=== PATIENT | male | born 1950 | race Caucasian/White ===

== ENCOUNTER 2019-03-17 16:31 | Inpatient (IN) ==
[2019-03-17 17:14] LABS: Basophils # (auto) 0.08 K/uL (0-0.2); Basophils % (auto) 0.8 %; Eosinophils # (auto) 0.04 K/uL (0-0.5); Eosinophils % (auto) 0.4 %; Hematocrit (blood only) 41.6 % (42-52); Hemoglobin 15.7 g/dL (14.0-18.0); Immature Granulocytes # (auto) 0.07 K/uL (0.00-0.02); Immature Granulocytes % (auto) 0.7 %; Lymphocytes # (auto) 2.18 K/uL (1.2-3.4); Lymphocytes % (auto) 23.1 %; Mean Corpuscular Hemoglobin 36.2 pg (25-34); Mean Corpuscular Hgb Conc 37.7 g/dL (32-36); Mean Corpuscular Volume 95.9 fL (80-100); Mean Platelet Volume 11.1 fL (7.4-10.4); Monocytes # (auto) 0.43 K/uL (0.11-0.59); Monocytes % (auto) 4.6 %; Neutrophils # (auto) 6.64 K/uL (1.4-6.5); Neutrophils % (auto) 70.4 %; Nucleated RBC # (auto) 0.04 K/uL (0-0); Nucleated RBC % (auto) 0.4 %; Platelet Count 300 K/uL (130-400); RDW Coefficient of Variation 12.2 % (11.5-14.5); RDW Standard Deviation 42.7 fL (36.4-46.3); Red Blood Count 4.34 M/uL (4.7-6.1); White Blood Count 9.44 K/uL (4.8-10.8)
[2019-03-17 17:50] LABS: Albumin Globulin Ratio 0.9 (0.9-2); BUN Creatinine Ratio 14.4 (10-20); Bilirubin,Total 0.9 mg/dl (0.2-1); Calcium 9.8 mg/dl (8.5-10.1); Est GFR (Non-African American) 49.2; Globulin 4.4 gm/dl (2.5-4.0); Total Protein 8.4 gm/dl (6.4-8.2)
[2019-03-17 18:06] LABS: Potassium 4.7 mmol/L (3.5-5.1)
[2019-03-17] MEDS ORDERED: SODIUM CHLORIDE 0.9% 1000ML 1,000 ML IV ONE (18:14)
[2019-03-17] MEDS ORDERED: NovoLIN-R INSULIN PER UNIT CHARGE IV STA (18:14)
[2019-03-17] MEDS ORDERED: METFORMIN HCL 500 MG TAB PO STA (18:14)
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
[2019-03-17 18:19] LABS: Beta-Hydroxybutyrate 8.61 mg/dl (0.2-2.81)
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
[2019-03-17] MEDS ORDERED: THIAMINE HCL 200 MG in SODIUM CHLORIDE 0.9% 50 ML IV STA (20:21)
[2019-03-17] MEDS ORDERED: FAMOTIDINE 20MG/5ML IV PUSH IV ONE (20:42)
[2019-03-17] MEDS ORDERED: FAMOTIDINE 20MG/5ML IV PUSH IV STA (20:42)
[2019-03-17] MEDS ORDERED: ACETAMINOPHEN 325 MG TAB PO PRN (21:45)
[2019-03-17] MEDS ORDERED: ALUMINUM/MAGNESIUM SUSP 30 ML UDC PO PRN (21:45)
[2019-03-17] MEDS ORDERED: GLUCOSE 40% GEL 15 GM TUBE PO PRN (21:45)
[2019-03-17] MEDS ORDERED: POLYETHYLENE (MIRALAX) 17 GM PACK PO PRN (21:45)
[2019-03-17] MEDS ORDERED: CARBOHYDRATES FOR HYPOGLYCEMIA PO PRN (21:45)
[2019-03-17] MEDS ORDERED: INSULIN GLARGINE SOLOSTAR 100 UNITS/ML 3 ML PEN SC STA (21:45)
[2019-03-17] MEDS ORDERED: MAGNESIUM HYDROXIDE SUSP 30 ML UDC PO PRN (21:45)
[2019-03-17] MEDS ORDERED: GLUCOSE 10 TABS/TUBE PO PRN (21:45)
[2019-03-17] MEDS ORDERED: ONDANSETRON INJ 2 MG/ML 2 ML VIAL IV PRN (21:45)
[2019-03-17] MEDS ORDERED: SODIUM CHLORIDE 0.9% 500 ML IV SCH (21:45)
[2019-03-17] MEDS ORDERED: GLUCAGON FOR INJ 1 MG VIAL SQ PRN (21:45)
[2019-03-17] MEDS ORDERED: DEXTROSE 50% 50 ML SYRINGE IV PRN (21:45)
[2019-03-17] MEDS ORDERED: PHARMACY GLYCEMIC MGMT CONSULT PRN (22:09)
[2019-03-17] MEDS ORDERED: INSULIN PROTOCOL GOAL RANGE STA (22:10)
[2019-03-17] MEDS ORDERED: MODERATE STRESS LEVEL STA (22:11)
[2019-03-17 22:26] LABS: Appearance Urine Clear (Clear); Bacteria Urine Automated Negative (Negative); Bilirubin Urine Negative (Negative); Blood Urine Negative (Negative); Cast Urine Automated 0 /lpf (0-5); Color Urine Yellow; Epithelial Cell Urine Auto 0-5 /lpf (0-5); Glucose Urine UA 3+ (Negative); Ketones Urine 1+ (Negative); Leukocyte Esterase Urine Negative (Negative); Nitrite Urine Negative (Negative); Protein Urine 1+ (Negative); RBC Urine Automated 0-4 /hpf (0-4); Specific Gravity Urine 1.039 (1.000-1.030); Urobilinogen Urine Negative (Negative); pH Urine 5.5 (4.5-7.5)
[2019-03-17] MEDS ORDERED: INSULIN HUMAN REGULAR IV BOLUS 3 UNITS in SYRINGE 0 ML IV ONE (22:40)
[2019-03-17] MEDS ORDERED: INSULIN REGULAR 250 UNITS in SODIUM CHLORIDE 0.9% 247.5 ML IV SCH (22:45)
[2019-03-17 22:51] LABS: Amphetamines+Metham, Urine Neg (Neg); Barbiturates, Urine Neg (Neg); Benzodiazepine, Urine Neg (Neg); Cocaine, Urine Neg (Neg); MDMA (Ecstacy), Urine Neg (Neg); Methadone, Urine Neg (Neg); Opiate, Urine Neg (Neg); Phencyclidine, Urine Neg (Neg)
[2019-03-17] MEDS: POTASSIUM CHLORIDE 30 MEQ in SODIUM CHLORIDE 0.9% 1000ML 1,000 ML IV SCH (23:17)
[2019-03-17] MEDS: INSULIN ASPART 100 UNITS/ML 3 ML PEN SC SCH (23:50)
[2019-03-17] MEDS: SIMVASTATIN 20 MG TAB PO SCH (23:54)
--- NOTE | 2019-03-18 00:12 | Billing Data ---
Date of Service March 17, 2019 Coding Level of Care Code 45859 Initial Inpt Care Lvl 3
[2019-03-18 06:26] LABS: Estimated Average Glucose 286 mg/dl; Hemoglobin A1C 11.6 % (4.5-5.6)
[2019-03-18] MEDS: POTASSIUM CHLORIDE 30 MEQ in SODIUM CHLORIDE 0.9% 1000ML 1,000 ML IV SCH ×2 (07:12→15:36)
[2019-03-18] MEDS: TOPIRAMATE 50 MG TAB PO SCH (08:25)
[2019-03-18] MEDS: INSULIN ASPART 100 UNITS/ML 3 ML PEN SC SCH ×6 (08:25→23:31)
[2019-03-18] MEDS: ASPIRIN 81 MG ECTAB PO SCH (08:25)
[2019-03-18] MEDS: lisinopriL 5 MG TAB PO SCH (08:26)
[2019-03-18] MEDS ORDERED: INSULIN GLARGINE SOLOSTAR 100 UNITS/ML 3 ML PEN SC ONE (09:00)
[2019-03-18 11:42] LABS: Basophils # (auto) 0.05 K/uL (0-0.2); Basophils % (auto) 0.5 %; Eosinophils # (auto) 0.11 K/uL (0-0.5); Hematocrit (blood only) 37.4 % (42-52); Hemoglobin 13.7 g/dL (14.0-18.0); Immature Granulocytes # (auto) 0.06 K/uL (0.00-0.02); Immature Granulocytes % (auto) 0.6 %; Lymphocytes # (auto) 3.02 K/uL (1.2-3.4); Lymphocytes % (auto) 28.1 %; Mean Corpuscular Hemoglobin 35.6 pg (25-34); Mean Corpuscular Hgb Conc 36.6 g/dL (32-36); Mean Corpuscular Volume 97.1 fL (80-100); Mean Platelet Volume 10.6 fL (7.4-10.4); Monocytes # (auto) 0.74 K/uL (0.11-0.59); Monocytes % (auto) 6.9 %; Neutrophils # (auto) 6.75 K/uL (1.4-6.5); Neutrophils % (auto) 62.9 %; Nucleated RBC # (auto) 0.03 K/uL (0-0); Nucleated RBC % (auto) 0.3 %; Platelet Count 271 K/uL (130-400); RDW Coefficient of Variation 12.7 % (11.5-14.5); RDW Standard Deviation 44.6 fL (36.4-46.3); Red Blood Count 3.85 M/uL (4.7-6.1); White Blood Count 10.73 K/uL (4.8-10.8)
--- NOTE | 2019-03-18 11:44 | XRay Report ---
XR chest 1V portable HISTORY: 68 years-old Male fever, confusion, r/o PNA acute fever with confusion COMPARISON: None available TECHNIQUE: Portable AP view of the chest FINDINGS: Cardiac silhouette is upper limits of normal in size. There is no pneumothorax, pleural effusion or f ocal airspace consolidation typical for pneumonia. Degenerative changes of the shoulders and spine. IMPRESSION: No acute process. ACT 112: Negative or not required by law. The above report was generated using voice recognition software. It may contain grammatical, syntax o r spelling errors. Electronically signed by: Imtiaz Voss M.D. 03/18/2019 11:43 AM
[2019-03-18 12:01] LABS: BUN Creatinine Ratio 17.6 (10-20); Calcium 8.7 mg/dl (8.5-10.1); Est GFR (African American) 71.1; Est GFR (Non-African American) 61.3; Potassium 4.1 mmol/L (3.5-5.1)
[2019-03-18 12:11] LABS: Folate (Folic Acid) > 24.00 ng/ml (>5.38); Vitamin B12 1537 pg/ml (211-911)
[2019-03-18 12:11] LABS: Thyroid Stimulating Hormone 1.84 uIu/ml (0.300-4.500)
--- NOTE | 2019-03-18 14:00 | Pharmacy Report ---
Glycemic Control Consultation - Date of Service March 18, 2019 - Scope Scope: Glycemic Pharmacist consulted by Dr Landaverde on 03/18/2019 for glycemic control and to write orders per formerly [facility] inpatient glycemic control protocol - Objective Weight: 110.1 kg Accuchecks BSG (last 24hrs): 03/17/19 03/17/19 03/17/19 17:00 19:28 21:48 Glucose 595 H* POC Glucose 373 H* 403 H* 03/17/19 03/17/19 03/18/19 21:49 23:18 00:20 Glucose POC Glucose 379 H* 393 H* 325 H* 03/18/19 03/18/19 03/18/19 01:20 02:27 03:21 Glucose POC Glucose 282 H 243 H 217 H 03/18/19 03/18/19 03/18/19 04:27 05:21 06:22 Glucose POC Glucose 165 H 172 H 138 H 03/18/19 03/18/19 03/18/19 07:32 08:46 08:47 Glucose POC Glucose 143 H 394 H* 295 H 03/18/19 03/18/19 03/18/19 08:48 09:39 10:45 Glucose POC Glucose 271 H 244 H 179 H 03/18/19 03/18/19 03/18/19 11:08 11:27 11:50 Glucose 202 H POC Glucose 189 H 214 H 03/18/19 03/18/19 12:38 13:45 Glucose POC Glucose 236 H 283 H Laboratory Data (last 24hrs): 03/17/19 03/18/19 17:00 11:08 Potassium 4.7 4.1 Carbon Dioxide 22 24 Anion Gap 13.0 H 6.0 Creatinine 1.44 H 1.20 Est Cr Clr Drug Dosing 60.0 71.0 Beta-Hydroxybutyric Acd 8.61 H HbA1c: Hemoglobin A1c 11.6 % (4.5-5.6) H 03/17/19 17:00 - Recent Pertinent Medications Outpatient Anti-diabetic Regimen: * metformin 1 gm PO BID (non-compliant x several months) The patient is currently receiving: * Basal insulin: Lantus 20 units SQ x 1 * Correctional Insulin: Novolog Correction per scale ACHS Goal Range: Low -- mg/dL - High -- mg/dL Correction Factor: -- mg/dL/unit * Prandial insulin: Per carb ratio of 1 unit per 7 grams CHO consumed * Insulin infusion Risk Factors for Insulin Resistance: * Diet: T2DM - Assessment & Plan Assessment & Plan: ASSESSMENT: * Mr Mccoy is a 68 y/o M with T2DM who presents with confusion. The patient admits to not taking his medications for some months. HbA1C is elevated. Patient initially started on insulin infusion. He received 10 units of Lantus last night. * Will aim for weight-based stress of 2 Lantus for now with weight-based stress of 2 Novolog. Gave 20 units this morning then plan for 20 units SQ BID starting at dinner. * Overnight checks. PLAN FOR INPATIENT GLYCEMIC CONTROL: * Holding outpatient oral diabetes medications * Basal insulin * Lantus 20 units SQ BID * Bolus insulin * NovoLog per scale ACHS or Q6hrs while NPO * Goal Range: Low 110 mg/dL - High 140 mg/dL * Correction Factor: 20 mg/dL/unit * Nutritional / Prandial insulin per carb ratio of 1 unit per 7 grams CHO consumed * Please note that the plan above was derived based on current level of insulin resistance and hospital stress. These recommendations are appropriate for inpatient admission only. Plan of care upon discharge will need to be reassessed to avoid potential outpatient hypo/hyperglycemia. Thank you.
[2019-03-18] MEDS ORDERED: INSULIN GLARGINE SOLOSTAR 100 UNITS/ML 3 ML PEN SC SCH (17:00)
[2019-03-18] MEDS ORDERED: DC IV INSULIN INFUSION 1 EA DEVI ONE (17:00)
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
[2019-03-18] MEDS: SIMVASTATIN 20 MG TAB PO SCH (21:06)
[2019-03-19] MEDS: INSULIN ASPART 100 UNITS/ML 3 ML PEN SC SCH ×4 (03:46→20:40)
[2019-03-19 06:29] LABS: BUN Creatinine Ratio 19.9 (10-20); Calcium 8.5 mg/dl (8.5-10.1); Creatinine Clr Calc Pharmacy 73.5 ml/min; Est GFR (African American) 74.1; Est GFR (Non-African American) 63.9; Potassium 4.2 mmol/L (3.5-5.1)
[2019-03-19] MEDS ORDERED: INSULIN GLARGINE SOLOSTAR 100 UNITS/ML 3 ML PEN SC ONE (08:30)
[2019-03-19] MEDS: lisinopriL 5 MG TAB PO SCH (08:44)
[2019-03-19] MEDS: ASPIRIN 81 MG ECTAB PO SCH (08:44)
[2019-03-19] MEDS: TOPIRAMATE 50 MG TAB PO SCH (08:44)
[2019-03-19] MEDS: ENOXAPARIN INJ 40 MG/0.4 ML SYR SQ SCH (10:24)
[2019-03-19] MEDS: INSULIN HUMAN REGULAR PER UNIT 10 UNITS in SYRINGE 9.9 ML IV ONE ×2 (12:52→14:33)
[2019-03-19] MEDS ORDERED: INSULIN ASPART 100 UNITS/ML 3 ML PEN SC SCH ×2 (15:00→17:00)
--- NOTE | 2019-03-19 15:50 | Pharmacy Report ---
Pharmacy Glycemic Short Note 2 - Date of Service March 19, 2019 - Glycemic Short BSG Results (Last 24 hours): 03/18/19 03/18/19 03/18/19 15:36 16:42 17:52 Glucose POC Glucose 284 H 282 H 284 H 03/18/19 03/18/19 03/18/19 19:52 19:53 23:27 Glucose POC Glucose 312 H* 312 H* 271 H 03/19/19 03/19/19 03/19/19 03:44 05:19 08:03 Glucose 219 H POC Glucose 214 H 298 H 03/19/19 03/19/19 11:48 13:59 Glucose POC Glucose 361 H* 325 H* OUTPATIENT ANTIDIABETIC REGIMEN: * metformin 1 gm PO BID (non-compliant x several months) ASSESSMENT: * Mr. Mccoy received 79 units of SQ insulin yesterday plus overlap with IV insulin infusion for the majority of the day * 40 units of basal * 39 units of bolus * BSGs have ranged from 214 - 361 mg/dL since infusion was stopped despite aggressive SQ insulin doses * Fasting BSG = 298 mg/dL. Increase Lantus dose to weight/stress 3. * Post prandial BSGs remain severely elevated despite tightening Novolog parameters to stress/weight 3 this morning. I had ordered an IV regular insulin bolus to be given with lunch, however patient refused IV access. Discussed plan with Hospitalist per patient is insisting on being discharged. * Will utilize q2h Novolog short term in an attempt to achieve BSG < 200 mg/dL. PLAN FOR INPATIENT GLYCEMIC CONTROL: * Resume metformin 1000 mg PO BID * Basal insulin * Lantus 10-28 units SQ BID: * 10 units for BSG < 140 * 20 units for BSG 140-180 * 28 units for BSG > 180 * Bolus insulin- NovoLog * Goal Range: Low 120 mg/dL - High 150 mg/dL * Administer q2h x 3 (1300,1500,1700) * Correction Factor: 24 mg/dL/unit * Nutritional / Prandial insulin per carb ratio of 1 unit per 4 grams CHO consumed * Resume Novolog ACHS @ 2100 * Correction Factor: 15 mg/dL/unit * Nutritional / Prandial insulin per carb ratio of 1 unit per 4 grams CHO consumed * Please note that the plan above was derived based on current level of insulin resistance and hospital stress. These recommendations are appropriate for inpatient admission only. Plan of care upon discharge will need to be reassessed to avoid potential outpatient hypo/hyperglycemia. PLAN FOR DISCHARGE: * A1c = 11.6% * Patient is agreeable to metformin + basal + bolus insulin on discharge * It is difficult to determine outpatient needs at this time per patient has received 84 units of insulin so far today and last BSG was > 250. If patient insists on being discharged on 03/19, I recommend the following: * Continue metformin 1000 mg PO BID * Lantus 60 units SQ daily * Novolog 12 units TID with meals (plus scale for correction if pt agreeable) Thank you.
[2019-03-19] MEDS ORDERED: METFORMIN HCL 500 MG TAB PO SCH (17:00)
--- NOTE | 2019-03-19 17:53 | Electrocardiogram Report ---
Test Reason : Blood Pressure : / mmHG Vent. Rate : 077 BPM Atrial Rate : 077 BPM P-R Int : 310 ms QRS Dur : 088 ms QT Int : 382 ms P-R-T Axes : 052 -47 032 degrees QTc Int : 432 ms Sinus rhythm with 1st degree A-V block Left anterior fascicular block Poor R wave progression, consider anterior FL vs. lead placement vs. LVH Abnormal ECG When compared with ECG of 17-MAR-2019 16:39, (unconfirmed) No significant change was found Confirmed by Deonte Parra ([id number]) on 03/19/2019 5:53:22 PM Referred By: REFERRED SELF Confirmed By:Casey Parra
--- NOTE | 2019-03-19 17:58 | Electrocardiogram Report ---
Test Reason : Blood Pressure : / mmHG Vent. Rate : 089 BPM Atrial Rate : 089 BPM P-R Int : 296 ms QRS Dur : 088 ms QT Int : 364 ms P-R-T Axes : 000 -51 050 degrees QTc Int : 442 ms Sinus rhythm with Mobitz I (Wenckebach) block Left anterior fascicular block Abnormal ECG No previous ECGs available Reconfirmed by Deonte Parra ([id number]) on 03/21/2019 12:53:08 PM Referred By: REFERRED SELF Confirmed By:Casey Parra
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
[2019-03-19] MEDS: SIMVASTATIN 20 MG TAB PO SCH (20:38)
[2019-03-19] MEDS ORDERED: INSULIN GLARGINE SOLOSTAR 100 UNITS/ML 3 ML PEN SC SCH (21:00)
[2019-03-20 08:19] LABS: BUN Creatinine Ratio 18.7 (10-20); Calcium 8.3 mg/dl (8.5-10.1); Creatinine Clr Calc Pharmacy 72.2 ml/min; Est GFR (African American) 71.1; Est GFR (Non-African American) 61.3; Magnesium 2.2 mg/dl (1.8-2.4); Potassium 4.1 mmol/L (3.5-5.1)
[2019-03-20] MEDS: lisinopriL 5 MG TAB PO SCH (08:19)
[2019-03-20] MEDS: TOPIRAMATE 50 MG TAB PO SCH (08:19)
[2019-03-20] MEDS: ASPIRIN 81 MG ECTAB PO SCH (08:19)
[2019-03-20] MEDS: ENOXAPARIN INJ 40 MG/0.4 ML SYR SQ SCH (08:19)
[2019-03-20] MEDS: INSULIN ASPART 100 UNITS/ML 3 ML PEN SC SCH ×3 (08:20→17:36)
[2019-03-20] MEDS ORDERED: INSULIN GLARGINE SOLOSTAR 100 UNITS/ML 3 ML PEN SC ONE ×2 (09:00→21:00)
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
--- NOTE | 2019-03-20 16:07 | XCELERA ---
[id number] \\[id number]
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
[2019-03-21] MEDS ORDERED: INSULIN ASPART 100 UNITS/ML 3 ML PEN SC ONE (02:00)
== END 2019-03-20 18:36 | disposition home or self-care (01) | DRG 637 ==
LOC: ED 16:31 → SUATTDRO 20:15 → 2W 20:15 → 3N 03-18 23:00 → 2W 03-19 18:54

== ENCOUNTER 2020-12-03 19:15 | Inpatient (IN) ==
[2020-12-03] MEDS ORDERED: STAT IV Infusion **Titration per Protocol STA ×2 (19:23→22:38)
[2020-12-03] MEDS ORDERED: DKA GOAL RANGE 150-250 mg/dl ONE (19:23)
[2020-12-03] MEDS ORDERED: SODIUM CHLORIDE 0.9% 1000ML 1,000 ML IV SCH (19:30)
[2020-12-03] MEDS ORDERED: INSULIN REGULAR 250 UNITS in SODIUM CHLORIDE 0.9% 247.5 ML IV SCH (19:30)
--- NOTE | 2020-12-03 19:36 | Emergency Department Note ---
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 Repeat BMP demonstrates a sodium 132. Carbon dioxide is 19 with an anion gap of 12. Creatinine is improved at 1.8. Blood sugar is 455. I did discuss the case with the hospitalist and manager of case management for further care and evaluation. I was able to speak to his daughter Ngozi Mccoy over the phone. She stated that the patient has been noncompliant with his medications for months. She was trying to take care of him but she he kicked her out of the house November 19. She has been trying to reach him over the telephone for the past several days and has been unable to reach him. He is noncompliant with his medications becau se he is stubborn. He is also depressed and refuses to take his depression medication. At the request of his daughter I did speak to Benita, his ykokln-wz-kla who is a PA at [employer], and she stated that he has a history of intermittently being noncompliant with medications. She states that he has exp ressed that he does not care if he lives or dies and therefore does not take care of himself but he has never professed any active suicidal ideation. She does not feel that he needs a 302 at this point based on the information that we have here and that likely his predicament is from his medication noncompliance rather than any sort of suicide attempt. She does state that he has had no advance directives and so he is a full code. The family has no opposition to placing him on a ventilator should he require it. Once he is more coherent he will benefit from psychiatric consultation as well as discussion with physicians and social work regarding advanced directives. Impression & Plan DKA (diabetic ketoacidosis), Acute alteration in mental status, ROYAL (acute kidney injury), Noncompliance with medications Discharge Plan Visit Data Chief Complaint: Altered Mental Status Stated Complaint: AMS ED Provider: Jeb Atkinson Discharge Problem: DKA (diabetic ketoacidosis), Acute alteration in mental status, ROYAL (acute kidney injury), Noncompliance with medications Patient Disposition: Being Evaluated by Hospitalist Forms Stand Alone Forms: [facility] [employer] Prescriptions Prescriptions: No Action dextroamphetamine-amphetamine [Adderall] 30 mg tablet 30 mg PO BID RF: 0 atorvastatin 20 mg tablet 20 mg PO DAILY RF: 0 (DME) lancets [Accu-Chek Fastclix Lancet Drum] Misc See Rx Instructions .ROUTE .MEDSUPPLY RF: 0 Novolin N NPH U-100 Insulin 100 unit/mL suspension 18 unit subcut BID RF: 0 Novolin R Regular U-100 Insuln 100 unit/mL solution 14 unit subcut TID RF: 0 (DME) insulin syringe-needle U-100 [BD Insulin Syringe Ultra-Fine] 0.5 mL 31 gauge x 5/16" syringe See Rx Instructions .ROUTE .MEDSUPPLY Qty: 10 RF: 0 tadalafil [Cialis] 10 mg tablet 10 mg PO DAILY PRN (Reason: Sexual Activity) RF: 0 (DME) Accu-Chek Guide test strips Strip See Rx Instructions .ROUTE .MEDSUPPLY RF: 0 (DME) FreeStyle Marta 2 Sensor Kit See Rx Instructions .ROUTE .MEDSUPPLY Qty: 1 RF: 12 aspirin 81 mg Tablet,Delayed Release (Dr/Ec) 81 mg PO DAILY RF: 0 lisinopril 5 mg tablet 5 mg PO DAILY Qty: 30 RF: 0 metformin 500 mg tablet extended release 24 hr 1,000 mg PO BID Qty: 120 RF: 0 topiramate 50 mg tablet 50 mg PO DAILY Qty: 30 RF: 0 Referrals Referrals: Lillie Ramsay DO [Primary Care Provider] - Discharge Problem: DKA (diabetic ketoacidosis) Qualifiers: Diabetes mellitus type: other specified (including GINGER) Diabetes mellitus complication detail: without coma Qualified Code(s): E13.10 - Other specified diabetes mellitus with ketoacidosis without coma
[2020-12-03] MEDS ORDERED: NovoLIN-R INSULIN PER UNIT CHARGE IV STA (19:37)
[2020-12-03 19:39] LABS: Basophils # (auto) 0.03 K/uL (0-0.2); Basophils % (auto) 0.2 %; Eosinophils # (auto) 0.01 K/uL (0-0.5); Eosinophils % (auto) 0.1 %; Hematocrit (blood only) 39.4 % (42-52); Hemoglobin 14.2 g/dL (14.0-18.0); Immature Granulocytes % (auto) 0.7 %; Lymphocytes # (auto) 1.52 K/uL (1.2-3.4); Mean Corpuscular Hemoglobin 35.4 pg (25-34); Mean Corpuscular Volume 98.3 fL (80-100); Mean Platelet Volume 11.2 fL (7.4-10.4); Monocytes # (auto) 0.65 K/uL (0.11-0.59); Monocytes % (auto) 4.3 %; Neutrophils # (auto) 12.84 K/uL (1.4-6.5); Neutrophils % (auto) 84.7 %; Nucleated RBC # (auto) 0.02 K/uL (0-0); Nucleated RBC % (auto) 0.1 %; Platelet Count 305 K/uL (130-400); RDW Coefficient of Variation 12.3 % (11.5-14.5); Red Blood Count 4.01 M/uL (4.7-6.1); White Blood Count 15.15 K/uL (4.8-10.8)
--- NOTE | 2020-12-03 20:16 | CT Scan Report ---
CT OF THE HEAD WITHOUT CONTRAST CLINICAL HISTORY: Altered mental status. Evaluate for bleed. COMPARISON STUDY: Head CT March 17, 2019. TECHNIQUE: Helical axial images of the head were obtained without IV contrast. Automated exposure con trol was utilized for the study. A dose lowering technique was utilized adhering to the principles o f ALARA. FINDINGS: This exam is compromised by motion artifact. No acute intracranial hemorrhage, midline shif t or mass effect is present. The ventricular system is stable. The basal cisterns are patent. No extr a-axial collections are present. There are no findings to suggest acute dural sinus thrombosis or acu te territorial infarct. No significant calvarial abnormalities are present. Visualized portions of th e sinuses and mastoid air cells are clear. IMPRESSION: Exam compromised by motion artifact. No acute intracranial findings. No significant machuca e since prior exam. ACT 112: Negative or not required by law. Electronically signed by: Lico Morales M.D. 12/03/2020 8:15 PM
--- NOTE | 2020-12-03 20:20 | CT Scan Report ---
CT OF THE CERVICAL SPINE WITHOUT CONTRAST CLINICAL HISTORY: Possible fall. Altered mental status. Evaluate for fracture. COMPARISON STUDY: No previous studies for comparison. TECHNIQUE: Helical axial images of the cervical spine were obtained without IV contrast. Sagittal a nd coronal reconstructions were viewed. Automated exposure control was utilized for the study. A do se lowering technique was utilized adhering to the principles of ALARA. FINDINGS: This exam is mildly compromised by motion artifact. Alignment of the cervical spine is louis omic. Vertebral body heights are maintained. No acute cervical spine fracture or subluxation is prese nt. There is no prevertebral edema. Facet joints are intact. There is severe multilevel facet arthro sis. Note is made of moderate disc space narrowing with osteophyte ptosis at C5-C6. IMPRESSION: No acute cervical spine fracture or subluxation. Exam mildly compromised by motion artifa ct. ACT 112: Negative or not required by law. Electronically signed by: Lico Morales M.D. 12/03/2020 8:19 PM
[2020-12-03 20:25] LABS: Alanine Aminotransferase 31 U/L (12-78); Albumin Level 3.4 gm/dl (3.4-5.0); Aspartate Aminotransferase 21 U/L (15-37); BUN Creatinine Ratio 16.1 (10-20); Bilirubin,Total 0.8 mg/dl (0.2-1); Blood Urea Nitrogen 32 mg/dl (7-18); Calcium 9.5 mg/dl (8.5-10.1); Carbon Dioxide 20 mmol/L (21-32); Chloride 93 mmol/L (98-107); Creatine Kinase 91 U/L (39-308); Est GFR (African American) 38.7 ml/min; Est GFR (Non-African American) 33.4 ml/min; Glucose 793 mg/dl (70-99); Magnesium 1.9 mg/dl (1.8-2.4); Phosphorus 3.7 mg/dl (2.5-4.9); Potassium 4.6 mmol/L (3.5-5.1); Sodium 126 mmol/L (136-145); Total Protein 7.3 gm/dl (6.4-8.2); Troponin I < 0.015 ng/ml (0-0.045)
[2020-12-03 20:26] LABS: Alkaline Phosphatase 83 U/L (45-117); Globulin 3.9 gm/dl (2.5-4.0)
[2020-12-03 20:27] LABS: Albumin Globulin Ratio 0.9 (0.9-2)
[2020-12-03 20:44] LABS: HCO3 ABG 21 mmol/L (19-24); Oxygen Saturation ABG 97.5 % (90-95); PCO2 ABG 35 mmHg (35-46); PO2 ABG 98 mmHg (80-95)
[2020-12-03] MEDS ORDERED: GLUCAGON FOR INJ 1 MG VIAL IM PRN (20:45)
[2020-12-03] MEDS ORDERED: DEXTROSE 50% 50 ML SYRINGE IV PRN (20:45)
[2020-12-03] MEDS ORDERED: GLUCOSE 40% GEL 15 GM TUBE PO PRN (20:45)
[2020-12-03] MEDS ORDERED: CARBOHYDRATES FOR HYPOGLYCEMIA PO PRN (20:45)
[2020-12-03] MEDS ORDERED: GLUCOSE 10 TABS/TUBE PO PRN (20:45)
--- NOTE | 2020-12-03 20:49 | XRay Report ---
XR elbow LT min 3V routine CLINICAL HISTORY: Left elbow pain following injury. Evaluate for fracture. COMPARISON: None FINDINGS: Alignment of the left elbow is anatomic. Note is made of soft tissue swelling overlying th e olecranon. No acute fracture is present. There is no evidence for joint effusion. IMPRESSION: 1. No acute fracture or evidence for a joint effusion of the left elbow. 2. Soft tissue swelling overlying the olecranon. ACT 112: Negative or not required by law. Electronically signed by: Lico Morales M.D. 12/03/2020 8:47 PM
[2020-12-03 20:51] LABS: Beta-Hydroxybutyrate 7.66 mg/dl (0.2-2.81)
[2020-12-03 21:02] LABS: Allen Test Pos (Pos)
[2020-12-03 21:06] LABS: Acetaminophen < 2 ug/ml (10-30); Salicylate < 1.7 mg/dl (2.8-20)
[2020-12-03] MEDS ORDERED: DROPERIDOL 5 MG/2 ML VIAL IV STA (21:20)
[2020-12-03 22:03] LABS: Appearance Urine Clear (Clear); Bacteria Urine Automated Negative (Negative); Bilirubin Urine Negative (Negative); Blood Urine 3+ (Negative); Color Urine Orange; Glucose Urine UA 3+ (Negative); Ketones Urine Trace (Negative); Leukocyte Esterase Urine Negative (Negative); Nitrite Urine Negative (Negative); Protein Urine 2+ (Negative); RBC Urine Automated >30 /hpf (0-4); Specific Gravity Urine 1.037 (1.000-1.030); Urobilinogen Urine Negative (Negative)
[2020-12-03 22:08] LABS: BUN Creatinine Ratio 16.9 (10-20); Blood Urea Nitrogen 31 mg/dl (7-18); Calcium 9.5 mg/dl (8.5-10.1); Carbon Dioxide 19 mmol/L (21-32); Chloride 100 mmol/L (98-107); Est GFR (African American) 42.6 ml/min; Est GFR (Non-African American) 36.8 ml/min; Glucose 485 mg/dl (70-99); Potassium 4.3 mmol/L (3.5-5.1); Sodium 132 mmol/L (136-145)
[2020-12-03] MEDS ORDERED: LORazepam 2 MG/4 ML VIAL ONE ×2 (22:09→23:40)
[2020-12-03] MEDS ORDERED: HALOPERIDOL LACTATE 5 MG/ML 1 ML VIAL IM STA (22:14)
[2020-12-03 22:43] LABS: Amphetamines+Metham, Urine Neg (Neg); Barbiturates, Urine Neg (Neg); Benzodiazepine, Urine Neg (Neg); Cocaine, Urine Neg (Neg); MDMA (Ecstacy), Urine Neg (Neg); Methadone, Urine Neg (Neg); Opiate, Urine Neg (Neg); Phencyclidine, Urine Neg (Neg)
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
--- NOTE | 2020-12-03 23:22 | Critical Care Progress Note ---
Date of Service December 03, 2020 Assessment & Plan (1) Metabolic encephalopathy: (2) DKA (diabetic ketoacidosis): (3) ROYAL (acute kidney injury): (4) Noncompliance with medications: (5) Hyperlipidemia: (6) Obesity: (7) Depression: (8) ADHD: (9) Leukocytosis: Plan: Reason Critically Ill: Metabolic encephalopathy, with hyperglycemia and elevated lactate Neuro Metabolic Encephaloathy, Acute Delirium, ADHD, Depression - DDX: Metabolic vs. less likely infectious vs. toxic/drug induced- CT scan of the head did not reveal any acute pathology including noting negative for venous sinus thrombosis; correct metabolic parameters- glucose, intravascular volume - No focal deficits noted, no seizures noted, no meningismus signs - On Adderall at home tox screen negative for amphetamine - toxicology screen negative- send TSH, - ETOH negative - Thiamine 500 mg IV now continue if improvement- however no nystagmus - Precedex infusion with ETCO2 monitoring- avoid further benzodiazepines as able - If no improvement advanced imaging/investigation- will hold morning dose of Heparin if LP is needed- He will need further sedation to perform - not immunocompromised other than DM - Once cleared patient may benefit from psych evaluation- consider initiation of Zyprexa if not clearing. CAM ICU: [+]- Delirium precautions Cardiac -HLD, HTN HX syncope with 2nd degree AV block- - HX of such with DKA in - resolved with no intervention - HFpEF Grade I diastolic dysfunction with EF 65-70% 03/10 - ECG today NSR - Continue SHANNAN - Continue Statin Respiratory - Hypoxia without respiratory failure - sonorous respirations but maintaining ventilation and oxygenation - ETCO2 monitoring and continuous pulse ox - O2 support needed for Spo2 >92 GI - No acute process NPO until mental status improves RENAL/LYTES/Acid base -CKD, KAMILLE 2, hypovolemia, hypophosphatemia, pseudohyponatremia with elevated glucose - ROYAL type II- likely pre-renal - Protein 2+, blood 3+ likely secondary to Trinidad placement- follow - Continue volume replacement until euvolemia - UA negative for bacteria -PH 7.40, CO2 35 Pa02 98 on ABG - Electrolyte protocol - No acute process as above - Trinidad to gravity- remove when able - likely will need 24-48 hours ENDO - Obesity, DKA, Lactic acidosis, DMII- HGBA1c 7/21 7% - Hyperglycemia with low level DKA- HCO3 19 and Gap 13 - Insulin drip ICU protocol as already correcting - hold metformin - Continue with insulin drip and volume repletion--> D5LR - TSH, B12, Folate in morning - Hold Topamax HEME - NO acute issues - normocytic- not anemic ID - Leukocytosis, unclear source at this time - WBC at 15 with elevated NLR- blood cultures done prior to iniatiaton of abx - CXR- poor overall quality of film- repeat in ICU - ABX- Empiric Rocephin/Vancomycin for Nuero/pulm coverage - Lactate- 4.7 - CRP- -0.97 - ESR 26 -PCT- 0.12 LINES/IV ACCESS - PIV x2- continue use of this lines Trinidad to gravity- continue use of this line Continue use of these lines DVT PROPHYLAXIS - - Heparin 5000 units subq q12 DISPO: ICU I have personally spent 60 minutes of critical care time in the direct management of this patient. This is a life/limb threatening event. This includes time spent evaluating patient, direct bedside care, chart review, placing orders, interpretation of diagnostic studies, discussion with consultants, patient, and family members, as well as other required patient management activities. This time is exclusive of all separately billable procedures, and teaching time and separate from and in addition to any other critical care service time. Thank you for allowing us to participate in the care of this patient. Please refer to my attending physician's documentation for any further recommendations. Supervising Physician Co-Signing Physician Notes Seen and examined. Discussed with CC MADISON. See my PN from 12/04 for additional details. Subjective 70 YOM brought into EMD today via EMS after he was found reportedly trying to enter another person's home. He was altered with agitation and combativeness in the EMD. He was noted to by hyperglycemic into the 700s with a GAP of 13, HCO3 19, and an elevated Lactate of 4.4 with an elevated WBC count. He was started on insulin drip for mild DKA, infectious workup was started by the Hospitalist team, and was given Haldol for his agitation and combativeness, which he responded to at this time. He was also given a dose of Droperidol 1.25mg IV for delirium management in EMD. He had a CXR performed, CT scan of the neck and head performed for concern of a fall secondary to abrasion on his elbow. Patient admitted to ICU for metabolic encephalopathy in the setting of elevated glucose, DKA with lactic acidosis, and elevated inflammatory markers. Tox screen is pending. See EMD note regarding social status with depression and agitation. Code status discussed with admitting hospitalist service and sister. Review of Systems Review of Systems: unable to obtain from patient secondary to encephalopathy Physical Exam Physical Exam: PHYSICAL EXAM: General- dirty with scratches to lower back and elbow Neuro: AAO x 0 speech present in groans, GCS- 10 strength intact bilaterally 5/5, no focal deficits or ataxia, localizes to pain, does not follow commands, wandering eye movements Chest: equal rise and fall of the chest, no accessory muscle use, Clear to auscultation, on room air, sonorous respirations Cardiac: Regular rate and rhythm- sinus tachycardia, telemetry reviewed, skin warm dry, cap refill <3 seconds, peripheral pulses +2 no JVD, no murmur, no edema GI: NABS x 4 quadrants, soft, nontender to palpation, no rebound, guarding or tenderness :Trinidad to gravity, Extremities: Normal inspection, no peripheral edema or erythema, calfs nontender to palpation Psych: Normal mood and affect Skin: no rash or erythema Results & Data Results & Data ([facility]) Vital Signs (Past 12 Hours) Vital Signs Temp Pulse Pulse Resp BP BP Pulse Ox 12/03/20 22:45 87 24 137/71 96 12/03/20 21:24 94 H 26 H 166/74 H 93 12/03/20 19:20 37.0 C 62 24 136/85 96 Laboratory Results Abnormal lab results 12/03/20 12/03/20 12/03/20 Range/Units 19:25 19:25 19:25 WBC 15.15 H (4.8-10.8) K/uL RBC 4.01 L (4.7-6.1) M/uL Hct 39.4 L (42-52) % MCH 35.4 H (25-34) pg MPV 11.2 H (7.4-10.4) fL Neut # (Auto) 12.84 H (1.4-6.5) K/uL Cass # (Auto) 0.65 H (0.11-0.59) K/uL Immature Gran # (Auto) 0.10 H (0.00-0.02) K/uL Absolute Nucleated RBC 0.02 H (0-0) K/uL ABG pO2 (80-95) mmHg ABG O2 Saturation (90-95) % Sodium 126 L (136-145) mmol/L Chloride 93 L (98-107) mmol/L Carbon Dioxide 20 L (21-32) mmol/L Anion Gap 13.0 H (3-11) BUN 32 H (7-18) mg/dl Creatinine 1.96 H (0.6-1.4) mg/dl Glucose 793 H* (70-99) mg/dl POC Glucose (70-99) mg/dl Lactate (0.4-2.0) mmol/L Beta-Hydroxybutyric Acd 7.66 H (0.2-2.81) mg/dl Ur Specific [place] (1.000-1.030) Urine Protein (Negative) Urine Glucose (UA) (Negative) Urine Ketones (Negative) Urine Blood (Negative) Urine RBC (Auto) (0-4) /hpf U Epithel Cells (Auto) (0-5) /lpf Salicylates < 1.7 L (2.8-20) mg/dl Acetaminophen < 2 L (10-30) ug/ml 12/03/20 12/03/20 12/03/20 Range/Units 20:19 20:19 20:32 WBC (4.8-10.8) K/uL RBC (4.7-6.1) M/uL Hct (42-52) % MCH (25-34) pg MPV (7.4-10.4) fL Neut # (Auto) (1.4-6.5) K/uL Cass # (Auto) (0.11-0.59) K/uL Immature Gran # (Auto) (0.00-0.02) K/uL Absolute Nucleated RBC (0-0) K/uL ABG pO2 98 H (80-95) mmHg ABG O2 Saturation 97.5 H (90-95) % Sodium (136-145) mmol/L Chloride (98-107) mmol/L Carbon Dioxide (21-32) mmol/L Anion Gap (3-11) BUN (7-18) mg/dl Creatinine (0.6-1.4) mg/dl Glucose (70-99) mg/dl POC Glucose > 600 H* (70-99) mg/dl Lactate 4.4 H* (0.4-2.0) mmol/L Beta-Hydroxybutyric Acd (0.2-2.81) mg/dl Ur Specific [place] (1.000-1.030) Urine Protein (Negative) Urine Glucose (UA) (Negative) Urine Ketones (Negative) Urine Blood (Negative) Urine RBC (Auto) (0-4) /hpf U Epithel Cells (Auto) (0-5) /lpf Salicylates (2.8-20) mg/dl Acetaminophen (10-30) ug/ml 12/03/20 12/03/20 12/03/20 Range/Units 20:35 21:34 21:40 WBC (4.8-10.8) K/uL RBC (4.7-6.1) M/uL Hct (42-52) % MCH (25-34) pg MPV (7.4-10.4) fL Neut # (Auto) (1.4-6.5) K/uL Cass # (Auto) (0.11-0.59) K/uL Immature Gran # (Auto) (0.00-0.02) K/uL Absolute Nucleated RBC (0-0) K/uL ABG pO2 (80-95) mmHg ABG O2 Saturation (90-95) % Sodium 132 L (136-145) mmol/L Chloride (98-107) mmol/L Carbon Dioxide 19 L (21-32) mmol/L Anion Gap 12.0 H (3-11) BUN 31 H (7-18) mg/dl Creatinine 1.81 H (0.6-1.4) mg/dl Glucose 485 H* (70-99) mg/dl POC Glucose 570 H* (70-99) mg/dl Lactate (0.4-2.0) mmol/L Beta-Hydroxybutyric Acd 3.20 H (0.2-2.81) mg/dl Ur Specific [place] 1.037 H (1.000-1.030) Urine Protein 2+ H (Negative) Urine Glucose (UA) 3+ H (Negative) Urine Ketones Trace H (Negative) Urine Blood 3+ H (Negative) Urine RBC (Auto) >30 H (0-4) /hpf U Epithel Cells (Auto) 10-20 H (0-5) /lpf Salicylates (2.8-20) mg/dl Acetaminophen (10-30) ug/ml 12/03/20 12/03/20 12/03/20 Range/Units 21:47 21:48 22:50 WBC (4.8-10.8) K/uL RBC (4.7-6.1) M/uL Hct (42-52) % MCH (25-34) pg MPV (7.4-10.4) fL Neut # (Auto) (1.4-6.5) K/uL Cass # (Auto) (0.11-0.59) K/uL Immature Gran # (Auto) (0.00-0.02) K/uL Absolute Nucleated RBC (0-0) K/uL ABG pO2 (80-95) mmHg ABG O2 Saturation (90-95) % Sodium (136-145) mmol/L Chloride (98-107) mmol/L Carbon Dioxide (21-32) mmol/L Anion Gap (3-11) BUN (7-18) mg/dl Creatinine (0.6-1.4) mg/dl Glucose (70-99) mg/dl POC Glucose > 600 H* 455 H* 385 H* (70-99) mg/dl Lactate (0.4-2.0) mmol/L Beta-Hydroxybutyric Acd (0.2-2.81) mg/dl Ur Specific [place] (1.000-1.030) Urine Protein (Negative) Urine Glucose (UA) (Negative) Urine Ketones (Negative) Urine Blood (Negative) Urine RBC (Auto) (0-4) /hpf U Epithel Cells (Auto) (0-5) /lpf Salicylates (2.8-20) mg/dl Acetaminophen (10-30) ug/ml Diagnostic Findings Cervical Spine CT 12/03/20 19:23 CT OF THE CERVICAL SPINE WITHOUT CONTRAST CLINICAL HISTORY: Possible fall. Altered mental status. Evaluate for fracture. COMPARISON STUDY: No previous studies for comparison. TECHNIQUE: Helical axial images of the cervical spine were obtained without IV contrast. Sagittal and coronal reconstructions were viewed. Automated exposure control was utilized for the study. A dose lowering technique was utilized adhering to the principles of ALARA. FINDINGS: This exam is mildly compromised by motion artifact. Alignment of the cervical spine is anatomic. Vertebral body heights are maintained. No acute cervical spine fracture or subluxation is present. There is no prevertebral edema. Facet joints are intact. There is severe multilevel facet arthrosis. Note is made of moderate disc space narrowing with osteophyte ptosis at C5-C6. IMPRESSION: No acute cervical spine fracture or subluxation. Exam mildly compromised by motion artifact. ACT 112: Negative or not required by law. Electronically signed by: Lico Morales M.D. 12/03/2020 8:[address] 12/03/20 19:23 CT OF THE HEAD WITHOUT CONTRAST CLINICAL HISTORY: Altered mental status. Evaluate for bleed. COMPARISON STUDY: Head CT March 17, 2019. TECHNIQUE: Helical axial images of the head were obtained without IV contrast. Automated exposure control was utilized for the study. A dose lowering technique was utilized adhering to the principles of ALARA. FINDINGS: This exam is compromised by motion artifact. No acute intracranial hemorrhage, midline shift or mass effect is present. The ventricular system is stable. The basal cisterns are patent. No extra-axial collections are present. There are no findings to suggest acute dural sinus thrombosis or acute territorial infarct. No significant calvarial abnormalities are present. Visualized portions of the sinuses and mastoid air cells are clear. IMPRESSION: Exam compromised by motion artifact. No acute intracranial findings. No significant change since prior exam. ACT 112: Negative or not required by law. Electronically signed by: Lico Morales M.D. 12/03/2020 8:15 PM Elbow X-Ray 12/03/20 20:22 XR elbow LT min 3V routine CLINICAL HISTORY: Left elbow pain following injury. Evaluate for fracture. COMPARISON: None FINDINGS: Alignment of the left elbow is anatomic. Note is made of soft tissue swelling overlying the olecranon. No acute fracture is present. There is no evidence for joint effusion. IMPRESSION: 1. No acute fracture or evidence for a joint effusion of the left elbow. 2. Soft tissue swelling overlying the olecranon. ACT 112: Negative or not required by law. Electronically signed by: Lico Morales M.D. 12/03/2020 8:47 PM CXR performed- poor quality study, will repeat on admission to ICU Medications Administered Insulin Human Regular 250 (units/ Sodium Chloride) 250 mls @ 10 mls/hr IV .Q24H YAMILETH; Protocol Stop: 01/02/21 19:29 Last Titration: 12/03/20 22:51 Dose: 12 units/hr, 12 mls/hr Documented by: [id number] Cosigned by: [id number] Titration: 12/03/20 21:50 Dose: 10 units/hr, 10 mls/hr Documented by: [id number] Cosigned by: [id number] Admin: 12/03/20 20:45 Dose: 10 units/hr, 10 mls/hr Documented by: [id number] Cosigned by: [id number] Discontinued Medications Droperidol (Droperidol 5 Mg/2 Ml Vial) 1.25 mg IV ONE STA Stop: 12/03/20 21:21 Last Admin: 12/03/20 21:27 Dose: 1.25 mg Documented by: [id number] Haloperidol Lactate (Haloperidol Lactate 5 Mg/Ml 1 Ml Vial) 5 mg IM NOW STA Stop: 12/03/20 22:15 Last Admin: 12/03/20 22:30 Dose: 5 mg Documented by: [id number] Sodium Chloride (Nss 1000ml) 1,000 mls @ 999 mls/hr IV .Q1H1M YAMILETH Stop: 12/03/20 20:30 Last Infusion: 12/03/20 20:49 Dose: 0 mls/hr Documented by: [id number] Admin: 12/03/20 19:47 Dose: 999 mls/hr Documented by: [id number] Insulin Human Regular (Novolin-R Insulin Per Unit Charge) 10 units IV NOW STA Stop: 12/03/20 19:38 Last Admin: 12/03/20 19:44 Dose: 10 units Documented by: [id number] Cosigned by: [id number] Lorazepam (Lorazepam 2 Mg/4 Ml Vial) Confirm Administered Dose 2 mg .ROUTE .STK-MED ONE Stop: 12/03/20 22:10 Last Increment: 12/03/20 22:14 Dose: 1 mg Documented by: [id number] Miscellaneous (Dka Goal Range 150-250 Mg/Dl) 1 ea N/A ONE ONE Stop: 12/03/20 19:24 Last Admin: 12/03/20 21:32 Dose: Not Given Documented by: [id number] Miscellaneous (Stat Iv Infusion Titration Per Protocol) 1 ea N/A NOW STA Stop: 12/03/20 19:24 Last Admin: 12/03/20 21:32 Dose: Not Given Documented by: [id number] Home Medications aspirin 81 mg tablet,delayed release 81 mg PO DAILY 03/17/19 [History Confirmed 12/03/20] lisinopril 5 mg tablet 5 mg PO DAILY #30 tab 03/19/19 [Rx Confirmed 12/03/20] metformin 500 mg tablet,extended release 24 hr 1,000 mg PO BID #120 tab 03/19/19 [Rx Confirmed 12/03/20] topiramate 50 mg tablet 50 mg PO DAILY #30 tab 03/19/19 [Rx Confirmed 12/03/20] atorvastatin 20 mg tablet 20 mg PO DAILY 05/11/20 [History Confirmed 12/03/20] insulin NPH isoph U-100 human 100 unit/mL subcutaneous suspension (Novolin N NPH U-100 Insulin isophane) 18 unit SUBCUT BID ml 05/11/20 [History Confirmed 12/03/20] insulin regular human 100 unit/mL injection solution (Novolin R Regular U-100 Insulin) 14 unit SUBCUT TID ml 05/11/20 [History Confirmed 12/03/20] insulin syringe-needle U-100 0.5 mL 31 gauge x 5/16" (BD Insulin Syringe Ultra- Fine) #10 ea 05/11/20 [History Confirmed 09/09/20] lancets (Accu-Chek Fastclix Lancet Drum) ea 05/11/20 [History Confirmed 09/09/20] tadalafil 10 mg tablet (Cialis) 10 mg PO DAILY PRN 05/11/20 [History Confirmed 12/03/20] dextroamphetamine-amphetamine 30 mg tablet (Adderall) 30 mg PO BID 05/25/20 [History Confirmed 12/03/20] FreeStyle Marta 2 Sensor (flash glucose sensor) #1 ea NS 07/30/20 [Rx Confirmed 09/09/20] blood sugar diagnostic (Accu-Chek Guide test strips) ea 09/09/20 [History Confirmed 09/09/20] Active Medications Dextrose (Dextrose 50% 50 Ml Syringe) 25 - 50 ml IV UD PRN; Protocol PRN Reason: Hypoglycemia Protocol Stop: 01/02/21 20:44 Glucagon (Glucagon For Inj 1 Mg Vial) 1 mg IM UD PRN; Protocol PRN Reason: Hypoglycemia Protocol Stop: 01/02/21 20:44 Glucose (Glucose 40% Gel 15 Gm Tube) 15 - 30 gm PO UD PRN; Protocol PRN Reason: Hypoglycemia Protocol Stop: 01/02/21 20:44 Glucose (Glucose 10 Tabs/Tube) 4 - 8 tabs PO UD PRN; Protocol PRN Reason: Hypoglycemia Protocol Stop: 01/02/21 20:44 Insulin Human Regular 250 (units/ Sodium Chloride) 250 mls @ 10 mls/hr IV .Q24H YAMILETH; Protocol Stop: 01/02/21 19:29 Last Titration: 12/03/20 22:51 Dose: 12 units/hr, 12 mls/hr Documented by: Miscellaneous (Carbohydrates For Hypoglycemia ) 15 - 30 gm PO UD PRN PRN Reason: Hypoglycemia Treatment Stop: 01/02/21 20:44 ECG Additional Comments: Sinus rhythm with 2nd degree A-V block (Mobitz I) Left anterior fascicular block Abnormal ECG When compared with ECG of 19-MAR-2019 09:06, Sinus rhythm is now with 2nd degree A-V block (Mobitz I) Coding Level of Care Code Critical Care 1st 30-74 mins Diagnoses Metabolic encephalopathy G93.41 DKA (diabetic ketoacidosis) E13.10 Diabetes mellitus complication detail: without coma Diabetes mellitus type: other specified (including GINGER) ROYAL (acute kidney injury) N17.9 Noncompliance with medications Z91.14 Hyperlipidemia E78.5 Obesity E66.9 Depression F32.9 ADHD F90.9 Leukocytosis D72.829 (1) DKA (diabetic ketoacidosis) Diabetes mellitus complication detail: without coma Diabetes mellitus type: other specified (including GINGER) Qualified Code(s): E13.10 - Other specified diabetes mellitus with ketoacidosis without coma
[2020-12-03] MEDS ORDERED: POLYETHYLENE (MIRALAX) 17 GM PACK PO PRN (23:27)
[2020-12-03] MEDS ORDERED: ACETAMINOPHEN 325 MG TAB PO PRN (23:27)
[2020-12-03] MEDS ORDERED: PHARMACY GLYCEMIC MGMT CONSULT PRN (23:27)
[2020-12-04] MEDS ORDERED: POTASSIUM CHLORIDE 20 MEQ in LACTATED RINGER'S 1,000 ML IV SCH
[2020-12-04 00:05] LABS: Blood Urea Nitrogen 29 mg/dl (7-18); Carbon Dioxide 21 mmol/L (21-32); Chloride 104 mmol/L (98-107); Est GFR (Non-African American) 39.7 ml/min; Potassium 4.1 mmol/L (3.5-5.1); Sodium 134 mmol/L (136-145)
[2020-12-04 00:06] LABS: BUN Creatinine Ratio 17.1 (10-20); Calcium 9.9 mg/dl (8.5-10.1); Glucose 299 mg/dl (70-99)
[2020-12-04] MEDS ORDERED: STAT IV Infusion **Titration per Protocol STA ×2 (00:15→09:20)
[2020-12-04] MEDS ORDERED: THIAMINE HCL 500 MG in 0.9 % SODIUM CHLORIDE 100 ML IV SCH (00:30)
[2020-12-04 00:33] LABS: C Reactive Protein 0.97 mg/dl (0-0.29); Phosphorus 1.9 mg/dl (2.5-4.9)
[2020-12-04] MEDS: DEXMEDETOMIDINE HCL 200 MCG in SODIUM CHLORIDE 0.9% 48 ML IV SCH ×3 (00:34→04:44)
[2020-12-04] MEDS ORDERED: VANCOMYCIN CONSULT ACTIVE PRN (00:43)
[2020-12-04] MEDS: D5W AND LACTATED RINGERS 1,000 ML IV SCH ×3 (00:55→16:56)
[2020-12-04] MEDS ORDERED: cefTRIAXone SODIUM 2,000 MG in DEXTROSE 5% 50 ML IV SCH (01:00)
[2020-12-04] MEDS ORDERED: HALOPERIDOL LACTATE 5 MG/ML 1 ML VIAL IV PRN (01:09)
[2020-12-04] MEDS ORDERED: HALOPERIDOL LACTATE 5 MG/ML 1 ML VIAL ONE (01:17)
[2020-12-04] MEDS ORDERED: VANCOMYCIN HCL 2,500 MG in SODIUM CHLORIDE 0.9% 500 ML IV SCH (02:00)
[2020-12-04 04:31] LABS: BUN Creatinine Ratio 19.1 (10-20); Calcium 9.1 mg/dl (8.5-10.1); Creatinine Clr Calc Pharmacy 66.2 ml/min; Est GFR (African American) 59.7 ml/min; Est GFR (Non-African American) 51.5 ml/min; Magnesium 1.9 mg/dl (1.8-2.4); Phosphorus 2.5 mg/dl (2.5-4.9); Potassium 4.4 mmol/L (3.5-5.1); Thyroid Stimulating Hormone 1.1 uIu/ml (0.300-4.500)
[2020-12-04] MEDS ORDERED: LORazepam 2 MG/4 ML VIAL ONE (05:11)
[2020-12-04] MEDS ORDERED: LORazepam 2 MG/4 ML VIAL IV STA ×2 (05:15)
[2020-12-04] MEDS ORDERED: NovoLIN-R INSULIN PER UNIT CHARGE SC STA (05:19)
[2020-12-04] MEDS ORDERED: SODIUM PHOSPHATE 3 MMOL/1 ML INFUSION IV STA (05:43)
[2020-12-04] MEDS: ICU ELECTROLYTE REPLACEMENT PROTOCOL SCH ×2 (05:48→17:24)
[2020-12-04] MEDS ORDERED: SODIUM PHOSPHATE 15 MMOL in SODIUM CHLORIDE 0.9% 250 ML IV ONE (06:00)
[2020-12-04] MEDS: MAGNESIUM SULFATE / D5W 1 GM/100 ML BAG IV SCH ×2 (06:03→07:32)
[2020-12-04] MEDS: INSULIN REGULAR 250 UNITS in SODIUM CHLORIDE 0.9% 247.5 ML IV SCH (06:49)
[2020-12-04] MEDS ORDERED: DEXMEDETOMIDINE HCL 400 MCG in 0.9 % SODIUM CHLORIDE 96 ML IV SCH (07:15)
--- NOTE | 2020-12-04 07:33 | Hospitalist Progress Note ---
Date of Service December 04, 2020 Assessment & Plan (1) Metabolic encephalopathy: Plan: Dyllan is a 70-year-old male with a past medical history of ADHD, diabetes, hyperlipidemia, hypertension, who was reportedly nonverbal trying to get into another home which his [id number] reported was similar to how he had prior with elevated blood sugar. Was brought in by medics and reportedly combative in route and required Ativan IV. No additional history at time of arrival was available/obtainable. He had rapidly declining clinical status requiring intubation and remains critically ill in the ICU. Altered mental status Urine toxicology screen negative Alcohol negative Glycemic to over 700 on admission, history of DKA,? Metabolic encephalopathy glucose improving with improving status Precedex infusion was initially used while in the ICU, discontinued. Currently on propofol Neurology consulted. No meaningful history able to be elicited from patient CTH: IMPRESSION: Exam compromised by motion artifact. No acute intracranial findings. No significant change since prior exam. CSF fluid with increased protein consistent with hyperglycemia, increased protein.? Viral encephalitis/Lyme. Serology pending (2) DKA (diabetic ketoacidosis): Plan: Diabetic ketoacidosis Hyperglycemic to over 700 on admission, elevated anion gap Insulin GTT, patient managed in ICU Gap closed, bicarb 23, glucose 190 on recheck (3) Leukocytosis: Plan: Leukocytosisuptrending to 18 Blood cultures pending CXR R: Left base airspace opacity, diffuse thickening. ?PNA On empiric Rocephin/Vanco Lactate 4.7, down trended to 2.3 Unclear source CSF analysis pending. Elevated protein? Viral/Lyme Ongoing management in ICU (4) Wenckebach: Plan: Secondary AV block Precedex discontinued TTE: Grade 1 diastolic dysfunction EF 65-70% on last echo Normal sinus rhythm eval SHANNAN/statin continued Cardiology consulted. No indication for temporary pacing wire. Continue telemetry, if pauses or progresses to complete heart block reconsider (5) ROYAL (acute kidney injury): Plan: ROYAL Creatinine acutely elevated to 1.7 Down trended to 1.37 DKA/volume depletion UA negative Electrolytes per ICU (6) Noncompliance with medications: (7) Hyperlipidemia: Plan: Statin as noted (8) Obesity: Plan: Management (9) Depression: Plan: Sedated, follow clinically at this time (10) ADHD: Plan: U tox negative Altered, no treatment indicated at this time Admission and Anticipated Discharge Date Admission Date: December 03, 2020 Subjective Subjective not available, intubated and sedated Review of Systems Review of Systems: Unobtainable due to endotracheal tube Physical Exam Physical Exam: General: Sedated, intubated, appears ill HEENT: Atraumatic, normocephalic. Pulm: Symmetrical chest rise. Intubated. Cardiac: RRR, -mrg. Radial pulses intact and symmetrical. Abdominal: Nontender, nondistended, soft. BS present. Results & Data Results & Data ([facility]) Vital Signs (Past 12 Hours) Vital Signs Temp Pulse Pulse Resp BP BP Pulse Ox 12/04/20 06:00 37.6 C H 65 32 H 91 12/04/20 05:30 68 30 H 165/116 H 91 12/04/20 05:00 99 H 26 H 167/67 H 84 L 12/04/20 04:30 66 28 H 153/79 H 93 12/04/20 04:00 94 H 38 H 170/79 H 12/04/20 03:45 71 33 H 90 12/04/20 03:30 83 31 H 173/84 H 96 12/04/20 03:15 94 H 35 H 96 12/04/20 03:00 101 H 37 H 95 12/04/20 02:45 75 31 H 94 12/04/20 02:30 90 30 H 97 12/04/20 02:15 37.8 C H 95 H 30 H 149/93 H 95 12/04/20 02:00 93 H 37 H 165/94 H 92 12/04/20 01:45 87 29 H 95 12/04/20 01:30 86 34 H 187/96 H 90 12/04/20 01:15 100 H 26 H 97 12/04/20 01:06 36.9 C 85 22 172/98 H 94 12/04/20 01:00 108 H 36 H 184/90 H 92 12/04/20 00:30 95 H 27 H 172/98 H 96 12/04/20 00:00 36.9 C 96 H 29 H 95 12/03/20 22:45 87 24 137/71 96 12/03/20 21:24 94 H 26 H 166/74 H 93 PG Care Time/CCT Total # of Minutes Spent Total Time Spent with Patient: Total time spent is greater than 50% in coordination of care (as documented) at patient's floor/unit and/or counseling patient: Coding Level of Care Code 43895 Subseq Hosp Care Lvl 1 Diagnoses Metabolic encephalopathy G93.41 DKA (diabetic ketoacidosis) E13.10 Diabetes mellitus complication detail: without coma Diabetes mellitus type: other specified (including GINGER) ROYAL (acute kidney injury) N17.9 Noncompliance with medications Z91.14 Hyperlipidemia E78.5 Obesity E66.9 Depression F32.9 ADHD F90.9 Leukocytosis D72.829 Weallbach I44.1 (1) DKA (diabetic ketoacidosis) Diabetes mellitus complication detail: without coma Diabetes mellitus type: other specified (including GINGER) Qualified Code(s): E13.10 - Other specified diabetes mellitus with ketoacidosis without coma
[2020-12-04] MEDS: TOPIRAMATE 50 MG TAB PO SCH (07:55)
[2020-12-04] MEDS: ATORVASTATIN 20 MG TAB PO SCH (07:55)
[2020-12-04] MEDS: ASPIRIN 81 MG ECTAB PO SCH (07:55)
[2020-12-04] MEDS ORDERED: RAPID SEQUENCE INDUCTION BAG ONE (08:17)
[2020-12-04] MEDS ORDERED: ETOMIDATE 2 MG/ML 20 ML VIAL IV ONE (08:18)
[2020-12-04] MEDS ORDERED: PROPOFOL IV EMULSION 10 MG/ML 100 ML VIAL IV ONE (08:18)
[2020-12-04] MEDS ORDERED: NOREPINEPHRINE/D5W 8 MG/508 ML IV ONE (08:50)
--- NOTE | 2020-12-04 08:58 | XRay Report ---
XR chest 1V portable CLINICAL HISTORY: rule out infectious process COMPARISON STUDY: Chest radiograph December 03, 2020 FINDINGS: Lung volumes are diminished. There is no pneumothorax or pleural effusion. There is apparen t hazy left basilar opacity. Cardiomegaly is noted. There is no evidence for pulmonary edema. IMPRESSION: 1. Low lung volumes with apparent left basilar opacity. This may be artifactual however pneumonia can not be excluded. 2. Cardiomegaly without evidence for pulmonary edema. ACT 112: Negative or not required by law. Electronically signed by: Lico Morales M.D. 12/04/2020 8:57 AM
[2020-12-04] MEDS ORDERED: lisinopril 5 MG TAB PO SCH (09:00)
[2020-12-04] MEDS ORDERED: VANCOMYCIN HCL 1 MG in SODIUM CHLORIDE 0.9% 250 ML IV SCH (09:00)
--- NOTE | 2020-12-04 09:16 | Procedure Note ---
Procedure Note Date of Service December 04, 2020 Note INTUBATION PROCEDURE NOTE: Provider: Billy Solano MD Patient was evaluated and required intubation for agitated delirium. Sedative agent used: 40 mg etomidate, 20 cc propofol Paralysis agent used: None Emergent consent was implied given patients rapidly declining clinical status and need for airway protection. The patient was prepared in the appropriate fashion. Sedation was achieved utilizing propofol and etomidate. The patient was easily ventilated using [id number] to achieve adequate oxygenation. Video laryngoscopy was performed using a glide scope. The cords were easily visualized. There were thick mucoid secretions above the glottis. A 8.0 endotracheal tube was placed under video laryngoscopy guidance to 27 cm at the lip. The stylette was removed and balloon was inflated with 10mL of air. Appropriate Colorimetric change was appreciated. Bilateral breath sounds were heard without air sounds in the abdomen. Post Intubation Chest X-ray confirms placement with the tube approximately 1 to 2 cm above the milana Patient tolerated the procedure well and there were no immediate complications. Coding CPT Codes Resuscitation - Resuscitation: 88554 Endotracheal Intubation, emergency ([id number]) [facility] [place] Procedure Codes (Charges) Resuscitation Resuscitation: 33984 Endotracheal Intubation, emergency
--- NOTE | 2020-12-04 09:18 | Procedure Note ---
Procedure Note Date of Service December 04, 2020 Note CENTRAL LINE PROCEDURE NOTE: Procedure: Central Line Placement Provider: Billy Solano MD Indication: Central Drug Administration, Poor Venous Access, Multiple Lab Draws Necessary, etc. Anesthesia: 5 mL lidocaine 1% Site: Left subclavian Procedure was emergent. Patient is delirious and unable to provide verbal or written consent. No family immediately available A time-out was completed verifying correct patient, procedure, site, positioning, and implants(s) or special equipment if applicable. Patients left clavicular area was cleansed and draped in the typical sterile fashion using Chloraprep. Landmarks were easily identified. The superficial tissue was anesthetized using 5 mL of 1% lidocaine without epinephrine. After adequate anesthetization was achieved, the left subclavian vein was cannulated using an introducer needle on a syringe. Good venous blood return was maintained prior to removal of syringe from introducer needle. Using Seldinger Technique, a guide wire was advanced through the introducer needle without resistance. The introducer needle was removed. A small incision was made in penetrating fashion at the guide wire insertion site utilizing an 11 blade scalpel. The dilator was advanced to the vessel without resistance. The dilator was exchanged for the triple lumen catheter which was advanced into the vessel without resistance. The guide wire was removed intact from the catheter without issue. Claves were placed on each catheter tip with confirmation of good blood flow from each lumen. Each port was easily flushed with sterile saline. The catheter was placed at the hub cm and sutured in place. BioPatch was applied to the catheter and a sterile Tegaderm dressing was applied over the catheter with careful attention to sterility. Patient tolerated procedure well. No immediate comp lications were met. Post procedure x-ray was completed, placement was appropriate and no pneumothorax was noted. Coding CPT Codes Tubes, Drains, and Vasc Access - Tubes, Drains, and Vasc Access: [id number] Place catheter in vein superior or inferior vena cava ([id number]) [facility] [place]Charges) Tubes, Drains, and Vasc Access Procedure 1: Tubes, Drains, and Vasc Access: [id number] Place catheter in vein superior or inferior vena cava
--- NOTE | 2020-12-04 09:19 | XRay Report ---
XR chest 1V portable HISTORY: Altered mental status. COMPARISON: Chest 06/29/2020. FINDINGS: There are low lung volumes. No pneumothorax. The heart is mildly enlarged. There is diffuse interstitial/vascular thickening most pronounced on the right. This likely represents developing asy mmetric pulmonary edema. Otherwise, no focal lung consolidation identified. Trace left pleural effusi on. IMPRESSION: Cardiomegaly with developing interstitial edema. ACT 112: Negative or not required by law. Electronically signed by: Michael Coughlin M.D. 12/04/2020 9:18 AM
[2020-12-04] MEDS ORDERED: MIDAZOLAM HCL 1 MG/ML 2ML VIAL IV PRN (09:20)
[2020-12-04] MEDS ORDERED: fentaNYL citrate 100 MCG/2 ML VIAL IV PRN (09:20)
--- NOTE | 2020-12-04 09:20 | Procedure Note ---
Procedure Note Date of Service December 04, 2020 Note ARTERIAL LINE PROCEDURE NOTE: Procedure: Arterial Line Placement Provider: Billy Solano MD Indication: Monitoring of blood pressure with frequent blood gas analysis Anesthesia: None Procedure was emergent. Patient unable to provide consent. No family immediately available A time-out was completed verifying correct patient, procedure, site, positioning, and implant(s) or special equipment if applicable. Allens test was performed to ensure adequate perfusion. Patients right wrist was prepped and draped in the usual sterile fashion. A 20g Arrow arterial line was introduced into the right radial artery. Catheter was threaded, and the needle was removed with appropriate blood return. Good waveform was observed. The patient tolerated the procedure well. Blood Loss: Minimal Complications: None Coding CPT Codes Tubes, Drains, and Vasc Access - Tubes, Drains, and Vasc Access: [id number] Insertion Catheter, Artery ([id number]) [facility] [place] Procedure Codes (Charges) Tubes, Drains, and Vasc Access Procedure 1: Tubes, Drains, and Vasc Access: [id number] Insertion Catheter, Artery
[2020-12-04] MEDS ORDERED: NOREPINEPHRINE/D5W 8 MG/508 ML BAG IV SCH (09:30)
--- NOTE | 2020-12-04 09:30 | XRay Report ---
XR chest 1V portable HISTORY: line placement COMPARISON: Chest 12/04/2020 FINDINGS: No pneumothorax. There are low lung volumes. Endotracheal tube terminates approximately 1.9 cm and the milana. Left subclavian central venous catheter terminates at the distal SVC. Nasogastric tube terminates in the stomach. There are low lung volumes. The heart remains mildly enlarged. Left basilar density remains unchanged. There is diffuse interstitial thickening suggestive of developing congestive change. IMPRESSION: 1. Satisfactory support line placement. 2. No change in the left base airspace opacity and diffuse interstitial thickening. ACT 112: Negative or not required by law. Electronically signed by: Michael Coughlin M.D. 12/04/2020 9:28 AM
--- NOTE | 2020-12-04 09:35 | Critical Care Progress Note ---
Date of Service December 04, 2020 Assessment & Plan (1) Metabolic encephalopathy: (2) DKA (diabetic ketoacidosis): (3) Delirium: (4) ROYAL (acute kidney injury): (5) Obesity: Plan: Impression: 70-year-old male with a history of obesity diabetes and hypertension brought to the emergency room by police after being found confused. He received Haldol in the emergency room as well as droperidol. He was empirically treated with antibiotics. He is admitted to the ICU. 24-hour events: Patient mated to the ICU. This morning the patient is extremely delirious and agitated. We are unable to draw labs or perform any diagnostic assessment with him. He was therefore intubated. A central line and arterial line were placed to assist with monitoring. Mild degree of DKA does not appear to account for his severe agitated delirium. Recommendations: Neuro: Acute agitated delirium. Differential would include metabolic versus infectious etiologies. Initial CT scan of the head was unrevealing. Alcohol intoxication obtained in the emergency room were negative. TSH was normal. His anion gap is 9. There does not appear to be any seizure activity. No obvious abnormality on his initial imaging studies. We will continue sedation with propofol fentanyl and Versed. Continue high-dose thiamine and folate. Neurology consult to determine if LP is required. He was taking Adderall in the past for an unclear indication. It is possible he could have overdosed or had an adverse reaction to medication. Other illicit substances not identified on tox screen would also be in the differential. Cardiac -appears to have type I second-degree AV block with intermittent bradycardia. We will discontinue Precedex. Cardiology consultation. Echo in February showed concentric LVH with preserved systolic function. Hold SHANNAN inhibitor in light of relative hypotension. Currently on Levophed, possibly related to sedation. We will see how he responds to additional fluid boluses. Initial lactate was elevated at 4.7. Follow-up is pending. Respiratory - intubated for mental status changes. Follow ABG. Suspect possible underlying TANIKA, may need outpatient sleep study. GI - Place OGT. RENAL/LYTES/Acid base -presenting serum creatinine was 1.7 now down to 1.37 which appears to be close to his baseline. His bicarb is normal. Electrolytes are okay. Urinalysis was likely a contaminated specimen given the 10-20 epithelial cells per low power field. Nevertheless significant hematuria was identified with greater than 30 red cells per high-power field. Protein glucose and ketones were also detected. - No acute process as above ENDO -DKA, mild. Gap is closed. Sugars are adequately controlled. Beta hydroxybutyrate was minimally elevated. It seems unlikely that this mild degree of DKA would account for the patient's profound agitated delirium. Continue insulin infusion currently. Her gap is closed and I suspect we can transition fairly rapidly to a subcu regimen. Will discuss with pharmacy HEME - NO acute issues ID - Leukocytosis, unclear source at this time. Procalcitonin is negative. Cultures negative to date. Check tracheal aspirate. We will hold antibiotics for now as I am not exactly sure what we are treating. LINES/IV ACCESS - Central line 12/04 Arterial line 12/04 Endotracheal tube 12/04 Trinidad catheter OGT DVT PROPHYLAXIS - - Heparin 5000 units subq q12 DISPO: ICU Patient is critically ill at this point time with significant possibility of clinical deterioration and . No family immediately available. A total of 90 minutes was spent in evaluation management stabilization of this patient exclusive of procedures. Admission and Anticipated Discharge Date Admission Date: December 03, 2020 Subjective Patient unable to provide any meaningful history. He has agitated delirium. Review of Systems Review of Systems: Unobtainable due to cognitive status Physical Exam Physical Exam: Physical exam limited due to patient's agitated and delirious state Constitutional: + altered mental status and + combative Neck: normal visual inspection Does not appear to have nuchal rigidity although exam limited due to patient's combative nature Respiratory: normal respiratory effort, lungs clear to auscultation Cardiovascular: RRR, no murmur, no edema Chest (Breasts): normal inspection/palpation of breasts Gastrointestinal (Abdomen): normal bowel sounds, soft, nontender, no hepatosplenomegaly Musculoskeletal: no cyanosis or clubbing, extremities motor strength 5/5 Skin: Trauma: + evidence of skin trauma Neurologic: moves all extremities and + confused Results & Data Results & Data ([facility]) Vital Signs (Past 12 Hours) Vital Signs Temp Pulse Pulse Resp BP BP Pulse Ox 12/04/20 08:45 52 L 27 H 98 12/04/20 06:00 37.6 C H 65 32 H 91 12/04/20 05:30 68 30 H 165/116 H 91 12/04/20 05:00 99 H 26 H 167/67 H 84 L 12/04/20 04:30 66 28 H 153/79 H 93 12/04/20 04:00 94 H 38 H 170/79 H 12/04/20 03:45 71 33 H 90 12/04/20 03:30 83 31 H 173/84 H 96 12/04/20 03:15 94 H 35 H 96 12/04/20 03:00 101 H 37 H 95 12/04/20 02:45 75 31 H 94 12/04/20 02:30 90 30 H 97 12/04/20 02:15 37.8 C H 95 H 30 H 149/93 H 95 12/04/20 02:00 93 H 37 H 165/94 H 92 12/04/20 01:45 87 29 H 95 12/04/20 01:30 86 34 H 187/96 H 90 12/04/20 01:15 100 H 26 H 97 12/04/20 01:06 36.9 C 85 22 172/98 H 94 12/04/20 01:00 108 H 36 H 184/90 H 92 12/04/20 00:30 95 H 27 H 172/98 H 96 12/04/20 00:00 36.9 C 96 H 29 H 95 12/03/20 22:45 87 24 137/71 96 12/03/20 21:24 94 H 26 H 166/74 H 93 Critical Care Results & Data Vital Signs (Past 12 Hours) Vital Signs Temp Pulse Pulse Resp BP BP Pulse Ox 12/04/20 08:45 52 L 27 H 98 12/04/20 06:00 37.6 C H 65 32 H 91 12/04/20 05:30 68 30 H 165/116 H 91 12/04/20 05:00 99 H 26 H 167/67 H 84 L 12/04/20 04:30 66 28 H 153/79 H 93 12/04/20 04:00 94 H 38 H 170/79 H 12/04/20 03:45 71 33 H 90 12/04/20 03:30 83 31 H 173/84 H 96 12/04/20 03:15 94 H 35 H 96 12/04/20 03:00 101 H 37 H 95 12/04/20 02:45 75 31 H 94 12/04/20 02:30 90 30 H 97 12/04/20 02:15 37.8 C H 95 H 30 H 149/93 H 95 12/04/20 02:00 93 H 37 H 165/94 H 92 12/04/20 01:45 87 29 H 95 12/04/20 01:30 86 34 H 187/96 H 90 12/04/20 01:15 100 H 26 H 97 12/04/20 01:06 36.9 C 85 22 172/98 H 94 12/04/20 01:00 108 H 36 H 184/90 H 92 12/04/20 00:30 95 H 27 H 172/98 H 96 12/04/20 00:00 36.9 C 96 H 29 H 95 12/03/20 22:45 87 24 137/71 96 Lab & Micro Results (Past 24 Hours) RBC 4.01 M/uL (4.7-6.1) L 12/03/20 WBC 15.15 K/uL (4.8-10.8) H 12/03/20 Hgb 14.2 g/dL (14.0-18.0) 12/03/20 Hct 39.4 % (42-52) L 12/03/20 MCV 98.3 fL (80-100) 12/03/20 MCH 35.4 pg (25-34) H 12/03/20 MCHC 36.0 g/dL (32-36) 12/03/20 RDW Standard Deviation 44.0 fL (36.4-46.3) 12/03/20 RDW Coefficient of Variation 12.3 % (11.5-14.5) 12/03/20 Plt Count 305 K/uL (130-400) 12/03/20 MPV 11.2 fL (7.4-10.4) H 12/03/20 Nucleated Red Blood Cells % (auto) 0.1 % 12/03/20 Nucleated RBC Absolute Count (auto) 0.02 K/uL (0-0) H 12/03/20 Neutrophils (%) (Auto) 84.7 % 12/03/20 Lymphocytes (%) (Auto) 10.0 % 12/03/20 Monocytes # (Auto) 0.65 K/uL (0.11-0.59) H 12/03/20 Eosinophils # (Auto) 0.01 K/uL (0-0.5) 12/03/20 Immature Granulocyte % (Auto) 0.7 % 12/03/20 Neutrophils # (Auto) 12.84 K/uL (1.4-6.5) H 12/03/20 Lymphocytes # (Auto) 1.52 K/uL (1.2-3.4) 12/03/20 Monocytes # (Auto) 0.65 K/uL (0.11-0.59) H 12/03/20 Eosinophils # (Auto) 0.01 K/uL (0-0.5) 12/03/20 Basophils # (Auto) 0.03 K/uL (0-0.2) 12/03/20 Immature Granulocyte # (Auto) 0.10 K/uL (0.00-0.02) H 12/03/20 Na 137 mmol/L (136-145) 12/04/20 K 4.4 mmol/L (3.5-5.1) 12/04/20 Cl 108 mmol/L (98-107) H 12/04/20 CO2 23 mmol/L (21-32) 12/04/20 Anion Gap 6.0 (3-11) 12/04/20 BUN 26 mg/dl (7-18) H 12/04/20 Creatinine 1.37 mg/dl (0.6-1.4) 12/04/20 Estimated GFR ( Amer) 59.7 ml/min 12/04/20 Estimated GFR (Non-Af Amer) 51.5 ml/min 12/04/20 BUN/Creatinine Ratio 19.1 (10-20) 12/04/20 Glu 190 mg/dl (70-99) H 12/04/20 Ca 9.1 mg/dl (8.5-10.1) 12/04/20 Phosphorus Level 2.5 mg/dl (2.5-4.9) 12/04/20 Total Bilirubin 0.8 mg/dl (0.2-1) 12/03/20 AST 21 U/L (15-37) 12/03/20 ALT 31 U/L (12-78) 12/03/20 Alkaline Phosphatase 83 U/L (45-117) 12/03/20 TP 7.3 gm/dl (6.4-8.2) 12/03/20 Albumin 3.4 gm/dl (3.4-5.0) 12/03/20 Globulin 3.9 gm/dl (2.5-4.0) 12/03/20 Albumin/Globulin Ratio 0.9 (0.9-2) 12/03/20 Mg 1.9 mg/dl (1.8-2.4) 12/04/20 03:27 12/04/20 Calcium Level 9.1 mg/dl (8.5-10.1) 12/04/20 03:27 12/04/20 Venous Blood pH 7.44 (7.36-7.41) H 12/03/20 23:59 12/03/20 Blood Gas Barometric Pressure 728.4 mm/Hg 12/03/20 20:19 12/03/20 Arterial Blood pH 7.40 (7.35-7.45) 12/03/20 20:19 12/03/20 Arterial Blood Partial Pressure CO2 35 mmHg (35-46) 12/03/20 20:19 12/03/20 Arterial Blood Partial Pressure O2 98 mmHg (80-95) H 12/03/20 20:19 12/03/20 Arterial Blood HCO3 21 mmol/L (19-24) 12/03/20 20:19 12/03/20 Arterial Blood Base Excess -3.0 mEq/L (-9-1.8) 12/03/20 20:19 12/03/20 Arterial Blood Oxygen Saturation 97.5 % (90-95) H 12/03/20 20:19 12/03/20 Blood Gas Oxygen Given 2% 12/03/20 20:19 12/03/20 Jose Alfredo Test Pos (Pos) 12/03/20 20:19 12/03/20 Blood Gas Barometric Pressure 728.4 mm/Hg 12/03/20 20:19 12/03/20 Diagnostic Findings (Past 24 Hours) Cervical Spine CT 12/03/20 19:23 CT OF THE CERVICAL SPINE WITHOUT CONTRAST CLINICAL HISTORY: Possible fall. Altered mental status. Evaluate for fracture. COMPARISON STUDY: No previous studies for comparison. TECHNIQUE: Helical axial images of the cervical spine were obtained without IV contrast. Sagittal and coronal reconstructions were viewed. Automated exposure control was utilized for the study. A dose lowering technique was utilized adhering to the principles of ALARA. FINDINGS: This exam is mildly compromised by motion artifact. Alignment of the cervical spine is anatomic. Vertebral body heights are maintained. No acute cervical spine fracture or subluxation is present. There is no prevertebral edema. Facet joints are intact. There is severe multilevel facet arthrosis. Note is made of moderate disc space narrowing with osteophyte ptosis at C5-C6. IMPRESSION: No acute cervical spine fracture or subluxation. Exam mildly compromised by motion artifact. ACT 112: Negative or not required by law. Electronically signed by: Lico Morales M.D. 12/03/2020 8:[address] 12/03/20 19:23 CT OF THE HEAD WITHOUT CONTRAST CLINICAL HISTORY: Altered mental status. Evaluate for bleed. COMPARISON STUDY: Head CT March 17, 2019. TECHNIQUE: Helical axial images of the head were obtained without IV contrast. Automated exposure control was utilized for the study. A dose lowering technique was utilized adhering to the principles of ALARA. FINDINGS: This exam is compromised by motion artifact. No acute intracranial hemorrhage, midline shift or mass effect is present. The ventricular system is stable. The basal cisterns are patent. No extra-axial collections are present. There are no findings to suggest acute dural sinus thrombosis or acute territorial infarct. No significant calvarial abnormalities are present. Visualized portions of the sinuses and mastoid air cells are clear. IMPRESSION: Exam compromised by motion artifact. No acute intracranial findings. No significant change since prior exam. ACT 112: Negative or not required by law. Electronically signed by: Lico Morales M.D. 12/03/2020 8:15 PM Elbow X-Ray 12/03/20 20:22 XR elbow LT min 3V routine CLINICAL HISTORY: Left elbow pain following injury. Evaluate for fracture. COMPARISON: None FINDINGS: Alignment of the left elbow is anatomic. Note is made of soft tissue swelling overlying the olecranon. No acute fracture is present. There is no evidence for joint effusion. IMPRESSION: 1. No acute fracture or evidence for a joint effusion of the left elbow. 2. Soft tissue swelling overlying the olecranon. ACT 112: Negative or not required by law. Electronically signed by: Lico Morales M.D. 12/03/2020 8:47 PM Chest X-Ray 12/03/20 20:40 XR chest 1V portable HISTORY: Altered mental status. COMPARISON: Chest 06/29/2020. FINDINGS: There are low lung volumes. No pneumothorax. The heart is mildly enlarged. There is diffuse interstitial/vascular thickening most pronounced on the right. This likely represents developing asymmetric pulmonary edema. Otherwise, no focal lung consolidation identified. Trace left pleural effusion. IMPRESSION: Cardiomegaly with developing interstitial edema. ACT 112: Negative or not required by law. Electronically signed by: Michael Coughlin M.D. 12/04/2020 9:18 AM Chest X-Ray 12/04/20 00:05 XR chest 1V portable CLINICAL HISTORY: rule out infectious process COMPARISON STUDY: Chest radiograph December 03, 2020 FINDINGS: Lung volumes are diminished. There is no pneumothorax or pleural effusion. There is apparent hazy left basilar opacity. Cardiomegaly is noted. There is no evidence for pulmonary edema. IMPRESSION: 1. Low lung volumes with apparent left basilar opacity. This may be artifactual however pneumonia cannot be excluded. 2. Cardiomegaly without evidence for pulmonary edema. ACT 112: Negative or not required by law. Electronically signed by: Lico Morales M.D. 12/04/2020 8:57 AM I & O Totals 24 Hours 12/03/20 12/04/20 12/05/20 06:59 06:59 06:59 Intake Total 1866.755 / 1866.755 121.958 / 121.958 Output Total 875 / 875 Balance 991.755 / 991.755 121.958 / 121.958 Cumulative 12/03/20 19:12 thru 12/04/20 07:54 Intake Total 1988.713 Output Total 875 Balance 1113.713 RT Ventilator Mngmt (Last Documented) Ventilator Ordered Settings Ventilator Support Mode Assist Control 12/04/20 08:45 Respiratory Rate 27 12/04/20 08:45 Ventilator Tidal Volume 450 12/04/20 08:45 Setting Minute Ventilation 10.8 12/04/20 08:45 Positive End Expiratory 8 12/04/20 08:45 Pressure Fraction of Inspired Oxygen 50 12/04/20 08:45 Ventilator - PT Measurements Respiratory Rate 27 Exhaled Tidal Volume 456 Minute Ventilation 10.8 Peak Inspiratory Airway 20 Pressure Plateau Pressure 15 Respiratory Cycle Inspiratory: 1:2.8 Expiratory Ratio Inspiratory Phase Time 0.75 End-Tidal CO2 42 Static Lung Compliance 65.14 Dynamic Lung Compliance 38.00 Normal Static Lung Compliance 48.00 Coding Level of Care Code Critical Care 1st 30-74 mins Diagnoses Metabolic encephalopathy G93.41 DKA (diabetic ketoacidosis) E13.10 Diabetes mellitus complication detail: without coma Diabetes mellitus type: other specified (including GINGER) Delirium R41.0 ROYAL (acute kidney injury) N17.9 Obesity E66.9 Time Spent (min) 90 Comment 90 minutes critical care time. Please code [id number] and [id number] (1) DKA (diabetic ketoacidosis) Diabetes mellitus complication detail: without coma Diabetes mellitus type: other specified (including GINGER) Qualified Code(s): E13.10 - Other specified diabetes mellitus with ketoacidosis without coma
[2020-12-04 10:13] LABS: Basophils # (auto) 0.02 K/uL (0-0.2); Basophils % (auto) 0.1 %; Hematocrit (blood only) 32.9 % (42-52); Hemoglobin 11.8 g/dL (14.0-18.0); Immature Granulocytes # (auto) 0.11 K/uL (0.00-0.02); Immature Granulocytes % (auto) 0.6 %; Lymphocytes # (auto) 1.57 K/uL (1.2-3.4); Lymphocytes % (auto) 8.4 %; Mean Corpuscular Hgb Conc 35.9 g/dL (32-36); Mean Corpuscular Volume 97.6 fL (80-100); Mean Platelet Volume 10.7 fL (7.4-10.4); Monocytes # (auto) 1.37 K/uL (0.11-0.59); Monocytes % (auto) 7.3 %; Neutrophils # (auto) 15.62 K/uL (1.4-6.5); Neutrophils % (auto) 83.6 %; Platelet Count 291 K/uL (130-400); RDW Coefficient of Variation 12.7 % (11.5-14.5); RDW Standard Deviation 44.6 fL (36.4-46.3); Red Blood Count 3.37 M/uL (4.7-6.1); White Blood Count 18.69 K/uL (4.8-10.8)
[2020-12-04 10:16] LABS: iSTAT Arterial Blood Gas HCO3 24 meg/L (19-24); iSTAT Arterial Blood Gas pCO2 44 mmHg (35-46); iSTAT Arterial Blood Gas pH 7.35 (7.35-7.45); iSTAT Arterial Blood Gas pO2 88 mmHg (80-95); iSTAT Carbon Dioxide 25 mmol/L (24-31); iSTAT FiO2 50 %; iSTAT Site Art Line
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
--- NOTE | 2020-12-04 10:54 | Cardiology Consultation ---
Date of Consultation December 04, 2020 History of Present Illness Reason for Consultation: Bradycardia, wenkebach physiology, and a first-degree AV block Attending Physician: Willis Brown MD History of Present Illness 70-year-old male with a history of obesity diabetes and hypertension brought to the emergency room by police after being found confused. He received Haldol in the emergency room as well as droperidol. He was empirically treated with antibiotics. He is admitted to the ICU. Patient adnitted to the ICU. This morning the patient is extremely delirious and agitated. We are unable to draw labs or perform any diagnostic assessment with him. He was therefore intubated. History is obtained from the chart the nursing staff and the critical care attending. Review of systems is unobtainable as the patient is intubated. His previous consultation by Dr. Parra in February 2019 suggested Wenckebach physiology at the time with a first-degree AV block. It was felt that the AV block was above the AV node as opposed to infra hisian (below the AV node) Allergies Allergy/AdvReac Type Severity Reaction Status Date / Time erythromycin base Allergy Intermediate Hives Verified 12/03/20 20:34 Penicillins Allergy Intermediate Hives Verified 12/03/20 20:34 Home Medications Medication Instructions Recorded Confirmed Type aspirin 81 mg tablet,delayed 81 mg PO DAILY 03/17/19 12/03/20 History release lisinopril 5 mg tablet 5 mg PO DAILY #30 tab 03/19/19 12/03/20 Rx metformin 500 mg tablet,extended 1,000 mg PO BID #120 tab 03/19/19 12/03/20 Rx release 24 hr topiramate 50 mg tablet 50 mg PO DAILY #30 tab 03/19/19 12/03/20 Rx atorvastatin 20 mg tablet 20 mg PO DAILY 05/11/20 12/03/20 History insulin NPH isoph U-100 human 100 18 unit SUBCUT BID ml 05/11/20 12/03/20 History unit/mL subcutaneous suspension (Novolin N NPH U-100 Insulin isophane) insulin regular human 100 unit/mL 14 unit SUBCUT TID ml 05/11/20 12/03/20 History injection solution (Novolin R Regular U-100 Insulin) insulin syringe-needle U-100 0.5 #10 ea 05/11/20 09/09/20 History mL 31 gauge x 5/16" (BD Insulin Syringe Ultra-Fine) lancets (Accu-Chek Fastclix Lancet ea 05/11/20 09/09/20 History Drum) tadalafil 10 mg tablet (Cialis) 10 mg PO DAILY PRN 05/11/20 12/03/20 History dextroamphetamine-amphetamine 30 30 mg PO BID 05/25/20 12/03/20 History mg tablet (Adderall) FreeStyle Marta 2 Sensor (flash #1 ea NS 07/30/20 09/09/20 Rx glucose sensor) blood sugar diagnostic (Accu-Chek ea 09/09/20 09/09/20 History Guide test strips) Patient History Medical History Abnormal ECG ADHD Depression Depression Diabetes First degree AV block Hyperlipidemia Hypertension Left anterior fascicular block Obesity Prediabetes T2DM (type 2 diabetes mellitus) Uncontrolled type 2 diabetes mellitus [facility] History History of colonoscopy History of rectal surgery x3 for an abscess in anal sphincter History of root canal procedure multiple History of tonsillectomy History of wisdom tooth extraction Hx of eye surgery Hx of vasectomy Family History Father Family history of diabetes mellitus Diabetes Hypertension Heart disease Brother Prostate cancer Other No family history of adverse response to anesthesia Social History Smoking Status: Unknown if ever smoked Second Hand Exposure: No; Hx Alcohol Use: No Hx Substance Use: No Preferred Language: Ukrainian Communication Ability: Effective Account Analyst Required: No Beliefs That Will Affect Care: None marital status: Current Living Situation: Family Current Living Situation Comment: pt lives with daughter per history and physical by MD Feels Safe at Home: Yes Safety Concerns: Feels Safe At This Time Assistive Devices: None Results & Data ([facility]) Vital Signs (Past 12 Hours) Vital Signs Temp Pulse Pulse Resp BP BP Pulse Ox 12/04/20 08:45 52 L 27 H 98 12/04/20 06:00 37.6 C H 65 32 H 91 12/04/20 05:30 68 30 H 165/116 H 91 12/04/20 05:00 99 H 26 H 167/67 H 84 L 12/04/20 04:30 66 28 H 153/79 H 93 12/04/20 04:00 94 H 38 H 170/79 H 12/04/20 03:45 71 33 H 90 12/04/20 03:30 83 31 H 173/84 H 96 12/04/20 03:15 94 H 35 H 96 12/04/20 03:00 101 H 37 H 95 12/04/20 02:45 75 31 H 94 12/04/20 02:30 90 30 H 97 12/04/20 02:15 37.8 C H 95 H 30 H 149/93 H 95 12/04/20 02:00 93 H 37 H 165/94 H 92 12/04/20 01:45 87 29 H 95 12/04/20 01:30 86 34 H 187/96 H 90 12/04/20 01:15 100 H 26 H 97 12/04/20 01:06 36.9 C 85 22 172/98 H 94 12/04/20 01:00 108 H 36 H 184/90 H 92 12/04/20 00:30 95 H 27 H 172/98 H 96 12/04/20 00:00 36.9 C 96 H 29 H 95 The patient is intubated and sedated. Lungs coarse breath sounds bilaterally Heart: Irregular rhythm secondary to Wenke Bach physiology no appreciable murmurs Abdomen: Soft nontender nondistended Extremities: No clubbing cyanosis or edema Echocardiogram February 2019 normal biventricular size and function and no significant valvular heart disease His labs were reviewed along with his EKGs from February 2019 through to this admission as well as his telemetry monitoring. Impressions: 1. Sinus bradycardia with a baseline first-degree AV block and Wenke Bach physiology with occasional 2-1 AV block which appears to be above the AV node 2. Normal echocardiogram February 2019 with normal LV function 3. Delirium and encephalopathy of unclear etiology At this point there is nothing to suggest infranodal AV block. He is on norepinephrine which should increase his heart rate. I think this is all metabolic at this point and hopefully will improve as his metabolic status improves. If he were to have long pauses or have type II second-degree AV block or complete heart block then we would need to consider a temporary pacemaker. As was noted in Dr. Parra's previous consultation at this point I do not think there is an indication for temporary wire and there is nothing to suggest that this is high degree AV block. In addition if he has ongoing bradycardia his nor epi could be switched to epinephrine and the other consideration would be to use theophylline to try to increase his heart rate. He is on no AV clint blockers either now or as an outpatient. He did receive some fentanyl but he was having winky block physiolo gy even before the fentanyl.
--- NOTE | 2020-12-04 11:33 | Pharmacy Report ---
Pharmacy Glycemic Short Note 2 - Date of Service December 04, 2020 - Glycemic Short BSG Results (Last 24 hours): 12/03/20 12/03/20 12/03/20 19:25 20:32 20:35 Glucose 793 H* POC Glucose > 600 H* 570 H* 12/03/20 12/03/20 12/03/20 21:34 21:47 21:48 Glucose 485 H* POC Glucose > 600 H* 455 H* 12/03/20 12/03/20 12/04/20 22:50 23:32 00:07 Glucose 299 H POC Glucose 385 H* 249 H 12/04/20 12/04/20 12/04/20 01:32 02:25 03:26 Glucose POC Glucose 253 H 229 H 180 H 12/04/20 12/04/20 12/04/20 03:27 04:32 05:15 Glucose 190 H POC Glucose 148 H 214 H 12/04/20 12/04/20 12/04/20 06:36 07:47 10:00 Glucose POC Glucose 300 H 349 H* 360 H* OUTPATIENT ANTIDIABETIC REGIMEN: * NPH 18 units BID * Regular insulin 14 units TIDM ASSESSMENT: * Mr Mccoy is a 70 y/o M with a PMH of T2DM who presents with hyperglycemia. * Patient initially started on insulin infusion for metabolic abnormalities. * Subsequently this morning was intubated. Insulin infusion was off from 0830 to 1000. * Continue insulin infusion as patient is NPO and intubated. PLAN FOR INPATIENT GLYCEMIC CONTROL: * Insulin infusion per protocol goal range 150-250 mg/dL PLAN FOR DISCHARGE: * TBD
[2020-12-04] MEDS: INSULIN ASPART 100 UNITS/ML 3 ML PEN SC SCH ×4 (11:35→19:38)
[2020-12-04 11:36] LABS: Folate (Folic Acid) 19.7 ng/ml (>5.38)
--- NOTE | 2020-12-04 12:48 | Procedure Note ---
Procedure Note Date of Service December 04, 2020 Note Procedure: Lumbar puncture Proceduralist: Dr. Solano, followed up by anesthesia, Indication: Delirium Anesthesia: Patient was maintained on propofol and fentanyl infusions. 5 cc 1% lidocaine locally. Estimated blood loss minimal Consent: Patient is intubated sedated and unable to provide consent. No family immediately available. The patient was intubated sedated in the ICU. He was placed in the left side down lateral decubitus position. Identified landmarks which were somewhat difficult to identify given the patient's body habitus. I attempted initial lumbar puncture at several levels and was unable to obtain spinal fluid. Anesthesia was contacted. Dr. Bradshaw graciously presented to the bedside to assist. She was able to access using a 21-gauge spinal needle. Initial fluid was bloody however it did clear fairly rapidly. Opening pressure was about 16. Fluid was sent for glucose, total protein, cell count differential, PCR analysis, Lyme studies, and Gram stain and culture. Once adequate fluid was obtained, the needle was withdrawn. A Band-Aid was applied. The patient was placed back in the supine position having tolerated the procedure well. Coding CPT Codes Lumbar Puncture - Lumbar Puncture, Diagnostic: 94067 Lumbar Puncture, Diagnostic ([id number]) [facility] [place] [facility] [place] Procedure Codes (Charges) Lumbar Puncture Lumbar Puncture, Diagnostic: 75393 Lumbar Puncture, Diagnostic
[2020-12-04 13:24] LABS: Total Protein CSF 100.8 mg/dl (15-45)
--- NOTE | 2020-12-04 13:32 | Procedure Note ---
Procedure Note Date of Service December 04, 2020 Note Addendum detailing my portion of the spinal tap previously documented by Dr. Solano for patient Dyllan Mccoy. Call received from ICU at 11:02 requesting assistance with accessing neuraxial space for spinal tap. Patient's chart reviewed and verbally verified with Dr. Coe that patient does not require MRI results before performing the spinal tap. Arrived at patient's bedside at 12:15. Pt intubated and sedated and turned to left lateral by ICU team. Head and legs flexed. Proceduralist washed hands, and donned hat, mask, face shield, procedure gown and sterile gloves prior to proceeding. L2/L3 interspace prepped with 3 betadine swabs and draped. Neuraxial space identified on the 3rd attempt with 21 g spinal needle from kit. CSF free flowing but blood tinged. The remainder of the procedure was completed by Dr. Solano and the ICU team. Thank you for the opportunity to assist in the care of Mr. Mccoy. Carmela Bradshaw MD, PhD Anesthesiologist Coding
[2020-12-04 13:39] LABS: Appearance CSF Clear; CSF Count Tube # 3; CSF Xanthrochromic Xanthochromic; Color CSF Colorless; Red Blood Cell CSF (A) 22 /uL (0-); Red Blood Cell CSF (B) 20 /uL (0-); White Blood Cell CSF (A) 8 /uL (0-5); White Blood Cell CSF (B) 8 /uL (0-5)
--- NOTE | 2020-12-04 13:47 | Electrocardiogram Report ---
Test Reason : Blood Pressure : / mmHG Vent. Rate : 068 BPM Atrial Rate : 096 BPM P-R Int : 000 ms QRS Dur : 090 ms QT Int : 392 ms P-R-T Axes : 000 -53 046 degrees QTc Int : 416 ms Sinus rhythm first degree AVB and with 2nd degree A-V block (Mobitz I) Left anterior fascicular block Abnormal ECG When compared with ECG of 19-MAR-2019 09:06, Sinus rhythm is now with 2nd degree A-V block (Mobitz I) Confirmed by Ryan Jackson ([id number]) on 12/04/2020 1:47:33 PM Referred By: REFERRED SELF Confirmed By:Ryan Jackson
[2020-12-04 14:40] LABS: Cryptococcus neoformans/ga PCR Not Detected (NotDetected); Cytomegalovirus PCR Not Detected (NotDetected); Enterovirus PCR Not Detected (NotDetected); Escherichia coli K1 PCR Not Detected (NotDetected); Haemophilius influenzae PCR Not Detected (NotDetected); Herpes Simplex Virus 1 PCR Not Detected (NotDetected); Herpes Simplex Virus 2 PCR Not Detected (NotDetected); Human Herpes Virus 6 PCR Not Detected (NotDetected); Human Parechovirus PCR Not Detected (NotDetected); Listeria monocytogenes PCR Not Detected (NotDetected); Neisseria meningitidis PCR Not Detected (NotDetected); Streptococcus agalactiae PCR Not Detected (NotDetected); Streptococcus pneumoniae PCR Not Detected (NotDetected); Varicella Zoster Virus PCR Not Detected (NotDetected)
[2020-12-04] MEDS ORDERED: fentaNYL citrate 100 MCG/2 ML VIAL IV ONE (14:57)
[2020-12-04] MEDS ORDERED: MIDAZOLAM HCL 5 MG/ML VIAL IV ONE (14:57)
[2020-12-04] MEDS: propofoL 1,000 MG/100 ML VIAL IV SCH ×2 (15:51→19:38)
--- NOTE | 2020-12-04 19:37 | Billing Data ---
Date of Service December 04, 2020 Coding Level of Care Code Critical Care 1st - mins
--- NOTE | 2020-12-04 22:00 | XRay Report ---
ORBIT RADIOGRAPHS 3 VIEWS HISTORY: pre-MRI screening. COMPARISON: None. FINDINGS: There are no radiopaque foreign bodies identified within the orbits. IMPRESSION: No radiopaque foreign bodies identified within the orbits. ACT 112: Negative or not required by law. Electronically signed by: Michael Coughlin M.D. 12/04/2020 9:59 PM
--- NOTE | 2020-12-04 22:01 | XRay Report ---
KUB HISTORY: screening for MRi COMPARISON: None. FINDINGS: The bowel gas pattern is unremarkable. There are no dilated loops of small bowel to suggest an obstruction. No renal calculi. No ureteral calculi. No pneumoperitoneum or pneumatosis. No metal lic foreign bodies. A nasogastric tube terminates in the stomach. IMPRESSION: No metallic foreign bodies identified. ACT 112: Negative or not required by law. Electronically signed by: Michael Coughlin M.D. 12/04/2020 10:00 PM
[2020-12-04] MEDS ORDERED: GADOBUTROL 65ML VIAL IV ONE (23:19)
[2020-12-05] MEDS: propofoL 1,000 MG/100 ML VIAL IV SCH ×9 (00:47→22:46)
[2020-12-05] MEDS: D5W AND LACTATED RINGERS 1,000 ML IV SCH ×2 (03:08→14:29)
[2020-12-05] MEDS: PROPOFOL BOLUS FROM BAG IV PRN ×3 (03:53→22:00)
[2020-12-05 05:11] LABS: BUN Creatinine Ratio 20.8 (10-20); Calcium 8.2 mg/dl (8.5-10.1); Creatinine Clr Calc Pharmacy 60.2 ml/min; Est GFR (African American) 51.4 ml/min; Est GFR (Non-African American) 44.4 ml/min; Magnesium 2.6 mg/dl (1.8-2.4); Phosphorus 2.6 mg/dl (2.5-4.9)
[2020-12-05 05:54] LABS: Basophils # (auto) 0.04 K/uL (0-0.2); Basophils % (auto) 0.3 %; Eosinophils # (auto) 0.12 K/uL (0-0.5); Eosinophils % (auto) 0.8 %; Hematocrit (blood only) 33.8 % (42-52); Hemoglobin 11.9 g/dL (14.0-18.0); Immature Granulocytes # (auto) 0.07 K/uL (0.00-0.02); Immature Granulocytes % (auto) 0.5 %; Lymphocytes # (auto) 2.12 K/uL (1.2-3.4); Lymphocytes % (auto) 14.5 %; Mean Corpuscular Hemoglobin 35.1 pg (25-34); Mean Corpuscular Hgb Conc 35.2 g/dL (32-36); Mean Corpuscular Volume 99.7 fL (80-100); Monocytes # (auto) 1.05 K/uL (0.11-0.59); Monocytes % (auto) 7.2 %; Neutrophils % (auto) 76.7 %; Nucleated RBC # (auto) 0.02 K/uL (0-0); Nucleated RBC % (auto) 0.1 %; Platelet Count 244 K/uL (130-400); RDW Coefficient of Variation 12.9 % (11.5-14.5); RDW Standard Deviation 47.1 fL (36.4-46.3); Red Blood Count 3.39 M/uL (4.7-6.1)
[2020-12-05 06:53] LABS: Potassium 3.3 mmol/L (3.5-5.1)
--- NOTE | 2020-12-05 07:47 | XRay Report ---
XR chest 1V portable CLINICAL HISTORY: Respiratory failure. COMPARISON STUDY: Chest radiograph December 04, 2020. FINDINGS: Tip of endotracheal tube 3.4 cm above the milana. Tip of nasogastric tube is not well visua lized but at least within the body of the stomach. Left subclavian central line is in place. There is no thorax. Dense left basilar consolidation persists. There is left lower lobe volume loss. There is also right basilar opacity. IMPRESSION: 1. Satisfactory positioning of lines and tubes. 2. Bibasilar opacities, greater on the left. Pneumonia is favored although atelectasis could appear s imilar. ACT 112: Negative or not required by law. Electronically signed by: Lico Morales M.D. 12/05/2020 7:45 AM
[2020-12-05] MEDS: ICU ELECTROLYTE REPLACEMENT PROTOCOL SCH ×2 (07:52→21:10)
[2020-12-05] MEDS: POTASSIUM CHLORIDE 20 MEQ/15 ML UDC NG SCH ×2 (09:09→14:28)
--- NOTE | 2020-12-05 09:09 | Magnetic Resonance Report ---
Brain MRI WITH AND WITHOUT CONTRAST HISTORY: encephalopathy, r/o infection TECHNIQUE: Multiplanar multisequence MRI of the brain was performed both before and after the intrave nous administration of contrast. COMPARISON STUDY: Head CT 12/03/2020. FINDINGS: There is 1 cm focus of restricted diffusion seen within the right cerebellar hemisphere con sistent with an acute infarct. The ventricles and sulci demonstrate mild age-related involutional jcarlos nges. There are few scattered punctate foci of T2 hyperintensity seen within the periventricular and subcortical white matter suggestive of mild microvascular ischemic change. There is no mass, hematoma , or midline shift. Mild edema at the right cerebellar infarct. The major vascular flow-voids at the skull base are well-maintained. Partially visualized endotracheal tube and orogastric tube noted. The re is partial opacification of the ethmoid air cells. The mastoid air cells are clear. There are 2 pu nctate foci of enhancement within the right posterior parietal lobe best seen on axial image 18. Ther e is mild pachymeningeal enhancement most pronounced on the right. IMPRESSION: 1. 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 2. There are 2 punctate foci of enhancement within the right posterior parietal lobe. These are nonsp ecific but could represent subacute infarcts. 3. Mild pachymeningeal enhancement most pronounced on the right. There is also nonspecific but could be chronic. Follow-up brain MRI and one to 2 months is recommended for further evaluation of the enha ncing areas. ACT 112: Negative or not required by law. Electronically signed by: Michael Coughlin M.D. 12/05/2020 9:08 AM
[2020-12-05] MEDS: TOPIRAMATE 50 MG TAB PO SCH (09:10)
[2020-12-05] MEDS: ATORVASTATIN 20 MG TAB PO SCH (09:10)
[2020-12-05] MEDS: THIAMINE HCL 200 MG in SODIUM CHLORIDE 0.9% 50 ML IV SCH (09:12)
[2020-12-05] MEDS: FOLIC ACID 1 MG in SYRINGE 9.8 ML IV SCH (09:12)
[2020-12-05] MEDS: HEPARIN SOD 5,000 UNIT/0.5 ML VIAL SQ SCH ×2 (09:13→21:49)
[2020-12-05] MEDS: INSULIN ASPART 100 UNITS/ML 3 ML PEN SC SCH ×4 (09:15→21:49)
[2020-12-05] MEDS: ASPIRIN 81 MG CHEW PO SCH (09:16)
--- NOTE | 2020-12-05 09:42 | Electrocardiogram Report ---
Test Reason : Blood Pressure : / mmHG Vent. Rate : 045 BPM Atrial Rate : 061 BPM P-R Int : 000 ms QRS Dur : 084 ms QT Int : 450 ms P-R-T Axes : 030 -48 -16 degrees QTc Int : 389 ms Sinus bradycardia with First degree AVB and Second degree Mobitz type 1 Left anterior fascicular block Nonspecific T wave abnormality Abnormal ECG When compared with ECG of 03-DEC-2020 20:14, T wave inversion now evident in Inferior leads Confirmed by Ryan Jackson ([id number]) on 12/05/2020 9:41:59 AM Referred By: REFERRED SELF Confirmed By:Ryan Jackson
--- NOTE | 2020-12-05 10:33 | Neurology Progress Note ---
Date of Service December 05, 2020 Assessment & Plan (1) Acute CVA (cerebrovascular accident): (2) Meningoencephalitis: (3) Acute alteration in mental status: (4) Delirium: (5) Uncontrolled type 2 diabetes mellitus: (6) First degree AV block: Plan: Given the acute nature of his altered mental status and is markedly elevated glucose, I suspect his initial confusion was related to hyperglycemia/Diabetic ketoacidosis ( he has had episodes like this in the past). However, the patient's agitated delirium persisted despite marked improvement in serum glucose. Certainly, cerebral glucose level lags behind serum correction, but if it was purely hyperglycemia /diabetic ketoacidosis, I would have expected a significant improvement in his mental status by now (again, much like previous admissions). MRI of the brain showed small scattered strokes in different vascular distributions, suggesting emboli ( or multiple small strokes from global hypoxia/ ischemia) LP had mildly elevated white cells of 8 with a protein of 100. Therefore, this patient has had small strokes and probable viral meningeal process. There were no changes on MRI to suggest significant encephalitis. The patient has elevated white count and lactate. blood cultures are negative to date. Recommendations: 1. consider lowering propofol in seeing how he is doing clinically with mental status /agitation and physical exam 2. I will follow and make additional recommendations pending his clinical course Overall, I spent a total of 35 minutes with this case including review of records, Review of MRI films, evaluation the patient at bedside, and discussion of the case with RN at bedside. Admission and Anticipated Discharge Date Admission Date: December 03, 2020 Subjective patient is still intubated hand on propofol, heavily sedated. MRI of the brain had showed a small right cerebellar hemispheric acute stroke with some possible tiny right posterior parietal strokes as well. There was mild pachymeningeal enhancement on the right as well LP revealed 8 white cells, protein of 100 and glucose of 192. gram stain was negative and cultures are negative to date. Blood cultures have been negative. Results & Data ([facility]) Vital Signs (Past 12 Hours) Vital Signs Temp Pulse Resp BP Pulse Ox 12/05/20 07:40 56 L 23 92 12/05/20 06:30 65 22 92 12/05/20 06:00 50 L 22 90 12/05/20 05:30 50 L 22 125/66 91 12/05/20 05:00 48 L 22 118/61 91 12/05/20 04:53 53 L 22 90 12/05/20 04:00 37.1 C 58 L 22 125/62 91 12/05/20 03:45 50 L 22 125/62 93 12/05/20 03:30 54 L 22 93 12/05/20 03:15 53 L 22 93 12/05/20 03:00 48 L 19 93 12/05/20 02:45 49 L 19 129/61 94 12/05/20 02:30 50 L 19 94 12/05/20 02:15 52 L 19 95 12/05/20 02:11 55 L 22 95 12/05/20 02:00 49 L 22 95 12/05/20 01:45 51 L 22 114/67 93 12/05/20 01:30 55 L 22 93 12/05/20 01:15 54 L 22 93 12/05/20 01:00 59 L 22 115/65 94 12/05/20 00:45 37.1 C 59 L 22 115/65 93 12/05/20 00:30 61 22 92 12/05/20 00:15 59 L 22 122/55 L 92 12/05/20 00:00 59 L 22 92 12/04/20 23:45 59 L 22 118/55 L 96 12/04/20 23:38 59 L 5 L Exam (Neuro) Physical Exam: Blood pressure is 125/66. Pulse in the 50s and regular. Respiratory rate is 23 and temperature is 37.1. O2 saturation is 92 percent. PG Care Time/CCT Total # of Minutes Spent Total Time Spent with Patient: Total time spent is greater than 50% in coordination of care (as documented) at patient's floor/unit and/or counseling patient: Coding Level of Care Code 18943 Subseq Hosp Care Lvl 3 Diagnoses Acute alteration in mental status R41.82 Delirium R41.0 Uncontrolled type 2 diabetes mellitus E11.65 First degree AV block I44.0 Acute CVA (cerebrovascular accident) I63.9 Meningoencephalitis G04.90 Time Spent (min) 35
--- NOTE | 2020-12-05 11:21 | Critical Care Progress Note ---
Date of Service December 05, 2020 Assessment & Plan (1) Metabolic encephalopathy: (2) DKA (diabetic ketoacidosis): (3) Delirium: (4) RYOAL (acute kidney injury): (5) Obesity: Plan: Impression: 70-year-old male with a history of obesity diabetes and hypertension brought to the emergency room by police after being found confused. He received Haldol in the emergency room as well as droperidol. He was empirically treated with antibiotics. He is admitted to the ICU. He was intubated 12/04/2020 due to agitated delirium and lumbar puncture performed at that time 24-hour events: Patient intubated and lines placed. He underwent lumbar puncture with the assistance of anesthesia. He has been hemodynamically stable overnight. Minimal vent settings today. No fevers Recommendations: Neuro: Acute agitated delirium. Differential would include metabolic versus infectious etiologies. Initial CT scan of the head was unrevealing. Lumbar puncture with results noted above. Bio fire was negative. Appreciate neurology assistance. Possible delirium associated with an ingestion. The patient apparently does have a history of THC use in the past. Cannot rule out viral meningeal process, however his bio fire was negative. No indication for acyclovir currently. Unclear etiology of the elevated protein. MRI of the brain with several small strokes which would not likely account for his acute process. Would favor acute metabolic encephalopathy with associated delirium. We will attempt to lower sedation today and see how we do. May need as needed antipsychotics. Awaiting Lyme studies. Cardiac -off pressors. Appreciate cardiology consultation regarding the patient's AV block. This appears to be an underlying first-degree block with underlying Wenkebach. Continue to follow for now. If the patient were to progress to high degree AV block, may require pacing. Respiratory - intubated for mental status changes. Follow ABG. Suspect possible underlying TANIKA, may need outpatient sleep study. If the patient remains relatively well controlled as we wean his sedation, he can likely be extubated. He was intubated for acute mental status changes so does not need SBT and should do fine from a pulmonary standpoint. GI -hold tube feeds in anticipation of possible liberation from mechanical ventilation in the next 24 hours RENAL/LYTES/Acid base -serum creatinine 1.5 currently. Replacing electrolytes. Continue to follow for now. Urine output adequate. - No acute process as above ENDO -DKA, mild. Gap is closed. Sugars are adequately controlled. Beta hydroxybutyrate was minimally elevated on presentation. It seems unlikely that this mild degree of DKA would account for the patient's profound agitated delirium. Continue insulin infusion currently. Anion gap is closed and I suspect we can transition fairly rapidly to a subcu regimen. Transition per pharmacy. HEME -mild anemia. No indication for transfusion currently or evidence of ongoing active blood loss. Continue to follow at this point time. ID - Leukocytosis, unclear source at this time, however does appear to be decreasing. Procalcitonin is negative. Cultures negative to date. Check tracheal aspirate. We will hold antibiotics for now as I do not see a definitive source for infection. LINES/IV ACCESS - Central line 12/04 Arterial line 12/04 Endotracheal tube 12/04 Trinidad catheter OGT DVT PROPHYLAXIS - - Heparin 5000 units subq q12 DISPO: ICU Patient is critically ill at this point time with significant possibility of clinical deterioration and . No family immediately available. A total of 50 minutes was spent in evaluation management stabilization of this patient exclusive of procedures. Admission and Anticipated Discharge Date Admission Date: December 03, 2020 Subjective intubated and sedated. Review of Systems Review of Systems: All systems reviewed & are unremarkable except as noted in HPI & below Physical Exam Physical Exam: intubated and sedated Constitutional: + mechanically ventilated Neck: normal visual inspection Respiratory: normal respiratory effort, lungs clear to auscultation Cardiovascular: RRR, no murmur, no edema Chest (Breasts): normal inspection/palpation of breasts Gastrointestinal (Abdomen): normal bowel sounds, soft, nontender, no hepatosplenomegaly Skin: Trauma: + evidence of skin trauma Neurologic: moves all extremities Results & Data Results & Data ([facility]) Vital Signs (Past 12 Hours) Vital Signs Temp Pulse Resp BP Pulse Ox 12/05/20 07:40 56 L 23 92 12/05/20 06:30 65 22 92 12/05/20 06:00 50 L 22 90 12/05/20 05:30 50 L 22 125/66 91 12/05/20 05:00 48 L 22 118/61 91 12/05/20 04:53 53 L 22 90 12/05/20 04:00 37.1 C 58 L 22 125/62 91 12/05/20 03:45 50 L 22 125/62 93 12/05/20 03:30 54 L 22 93 12/05/20 03:15 53 L 22 93 12/05/20 03:00 48 L 19 93 12/05/20 02:45 49 L 19 129/61 94 12/05/20 02:30 50 L 19 94 12/05/20 02:15 52 L 19 95 12/05/20 02:11 55 L 22 95 12/05/20 02:00 49 L 22 95 12/05/20 01:45 51 L 22 114/67 93 12/05/20 01:30 55 L 22 93 12/05/20 01:15 54 L 22 93 12/05/20 01:00 59 L 22 115/65 94 12/05/20 00:45 37.1 C 59 L 22 115/65 93 12/05/20 00:30 61 22 92 12/05/20 00:15 59 L 22 122/55 L 92 12/05/20 00:00 59 L 22 92 12/04/20 23:45 59 L 22 118/55 L 96 12/04/20 23:38 59 L 5 L Laboratory Results CSF: Opening pressure 16 8 white cells, 22 red cells Glucose 192 Total protein 100 Bio fire negative Critical Care Results & Data Vital Signs (Past 12 Hours) Vital Signs Temp Pulse Resp BP Pulse Ox 12/05/20 07:40 56 L 23 92 12/05/20 06:30 65 22 92 12/05/20 06:00 50 L 22 90 12/05/20 05:30 50 L 22 125/66 91 12/05/20 05:00 48 L 22 118/61 91 12/05/20 04:53 53 L 22 90 12/05/20 04:00 37.1 C 58 L 22 125/62 91 12/05/20 03:45 50 L 22 125/62 93 12/05/20 03:30 54 L 22 93 12/05/20 03:15 53 L 22 93 12/05/20 03:00 48 L 19 93 12/05/20 02:45 49 L 19 129/61 94 12/05/20 02:30 50 L 19 94 12/05/20 02:15 52 L 19 95 12/05/20 02:11 55 L 22 95 12/05/20 02:00 49 L 22 95 12/05/20 01:45 51 L 22 114/67 93 12/05/20 01:30 55 L 22 93 12/05/20 01:15 54 L 22 93 12/05/20 01:00 59 L 22 115/65 94 12/05/20 00:45 37.1 C 59 L 22 115/65 93 12/05/20 00:30 61 22 92 12/05/20 00:15 59 L 22 122/55 L 92 12/05/20 00:00 59 L 22 92 12/04/20 23:45 59 L 22 118/55 L 96 12/04/20 23:38 59 L 5 L Lab & Micro Results (Past 24 Hours) RBC 3.39 M/uL (4.7-6.1) L 12/05/20 WBC 14.60 K/uL (4.8-10.8) H 12/05/20 Hgb 11.9 g/dL (14.0-18.0) L 12/05/20 Hct 33.8 % (42-52) L 12/05/20 MCV 99.7 fL (80-100) 12/05/20 MCH 35.1 pg (25-34) H 12/05/20 MCHC 35.2 g/dL (32-36) 12/05/20 RDW Standard Deviation 47.1 fL (36.4-46.3) H 12/05/20 RDW Coefficient of Variation 12.9 % (11.5-14.5) 12/05/20 Plt Count 244 K/uL (130-400) 12/05/20 MPV 11.0 fL (7.4-10.4) H 12/05/20 Nucleated Red Blood Cells % (auto) 0.1 % 12/05/20 Nucleated RBC Absolute Count (auto) 0.02 K/uL (0-0) H 12/05/20 Neutrophils (%) (Auto) 76.7 % 12/05/20 Lymphocytes (%) (Auto) 14.5 % 12/05/20 Monocytes # (Auto) 1.05 K/uL (0.11-0.59) H 12/05/20 Eosinophils # (Auto) 0.12 K/uL (0-0.5) 12/05/20 Immature Granulocyte % (Auto) 0.5 % 12/05/20 Neutrophils # (Auto) 11.20 K/uL (1.4-6.5) H 12/05/20 Lymphocytes # (Auto) 2.12 K/uL (1.2-3.4) 12/05/20 Monocytes # (Auto) 1.05 K/uL (0.11-0.59) H 12/05/20 Eosinophils # (Auto) 0.12 K/uL (0-0.5) 12/05/20 Basophils # (Auto) 0.04 K/uL (0-0.2) 12/05/20 Immature Granulocyte # (Auto) 0.07 K/uL (0.00-0.02) H 12/05/20 Na 138 mmol/L (136-145) 12/05/20 K 3.3 mmol/L (3.5-5.1) L 12/05/20 Cl 107 mmol/L (98-107) 12/05/20 CO2 28 mmol/L (21-32) 12/05/20 Anion Gap 3.0 (3-11) 12/05/20 BUN 32 mg/dl (7-18) H 12/05/20 Creatinine 1.55 mg/dl (0.6-1.4) H 12/05/20 Estimated GFR ( Amer) 51.4 ml/min 12/05/20 Estimated GFR (Non-Af Amer) 44.4 ml/min 12/05/20 BUN/Creatinine Ratio 20.8 (10-20) H 12/05/20 Glu 148 mg/dl (70-99) H 12/05/20 Ca 8.2 mg/dl (8.5-10.1) L 12/05/20 Phosphorus Level 2.6 mg/dl (2.5-4.9) 12/05/20 Mg 2.6 mg/dl (1.8-2.4) H 12/05/20 04:25 12/05/20 Calcium Level 8.2 mg/dl (8.5-10.1) L 12/05/20 04:25 12/05/20 Microbiology 12/03/20 23:45 Aerobic Blood Culture - Preliminary Blood No growth in Aerobic bottle after 24 hours. Anaerobic Blood Culture - Final 12/04/20 12:10 Gram Stain - Final Sputum,Vent Suction 12/04/20 00:01 Aerobic Blood Culture - Preliminary Blood No growth in Aerobic bottle after 24 hours. Anaerobic Blood Culture - Preliminary No growth in Anaerobic bottle after 24 hours. 12/04/20 Unknown Gram Stain - Final Cerebral Spinal Fluid Diagnostic Findings (Past 24 Hours) Brain MRI 12/04/20 18:35 Brain MRI WITH AND WITHOUT CONTRAST HISTORY: encephalopathy, r/o infection TECHNIQUE: Multiplanar multisequence MRI of the brain was performed both before and after the intravenous administration of contrast. COMPARISON STUDY: Head CT 12/03/2020. FINDINGS: There is 1 cm focus of restricted diffusion seen within the right cerebellar hemisphere consistent with an acute infarct. The ventricles and sulci demonstrate mild age-related involutional changes. There are few scattered punctate foci of T2 hyperintensity seen within the periventricular and subcortical white matter suggestive of mild microvascular ischemic change. There is no mass, hematoma, or midline shift. Mild edema at the right cerebellar infarct. The major vascular flow-voids at the skull base are well-maintained. Partially visualized endotracheal tube and orogastric tube noted. There is partial opacification of the ethmoid air cells. The mastoid air cells are clear. There are 2 punctate foci of enhancement within the right posterior parietal lobe best seen on axial image 18. There is mild pachymeningeal enhancement most pronounced on the right. IMPRESSION: 1. 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 2. There are 2 punctate foci of enhancement within the right posterior parietal lobe. These are nonspecific but could represent subacute infarcts. 3. Mild pachymeningeal enhancement most pronounced on the right. There is also nonspecific but could be chronic. Follow-up brain MRI and one to 2 months is recommended for further evaluation of the enhancing areas. ACT 112: Negative or not required by law. Electronically signed by: Michael Coughlin M.D. 12/05/2020 9:08 AM KUB X-Ray 12/04/20 21:25 KUB HISTORY: screening for MRi COMPARISON: None. FINDINGS: The bowel gas pattern is unremarkable. There are no dilated loops of small bowel to suggest an obstruction. No renal calculi. No ureteral calculi. No pneumoperitoneum or pneumatosis. No metallic foreign bodies. A nasogastric tube terminates in the stomach. IMPRESSION: No metallic foreign bodies identified. ACT 112: Negative or not required by law. Electronically signed by: Michael Coughlin M.D. 12/04/2020 10:00 PM Orbit X-Ray 12/04/20 21:25 ORBIT RADIOGRAPHS 3 VIEWS HISTORY: pre-MRI screening. COMPARISON: None. FINDINGS: There are no radiopaque foreign bodies identified within the orbits. IMPRESSION: No radiopaque foreign bodies identified within the orbits. ACT 112: Negative or not required by law. Electronically signed by: Michael Coughlin M.D. 12/04/2020 9:59 PM Chest X-Ray 12/05/20 07:00 XR chest 1V portable CLINICAL HISTORY: Respiratory failure. COMPARISON STUDY: Chest radiograph December 04, 2020. FINDINGS: Tip of endotracheal tube 3.4 cm above the milana. Tip of nasogastric tube is not well visualized but at least within the body of the stomach. Left subclavian central line is in place. There is no thorax. Dense left basilar consolidation persists. There is left lower lobe volume loss. There is also right basilar opacity. IMPRESSION: 1. Satisfactory positioning of lines and tubes. 2. Bibasilar opacities, greater on the left. Pneumonia is favored although atelectasis could appear similar. ACT 112: Negative or not required by law. Electronically signed by: Lico Morales M.D. 12/05/2020 7:45 AM I & O Totals 24 Hours 12/04/20 12/05/20 12/06/20 06:59 06:59 06:59 Intake Total 1866.755 / 6887.594 1716.865 / 4049.953 95.955 / 95.955 Output Total 875 / 875 701 / 701 Balance 991.755 / 661.953 6653.865 / 3348.953 95.955 / 95.955 Cumulative 12/03/20 19:12 thru 12/05/20 09:50 Intake Total 6000.575 Output Total 1576 Balance 4424.575 RT Ventilator Mngmt (Last Documented) Ventilator Ordered Settings Ventilator Support Mode Assist Control 12/05/20 07:40 Respiratory Rate 23 12/05/20 07:40 Ventilator Tidal Volume 450 12/05/20 07:40 Setting Minute Ventilation 9.9 12/05/20 07:40 Positive End Expiratory 5 12/05/20 07:40 Pressure Fraction of Inspired Oxygen 30 12/05/20 07:40 Machine Comment Set inspiratory time=0.60 seconds 12/05/20 04:53 Ventilator - PT Measurements Respiratory Rate 23 Exhaled Tidal Volume 450 Minute Ventilation 9.9 Peak Inspiratory Airway 18 Pressure Plateau Pressure 15 Respiratory Cycle Inspiratory: 1:2.4 Expiratory Ratio Inspiratory Phase Time 0.80 End-Tidal CO2 29 Static Lung Compliance 45.00 Dynamic Lung Compliance 34.62 Normal Static Lung Compliance 48.00 Patient Measurements Comment Weaned FiO2 to 30%. Coding Level of Care Code Critical Care 1st 30-74 mins Diagnoses Metabolic encephalopathy G93.41 DKA (diabetic ketoacidosis) E13.10 Diabetes mellitus complication detail: without coma Diabetes mellitus type: other specified (including GINGER) Delirium R41.0 ROYAL (acute kidney injury) N17.9 Obesity E66.9 Time Spent (min) 50 (1) DKA (diabetic ketoacidosis) Diabetes mellitus complication detail: without coma Diabetes mellitus type: other specified (including GINGER) Qualified Code(s): E13.10 - Other specified diabetes mellitus with ketoacidosis without coma
[2020-12-05] MEDS: INSULIN REGULAR 250 UNITS in SODIUM CHLORIDE 0.9% 247.5 ML IV SCH (12:20)
--- NOTE | 2020-12-05 18:25 | Hospitalist Progress Note ---
Date of Service December 05, 2020 Assessment & Plan (1) Metabolic encephalopathy: Plan: Dyllan is a 70-year-old male with a past medical history of ADHD, diabetes, hyperlipidemia, hypertension, who was reportedly nonverbal trying to get into another home which his [id number] reported was similar to how he had prior with elevated blood sugar. Was brought in by medics and reportedly combative in route and required Ativan IV. No additional history at time of arrival was available/obtainable. He had rapidly declining clinical status requiring intubation and remains critically ill in the ICU. Altered mental status Urine toxicology screen negative Alcohol negative Glycemic to over 700 on admission, history of DKA,? Metabolic encephalopathy glucose improving with improving status Precedex infusion was initially used while in the ICU, discontinued. Currently on propofol Neurology consulted. No meaningful history able to be elicited from patient CTH: IMPRESSION: Exam compromised by motion artifact. No acute intracranial findings. No significant change since prior exam. CSF fluid with increased protein consistent with hyperglycemia, increased protein.? Viral encephalitis/Lyme. Serology pending (2) DKA (diabetic ketoacidosis): Plan: Diabetic ketoacidosis Hyperglycemic to over 700 on admission, elevated anion gap Initially on insulin GTT, patient managed in ICU. Transitioning to subcu per pharmacy recs Gap closed, bicarb 23, glucose 190 on recheck (3) Leukocytosis: Plan: Leukocytosisdowntrending Blood cultures pending CXR R: Left base airspace opacity, diffuse thickening. ?PNA Empiric Rocephin/Vanco held for no clear source Lactate 4.7, down trended to 2.3 Unclear source CSF analysis pending. Elevated protein? Viral/Lyme Ongoing management in ICU (4) Prudence: Plan: Secondary AV block Precedex discontinued TTE: Grade 1 diastolic dysfunction EF 65-70% on last echo Normal sinus rhythm eval SHANNAN/statin continued Cardiology consulted. No indication for temporary pacing wire. Continue telemetry, if pauses or progresses to complete heart block reconsider (5) ROYAL (acute kidney injury): Plan: ROYAL Creatinine acutely elevated to 1.7 1.5, continue to follow, non anuric DKA/volume depletion UA negative Electrolytes per ICU (6) Noncompliance with medications: (7) Hyperlipidemia: Plan: Statin as noted (8) Obesity: Plan: Management (9) Depression: Plan: Sedated, follow clinically at this time (10) ADHD: Plan: U tox negative Altered, no treatment indicated at this time Admission and Anticipated Discharge Date Admission Date: December 03, 2020 Subjective Subjective limited by intubation and sedation. Remains stable on vent. Review of Systems Review of Systems: Unobtainable due to endotracheal tube Physical Exam Physical Exam: General: Sedated, intubated, appears ill HEENT: Atraumatic, normocephalic. Pulm: Symmetrical chest rise. Intubated. Cardiac: RRR, -mrg. Radial pulses intact and symmetrical. Abdominal: Nontender, nondistended, soft. BS present. Results & Data Results & Data ([facility]) Vital Signs (Past 12 Hours) Vital Signs Temp Pulse Resp BP Pulse Ox 12/05/20 16:48 37.3 C 12/05/20 16:30 59 L 19 132/67 92 12/05/20 16:00 61 23 90 12/05/20 15:30 67 31 H 92 12/05/20 15:03 60 23 92 12/05/20 15:00 61 22 114/65 93 12/05/20 14:30 62 22 90 12/05/20 14:00 62 22 134/67 91 12/05/20 13:30 58 L 22 93 12/05/20 13:00 55 L 22 127/65 92 12/05/20 12:30 37.3 C 57 L 22 91 12/05/20 12:00 37.3 C 58 L 22 93 12/05/20 11:35 55 L 22 92 12/05/20 11:00 63 22 135/68 92 12/05/20 10:00 59 L 19 92 12/05/20 09:00 57 L 23 92 12/05/20 08:00 37.2 C 57 L 22 93 12/05/20 07:40 56 L 23 92 12/05/20 07:00 65 22 91 12/05/20 06:30 65 22 92 PG Care Time/CCT Total # of Minutes Spent Total Time Spent with Patient: Total time spent is greater than 50% in coordination of care (as documented) at patient's floor/unit and/or counseling patient: Coding Level of Care Code 96475 Subseq Hosp Care Lvl 1 Diagnoses Metabolic encephalopathy G93.41 DKA (diabetic ketoacidosis) E13.10 Diabetes mellitus complication detail: without coma Diabetes mellitus type: other specified (including GINGER) Leukocytosis D72.829 [place] I44.1 ROYAL (acute kidney injury) N17.9 Noncompliance with medications Z91.14 Hyperlipidemia E78.5 Obesity E66.9 Depression F32.9 ADHD F90.9 (1) DKA (diabetic ketoacidosis) Diabetes mellitus complication detail: without coma Diabetes mellitus type: other specified (including GINGER) Qualified Code(s): E13.10 - Other specified diabetes mellitus with ketoacidosis without coma
[2020-12-05 20:57] LABS: BUN Creatinine Ratio 21.8 (10-20); Creatinine Clr Calc Pharmacy 60.9 ml/min; Est GFR (African American) 53.5 ml/min; Est GFR (Non-African American) 46.2 ml/min; Potassium 3.5 mmol/L (3.5-5.1)
[2020-12-05] MEDS: POTASSIUM CHLORIDE CRTAB 20 MEQ TABCR PO SCH (21:49)
[2020-12-05] MEDS: ASPIRIN 81 MG ECTAB PO SCH (22:19)
[2020-12-06] MEDS: propofoL 1,000 MG/100 ML VIAL IV SCH ×7 (01:48→14:16)
[2020-12-06] MEDS: D5W AND LACTATED RINGERS 1,000 ML IV SCH ×2 (02:06→10:50)
[2020-12-06] MEDS: POTASSIUM CHLORIDE CRTAB 20 MEQ TABCR PO SCH (03:08)
[2020-12-06] MEDS: PROPOFOL BOLUS FROM BAG IV PRN (04:46)
[2020-12-06 05:11] LABS: Basophils # (auto) 0.02 K/uL (0-0.2); Basophils % (auto) 0.2 %; Eosinophils # (auto) 0.22 K/uL (0-0.5); Eosinophils % (auto) 1.9 %; Immature Granulocytes # (auto) 0.07 K/uL (0.00-0.02); Immature Granulocytes % (auto) 0.6 %; Lymphocytes # (auto) 1.76 K/uL (1.2-3.4); Lymphocytes % (auto) 15.2 %; Mean Corpuscular Hemoglobin 34.7 pg (25-34); Mean Corpuscular Hgb Conc 34.3 g/dL (32-36); Mean Corpuscular Volume 101.2 fL (80-100); Mean Platelet Volume 10.2 fL (7.4-10.4); Monocytes # (auto) 0.78 K/uL (0.11-0.59); Monocytes % (auto) 6.8 %; Neutrophils % (auto) 75.3 %; Platelet Count 215 K/uL (130-400); RDW Standard Deviation 47.7 fL (36.4-46.3); Red Blood Count 3.46 M/uL (4.7-6.1); White Blood Count 11.55 K/uL (4.8-10.8)
[2020-12-06 05:15] LABS: iSTAT Arterial Blood Gas HCO3 23 meg/L (19-24); iSTAT Arterial Blood Gas pCO2 34 mmHg (35-46); iSTAT Arterial Blood Gas pH 7.44 (7.35-7.45); iSTAT Arterial Blood Gas pO2 59 mmHg (80-95); iSTAT Carbon Dioxide 24 mmol/L (24-31); iSTAT FiO2 30 %; iSTAT Site Art Line
[2020-12-06 05:43] LABS: BUN Creatinine Ratio 22.6 (10-20); Calcium 7.9 mg/dl (8.5-10.1); Creatinine Clr Calc Pharmacy 71.9 ml/min; Est GFR (African American) 65.4 ml/min; Est GFR (Non-African American) 56.5 ml/min; Potassium 3.5 mmol/L (3.5-5.1)
--- NOTE | 2020-12-06 05:52 | Critical Care Progress Note ---
Date of Service December 06, 2020 Assessment & Plan (1) DKA (diabetic ketoacidosis): Plan: Reason Critically Ill: Dyllan is a 70-year-old male with a past history of ADHD, diabetes, hypertension who is brought to [facility] by police after found to be confused, which his [id number] reported was similar to how he acted prior with an elevated blood sugar. He was found to be hyperglycemic at that time. He did require Ativan, Haldol, and droperidol in the prehospital and early ER course due to agitation, delirium, and combativeness. He was intubated 12/04 for the same, and LP was performed. He was subsequently admitted to the ICU for continued care management. Neuro - Agitated Delirium - Exact etiology of this is not clear. Continue to suspect metabolic versus infectious (viral) etiology at this time. Patient noted to be hyperglycemic (over 700) upon arrival to the ED; however, delirium/encephalopathy has continued despite resolution of his sugars. LP did not show gross evidence of infection - demonstrated elevated protein and sugar, with very mildly raised WBCs (8), BioFire was negative as was gram stain/culture. Interestingly, serum leukocytosis appreciated - which has improved day-to-day while here. Brain imaging demonstrated a 1 cm acute infarct in the right cerebellum, as well as 2 punctate foci within the R parietal lobe. Noted that patient has a history of THC use, although UDS was negative. Await Lyme studies. Appreciate neurology insight. -- Discontinue propofol with plan to extubate -- Consider PRN antipsychotics Patient with known history of ADHD and ?anxiety/depression - ?on TopaMax, previously on SSRI per prior PCP notes. Cardiac - AV blockpatient appears to have an underlying 1st and 2nd degree, type I, AVB on his ECGs. Appreciated since 2020. If deteriorates, can consider epi and pacing. Respiratory - Airway compromisepatient was intubated on 12/03 out of concerns for airway protection in the setting of agitated delirium. Discontinue propofol with plan to extubate. Non-invasive ventilation as needed thereafter. As previously noted, patient likely has TANIKA and will require outpatient sleep study. GI - Appreciate nutrition insight and recommendations as we move towards extubation. RENAL/LYTES - No significant electrolyte abnormalities at this time. BUN and creatinine nicely resolved, within normal limits at 29/1.27 this morning.Continue to monitor. - [place] in place, monitor I+Os ENDO - Mild DKA - Status post insulin drip, fluid resuscitation; sugars are now adequately controlled, gap closed. Appreciate pharmacy assistance. Plan to transition to SQ insulin today from drip. As noted above, it is possible that his initial hyperglycemia/DKA may have been contributory to his agitated delirium, however, given adequate of his sugars since that time and continuation of his delirium, suspect additional etiology is likely at play. HEME - Stable macrocytic anemia noted on labs. Continue folate and thiamine supplementation. ID - As aforementioned, possible that his agitated delirium may be secondary to a viral meningeal process. However, Biofire PCR negative, LP with only mildly elevated WBCs (8) and hyperglycemia. His leukocytosis, which does not have a clear source at this time, does appear to be improving. No acute indication for acyclovir at this time. Tracheal sample and stain negative. Pro-George negative. We will continue to monitor. Blood cultures did return positive 1 out of 2 for gram-positive cocci in clusters. Likely CoNS contaminant, await speciation. Repeat BCX now. Not currently on ABX. INTEGUMENTARY - No acute needs at this time LINES/IV ACCESS - Central line, arterial line, endotracheal tube, OGT, [place] DVT PROPHYLAXIS - Heparin 5000 units subcu every 12 Thank you for allowing us to be part of this patient's care. Please refer to Dr. Ramsay's documentation for any further recommendations. (2) Acute alteration in mental status: (3) ROYAL (acute kidney injury): (4) Noncompliance with medications: (5) Uncontrolled type 2 diabetes mellitus: (6) First degree AV block: (7) Wenckebach: (8) Hyperlipidemia: (9) Obesity: (10) Depression: (11) ADHD: (12) Hypertension: Admission and Anticipated Discharge Date Admission Date: December 03, 2020 Supervising Physician Co-Signing Physician Notes Dr. Marquis was resident physician during care of patient. I separately evaluated patient for yu portions of the history and the exam. I was present during the critical portion of medical decision making, and I discussed the case with the resident. I generally agree with the findings and plan. Respiratory insufficiency we will attempt to extubate today, mental status evaluation pending decrease in sedation, on antiplatelet medication for known CVA. Patient stable to transition to subcutaneous insulin. 40 mg Lasix x1 today. Cultures positive times 1 repeat cultures consider this to be contaminant Subjective No acute events overnight. Patient unable to provide meaningful history given sedation and endotracheal intubation. Review of Systems Review of Systems: Unobtainable due to endotracheal tube and Unobtainable due to reduced consciousness Physical Exam Physical Exam: General: 70-year-old mechanically ventilated male who is lying back in his hospital bed, sedated, upon my arrival. He is unable to respond to painful stimuli. HEENT: NCAT. Eyes - Sclera are white, anicteric, and without injection. PERRL. Cardiac: Normal rate and regular rhythm; S1 and S2 present with no murmurs, rubs, or gallops. Pulmonary: Intubated and mechanically ventilated. Symmetric expansion of the chest. Lungs were clear to auscultation bilaterally with no crackles or wheezes. Abdominal: Abdomen was soft and nondistended. Extremities: Upper and lower extremities are warm and well perfused. Radial pulses were 2+ b/l. Results & Data Results & Data ([facility]) Vital Signs (Past 12 Hours) Vital Signs Temp Pulse Resp BP Pulse Ox 12/06/20 05:00 51 L 25 H 139/70 93 12/06/20 04:35 71 31 H 94 12/06/20 04:00 37.1 C 47 L 22 132/63 92 12/06/20 03:30 44 L 22 93 12/06/20 03:00 66 22 127/63 93 12/06/20 02:00 52 L 22 129/58 L 93 12/06/20 01:50 41 L 22 92 12/06/20 01:00 44 L 22 127/68 93 12/06/20 00:00 45 L 22 129/64 94 12/05/20 23:49 58 L 12/05/20 23:30 47 L 22 124/67 94 12/05/20 23:00 54 L 22 94 12/05/20 22:30 52 L 22 94 12/05/20 22:28 57 L 22 96 12/05/20 22:00 49 L 22 96 12/05/20 21:30 39 L 22 131/66 95 12/05/20 21:00 53 L 22 95 12/05/20 20:30 51 L 22 114/64 95 12/05/20 20:00 52 L 22 95 12/05/20 19:30 55 L 22 95 12/05/20 19:10 52 L 22 95 12/05/20 19:00 36.8 C 53 L 22 95 Critical Care Time I have personally spent 35 minutes of critical care time in the direct management of this patient. This is a life/limb threatening event. This includes time spent evaluating patient, direct bedside care, chart review, placing orders, interpretation of diagnostic studies, discussion with consultants, patient, and/or family members regarding treatment decisions, as well as other required patient management activities. This time is exclusive of all separately billable procedures, and teaching time and separate from and in addition to any other critical care service time. Resident Activity Tracking Resident Involvement: Resident Care Provided Care Provided: Adult Hospital Medicine (1) DKA (diabetic ketoacidosis) Diabetes mellitus complication detail: without coma Diabetes mellitus type: other specified (including GINGER) Qualified Code(s): E13.10 - Other specified diabetes mellitus with ketoacidosis without coma
[2020-12-06 06:21] LABS: Magnesium 2.5 mg/dl (1.8-2.4); Phosphorus 3.2 mg/dl (2.5-4.9)
[2020-12-06] MEDS: ICU ELECTROLYTE REPLACEMENT PROTOCOL SCH ×2 (06:43→16:30)
[2020-12-06] MEDS: INSULIN ASPART 100 UNITS/ML 3 ML PEN SC SCH ×5 (07:35→23:44)
[2020-12-06] MEDS: POTASSIUM CHLORIDE 20 MEQ/15 ML UDC NG SCH ×2 (07:35→10:51)
[2020-12-06] MEDS: ATORVASTATIN 20 MG TAB PO SCH (07:36)
[2020-12-06] MEDS: ASPIRIN 81 MG CHEW PO SCH (07:36)
[2020-12-06] MEDS: TOPIRAMATE 50 MG TAB PO SCH (07:36)
[2020-12-06] MEDS: HEPARIN SOD 5,000 UNIT/0.5 ML VIAL SQ SCH ×2 (07:37→19:36)
[2020-12-06] MEDS: FOLIC ACID 1 MG in SYRINGE 9.8 ML IV SCH (07:39)
[2020-12-06] MEDS: THIAMINE HCL 200 MG in SODIUM CHLORIDE 0.9% 50 ML IV SCH (07:40)
--- NOTE | 2020-12-06 08:25 | XRay Report ---
SINGLE VIEW CHEST CLINICAL HISTORY: Respiratory failure. FINDINGS: An AP, portable, upright chest radiograph is compared to study dated 12/05/2020. An endotra cheal tube, an enteric tube, and the left subclavian central venous catheter are unchanged in positio n. The heart is enlarged. There is left basilar consolidation and a small left pleural effusion. The right lung appears clear noting basilar atelectasis. No pneumothorax is seen. The skeletal structures are osteopenic. The bony thorax is grossly intact. IMPRESSION: 1. Stable lines and tubes. 2. Left basilar consolidation and left pleural effusion. This is similar to previous. ACT 112: Negative or not required by law. Electronically signed by: Hradik Nassar M.D. 12/06/2020 8:23 AM
--- NOTE | 2020-12-06 09:53 | Billing Data ---
Date of Service December 06, 2020 Coding Level of Care Code Critical Care 1st - mins
[2020-12-06] MEDS ORDERED: INSULIN GLARGINE SOLOSTAR 100 UNITS/ML 3 ML PEN SC ONE (10:15)
[2020-12-06] MEDS ORDERED: FUROSEMIDE 40 MG/4 ML VIAL IV ONE (10:30)
[2020-12-06] MEDS ORDERED: LORazepam 0.5 MG/1 ML VIAL IV STA (11:46)
[2020-12-06] MEDS ORDERED: LORazepam 2 MG/4 ML VIAL ONE (11:48)
[2020-12-06] MEDS ORDERED: ACETAMINOPHEN 1000 MG/100 ML IV IV STA (11:49)
[2020-12-06] MEDS ORDERED: ACETAMINOPHEN 1000 MG/100 ML IV IV ONE (11:51)
[2020-12-06] MEDS ORDERED: RACEPINEPHRINE 2.25% NEBU SOLN 0.5 ML VIAL ONE (11:56)
[2020-12-06] MEDS ORDERED: RACEPINEPHRINE 2.25% NEBU SOLN 0.5 ML VIAL NEB STA (11:56)
[2020-12-06] MEDS ORDERED: MoRPHine SULFATE 2 MG/ML CARP ONE (12:00)
[2020-12-06] MEDS ORDERED: MoRPHine SULFATE 2 MG/ML CARP IV STA ×4 (12:00→22:09)
[2020-12-06] MEDS ORDERED: HALOPERIDOL LACTATE 5 MG/ML 1 ML VIAL IV STA ×2 (12:09→23:31)
[2020-12-06] MEDS ORDERED: HALOPERIDOL LACTATE 5 MG/ML 1 ML VIAL ONE ×2 (12:10→23:34)
[2020-12-06] MEDS ORDERED: FUROSEMIDE 40 MG in SYRINGE 0 ML IV ONE (12:15)
--- NOTE | 2020-12-06 13:49 | XRay Report ---
XR chest 1V portable CLINICAL HISTORY: sob TECHNIQUE: Single frontal radiograph of the chest was obtained. Comparison: Comparison is made to chest one view 12/06/2020 FINDINGS: A left subclavian venous catheter terminates at the mid SVC. The cardiomediastinal silhouette is norm al. Lungs are underinflated. Patchy airspace opacities are seen in the left lung, particularly at the lung base. No evidence of pleural effusion or pneumothorax. IMPRESSION: Patchy left-sided airspace opacities which may represent atelectasis, pneumonia, and/or aspiration. ACT 112: Negative or not required by law. Electronically signed by: Bong Wolfe M.D. 12/06/2020 1:48 PM
--- NOTE | 2020-12-06 14:15 | Pharmacy Report ---
Pharmacy Glycemic Short Note 2 - Date of Service December 06, 2020 - Glycemic Short BSG Results (Last 24 hours): 12/05/20 12/05/20 12/05/20 14:15 16:34 18:02 Glucose POC Glucose 123 H 109 H 115 H 12/05/20 12/05/20 12/05/20 19:16 20:14 20:25 Glucose 140 H POC Glucose 114 H 123 H 12/05/20 12/06/20 12/06/20 22:12 00:09 00:12 Glucose POC Glucose 124 H 161 H 142 H 12/06/20 12/06/20 12/06/20 02:10 04:07 04:59 Glucose 157 H POC Glucose 133 H 154 H 12/06/20 12/06/20 12/06/20 08:10 08:28 09:00 Glucose POC Glucose 142 H 129 H 185 H 12/06/20 12/06/20 12/06/20 12:37 12:39 12:41 Glucose POC Glucose 325 H* 192 H 172 H 12/06/20 13:54 Glucose POC Glucose 169 H OUTPATIENT ANTIDIABETIC REGIMEN: * NPH 18 units BID * Regular insulin 14 units TIDM ASSESSMENT: 12/06 * Labs have normalized, patient extubated today, plan to transition off of insulin infusion. * D5LR@100 ml/hr was running, now discontinued * Will transition with 50 units of lantus, once transitioned off will begin novolog CF 15 CR 5 12/05 * Mr Mccoy is a 70 y/o M with a PMH of T2DM who presents with hyperglycemia. * Patient initially started on insulin infusion for metabolic abnormalities. * Subsequently this morning was intubated. Insulin infusion was off from 0830 to 1000. * Continue insulin infusion as patient is NPO and intubated. PLAN FOR INPATIENT GLYCEMIC CONTROL: * Insulin infusion empirically rate cut to 2.2 units/hr with discontinuation of dextrose fluid * Lantus 50 units x 1 this AM * Plan to transition off of insulin infusion when drip rate < 2 units/hr with 2 consecutive BSGs in goal range or 6 hours after lantus administration (1700) PLAN FOR DISCHARGE: * TBD
[2020-12-06] MEDS: cefTRIAXone SODIUM 2,000 MG in DEXTROSE 5% 50 ML IV SCH (15:33)
--- NOTE | 2020-12-06 15:43 | Hospitalist Progress Note ---
Date of Service December 06, 2020 Assessment & Plan (1) Metabolic encephalopathy: Plan: Dyllan is a 70-year-old male with a past medical history of ADHD, diabetes, hyperlipidemia, hypertension, who was reportedly nonverbal trying to get into another home which his [id number] reported was similar to how he had prior with elevated blood sugar. Was brought in by medics and reportedly combative in route and required Ativan IV. No additional history at time of arrival was available/obtainable. He had rapidly declining clinical status requiring intubation and remains critically ill in the ICU. -Found to have several small acute CVAs on brain MRI which could be c ontributing. Brain MRI also with pachymeningeal enhancement -CSF with increased protein, 8 WBCs, positive xanthochromia, but negative bio fire rapid panel, Lyme pending -CSF culture no growth to date -Sputum culture negative -No fevers -Chest x-ray with small pleural effusion but no definite pneumonia -Urinalysis negative for infection -History from family that he drinks alcohol occasionally but do not suspect alcohol withdrawal although does have a macrocytosis without anemia suggestive of heavy alcohol use Urine toxicology screen negative Alcohol negative -NH3 not checked-will check in the morning -TSH normal Glycemic to over 700 on admission, with mild DKA Precedex infusion was initially used while in the ICU, discontinued. Currently on propofol which was now weaned off and he is extubated although remains combative and agitated with delirium -Blood cultures with likely contaminant with gram-positive cocci in clusters in 1 out of 4 bottles Neurology consulted. Suspects encephalopathy secondary to possible viral meningitis as well as hyperglycemia -Repeat brain MRI in 2 months recommended by radiology to follow-up on pachymeningeal enhancement -Continue Ativan, Haldol as needed for severe agitation -Continue IV thiamine and folate -Hand Finisher started ceftriaxone to cover for bacteremia while repeat cultures pending -Continue to manage hyperglycemia as below -Treating stroke as below -Consider EEG in case of seizures causing encephalopathy-will discuss with apprentice painter neckties and neurologist (2) DKA (diabetic ketoacidosis): Plan: Diabetic ketoacidosis Hyperglycemic to over 700 on admission, elevated anion gap which is now closed Initially on insulin GTT, patient managed in ICU. Transitioned to subcu per pharmacy recs Check hemoglobin A1c Holding home Metformin (3) Leukocytosis: Plan: Leukocytosiscontinues to be downtrending today Blood cultures as above with possible contaminant CXR: Left base airspace opacity, diffuse thickening. ?PNA, sputum culture negative Empiric Rocephin/Vanco given initially but then held-Rocephin restarted today for bacteremia -UA negative for infection as above -CSF with possible evidence of viral meningitis and also with xanthochromia but no hemorrhage seen on imaging Lactate 4.7, down trended to 2.3 -Follow CBC (4) Prudence: Plan: Second degree AV block. He has a history of such on previous hospitalization Precedex discontinued TTE: Grade 1 diastolic dysfunction EF 65-70% on last echo Normal sinus rhythm eval SHANNAN/statin continued Cardiology consulted. No indication for temporary pacing wire. Continue telemetry, if pauses or progresses to complete heart block reconsider (5) ROYAL (acute kidney injury): Plan: Creatinine acutely elevated to 1.7 and is now improved down to 1.27 He is making urine UA with protein and blood possibly due to Trinidad trauma Continue [place] catheter Continue D5LR Follow BMP (6) Noncompliance with medications: Plan: With a history of such (7) Hyperlipidemia: Plan: Continue statin when can take p.o. (8) Obesity: Plan: Continue home Topamax if/when taking p.o. (9) Depression: Plan: Long history of such. Does not appear to currently be on any home medications for this (10) ADHD: Plan: U tox negative Altered, no treatment indicated at this time Hold home Adderall (11) Acute CVA (cerebrovascular accident): Plan: As above, found to have cerebellar stroke and 2 small parietal strokes on brain MRI Continue aspirin 81 mg daily, increase statin to atorvastatin 40 mg daily Blood pressure control Watch for atrial fibrillation/flutter-none so far Neurology thinks pattern could be consistent with embolic source versus global hypoxia Plan: DVT prophylaxis-SQ heparin Disposition-continued stay in the ICU Admission and Anticipated Discharge Date Admission Date: December 03, 2020 Subjective The patient was extubated shortly before I saw him but he had become extremely agitated and was again given Haldol and Ativan. He was sleeping and snoring when I saw him and I did not try to wake him. I discussed his care with the apprentice painter neckties resident. Review of Systems Review of Systems: Unobtainable due to cognitive status Physical Exam Constitutional: + obese and + disheveled Respiratory: normal respiratory effort Results & Data Results & Data ([facility]) Vital Signs (Past 12 Hours) Vital Signs Temp Pulse Pulse Resp BP Pulse Ox 12/06/20 15:27 62 12/06/20 12:00 62 12/06/20 11:56 62 34 H 90 12/06/20 11:37 62 44 H 93 12/06/20 09:16 22 12/06/20 08:00 62 12/06/20 07:32 55 L 30 H 92 12/06/20 06:00 48 L 32 H 99/69 L 95 12/06/20 05:30 57 L 22 91 12/06/20 05:00 51 L 25 H 139/70 93 12/06/20 04:35 71 31 H 94 12/06/20 04:00 37.1 C 47 L 22 132/63 92 Laboratory Results 12/06/20 12/06/20 12/06/20 Range/Units 19:43 16:34 15:31 WBC (4.8-10.8) K/uL RBC (4.7-6.1) M/uL Hgb (14.0-18.0) g/dL Hct (42-52) % MCV (80-100) fL MCH (25-34) pg MCHC (32-36) g/dL RDW Std Deviation (36.4-46.3) fL RDW Coeff of Yinka (11.5-14.5) % Plt Count (130-400) K/uL MPV (7.4-10.4) fL Immature Gran % (Auto) % Neut % (Auto) % Lymph % (Auto) % [place] % (Auto) % Eos % (Auto) % Baso % (Auto) % Neut # (Auto) (1.4-6.5) K/uL Lymph # (Auto) (1.2-3.4) K/uL [place] # (Auto) (0.11-0.59) K/uL Eos # (Auto) (0-0.5) K/uL Baso # (Auto) (0-0.2) K/uL Immature Gran # (Auto) (0.00-0.02) K/uL Sample Site POC pH (7.35-7.45) POC pCO2 (35-46) mmHg POC pO2 (80-95) mmHg POC HCO3 (19-24) susu/L POC Total CO2 (24-31) mmol/L POC Base Excess (-9-1.8) susu/L POC ABG O2 Sat (90-95) % Jose Alfredo Test O2 Delivery Device POC O2 Rate Minute Ventilation POC FiO2 % Tidal Volume PEEP Sodium (136-145) mmol/L Potassium (3.5-5.1) mmol/L Chloride (98-107) mmol/L Carbon Dioxide (21-32) mmol/L Anion Gap (3-11) BUN (7-18) mg/dl Creatinine (0.6-1.4) mg/dl Est Cr Clr Drug Dosing ml/min Est GFR ( Amer) ml/min Est GFR (Non-Af Amer) ml/min BUN/Creatinine Ratio (10-20) Glucose (70-99) mg/dl POC Glucose 193 H 141 H 145 H (70-99) mg/dl Calcium (8.5-10.1) mg/dl Phosphorus (2.5-4.9) mg/dl Magnesium (1.8-2.4) mg/dl 12/06/20 12/06/20 12/06/20 Range/Units 13:54 12:41 12:39 WBC (4.8-10.8) K/uL RBC (4.7-6.1) M/uL Hgb (14.0-18.0) g/dL Hct (42-52) % MCV (80-100) fL MCH (25-34) pg MCHC (32-36) g/dL RDW Std Deviation (36.4-46.3) fL RDW Coeff of Yinka (11.5-14.5) % Plt Count (130-400) K/uL MPV (7.4-10.4) fL Immature Gran % (Auto) % Neut % (Auto) % Lymph % (Auto) % [place] % (Auto) % Eos % (Auto) % Baso % (Auto) % Neut # (Auto) (1.4-6.5) K/uL Lymph # (Auto) (1.2-3.4) K/uL [place] # (Auto) (0.11-0.59) K/uL Eos # (Auto) (0-0.5) K/uL Baso # (Auto) (0-0.2) K/uL Immature Gran # (Auto) (0.00-0.02) K/uL Sample Site POC pH (7.35-7.45) POC pCO2 (35-46) mmHg POC pO2 (80-95) mmHg POC HCO3 (19-24) susu/L POC Total CO2 (24-31) mmol/L POC Base Excess (-9-1.8) susu/L POC ABG O2 Sat (90-95) % Jose Alfredo Test O2 Delivery Device POC O2 Rate Minute Ventilation POC FiO2 % Tidal Volume PEEP Sodium (136-145) mmol/L Potassium (3.5-5.1) mmol/L Chloride (98-107) mmol/L Carbon Dioxide (21-32) mmol/L Anion Gap (3-11) BUN (7-18) mg/dl Creatinine (0.6-1.4) mg/dl Est Cr Clr Drug Dosing ml/min Est GFR ( Amer) ml/min Est GFR (Non-Af Amer) ml/min BUN/Creatinine Ratio (10-20) Glucose (70-99) mg/dl POC Glucose 169 H 172 H 192 H (70-99) mg/dl Calcium (8.5-10.1) mg/dl Phosphorus (2.5-4.9) mg/dl Magnesium (1.8-2.4) mg/dl 12/06/20 12/06/20 12/06/20 Range/Units 12:37 09:00 08:28 WBC (4.8-10.8) K/uL RBC (4.7-6.1) M/uL Hgb (14.0-18.0) g/dL Hct (42-52) % MCV (80-100) fL MCH (25-34) pg MCHC (32-36) g/dL RDW Std Deviation (36.4-46.3) fL RDW Coeff of Yinka (11.5-14.5) % Plt Count (130-400) K/uL MPV (7.4-10.4) fL Immature Gran % (Auto) % Neut % (Auto) % Lymph % (Auto) % [place] % (Auto) % Eos % (Auto) % Baso % (Auto) % Neut # (Auto) (1.4-6.5) K/uL Lymph # (Auto) (1.2-3.4) K/uL [place] # (Auto) (0.11-0.59) K/uL Eos # (Auto) (0-0.5) K/uL Baso # (Auto) (0-0.2) K/uL Immature Gran # (Auto) (0.00-0.02) K/uL Sample Site POC pH (7.35-7.45) POC pCO2 (35-46) mmHg POC pO2 (80-95) mmHg POC HCO3 (19-24) susu/L POC Total CO2 (24-31) mmol/L POC Base Excess (-9-1.8) susu/L POC ABG O2 Sat (90-95) % Jose Alfredo Test O2 Delivery Device POC O2 Rate Minute Ventilation POC FiO2 % Tidal Volume PEEP Sodium (136-145) mmol/L Potassium (3.5-5.1) mmol/L Chloride (98-107) mmol/L Carbon Dioxide (21-32) mmol/L Anion Gap (3-11) BUN (7-18) mg/dl Creatinine (0.6-1.4) mg/dl Est Cr Clr Drug Dosing ml/min Est GFR ( Amer) ml/min Est GFR (Non-Af Amer) ml/min BUN/Creatinine Ratio (10-20) Glucose (70-99) mg/dl POC Glucose 325 H* 185 H 129 H (70-99) mg/dl Calcium (8.5-10.1) mg/dl Phosphorus (2.5-4.9) mg/dl Magnesium (1.8-2.4) mg/dl 12/06/20 12/06/20 12/06/20 Range/Units 08:10 05:01 04:59 WBC 11.55 H (4.8-10.8) K/uL RBC 3.46 L (4.7-6.1) M/uL Hgb 12.0 L (14.0-18.0) g/dL Hct 35.0 L (42-52) % MCV 101.2 H (80-100) fL MCH 34.7 H (25-34) pg MCHC 34.3 (32-36) g/dL RDW Std Deviation 47.7 H (36.4-46.3) fL RDW Coeff of Yinka 13.0 (11.5-14.5) % Plt Count 215 (130-400) K/uL MPV 10.2 (7.4-10.4) fL Immature Gran % (Auto) 0.6 % Neut % (Auto) 75.3 % Lymph % (Auto) 15.2 % [place] % (Auto) 6.8 % Eos % (Auto) 1.9 % Baso % (Auto) 0.2 % Neut # (Auto) 8.70 H (1.4-6.5) K/uL Lymph # (Auto) 1.76 (1.2-3.4) K/uL [place] # (Auto) 0.78 H (0.11-0.59) K/uL Eos # (Auto) 0.22 (0-0.5) K/uL Baso # (Auto) 0.02 (0-0.2) K/uL Immature Gran # (Auto) 0.07 H (0.00-0.02) K/uL Sample Site Art Line POC pH 7.44 (7.35-7.45) POC pCO2 34 L (35-46) mmHg POC pO2 59 L (80-95) mmHg POC HCO3 23 (19-24) susu/L POC Total CO2 24 (24-31) mmol/L POC Base Excess -1.0 (-9-1.8) susu/L POC ABG O2 Sat 91.0 (90-95) % Jose Alfredo Test NA O2 Delivery Device Ventilator POC O2 Rate 22 Minute Ventilation 9.9 POC FiO2 30 % Tidal Volume 450 PEEP 5 Sodium (136-145) mmol/L Potassium (3.5-5.1) mmol/L Chloride (98-107) mmol/L Carbon Dioxide (21-32) mmol/L Anion Gap (3-11) BUN (7-18) mg/dl Creatinine (0.6-1.4) mg/dl Est Cr Clr Drug Dosing ml/min Est GFR ( Amer) ml/min Est GFR (Non-Af Amer) ml/min BUN/Creatinine Ratio (10-20) Glucose (70-99) mg/dl POC Glucose 142 H (70-99) mg/dl Calcium (8.5-10.1) mg/dl Phosphorus (2.5-4.9) mg/dl Magnesium (1.8-2.4) mg/dl 12/06/20 12/06/2012/06/21 Range/Units 04:59 04:07 02:10 WBC (4.8-10.8) K/uL RBC (4.7-6.1) M/uL Hgb (14.0-18.0) g/dL Hct (42-52) % MCV (80-100) fL MCH (25-34) pg MCHC (32-36) g/dL RDW Std Deviation (36.4-46.3) fL RDW Coeff of Yinka (11.5-14.5) % Plt Count (130-400) K/uL MPV (7.4-10.4) fL Immature Gran % (Auto) % Neut % (Auto) % Lymph % (Auto) % [place] % (Auto) % Eos % (Auto) % Baso % (Auto) % Neut # (Auto) (1.4-6.5) K/uL Lymph # (Auto) (1.2-3.4) K/uL [place] # (Auto) (0.11-0.59) K/uL Eos # (Auto) (0-0.5) K/uL Baso # (Auto) (0-0.2) K/uL Immature Gran # (Auto) (0.00-0.02) K/uL Sample Site POC pH (7.35-7.45) POC pCO2 (35-46) mmHg POC pO2 (80-95) mmHg POC HCO3 (19-24) susu/L POC Total CO2 (24-31) mmol/L POC Base Excess (-9-1.8) susu/L POC ABG O2 Sat (90-95) % Jose Alfredo Test O2 Delivery Device POC O2 Rate Minute Ventilation POC FiO2 % Tidal Volume PEEP Sodium 140 (136-145) mmol/L Potassium 3.5 (3.5-5.1) mmol/L Chloride 108 H (98-107) mmol/L Carbon Dioxide 25 (21-32) mmol/L Anion Gap 7.0 (3-11) BUN 29 H (7-18) mg/dl Creatinine 1.27 (0.6-1.4) mg/dl Est Cr Clr Drug Dosing 71.9 ml/min Est GFR ( Amer) 65.4 ml/min Est GFR (Non-Af Amer) 56.5 ml/min BUN/Creatinine Ratio 22.6 H (10-20) Glucose 157 H (70-99) mg/dl POC Glucose 154 H 133 H (70-99) mg/dl Calcium 7.9 L (8.5-10.1) mg/dl Phosphorus 3.2 (2.5-4.9) mg/dl Magnesium 2.5 H (1.8-2.4) mg/dl 12/06/20 12/06/20 Range/Units 00:12 00:09 WBC (4.8-10.8) K/uL RBC (4.7-6.1) M/uL Hgb (14.0-18.0) g/dL Hct (42-52) % MCV (80-100) fL MCH (25-34) pg MCHC (32-36) g/dL RDW Std Deviation (36.4-46.3) fL RDW Coeff of Yinka (11.5-14.5) % Plt Count (130-400) K/uL MPV (7.4-10.4) fL Immature Gran % (Auto) % Neut % (Auto) % Lymph % (Auto) % [place] % (Auto) % Eos % (Auto) % Baso % (Auto) % Neut # (Auto) (1.4-6.5) K/uL Lymph # (Auto) (1.2-3.4) K/uL [place] # (Auto) (0.11-0.59) K/uL Eos # (Auto) (0-0.5) K/uL Baso # (Auto) (0-0.2) K/uL Immature Gran # (Auto) (0.00-0.02) K/uL Sample Site POC pH (7.35-7.45) POC pCO2 (35-46) mmHg POC pO2 (80-95) mmHg POC HCO3 (19-24) susu/L POC Total CO2 (24-31) mmol/L POC Base Excess (-9-1.8) susu/L POC ABG O2 Sat (90-95) % Jose Alfredo Test O2 Delivery Device POC O2 Rate Minute Ventilation POC FiO2 % Tidal Volume PEEP Sodium (136-145) mmol/L Potassium (3.5-5.1) mmol/L Chloride (98-107) mmol/L Carbon Dioxide (21-32) mmol/L Anion Gap (3-11) BUN (7-18) mg/dl Creatinine (0.6-1.4) mg/dl Est Cr Clr Drug Dosing ml/min Est GFR ( Amer) ml/min Est GFR (Non-Af Amer) ml/min BUN/Creatinine Ratio (10-20) Glucose (70-99) mg/dl POC Glucose 142 H 161 H (70-99) mg/dl Calcium (8.5-10.1) mg/dl Phosphorus (2.5-4.9) mg/dl Magnesium (1.8-2.4) mg/dl Diagnostic Findings Chest X-Ray 12/06/20 07:00 SINGLE VIEW CHEST CLINICAL HISTORY: Respiratory failure. FINDINGS: An AP, portable, upright chest radiograph is compared to study dated 12/05/2020. An endotracheal tube, an enteric tube, and the left subclavian central venous catheter are unchanged in position. The heart is enlarged. There is left basilar consolidation and a small left pleural effusion. The right lung appears clear noting basilar atelectasis. No pneumothorax is seen. The skeletal structures are osteopenic. The bony thorax is grossly intact. IMPRESSION: 1. Stable lines and tubes. 2. Left basilar consolidation and left pleural effusion. This is similar to previous. ACT 112: Negative or not required by law. Electronically signed by: Hardik Nassar M.D. 12/06/2020 8:23 AM Chest X-Ray 12/06/20 15:30 XR chest 1V portable CLINICAL HISTORY: sob TECHNIQUE: Single frontal radiograph of the chest was obtained. Comparison: Comparison is made to chest one view 12/06/2020 FINDINGS: A left subclavian venous catheter terminates at the mid SVC. The cardiomediastinal silhouette is normal. Lungs are underinflated. Patchy airspace opacities are seen in the left lung, particularly at the lung base. No evidence of pleural effusion or pneumothorax. IMPRESSION: Patchy left-sided airspace opacities which may represent atelectasis, pneumonia, and/or aspiration. ACT 112: Negative or not required by law. Electronically signed by: Bong Wolfe M.D. 12/06/2020 1:48 PM PG Care Time/CCT Total # of Minutes Spent Total Time Spent with Patient: Total time spent is greater than 50% in cooking casing and drying supervisor rdination of care (as documented) at patient's floor/unit and/or counseling patient: Coding Level of Care Code 46721 Subseq Hosp Care Lvl 3 Diagnoses Metabolic encephalopathy G93.41 DKA (diabetic ketoacidosis) E13.10 Diabetes mellitus complication detail: without coma Diabetes mellitus type: other specified (including GINGER) Leukocytosis D72.829 Wenckebach I44.1 ROYAL (acute kidney injury) N17.9 Noncompliance with medications Z91.14 Hyperlipidemia E78.5 Obesity E66.9 Depression F32.9 ADHD F90.9 Acute CVA (cerebrovascular accident) I63.9 (1) DKA (diabetic ketoacidosis) Diabetes mellitus complication detail: without coma Diabetes mellitus type: other specified (including GINGER) Qualified Code(s): E13.10 - Other specified diabetes mellitus with ketoacidosis without coma
--- NOTE | 2020-12-06 16:10 | Electrocardiogram Report ---
Test Reason : Blood Pressure : / mmHG Vent. Rate : 047 BPM Atrial Rate : 062 BPM P-R Int : 000 ms QRS Dur : 084 ms QT Int : 456 ms P-R-T Axes : 037 -48 -18 degrees QTc Int : 403 ms Sinus rhythm with 2nd degree A-V block (Mobitz I) Left anterior fascicular block Abnormal ECG When compared with ECG of 04-DEC-2020 09:52, No significant change Confirmed by Miguel Delgado ([id number]) on 12/06/2020 4:09:45 PM Referred By: REFERRED SELF Confirmed By:Miguel Delgado
[2020-12-06] MEDS: POTASSIUM ACETATE/NSS 10 MEQ/105 ML BAG IV SCH ×2 (16:30→17:35)
[2020-12-06] MEDS: INSULIN REGULAR 250 UNITS in SODIUM CHLORIDE 0.9% 247.5 ML IV SCH (19:13)
[2020-12-07] MEDS ORDERED: MoRPHine SULFATE 2 MG/ML CARP IV STA
[2020-12-07] MEDS ORDERED: LORazepam 0.5 MG/1 ML VIAL IV STA (01:00)
[2020-12-07] MEDS: INSULIN ASPART 100 UNITS/ML 3 ML PEN SC SCH ×5 (04:33→20:53)
[2020-12-07 04:34] LABS: Basophils # (auto) 0.03 K/uL (0-0.2); Basophils % (auto) 0.2 %; Eosinophils # (auto) 0.04 K/uL (0-0.5); Eosinophils % (auto) 0.3 %; Hemoglobin 12.2 g/dL (14.0-18.0); Immature Granulocytes # (auto) 0.06 K/uL (0.00-0.02); Immature Granulocytes % (auto) 0.5 %; Lymphocytes # (auto) 1.49 K/uL (1.2-3.4); Lymphocytes % (auto) 11.4 %; Mean Corpuscular Hemoglobin 35.1 pg (25-34); Mean Corpuscular Hgb Conc 34.9 g/dL (32-36); Mean Corpuscular Volume 100.6 fL (80-100); Mean Platelet Volume 10.2 fL (7.4-10.4); Monocytes # (auto) 1.18 K/uL (0.11-0.59); Neutrophils # (auto) 10.31 K/uL (1.4-6.5); Neutrophils % (auto) 78.6 %; Platelet Count 244 K/uL (130-400); RDW Coefficient of Variation 12.6 % (11.5-14.5); RDW Standard Deviation 46.2 fL (36.4-46.3); Red Blood Count 3.48 M/uL (4.7-6.1); White Blood Count 13.11 K/uL (4.8-10.8)
[2020-12-07 04:53] LABS: BUN Creatinine Ratio 18.4 (10-20); Calcium 8.2 mg/dl (8.5-10.1); Creatinine Clr Calc Pharmacy 77.3 ml/min; Est GFR (African American) 70.1 ml/min; Est GFR (Non-African American) 60.5 ml/min; Magnesium 2.1 mg/dl (1.8-2.4); Phosphorus 3.1 mg/dl (2.5-4.9); Potassium 3.9 mmol/L (3.5-5.1)
[2020-12-07] MEDS: ICU ELECTROLYTE REPLACEMENT PROTOCOL SCH ×2 (05:20→18:33)
--- NOTE | 2020-12-07 06:05 | Critical Care Progress Note ---
Date of Service December 07, 2020 Assessment & Plan (1) DKA (diabetic ketoacidosis): Plan: Reason Critically Ill: Dyllan is a 70-year-old male with a past history of ADHD, diabetes, hypertension who is brought to [facility] by police after found to be confused, which his [id number] reported was similar to how he acted prior with an elevated blood sugar. He was found to be hyperglycemic at that time. He did require Ativan, Haldol, and droperidol in the prehospital and early ER course due to agitation, delirium, and combativeness. He was intubated 12/04 for the same, and LP was performed. He was subsequently admitted to the ICU for continued care management. Neuro - Analgesia: Morphine 2mg IV q3h - can increase p.r.n. Encephalopathy with Agitated Delirium - Exact etiology of this is not clear. It does appear to be improving somewhat. Continue to suspect a mixed metabolic and infectious etiology. Patient noted to be hyperglycemic (over 700) upon arrival to the ED; however, delirium/e ncephalopathy has continued despite resolution of his sugars. LP did not show gross evidence of TEST ENG infection, and BioFire + gram stain/cx were negative. Brain imaging demonstrated a 1 cm acute infarct in the right cerebellum, as well as 2 punctate foci within the R parietal lobe - however, lower suspicion ischemic etiology as cause at this time. Ammonia and UDS negative. Patient with h/o ADHD/anxiety, but no recent medication changes. Serum leukocytosis appreciated on admission - which overall has improved. However, with discovery of the right scrotal ulceration/abscess in the setting of poorly controlled T2DM, concern for infectious contribution is certainly plausible. See below. -- Neurology following, appreciate insight and recommendations. -- Await Lyme studies -- Attempt reorientation / mitigating factors -- especially pain control as needed. Judicious use of antipsychotics and BZDs. Promote delirium precautions. Cardiac - AV block stable since 2019. Patient appears to have an underlying 1st and 2nd degree, type I, AVB on his ECGs. If deteriorates, can consider epi and pacing. Respiratory - Hypoxic Respiratory Insufficiency - no known history of pulmonary disease. New oxygen requirement following extubation on 12/06. Initially with post-expiratory stridor, which has improved. No evidence of upper airway compromise this morning. CXR with evidence of left-sided infiltrates (12/07), likely aspiration pneumonitis, has improved this morning. CFTX on-going given high risk for developing into PNA. Suspect this is largely secondary to the same and atelectasis, possibly compounded by patient's body habitus. His respiratory effort right now is stable, as are his vital signs/sats, but he will be monitored closely alongside his mental status for need of possible reintubation and mechanical ventilation. Ween O2 as tolerated --VBG this morning reassuring 7.39 / pCO2 44 / pO2 39 --Continue CFTX in light of aspiration As previously noted, patient likely has TANIKA and will require outpatient sleep study. GI - Maintain NPO right now given fluctuations in mental status. Carefully monitor respiratory function in case of need for possible reintubation - would place OG at that time. Will require speech consult when appropriate. RENAL/LYTES - No significant electrolyte abnormalities at this time. BUN and creatinine nicely resolved, within normal limits at 29/1.27 this morning.Continue to monitor. - Trinidad in place, monitor I+Os ENDO - Mild DKA - ?scrotal abscess as trigger. Now s/p insulin drip, fluid resuscitation; sugars are now adequately controlled, gap closed, transitioned to insulin SQ. Appreciate pharmacy assistance. A1c @ 10.1%. As noted above, it is possible that his initial hyperglycemia/DKA may have been contributory to his agitated delirium, however, given adequate of his sugars since that time and continuation of his delirium, suspect additional etiology is likely at play. HEME - Stable macrocytic anemia noted on labs. Continue folate and thiamine supplementation. ID - As aforementioned, possible that his agitated delirium may be secondary to a viral meningeal process. However, Biofire PCR negative, LP with only mildly elevated WBCs (8) and hyperglycemia. . No acute indication for acyclovir at this time. Previous respiratory gram stain/culture negative. His initial leukocytosis, which may have been contributory from hyperglycemia / scrotal abscess, is improved overall from admission - though it did bump this morning (15) in the setting of extubation and aspiration yesterday afternoon. CXR demonstrating L-sided patchy opacities, likely inbound sales representative of aspiration pneumonitis, which has improved. His procal has been negative x 2 throughout this admission. Aspiration Pneumonitis - extubated 12/06 with concern for aspiration, CXR demonstrating L side patchy infiltrates likely c/w aspiration pneumonitis -- Continue CFTX R Scrotal Ulceration - in patient with known history of poorly controlled T2DM -- R sided scrotal ulceration (?previously abscess) appreciated 12/07 - thankfully no evidence of Pratik gangrene -- May explain, at least in part, initial leukocytosis when patient was admitted -- Already on CFTX. Initiate daptomycin/metronidazole to expand gram positive and anaerobic coverage in setting of ulcer location -- Wound culture sent -- US scrotum ordered -- CT-A/P with contrast ordered -- Urology consulted - appreciate insight and recommendations -- Wound care consult when appropriate Blood cultures did return positive 1 out of 2 for gram-positive cocci in clusters. Likely CoNS contaminant, await speciation. Blood cultures repeated 12/06 and pending. MSK/INTEGUMENTARY - L knee pain, acute. Suspect likely secondary to initial presentation of agitation with associated flailing. XR showing prepatellar swelling but thankfully no fracture. Will also send for urine GC/CT. LINES/IV ACCESS - Central line, A-line, OGT, Trinidad DVT PROPHYLAXIS - Heparin 5000 units subcu every 12 Thank you for allowing us to be part of this patient's care. Please refer to Dr. Ramsay's documentation for any further recommendations. (2) Acute alteration in mental status: (3) ROYAL (acute kidney injury): (4) Noncompliance with medications: (5) Uncontrolled type 2 diabetes mellitus: (6) First degree AV block: (7) Wenckebach: (8) Hyperlipidemia: (9) Obesity: (10) Depression: (11) ADHD: (12) Hypertension: Admission and Anticipated Discharge Date Admission Date: December 03, 2020 Supervising Physician Co-Signing Physician Notes Dr. Marquis was resident physician during care of patient. I separately evaluated patient for yu portions of the history and the exam. I was present during the critical portion of medical decision making, and I discussed the case with the resident. I generally agree with the findings and plan. Mental status waxing and waning, discovery of 1 cm x 1 cm abscess of scrotum will obtain scrotal ultrasound CT scan and urology consult expanded antibiotic coverage. No evidence of Pratik's gangrene at this time, I suspect this likely contributes to the encephalopathy, updated family. Patient was discussed on multidisciplinary rounds, prepatellar soft tissue swelling this is not indicative of a septic joint, if this were to represent a septic bursitis which I do not believe it is entirely indicative of he would be treated with antibiotics, we will send a UA for chlamydia and gonococcus to the exclude gonococcal arthritis. Clinical course is most consistent with contusion secondary to the flailing and combativeness during initial evaluation. Scrotal ultrasound not convincing of abscess there is soft tissue edema. Transition vancomycin to daptomycin, total 5 days duration of Flagyl stop all antibiotics at the same time. Speech evaluation. Stable for downgrade out of ICU Subjective Overnight, patient reportedly had intermittent episodes of clarity alongside intermittent bouts of agitated delirium. He did require Ativan, Haldol, and morphine. Morphine did seem to be the most effective agent initially. During bedside assessment and patient cleaning, one of the nurse assistance discovered a right sided scrotal abscess/ulceration with purulent discharge. They informed the overnight provider, who subsequently started Flagyl and vancomycin. CT of the abdomen and pelvis was ordered. Wound culture sent. Urology consulted. Respiratory status continues to be labored. At the bedside this morning, patient denies short of breath, but does say that if he were to try walk uphill, he would probably feel exhausted. He denies any chest pain or palpitations. Denies any nausea. Does endorse scrotal pain. Also endorses left knee pain. Review of Systems Review of Systems: Given intermittent bouts of altered mental status/somnolence during our discussion, review of systems was only partially obtainable. Pertinent findings are noted in the HPI. Physical Exam Physical Exam: General: 70-year-old Male who appears diaphoretic and lying back in his hospital bed. Labored breathing is noticed. He is in mild distress. He is able to tell me his name and where he is. HEENT: NCAT. Eyes - Sclera are white, anicteric, and without injection. PERRL. No jugular venous distention. Cardiac: Normal rate and irregular rhythm; S1 and S2 present with no murmurs, rubs, or gallops. Pulmonary: Moderately increased respiratory effort with symmetric expansion of the chest. No use of accessory muscles. Lung sounds are diminished bilaterally, most notably at the bases, but are otherwise clear to auscultation without obvious crackles or wheezes. Abdominal: Normoactive bowel sounds. Abdomen was soft, nontender, and nondistended to palpation. : Nurse laborer drying department was present during the exam. Examination of the scrotum does revealed mild prominence of the right hemiscrotum. Posterior aspect does reveal a 2 x 2 centimeter ulceration with evidence of dried purulent discharge. There is minimal bordering erythema and induration. Extremities: Upper and lower extremities are warm and well perfused. Radial pulses were 2+ b/l. No peripheral edema. Results & Data Results & Data ([place]) Vital Signs (Past 12 Hours) Vital Signs Temp Pulse Resp BP Pulse Ox 12/07/20 04:00 80 23 168/79 H 92 12/07/20 03:00 85 27 H 162/71 H 92 12/07/20 02:00 86 32 H 141/75 H 94 12/07/20 01:00 100 H 21 145/64 H 88 L 12/07/20 00:00 37.2 C 79 24 133/86 94 12/06/20 23:00 76 33 H 142/92 H 91 12/06/20 22:30 68 27 H 145/75 H 90 12/06/20 21:45 88 40 H 93 12/06/20 21:30 73 30 H 92 12/06/20 21:00 82 23 96 12/06/20 20:00 37.0 C 71 18 149/79 H 94 12/06/20 19:00 70 23 90 Resident Activity Tracking Resident Involvement: Resident Care Provided Care Provided: Adult [facility] (1) DKA (diabetic ketoacidosis) Diabetes mellitus complication detail: without coma Diabetes mellitus type: other specified (including GINGER) Qualified Code(s): E13.10 - Other specified diabetes mellitus with ketoacidosis without coma
[2020-12-07] MEDS ORDERED: VANCOMYCIN CONSULT ACTIVE PRN (06:32)
[2020-12-07] MEDS ORDERED: VANCOMYCIN HCL 2,250 MG in SODIUM CHLORIDE 0.9% 500 ML IV ONE (06:45)
[2020-12-07] MEDS: metroNIDAZOLE 500 MG/100 ML BAG IV SCH ×2 (07:09→16:03)
--- NOTE | 2020-12-07 07:19 | XRay Report ---
XR chest 1V portable HISTORY: Respiratory failure. COMPARISON: Chest 12/06/2020. FINDINGS: No pneumothorax or no pleural effusions. The heart is mildly enlarged. There is mild centra l pulmonary vascular congestion without overt edema. Patchy left base airspace opacities have slightl y improved. The heart remains mildly enlarged. Left subclavian Port-A-Cath terminates at the SVC. IMPRESSION: 1. Patchy left left lung airspace opacities have improved. 2. Mild central pulmonary vascular congestion without overt edema. ACT 112: Negative or not required by law. Electronically signed by: Michael Coughlin M.D. 12/07/2020 7:18 AM
[2020-12-07] MEDS ORDERED: MoRPHine SULFATE 2 MG/ML CARP IV PRN (07:59)
[2020-12-07] MEDS ORDERED: metroNIDAZOLE 500 MG/100 ML BAG IV SCH (08:00)
[2020-12-07 08:08] LABS: Base Excess VBG 0.4 mEq/L; pH VBG 7.39 (7.36-7.41)
[2020-12-07 08:17] LABS: Estimated Average Glucose 243 mg/dl; Hemoglobin A1C 10.1 % (4.5-5.6)
[2020-12-07] MEDS: ATORVASTATIN 40 MG TAB PO SCH (08:20)
[2020-12-07] MEDS: ASPIRIN 81 MG CHEW PO SCH (08:20)
[2020-12-07] MEDS: FOLIC ACID 1 MG in SYRINGE 9.8 ML IV SCH (08:23)
--- NOTE | 2020-12-07 08:23 | Urology Consultation ---
Date of Consultation December 07, 2020 Assessment & Plan (1) Scrotal ulcer: 70yo M admitted with metabolic encephalopathy and DKA. - Urology consulted for possible scrotal abscess/ulceration in the setting of poorly controlled type 2 diabetes mellitus. - Exam findings not suggestive of abscess and rather appears to be consistent with right scrotal ulceration. - CTAP reviewed -Mild scrotal edema, no rim-enhancing fluid collection to suggest an abscess, no soft tissue gas or superior extension of this possible infectious process. - Scrotal ultrasound reviewed - Within the posterior mid scrotum there is and ill-defined area of soft tissue edema measuring approximately 1.3 cm. No locul ated fluid collections to suggest an abscess. - Afebrile, VSS. - Labs reviewed, Wbc 13.11 and creatinine 1.20 - UA on admission was not suggestive of infection, however recommend obtaining UC&S to definitively r/o infection - BCx 12/03 prelim staph species in 1 out of 2 bottles, repeat BCx pending - Scrotal wound culture pending - Recommend wound care consult for recommendations and management of scrotal ulcer - Continue Trinidad catheter per primary team - Continue supportive care, antibiotic therapy, and close monitoring - Thank you for allowing us to participate in the acute care of Mr. Mccoy. Please reconsult us with additional questions, concerns or changes in patient status. Supervising Physician Co-Signing Physician Notes His scrotal ultrasound, CT scan and physical exam are consistent with an ulcer and neither Pratik's gangrene or an abscess. This will benefit from local wound care. Additionally, controlling his glucose levels will improve healing as well as avoiding pressure on the area. No surgical indication from a urologic perspective. Patient can follow-up with wound care in the outpatient setting. No urologic follow-up needed. History of Present Illness Reason for Consultation: ?scrotal abscess Attending Physician: Lisa Mcnamara MD History of Present Illness 70-year-old male with a past medical history including DM2, HTN, and ADHD who was brought to the ED on 12/03 by medics with altered mental status and in combative state and was admitted with metabolic encephalopathy and DKA. He had a rapidly declining clinical status requiring intubation and was admitted to the ICU. He remains in the ICU, extubated on 12/06. Urology consulted for possible scrotal abscess/ulceration. Nursing staff overnight found a sore on the right side of his scrotum with drainage noted. A wound culture was sent and imaging ordered. Scrotal Ultrasound IMPRESSION: 1. No testicular masses. 2. Normal flow within the testes. 3. A 4.1 cm left spermatocele. 4. Within the posterior mid scrotum there is and ill-defined area of soft tissue edema measuring approximately 1.3 cm. No loculated fluid collections to suggest an abscess. CT abdomen pelvis IMPRESSION: 1. Mild scrotal edema. No rim-enhancing fluid collection to suggest an abscess. No soft tissue gas. No superior extension of this possible infectious process. 2. No bowel distention. No bowel wall thickening. 3. Colonic diverticulosis without evidence for acute diverticulitis. 4. Bladder wall thickening with adjacent infiltration which could be correlated with urinalysis. UA on admission not suspicious for infection BCx 12/03 prelim staph species in 1 out of 2 bottles, repeat BCx pending Scrotal wound culture pending On IV Flagyl, Vanco, and Rocephin Patient examined at bedside this AM with Dr. Hensley. Pt appeared restless. On O2 via oxymask. Answered some yes/no questions. On exam, an approximate 2x2cm ulceration is noted on right posterior aspect of the scrotum. There is surrounding mild erythema and induration. No fluctuance or crepitus. Patient denied any pain or tenderness with palpation. No fevers or chills. No nausea or vomiting. Trinidad catheter intact and draining. No hematuria or dysuria. Offered no additional complaints at time of exam. Allergies Allergy/AdvReac Type Severity Reaction Status Date / Time erythromycin base Allergy Intermediate Hives Verified 12/03/20 20:34 Penicillins Allergy Intermediate Hives Verified 12/03/20 20:34 Home Medications Medication Instructions Recorded Confirmed Type aspirin 81 mg tablet,delayed 81 mg PO DAILY 03/17/19 12/03/20 History release lisinopril 5 mg tablet 5 mg PO DAILY #30 tab 03/19/19 12/03/20 Rx metformin 500 mg tablet,extended 1,000 mg PO BID #120 tab 03/19/19 12/03/20 Rx release 24 hr topiramate 50 mg tablet 50 mg PO DAILY #30 tab 03/19/19 12/03/20 Rx atorvastatin 20 mg tablet 20 mg PO DAILY 05/11/20 12/03/20 History insulin NPH isoph U-100 human 100 18 unit SUBCUT BID ml 05/11/20 12/03/20 History unit/mL subcutaneous suspension (Novolin N NPH U-100 Insulin isophane) insulin regular human 100 unit/mL 14 unit SUBCUT TID ml 05/11/20 12/03/20 History injection solution (Novolin R Regular U-100 Insulin) insulin syringe-needle U-100 0.5 #10 ea 05/11/20 09/09/20 History mL 31 gauge x 5/16" (BD Insulin Syringe Ultra-Fine) lancets (Accu-Chek Fastclix Lancet ea 05/11/20 09/09/20 History Drum) tadalafil 10 mg tablet (Cialis) 10 mg PO DAILY PRN 05/11/20 12/03/20 History dextroamphetamine-amphetamine 30 30 mg PO BID 05/25/20 12/03/20 History mg tablet (Adderall) FreeStyle Marta 2 Sensor (flash #1 ea NS 07/30/20 09/09/20 Rx glucose sensor) blood sugar diagnostic (Accu-Chek ea 09/09/20 09/09/20 History Guide test strips) Patient History Medical History Abnormal ECG ADHD Depression Depression Diabetes First degree AV block Hyperlipidemia Hypertension Left anterior fascicular block Obesity Prediabetes T2DM (type 2 diabetes mellitus) Uncontrolled type 2 diabetes mellitus [facility] History History of colonoscopy History of rectal surgery x3 for an abscess in anal sphincter History of root canal procedure multiple History of tonsillectomy History of wisdom tooth extraction Hx of eye surgery Hx of vasectomy Family History Father Family history of diabetes mellitus Diabetes Hypertension Heart disease Brother Prostate cancer Other No family history of adverse response to anesthesia Social History Smoking Status: Unknown if ever smoked Second Hand Exposure: No; Hx Alcohol Use: No Hx Substance Use: No Preferred Language: [place] Verde[place] Communication Ability: Effective Software Test Developer Required: No Beliefs That Will Affect Care: None marital status: Single Current Living Situation: Family Current Living Situation Comment: pt lives with daughter per history and physical by MD Feels Safe at Home: Yes Safety Concerns: Feels Safe At This Time Assistive Devices: Walker Review of Systems Review of Systems: All systems reviewed & are unremarkable except as noted in HPI & below Physical Exam Constitutional: + obese, + disheveled and + in distress Answered some yes/no questions Neck: normal visual inspection Respiratory: Increased respiratory effort, on O2 via oxymask Gastrointestinal (Abdomen): Percussion/Palpation: abdomen soft; abdomen nontender and no guarding Musculoskeletal: Head/Neck/Chest: normocephalic Skin: Warm and dry Neurologic: moves all extremities and awake Psychiatric: Orientation: alert and oriented to person Genitourinary: Trinidad catheter intact Approximate 2x2cm ulceration is noted on right posterior aspect of the scrotum. There is surrounding mild erythema and induration. No fluctuance or crepitus. No pain or tenderness with palpation. Results & Data ([facility]) Vital Signs (Past 12 Hours) Vital Signs Temp Pulse Resp BP Pulse Ox 12/07/20 06:15 78 24 136/70 93 12/07/20 05:00 90 36 H 167/97 H 89 L 12/07/20 04:00 80 23 168/79 H 92 12/07/20 03:00 85 27 H 162/71 H 92 12/07/20 02:00 86 32 H 141/75 H 94 12/07/20 01:00 100 H 21 145/64 H 88 L 12/07/20 00:00 37.2 C 79 24 133/86 94 12/06/20 23:00 76 33 H 142/92 H 91 12/06/20 22:30 68 27 H 145/75 H 90 12/06/20 21:45 88 40 H 93 12/06/20 21:30 73 30 H 92 12/06/20 21:00 82 23 96 PG Care Time/CCT Total # of Minutes Spent Total Time Spent with Patient: Total time spent is greater than 50% in coordination of care (as documented) at patient's floor/unit and/or counseling patient: Coding Level of Care Code 23824 Initial Inpt Care Lvl 2 Diagnoses Scrotal ulcer N50.89
[2020-12-07] MEDS: HEPARIN SOD 5,000 UNIT/0.5 ML VIAL SQ SCH ×2 (08:24→20:55)
--- NOTE | 2020-12-07 08:33 | XRay Report ---
XR knee LT 1 or 2V routine CLINICAL HISTORY: left knee pain, recent trauma COMPARISON: Left knee radiographs January 16, 2018. FINDINGS: Alignment of the left knee is anatomic. There is no acute fracture. No joint effusion is i dentified. Spurring of the patella is noted at the insertion of quadriceps. Mild patellofemoral ale rtment osteoarthritis is present. There is prepatellar soft tissue swelling, similar to prior exam. IMPRESSION: 1. No acute fracture or joint effusion of the left knee. 2. Mild left knee osteoarthritis. 3. Prepatellar soft tissue swelling. ACT 112: Negative or not required by law. Electronically signed by: Lico Morales M.D. 12/07/2020 8:32 AM
[2020-12-07] MEDS: THIAMINE HCL 200 MG in SODIUM CHLORIDE 0.9% 50 ML IV SCH (08:42)
[2020-12-07] MEDS: TOPIRAMATE 50 MG TAB PO SCH (08:43)
[2020-12-07] MEDS ORDERED: INSULIN GLARGINE SOLOSTAR 100 UNITS/ML 3 ML PEN SC SCH (09:00)
--- NOTE | 2020-12-07 09:09 | Ultrasound Report ---
TESTICULAR ULTRASOUND HISTORY: Scrotal swelling. ??Scrotal abscess COMPARISON: None. FINDINGS: Right testis: 5.0 x 2.8 x 2.3 cm. Incidental note is made of a small appendix testis. There are no in tratesticular masses. Normal color flow. No hydrocele. The epididymis is unremarkable. Left testis: 4.3 x 3.3 x 2.0 cm. A few small cysts within the periphery of the testis measuring up to 7 mm. These favor rete testis cysts. Large epididymal head cyst/spermatocele measuring 4.1 cm. There are no intratesticular masses. Normal color flow. No hydrocele. Within the posterior mid scrotum there is and ill-defined area of soft tissue edema measuring approxi mately 1.3 cm. No loculated fluid collections to suggest an abscess. IMPRESSION: 1. No testicular masses. 2. Normal flow within the testes. 3. A 4.1 cm left spermatocele. 4. Within the posterior mid scrotum there is and ill-defined area of soft tissue edema measuring appr oximately 1.3 cm. No loculated fluid collections to suggest an abscess. ACT 112: Negative or not required by law. Electronically signed by: iMchael Coughlin M.D. 12/07/2020 9:07 AM
[2020-12-07] MEDS ORDERED: OPTIRAY 320 100ml IV ONE (10:14)
--- NOTE | 2020-12-07 10:44 | CT Scan Report ---
CT OF THE ABDOMEN AND PELVIS WITH CONTRAST CLINICAL HISTORY: scrotal abscess, diabetes, evaluate extent COMPARISON STUDY: Scrotal ultrasound December 07, 2020. TECHNIQUE: Following IV administration of 97 mL of Optiray, axial images of the abdomen and pelvis we re obtained from the lung bases to the proximal femurs. Images were reviewed in the axial, sagittal, and coronal planes. IV contrast was administered without complication. Automated exposure control wa s utilized for the study. A dose lowering technique was utilized adhering to the principles of ALARA . CT DOSE: 2948.89 mGy.cm FINDINGS: This study is mildly compromised by artifact. Cardiomegaly is noted. Lower lung opacities a re noted. Left lower lung opacities have significantly improved when compared to chest radiograph Oct danica 2020. No pneumatosis, free air or portal venous gas is present. There is hepatic steatosis. Gallbladder is mildly distended. There is no hydronephrosis. Note is made of a 2.3 cm right renal cys t. The spleen, adrenal glands and pancreas are unremarkable. There is colonic diverticulosis without evidence for acute diverticulitis. There is no evidence for a bowel obstruction. Trinidad balloon is pre sent within the bladder. Prostate is enlarged. Bladder wall thickening is accentuated by underdistent ion. There is mild adjacent infiltration. 4.7 cm water attenuation focus within the left hemiscrotum represents a spermatocele as shown on ultrasound. Mild scrotal edema is present. No rim-enhancing flu id collection is identified to suggest an abscess. There is no soft tissue gas. IMPRESSION: 1. Mild scrotal edema. No rim-enhancing fluid collection to suggest an abscess. No soft tissue gas. N o superior extension of this possible infectious process. 2. No bowel distention. No bowel wall thickening. 3. Colonic diverticulosis without evidence for acute diverticulitis. 4. Bladder wall thickening with adjacent infiltration which could be correlated with urinalysis. ACT 112: Negative or not required by law. Electronically signed by: Lico Morales M.D. 12/07/2020 10:43 AM
[2020-12-07] MEDS ORDERED: ACETAMINOPHEN 1,000 MG/100 ML VIAL IV PRN (11:09)
[2020-12-07] MEDS: KETOROLAC TROMETHAMINE 15 MG/ML VIAL IV PRN (12:42)
--- NOTE | 2020-12-07 14:24 | Pharmacy Report ---
Pharmacy Glycemic Short Note 2 - Date of Service December 07, 2020 - Glycemic Short BSG Results (Last 24 hours): 12/06/20 12/06/20 12/06/20 15:31 16:34 19:43 Glucose POC Glucose 145 H 141 H 193 H 12/06/20 12/07/20 12/07/20 23:35 04:16 04:23 Glucose 171 H POC Glucose 180 H 159 H 12/07/20 12/07/20 07:26 12:16 Glucose POC Glucose 172 H 171 H OUTPATIENT ANTIDIABETIC REGIMEN: * NPH 18 units BID * Regular insulin 14 units TIDM ASSESSMENT: 12/07: * Patient was successfully transitioned of insulin infusion yesterday. * BSGs adequate thus far today ([phone]) * Patient received 20 units of Lantus this morning and will plan for scale this evening. Patient was ordered a diet at lunch but did not eat anything. Will continue to monitor this as basal dosing will be affected by PO intake. 12/06 * Labs have normalized, patient extubated today, plan to transition off of insulin infusion. * D5LR@100 ml/hr was running, now discontinued * Will transition with 50 units of lantus, once transitioned off will begin novolog CF 15 CR 5 12/05 * Mr Mccoy is a 70 y/o M with a PMH of T2DM who presents with hyperglycemia. * Patient initially started on insulin infusion for metabolic abnormalities. * Subsequently this morning was intubated. Insulin infusion was off from 0830 to 1000. * Continue insulin infusion as patient is NPO and intubated. PLAN FOR INPATIENT GLYCEMIC CONTROL: * Basal Insulin: * Lantus 20 units SC x 1 this AM * Lantus scale this evening (15 or 20 units SC based on BSG- See MAR for details) * Correctional Insulin: Novolog Correction per scale ACHS Goal Range: Low 110 mg/dL - High 140 mg/dL Correction Factor: 15 mg/dL/unit * Prandial insulin: Per carb ratio of 1 unit per 5 grams CHO consume PLAN FOR DISCHARGE: * TBD
[2020-12-07] MEDS: cefTRIAXone SODIUM 2,000 MG in DEXTROSE 5% 50 ML IV SCH (14:27)
[2020-12-07] MEDS: LINEZOLID 600 MG/300 ML BAG IV SCH (14:27)
[2020-12-07] MEDS ORDERED: DAPTOmycin 350 MG in SYRINGE 0 ML IV SCH (15:00)
[2020-12-07] MEDS ORDERED: Nursing to Pharmacy Communication SCH (16:00)
[2020-12-07] MEDS: INSULIN GLARGINE SOLOSTAR 100 UNITS/ML 3 ML PEN SC SCH (20:52)
--- NOTE | 2020-12-07 21:26 | Hospitalist Progress Note ---
Date of Service December 07, 2020 Assessment & Plan (1) Metabolic encephalopathy: Plan: Dyllan is a 70-year-old male with a past medical history of ADHD, diabetes, hyperlipidemia, hypertension, who was reportedly nonverbal trying to get into another home which his [id number] reported was similar to how he had prior with elevated blood sugar. Was brought in by medics and reportedly combative in route and required Ativan IV. No additional history at time of arrival was available/obtainable. He had rapidly declining clinical status requiring intubation and remains critically ill in the ICU. -Found to have several small acute CVAs on brain MRI which could be c ontributing. Brain MRI also with pachymeningeal enhancement -CSF with increased protein, 8 WBCs, positive xanthochromia, but negative bio fire rapid panel, Lyme pending -CSF culture negative -Sputum culture negative -No fevers -Chest x-ray with small pleural effusion and patchy infiltrate which could be aspiration pneumonia -Urinalysis negative for infection -History from family that he drinks alcohol occasionally but do not suspect alcohol withdrawal although does have a macrocytosis without anemia suggestive of heavy alcohol use Urine toxicology screen negative Alcohol negative -NH3 normal -TSH normal Glycemic to over 700 on admission, with mild DKA which is now resolved Precedex infusion was initially used while in the ICU, discontinued. Was then extubated and remained somewhat combative and agitated with delirium which is now resolved on 12/07 -Blood cultures with likely contaminant with gram-positive cocci in clusters in 1 out of 4 bottles-repeats pending -Now found to have scrotal ulcer with cellulitis which may be contributing as well Neurology consulted. Suspects encephalopathy secondary to possible viral meningitis as well as hyperglycemia -Repeat brain MRI in 2 months recommended by radiology to follow-up on pachymeningeal enhancement -Continue Ativan, Haldol as needed for severe agitation but do not suspect he will need this moving forward -Continue IV thiamine and folate -Continue antibiotics in the form of ceftriaxone, daptomycin, and metronidazole to cover for pneumonia and scrotal ulcer with cellulitis -Continue to manage hyperglycemia as below -Treating stroke as below (2) DKA (diabetic ketoacidosis): Plan: Diabetic ketoacidosis now resolved Hyperglycemic to over 700 on admission, elevated anion gap which is now closed Initially on insulin GTT, patient managed in ICU. Transitioned to subcu per pharmacy recs hemoglobin A1c elevated at 10.1 Holding home Metformin (3) Acute CVA (cerebrovascular accident): Plan: As above, found to have cerebellar stroke and 2 small parietal strokes on brain MRI Continue aspirin 81 mg daily, increase statin to atorvastatin 40 mg daily Blood pressure control Watch for atrial fibrillation/flutter-none so far Neurology thinks pattern could be consistent with embolic source versus global hypoxia (4) Leukocytosis: Plan: Leukocytosiscontinues to be downtrending today Blood cultures as above with possible contaminant CXR: Left base airspace opacity, diffuse thickening. From aspiration, sputum culture negative Empiric Rocephin/Vanco given initially but then held With scrotal ulcer and aspiration pneumonia--restarted on ceftriaxone, daptomycin, metronidazole will continue for 7 days -UA negative for infection as above -CSF with possible evidence of viral meningitis and also with xanthochromia but no hemorrhage seen on imaging Lactate 4.7, down trended to 2.3 -Follow CBC (5) Wenckebach: Plan: Second degree AV block. He has a history of such on previous hospitalization Precedex discontinued TTE: Grade 1 diastolic dysfunction EF 65-70% on last echo Normal sinus rhythm eval SHANNAN/statin continued Cardiology consulted. No indication for temporary pacing wire. Continue telemetry, if pauses or progresses to complete heart block reconsider (6) ROYAL (acute kidney injury): Plan: Creatinine acutely elevated to 1.7 and is now improved down to 1.2 He is making urine UA with protein and blood possibly due to Trinidad trauma Remove Trinidad catheter Follow BMP (7) Scrotal ulcer: Plan: As above Appreciate urology consultation No abscess for drainage Continue IV antibiotics (8) Aspiration pneumonitis: Plan: As above (9) Acute respiratory failure with hypoxia: Plan: Was on ventilator for airway protection during severe agitation, followed by nasal cannula after extubation which is now weaned off (10) ADHD: Plan: U tox negative Altered, no treatment indicated at this time Hold home Adderall (11) Depression: Plan: Long history of such. Does not appear to currently be on any home medications for this (12) Obesity: Plan: Continue home Topamax if/when taking p.o. (13) Hyperlipidemia: Plan: Continue statin when can take p.o. (14) Noncompliance with medications: Plan: With a history of such Plan: DVT prophylaxis-SQ heparin Disposition-downgrade out of PCU Admission and Anticipated Discharge Date Admission Date: December 03, 2020 Subjective Patient feels improved today. Still a bit confused but pleasant and cooperative. Little bit impulsive at times. Denies pain anywhere. Is coughing occasionally. Was found to have a scrotal ulcer today. Review of Systems Review of Systems: All systems reviewed & are unremarkable except as noted in HPI & below Physical Exam Constitutional: WD/WN, vitals as above Eyes: + anicteric sclerae Neck: trachea midline, no thyromegaly Respiratory: normal respiratory effort and + cough Auscultation: + crackles (Left base); no wheezes Cardiovascular: RRR, no murmur, no edema Chest (Breasts): Chest: normal inspection of chest Gastrointestinal (Abdomen): normal bowel sounds, soft, nontender, no hepatosplenomegaly Musculoskeletal: Extremities: extremities normal to inspection; no cyanosis and no clubbing Skin: no rashes, warm and dry (1 cm scrotal ulcer with surrounding erythema) Neurologic: moves all extremities and awake; no focal motor deficits Psychiatric: Orientation: alert, oriented to person, oriented to place and cooperative; + not oriented to time Lymphatic: no lymphedema Results & Data Results & Data ([facility]) Vital Signs (Past 12 Hours) Vital Signs Temp Pulse Pulse Resp BP Pulse Ox 12/07/20 20:05 37.0 C 78 19 151/93 H 95 12/07/20 16:00 36.7 C 80 63 24 139/78 94 12/07/20 13:57 36.9 C 141/72 H 94 12/07/20 13:00 70 15 12/07/20 12:00 78 21 94 12/07/20 11:00 66 17 91 12/07/20 10:00 77 30 H 94 12/07/20 09:28 94 Laboratory Results 12/07/20 12/07/20 12/07/20 Range/Units 20:13 16:14 12:16 WBC (4.8-10.8) K/uL RBC (4.7-6.1) M/uL Hgb (14.0-18.0) g/dL Hct (42-52) % MCV (80-100) fL MCH (25-34) pg MCHC (32-36) g/dL RDW Std Deviation (36.4-46.3) fL RDW Coeff of Yinka (11.5-14.5) % Plt Count (130-400) K/uL MPV (7.4-10.4) fL Immature Gran % (Auto) % Neut % (Auto) % Lymph % (Auto) % Charlotte % (Auto) % Eos % (Auto) % Baso % (Auto) % Neut # (Auto) (1.4-6.5) K/uL Lymph # (Auto) (1.2-3.4) K/uL Charlotte # (Auto) (0.11-0.59) K/uL Eos # (Auto) (0-0.5) K/uL Baso # (Auto) (0-0.2) K/uL Immature Gran # (Auto) (0.00-0.02) K/uL VBG pH (7.36-7.41) VBG pCO2 (38-50) mmHg VBG pO2 mmHg VBG HCO3 mmol/L VBG O2 Saturation % VBG Base Excess mEq/L Barometric Pressure mm/Hg Sodium (136-145) mmol/L Potassium (3.5-5.1) mmol/L Chloride (98-107) mmol/L Carbon Dioxide (21-32) mmol/L Anion Gap (3-11) BUN (7-18) mg/dl Creatinine (0.6-1.4) mg/dl Est Cr Clr Drug Dosing ml/min Est GFR ( Amer) ml/min Est GFR (Non-Af Amer) ml/min BUN/Creatinine Ratio (10-20) Glucose (70-99) mg/dl POC Glucose 188 H 204 H 171 H (70-99) mg/dl Estimat Average Glucose mg/dl Hemoglobin A1c (4.5-5.6) % Calcium (8.5-10.1) mg/dl Phosphorus (2.5-4.9) mg/dl Magnesium (1.8-2.4) mg/dl Ammonia (11-32) umol/L Procalcitonin (0-0.5) ng/ml 12/07/20 12/07/20 12/07/20 Range/Units 07:57 07:26 04:23 WBC (4.8-10.8) K/uL RBC (4.7-6.1) M/uL Hgb (14.0-18.0) g/dL Hct (42-52) % MCV (80-100) fL MCH (25-34) pg MCHC (32-36) g/dL RDW Std Deviation (36.4-46.3) fL RDW Coeff of Yinka (11.5-14.5) % Plt Count (130-400) K/uL MPV (7.4-10.4) fL Immature Gran % (Auto) % Neut % (Auto) % Lymph % (Auto) % Charlotte % (Auto) % Eos % (Auto) % Baso % (Auto) % Neut # (Auto) (1.4-6.5) K/uL Lymph # (Auto) (1.2-3.4) K/uL Charlotte # (Auto) (0.11-0.59) K/uL Eos # (Auto) (0-0.5) K/uL Baso # (Auto) (0-0.2) K/uL Immature Gran # (Auto) (0.00-0.02) K/uL VBG pH 7.39 (7.36-7.41) VBG pCO2 44 (38-50) mmHg VBG pO2 39 mmHg VBG HCO3 26 mmol/L VBG O2 Saturation 71.0 % VBG Base Excess 0.4 mEq/L Barometric Pressure 735.1 mm/Hg Sodium (136-145) mmol/L Potassium (3.5-5.1) mmol/L Chloride (98-107) mmol/L Carbon Dioxide (21-32) mmol/L Anion Gap (3-11) BUN (7-18) mg/dl Creatinine (0.6-1.4) mg/dl Est Cr Clr Drug Dosing ml/min Est GFR ( Amer) ml/min Est GFR (Non-Af Amer) ml/min BUN/Creatinine Ratio (10-20) Glucose (70-99) mg/dl POC Glucose 172 H 159 H (70-99) mg/dl Estimat Average Glucose mg/dl Hemoglobin A1c (4.5-5.6) % Calcium (8.5-10.1) mg/dl Phosphorus (2.5-4.9) mg/dl Magnesium (1.8-2.4) mg/dl Ammonia (11-32) umol/L Procalcitonin (0-0.5) ng/ml 12/07/20 12/07/20 12/07/20 Range/Units 04:21 04:16 04:16 WBC (4.8-10.8) K/uL RBC (4.7-6.1) M/uL Hgb (14.0-18.0) g/dL Hct (42-52) % MCV (80-100) fL MCH (25-34) pg MCHC (32-36) g/dL RDW Std Deviation (36.4-46.3) fL RDW Coeff of Yinka (11.5-14.5) % Plt Count (130-400) K/uL MPV (7.4-10.4) fL Immature Gran % (Auto) % Neut % (Auto) % Lymph % (Auto) % Charlotte % (Auto) % Eos % (Auto) % Baso % (Auto) % Neut # (Auto) (1.4-6.5) K/uL Lymph # (Auto) (1.2-3.4) K/uL Charlotte # (Auto) (0.11-0.59) K/uL Eos # (Auto) (0-0.5) K/uL Baso # (Auto) (0-0.2) K/uL Immature Gran # (Auto) (0.00-0.02) K/uL VBG pH (7.36-7.41) VBG pCO2 (38-50) mmHg VBG pO2 mmHg VBG HCO3 mmol/L VBG O2 Saturation % VBG Base Excess mEq/L Barometric Pressure mm/Hg Sodium (136-145) mmol/L Potassium (3.5-5.1) mmol/L Chloride (98-107) mmol/L Carbon Dioxide (21-32) mmol/L Anion Gap (3-11) BUN (7-18) mg/dl Creatinine (0.6-1.4) mg/dl Est Cr Clr Drug Dosing ml/min Est GFR ( Amer) ml/min Est GFR (Non-Af Amer) ml/min BUN/Creatinine Ratio (10-20) Glucose (70-99) mg/dl POC Glucose (70-99) mg/dl Estimat Average Glucose 243 mg/dl Hemoglobin A1c 10.1 H (4.5-5.6) % Calcium (8.5-10.1) mg/dl Phosphorus (2.5-4.9) mg/dl Magnesium (1.8-2.4) mg/dl Ammonia 10.8 L (11-32) umol/L Procalcitonin 0.33 (0-0.5) ng/ml 12/07/20 12/07/20 12/06/20 Range/Units 04:16 04:16 23:35 WBC 13.11 H (4.8-10.8) K/uL RBC 3.48 L (4.7-6.1) M/uL Hgb 12.2 L (14.0-18.0) g/dL Hct 35.0 L (42-52) % MCV 100.6 H (80-100) fL MCH 35.1 H (25-34) pg MCHC 34.9 (32-36) g/dL RDW Std Deviation 46.2 (36.4-46.3) fL RDW Coeff of Yinka 12.6 (11.5-14.5) % Plt Count 244 (130-400) K/uL MPV 10.2 (7.4-10.4) fL Immature Gran % (Auto) 0.5 % Neut % (Auto) 78.6 % Lymph % (Auto) 11.4 % Charlotte % (Auto) 9.0 % Eos % (Auto) 0.3 % Baso % (Auto) 0.2 % Neut # (Auto) 10.31 H (1.4-6.5) K/uL Lymph # (Auto) 1.49 (1.2-3.4) K/uL Charlotte # (Auto) 1.18 H (0.11-0.59) K/uL Eos # (Auto) 0.04 (0-0.5) K/uL Baso # (Auto) 0.03 (0-0.2) K/uL Immature Gran # (Auto) 0.06 H (0.00-0.02) K/uL VBG pH (7.36-7.41) VBG pCO2 (38-50) mmHg VBG pO2 mmHg VBG HCO3 mmol/L VBG O2 Saturation % VBG Base Excess mEq/L Barometric Pressure mm/Hg Sodium 141 (136-145) mmol/L Potassium 3.9 (3.5-5.1) mmol/L Chloride 108 H (98-107) mmol/L Carbon Dioxide 26 (21-32) mmol/L Anion Gap 7.0 (3-11) BUN 22 H (7-18) mg/dl Creatinine 1.20 (0.6-1.4) mg/dl Est Cr Clr Drug Dosing 77.3 ml/min Est GFR ( Amer) 70.1 ml/min Est GFR (Non-Af Amer) 60.5 ml/min BUN/Creatinine Ratio 18.4 (10-20) Glucose 171 H (70-99) mg/dl POC Glucose 180 H (70-99) mg/dl Estimat Average Glucose mg/dl Hemoglobin A1c (4.5-5.6) % Calcium 8.2 L (8.5-10.1) mg/dl Phosphorus 3.1 (2.5-4.9) mg/dl Magnesium 2.1 (1.8-2.4) mg/dl Ammonia (11-32) umol/L Procalcitonin (0-0.5) ng/ml Diagnostic Findings Scrotum Ultrasound 12/07/20 06:31 TESTICULAR ULTRASOUND HISTORY: Scrotal swelling. ??Scrotal abscess COMPARISON: None. FINDINGS: Right testis: 5.0 x 2.8 x 2.3 cm. Incidental note is made of a small appendix testis. There are no intratesticular masses. Normal color flow. No hydrocele. The epididymis is unremarkable. Left testis: 4.3 x 3.3 x 2.0 cm. A few small cysts within the periphery of the testis measuring up to 7 mm. These favor rete testis cysts. Large epididymal head cyst/spermatocele measuring 4.1 cm. There are no intratesticular masses. Normal color flow. No hydrocele. Within the posterior mid scrotum there is and ill-defined area of soft tissue edema measuring approximately 1.3 cm. No loculated fluid collections to suggest an abscess. IMPRESSION: 1. No testicular masses. 2. Normal flow within the testes. 3. A 4.1 cm left spermatocele. 4. Within the posterior mid scrotum there is and ill-defined area of soft tissue edema measuring approximately 1.3 cm. No loculated fluid collections to suggest an abscess. ACT 112: Negative or not required by law. Electronically signed by: Michael Coughlin M.D. 12/07/2020 9:07 AM Abdomen/Pelvis CT 12/07/20 06:36 CT OF THE ABDOMEN AND PELVIS WITH CONTRAST CLINICAL HISTORY: scrotal abscess, diabetes, evaluate extent COMPARISON STUDY: Scrotal ultrasound December 07, 2020. TECHNIQUE: Following IV administration of 97 mL of Optiray, axial images of the abdomen and pelvis were obtained from the lung bases to the proximal femurs. Images were reviewed in the axial, sagittal, and coronal planes. IV contrast was administered without complication. Automated exposure control was utilized for the study. A dose lowering technique was utilized adhering to the principles of ALARA. CT DOSE: 2948.89 mGy.cm FINDINGS: This study is mildly compromised by artifact. Cardiomegaly is noted. Lower lung opacities are noted. Left lower lung opacities have significantly improved when compared to chest radiograph December 05, 2020. No pneumatosis, free air or portal venous gas is present. There is hepatic steatosis. Gallbladder is mildly distended. There is no hydronephrosis. Note is made of a 2.3 cm right renal cyst. The spleen, adrenal glands and pancreas are unremarkable. There is colonic diverticulosis without evidence for acute diverticulitis. There is no evidence for a bowel obstruction. Trinidad balloon is present within the bladder. Prostate is enlarged. Bladder wall thickening is accentuated by underdistention. There is mild adjacent infiltration. 4.7 cm water attenuation focus within the left hemiscrotum represents a spermatocele as shown on ultrasound. Mild scrotal edema is present. No rim-enhancing fluid collection is identified to suggest an abscess. There is no soft tissue gas. IMPRESSION: 1. Mild scrotal edema. No rim-enhancing fluid collection to suggest an abscess. No soft tissue gas. No superior extension of this possible infectious process. 2. No bowel distention. No bowel wall thickening. 3. Colonic diverticulosis without evidence for acute diverticulitis. 4. Bladder wall thickening with adjacent infiltration which could be correlated with urinalysis. ACT 112: Negative or not required by law. Electronically signed by: Lico Morales M.D. 12/07/2020 10:43 AM Chest X-Ray 12/07/20 07:00 XR chest 1V portable HISTORY: Respiratory failure. COMPARISON: Chest 12/06/2020. FINDINGS: No pneumothorax or no pleural effusions. The heart is mildly enlarged. There is mild central pulmonary vascular congestion without overt edema. Patchy left base airspace opacities have slightly improved. The heart remains mildly enlarged. Left subclavian Port-A-Cath terminates at the SVC. IMPRESSION: 1. Patchy left left lung airspace opacities have improved. 2. Mild central pulmonary vascular congestion without overt edema. ACT 112: Negative or not required by law. Electronically signed by: Michael Coughlin M.D. 12/07/2020 7:18 AM Knee X-Ray 12/07/20 07:00 XR knee LT 1 or 2V routine CLINICAL HISTORY: left knee pain, recent trauma COMPARISON: Left knee radiographs January 16, 2018. FINDINGS: Alignment of the left knee is anatomic. There is no acute fracture. No joint effusion is identified. Spurring of the patella is noted at the insertion of quadriceps. Mild patellofemoral compartment osteoarthritis is present. There is prepatellar soft tissue swelling, similar to prior exam. IMPRESSION: 1. No acute fracture or joint effusion of the left knee. 2. Mild left knee osteoarthritis. 3. Prepatellar soft tissue swelling. ACT 112: Negative or not required by law. Electronically signed by: Lico Morales M.D. 12/07/2020 8:32 AM PG Care Time/CCT Total # of Minutes Spent Total Time Spent with Patient: Total time spent is greater than 50% in coordination of care (as documented) at patient's floor/unit and/or counseling patient: Coding Level of Care Code 14535 Subseq Hosp Care Lvl 3 Diagnoses Metabolic encephalopathy G93.41 DKA (diabetic ketoacidosis) E13.10 Diabetes mellitus complication detail: without coma Diabetes mellitus type: other specified (including GINGER) Leukocytosis D72.829 Wetristankebach I44.1 ROYAL (acute kidney injury) N17.9 Noncompliance with medications Z91.14 Hyperlipidemia E78.5 Obesity E66.9 Depression F32.9 ADHD F90.9 Acute CVA (cerebrovascular accident) I63.9 Scrotal ulcer N50.89 Aspiration pneumonitis J69.0 Acute respiratory failure with hypoxia J96.01 (1) DKA (diabetic ketoacidosis) Diabetes mellitus complication detail: without coma Diabetes mellitus type: other specified (including GINGER) Qualified Code(s): E13.10 - Other specified diabetes mellitus with ketoacidosis without coma
[2020-12-08] MEDS: metroNIDAZOLE 500 MG/100 ML BAG IV SCH ×3 (00:04→16:55)
[2020-12-08] MEDS: INSULIN ASPART 100 UNITS/ML 3 ML PEN SC SCH ×7 (00:05→21:39)
[2020-12-08] MEDS: ICU ELECTROLYTE REPLACEMENT PROTOCOL SCH ×2 (00:06→18:08)
[2020-12-08] MEDS: LINEZOLID 600 MG/300 ML BAG IV SCH ×2 (03:25→15:37)
[2020-12-08 05:38] LABS: BUN Creatinine Ratio 19.9 (10-20); Calcium 8.2 mg/dl (8.5-10.1); Est GFR (African American) 64.2 ml/min; Est GFR (Non-African American) 55.4 ml/min; Magnesium 2.2 mg/dl (1.8-2.4); Phosphorus 2.8 mg/dl (2.5-4.9); Potassium 3.6 mmol/L (3.5-5.1)
[2020-12-08] MEDS: KETOROLAC TROMETHAMINE 15 MG/ML VIAL IV PRN ×2 (06:13→15:53)
[2020-12-08] MEDS ORDERED: INSULIN GLARGINE SOLOSTAR 100 UNITS/ML 3 ML PEN SC SCH (09:00)
[2020-12-08] MEDS: FOLIC ACID 1 MG in SYRINGE 9.8 ML IV SCH (09:21)
[2020-12-08] MEDS: ATORVASTATIN 40 MG TAB PO SCH (09:23)
[2020-12-08] MEDS: HEPARIN SOD 5,000 UNIT/0.5 ML VIAL SQ SCH ×2 (09:23→21:33)
[2020-12-08] MEDS: ASPIRIN 81 MG CHEW PO SCH (09:25)
[2020-12-08] MEDS: TOPIRAMATE 50 MG TAB PO SCH (09:25)
[2020-12-08] MEDS: THIAMINE HCL 200 MG in SODIUM CHLORIDE 0.9% 50 ML IV SCH (09:26)
--- NOTE | 2020-12-08 12:40 | Pharmacy Report ---
Pharmacy Glycemic Short Note 2 - Date of Service December 08, 2020 - Glycemic Short BSG Results (Last 24 hours): 12/07/20 12/07/20 12/07/20 16:14 20:13 23:55 Glucose POC Glucose 204 H 188 H 181 H 12/08/20 12/08/20 12/08/20 03:29 04:57 07:23 Glucose 206 H POC Glucose 143 H 157 H 12/08/20 11:16 Glucose POC Glucose 175 H OUTPATIENT ANTIDIABETIC REGIMEN: * NPH 18 units BID * Regular insulin 14 units TIDM ASSESSMENT: 12/09: * BSGs [phone] mg/dl yesterday * Fasting BSG today ranging from 143-206 mg/dL. Will increase AM lantus and lantus scale by 12-20%. Continue NovoLog scale * Patient is tolerating a diet. 12/07: * Patient was successfully transitioned of insulin infusion yesterday. * BSGs adequate thus far today ([phone]) * Patient received 20 units of Lantus this morning and will plan for scale this evening. Patient was ordered a diet at lunch but did not eat anything. Will continue to monitor this as basal dosing will be affected by PO intake. 12/06 * Labs have normalized, patient extubated today, plan to transition off of insulin infusion. * D5LR@100 ml/hr was running, now discontinued * Will transition with 50 units of lantus, once transitioned off will begin novolog CF 15 CR 5 12/05 * Mr Mccoy is a 70 y/o M with a PMH of T2DM who presents with hyperglycemia. * Patient initially started on insulin infusion for metabolic abnormalities. * Subsequently this morning was intubated. Insulin infusion was off from 0830 to 1000. * Continue insulin infusion as patient is NPO and intubated. PLAN FOR INPATIENT GLYCEMIC CONTROL: * Basal Insulin: * Lantus 25 units SC x 1 this AM * Lantus scale this evening (20 or 25 units SC based on BSG- See MAR for details) * Correctional Insulin: Novolog Correction per scale ACHS Goal Range: Low 110 mg/dL - High 140 mg/dL Correction Factor: 15 mg/dL/unit * Prandial insulin: Per carb ratio of 1 unit per 5 grams CHO consume PLAN FOR DISCHARGE: * TBD
--- NOTE | 2020-12-08 14:07 | Hospitalist Progress Note ---
Date of Service December 08, 2020 Assessment & Plan (1) Metabolic encephalopathy: Plan: Dyllan is a 70-year-old male with a past medical history of ADHD, diabetes, hyperlipidemia, hypertension, who was reportedly nonverbal trying to get into another home which his [id number] reported was similar to how he had prior with elevated blood sugar. Was brought in by medics and reportedly combative in route and required Ativan IV. No additional history at time of arrival was available/obtainable. He had rapidly declining clinical status requiring intubation and remains critically ill in the ICU. Was profound and now is much improved but still remains encephalopathic -Found to have several small acute CVAs on brain MRI which could be contributing. Brain MRI also with pachymeningeal enhancement -CSF with increased protein, 8 WBCs, positive xanthochromia, but negative bio fire rapid panel, Lyme pending -CSF culture negative -Sputum culture negative -No fevers -Chest x-ray with small pleural effusion and patchy infiltrate which could be aspiration pneumonia -Urinalysis negative for infection -History from family that he drinks alcohol occasionally but do not suspect alcohol withdrawal although does have a macrocytosis without anemia suggestive of heavy alcohol use Urine toxicology screen negative Alcohol negative -NH3 normal -TSH normal Glycemic to over 700 on admission, with mild DKA which is now resolved Precedex infusion was initially used while in the ICU, discontinued. Was then extubated and remained somewhat combative and agitated with delirium which is now resolved on 12/07 -Blood cultures with likely contaminant with gram-positive cocci in clusters in 1 out of 4 bottles-repeats pending -Now found to have scrotal ulcer with cellulitis which may be contributing as well Neurology consulted. Suspects encephalopathy secondary to possible viral meningitis as well as hyperglycemia -Repeat brain MRI in 2 months recommended by radiology to follow-up on pachymeningeal enhancement -Continue Ativan, Haldol as needed for severe agitation but do not suspect he will need this moving forward -Continue IV thiamine and folate -Continue antibiotics in the form of ceftriaxone, daptomycin, and metronidazole to cover for pneumonia and scrotal ulcer with cellulitis -Continue to manage hyperglycemia as below -Treating stroke as below (2) DKA (diabetic ketoacidosis): Plan: Diabetic ketoacidosis now resolved Hyperglycemic to over 700 on admission, elevated anion gap which is now closed Initially on insulin GTT, patient managed in ICU. Transitioned to subcu per pharmacy recs hemoglobin A1c elevated at 10.1 Holding home Metformin (3) Acute CVA (cerebrovascular accident): Plan: As above, found to have cerebellar stroke and 2 small parietal strokes on brain MRI Continue aspirin 81 mg daily, increase statin to atorvastatin 40 mg daily Blood pressure control Watch for atrial fibrillation/flutter-none so far Neurology thinks pattern could be consistent with embolic source versus global hypoxia (4) Leukocytosis: Plan: Leukocytosiswas downtrending, but now back up slightly Blood cultures as above with possible contaminant CXR: Left base airspace opacity, diffuse thickening. From aspiration, sputum culture negative Empiric Rocephin/Vanco given initially but then held With scrotal ulcer and aspiration pneumonia--restarted on ceftriaxone, linezolid, and metronidazole will continue for 7 days MRSA nasal swab positive -UA negative for infection as above -CSF with possible evidence of viral meningitis and also with xanthochromia but no hemorrhage seen on imaging Lactate 4.7, down trended to 2.3 -Follow CBC periodically (5) Wenckebach: Plan: Second degree AV block. He has a history of such on previous hospitalization Precedex discontinued TTE: Grade 1 diastolic dysfunction EF 65-70% on last echo Normal sinus rhythm eval SHANNAN/statin continued Cardiology consulted. No indication for temporary pacing wire. Continue telemetry, if pauses or progresses to complete heart block reconsider (6) ROYAL (acute kidney injury): Plan: Creatinine acutely elevated to 1.7 and is now improved down to 1.2 He is making urine UA with protein and blood possibly due to [place] trauma ave since removed [place] catheter Follow BMP (7) Scrotal ulcer: Plan: As above Appreciate urology consultation No abscess for drainage Continue IV antibiotics (8) Aspiration pneumonitis: Plan: As above (9) Acute respiratory failure with hypoxia: Plan: Was on ventilator for airway protection during severe agitation, followed by nasal cannula after extubation which is now weaned off (10) ADHD: Plan: U tox negative Altered, no treatment indicated at this time Hold home Adderall (11) Depression: Plan: Long history of such. Does not appear to currently be on any home medications for this (12) Obesity: Plan: Continue home Topamax (13) Hyperlipidemia: Plan: Continue statin (14) Noncompliance with medications: Plan: With a history of such Plan: DVT prophylaxis-SQ heparin Disposition-continued stay on PCU, PT OT consults ordered, will likely need rehab and patient is agreeable Admission and Anticipated Discharge Date Admission Date: December 03, 2020 Subjective Still a bit impulsive at times as per nursing. Is mildly confused with me but pleasant. We reviewed his clinical course through the hospitalization and he seemed very surprised by everything even though we talked about yesterday. He is still very off balance with standing up. He is agreeable to rehab. Denies pain anywhere. Review of Systems Review of Systems: All systems reviewed & are unremarkable except as noted in HPI & below Physical Exam Constitutional: WD/WN, vitals as above + obese and + disheveled Eyes: + anicteric sclerae Neck: trachea midline, no thyromegaly Respiratory: normal respiratory effort and + cough Auscultation: + crackles (Left base); no wheezes Cardiovascular: RRR, no murmur, no edema Chest (Breasts): Chest: normal inspection of chest Gastrointestinal (Abdomen): normal bowel sounds, soft, nontender, no hepatosplenomegaly Musculoskeletal: Extremities: extremities normal to inspection; no cyanosis and no clubbing Skin: no rashes, warm and dry (1 cm scrotal ulcer with surrounding erythema) Neurologic: moves all extremities and awake; no focal motor deficits Psychiatric: Orientation: alert, oriented to person, oriented to place and cooperative; + not oriented to time Lymphatic: no lymphedema Results & Data Results & Data ([facility]) Vital Signs (Past 12 Hours) Vital Signs Temp Pulse Pulse Resp BP Pulse Ox 12/08/20 11:01 36.6 C 71 24 142/86 H 94 12/08/20 08:00 60 12/08/20 07:00 36.8 C 60 24 147/77 H 93 12/08/20 03:48 37 C 63 20 134/58 L 93 PG Care Time/CCT Total # of Minutes Spent Total Time Spent with Patient: Total time spent is greater than 50% in coordination of care (as documented) at patient's floor/unit and/or counseling patient: Coding Level of Care Code 00446 Subseq Hosp Care Lvl 3 Diagnoses Metabolic encephalopathy G93.41 DKA (diabetic ketoacidosis) E13.10 Diabetes mellitus complication detail: without coma Diabetes mellitus type: other specified (including GINGER) Acute CVA (cerebrovascular accident) I63.9 Leukocytosis D72.829 [place] I44.1 ROYAL (acute kidney injury) N17.9 Scrotal ulcer N50.89 Aspiration pneumonitis J69.0 Acute respiratory failure with hypoxia J96.01 ADHD F90.9 Depression F32.9 Obesity E66.9 Hyperlipidemia E78.5 Noncompliance with medications Z91.14 (1) DKA (diabetic ketoacidosis) Diabetes mellitus complication detail: without coma Diabetes mellitus type: other specified (including GINGER) Qualified Code(s): E13.10 - Other specified diabetes mellitus with ketoacidosis without coma
[2020-12-08] MEDS: cefTRIAXone SODIUM 2,000 MG in DEXTROSE 5% 50 ML IV SCH (15:38)
[2020-12-08] MEDS: INSULIN GLARGINE SOLOSTAR 100 UNITS/ML 3 ML PEN SC SCH (21:39)
[2020-12-09] MEDS: metroNIDAZOLE 500 MG/100 ML BAG IV SCH ×3 (00:18→16:44)
[2020-12-09] MEDS: LINEZOLID 600 MG/300 ML BAG IV SCH ×2 (03:17→13:55)
[2020-12-09] MEDS: INSULIN ASPART 100 UNITS/ML 3 ML PEN SC SCH ×5 (05:21→20:53)
[2020-12-09 07:08] LABS: Calcium 8.7 mg/dl (8.5-10.1); Creatinine Clr Calc Pharmacy 59.7 ml/min; Est GFR (African American) 52.7 ml/min; Est GFR (Non-African American) 45.4 ml/min; Magnesium 2.3 mg/dl (1.8-2.4); Phosphorus 2.6 mg/dl (2.5-4.9); Potassium 4.5 mmol/L (3.5-5.1)
[2020-12-09] MEDS: ICU ELECTROLYTE REPLACEMENT PROTOCOL SCH (07:30)
[2020-12-09] MEDS: TOPIRAMATE 50 MG TAB PO SCH (07:48)
[2020-12-09] MEDS: ASPIRIN 81 MG CHEW PO SCH (07:48)
[2020-12-09] MEDS: ATORVASTATIN 40 MG TAB PO SCH (07:49)
[2020-12-09] MEDS: HEPARIN SOD 5,000 UNIT/0.5 ML VIAL SQ SCH ×2 (07:49→20:54)
[2020-12-09] MEDS: THIAMINE HCL 200 MG in SODIUM CHLORIDE 0.9% 50 ML IV SCH (07:49)
[2020-12-09] MEDS: FOLIC ACID 1 MG in SYRINGE 9.8 ML IV SCH (07:50)
[2020-12-09] MEDS: INSULIN GLARGINE SOLOSTAR 100 UNITS/ML 3 ML PEN SC SCH ×2 (07:51→20:54)
[2020-12-09] MEDS: KETOROLAC TROMETHAMINE 15 MG/ML VIAL IV PRN (11:03)
--- NOTE | 2020-12-09 11:47 | Hospitalist Progress Note ---
Date of Service December 09, 2020 Assessment & Plan (1) Metabolic encephalopathy: Plan: Dyllan is a 70-year-old male with a past medical history of ADHD, diabetes, hyperlipidemia, hypertension, who was reportedly nonverbal trying to get into another home which his [id number] reported was similar to how he had prior with elevated blood sugar. Was brought in by medics and reportedly combative in route and required Ativan IV. No additional history at time of arrival was available/obtainable. He had rapidly declining clinical status requiring intubation after sedation and was admitted to the ICU. Was profound and now is much improved but still remains encephalopathic but improving slowly each day -Found to have several small acute CVAs on brain MRI which could be contributing. Brain MRI also with pachymeningeal enhancement -CSF with increased protein, 8 WBCs, positive xanthochromia, but negative bio fire rapid panel, Lyme still pending -CSF culture negative -Sputum culture negative -No fevers -Chest x-ray with small pleural effusion and patchy infiltrate which could be aspiration pneumonia -Urinalysis negative for infection -History from family that he drinks alcohol occasionally but do not suspect alcohol withdrawal although does have a macrocytosis without anemia suggestive of heavy alcohol use Urine toxicology screen negative Alcohol negative -NH3 normal -TSH normal Glycemic to over 700 on admission, with mild DKA which is now resolved Precedex infusion was initially used while in the ICU, discontinued. Was then extubated and remained somewhat combative and agitated with delirium which is now resolved on 12/07 -Blood cultures with likely contaminant with Coag neg Staph in 1 out of 4 bottles-repeat BCxs NGTD -Now found to have scrotal ulcer with cellulitis which may be contributing as well -also with left knee pain and erythema,tenderness but do not suspect septic joint--> more likely inflammatory arthritis Neurology consulted. Suspects encephalopathy secondary to possible viral meningitis as well as hyperglycemia -Repeat brain MRI in 2 months recommended by radiology to follow-up on pachymeningeal enhancement -Continue Ativan, Haldol as needed for severe agitation but do not suspect he will need this moving forward -Continue thiamine and folate, but convert to po dosing -Continue antibiotics in the form of ceftriaxone, linezolid, and metronidazole to cover for pneumonia and scrotal ulcer with cellulitis -Continue to manage hyperglycemia as below -Treating stroke as below -left knee-will have Ortho eval, will add on uric acid to labs, consider colchicine. Would try to avoid steroids given uncontrolled DM and DKA (2) DKA (diabetic ketoacidosis): Plan: Diabetic ketoacidosis now resolved Hyperglycemic to over 700 on admission, elevated anion gap which is now closed Initially on insulin GTT, patient managed in ICU. Transitioned to subcu per pharmacy recs hemoglobin A1c elevated at 10.1 Holding home Metformin (3) Acute CVA (cerebrovascular accident): Plan: As above, found to have cerebellar stroke and 2 small parietal strokes on brain MRI Continue aspirin 81 mg daily, increase statin to atorvastatin 40 mg daily Blood pressure control Watch for atrial fibrillation/flutter-none so far Neurology thinks pattern could be consistent with embolic source versus global hypoxia awaiting PT eval to see if needs rehab (4) Leukocytosis: Plan: Leukocytosiswas downtrending, then back up slightly on last check Blood cultures as above with possible contaminant CXR: Left base airspace opacity, diffuse thickening. From aspiration, sputum culture negative Empiric Rocephin/Vanco given initially but then held With scrotal ulcer and aspiration pneumonia--restarted on ceftriaxone, linezolid, and metronidazole will continue for 7 days MRSA nasal swab positive -UA negative for infection as above -CSF with possible evidence of viral meningitis and also with xanthochromia but no hemorrhage seen on imaging Lactate 4.7, down trended to 2.3 -Follow CBC tomorrow (5) Wenckebach: Plan: Second degree AV block. He has a history of such on previous hospitalization Precedex discontinued TTE: Grade 1 diastolic dysfunction EF 65-70% on last echo Cardiology consulted. No indication for temporary pacing wire. Continue telemetry, if pauses or progresses to complete heart block reconsider (6) ROYAL (acute kidney injury): Plan: Creatinine acutely elevated to 1.7 and was improved down to 1.2, now back up to 1.5 and BUN up also He is making urine UA with protein and blood possibly due to [place] trauma have since removed [place] catheter Follow BMP -hold toradol, and hold home lisinopril (7) Scrotal ulcer: Plan: As above Appreciate urology consultation No abscess for drainage growing Group B Strep from wound cx Continue IV ceftriaxone (8) Aspiration pneumonitis: Plan: As above no longer on O2 (9) Acute respiratory failure with hypoxia: Plan: Was on ventilator for airway protection during severe agitation, followed by nasal cannula after extubation which is now weaned off (10) ADHD: Plan: U tox negative Altered, no treatment indicated at this time Hold home Adderall (11) Depression: Plan: Long history of such. Does not appear to currently be on any home medications for this (12) Obesity: Plan: Continue home Topamax (13) Hyperlipidemia: Plan: Continue statin (14) Noncompliance with medications: Plan: With a history of such (15) Knee pain, left: Plan: suspect inflamatory arthritis like gout ot pseudogout, but doubt septic ar thritis -check uric acid consult Ortho could trial colchicine but try to avoid prednisone given recent DKA and uncontrolled DM Plan: DVT prophylaxis-SQ heparin Disposition-continued stay on PCU, PT OT consults ordered, will likely need rehab and patient is agreeable Admission and Anticipated Discharge Date Admission Date: December 03, 2020 Subjective Has c/o left knee pain. No CP or SOB. Is eating and drinking. Is still on a 1:1 but seems much less agitated today. Tele with SR with 1st degree AV block and [place] Review of Systems Review of Systems: All systems reviewed & are unremarkable except as noted in HPI & below Physical Exam Constitutional: WD/WN, vitals as above + obese Eyes: + anicteric sclerae Neck: trachea midline, no thyromegaly Respiratory: normal respiratory effort, lungs clear to auscultation Cardiovascular: RRR, no murmur, no edema Chest (Breasts): Chest: normal inspection of chest Gastrointestinal (Abdomen): normal bowel sounds, soft, nontender, no hepatosplenomegaly Musculoskeletal: Extremities: + extremities abnormal to inspection (left knee mild erythema,edema,++TTP over anterior knee), no cyanosis and no clubbing left knee ROM 0-100 in bed, exquisite TTP over anterior knee, +hot to touch, mild erythema and effusion right knee normal Skin: no rashes, warm and dry (1 cm scrotal ulcer with surrounding erythema) Neurologic: moves all extremities and awake; no focal motor deficits Psychiatric: Orientation: alert, oriented to person, oriented to place and cooperative Lymphatic: no lymphedema Results & Data Results & Data ([facility]) Vital Signs (Past 12 Hours) Vital Signs Temp Pulse Pulse Resp BP Pulse Ox 12/09/20 08:00 37.5 C 70 64 16 146/71 H 96 Laboratory Results 12/09/20 12/09/20 12/09/20 Range/Units 11:37 07:21 05:58 Sodium 137 (136-145) mmol/L Potassium 4.5 D (3.5-5.1) mmol/L Chloride 107 (98-107) mmol/L Carbon Dioxide 25 (21-32) mmol/L Anion Gap 6.0 (3-11) BUN 37 H (7-18) mg/dl Creatinine 1.52 H (0.6-1.4) mg/dl Est Cr Clr Drug Dosing 59.7 ml/min Est GFR ( Amer) 52.7 ml/min Est GFR (Non-Af Amer) 45.4 ml/min BUN/Creatinine Ratio 24.0 H (10-20) Glucose 205 H (70-99) mg/dl POC Glucose 138 H 171 H (70-99) mg/dl Calcium 8.7 (8.5-10.1) mg/dl Phosphorus 2.6 (2.5-4.9) mg/dl Magnesium 2.3 (1.8-2.4) mg/dl Fld Lyme DNA (PCR) (Not Detected) Lyme Specimen Source 12/09/20 12/08/20 12/08/20 Range/Units 05:20 21:36 16:01 Sodium (136-145) mmol/L Potassium (3.5-5.1) mmol/L Chloride (98-107) mmol/L Carbon Dioxide (21-32) mmol/L Anion Gap (3-11) BUN (7-18) mg/dl Creatinine (0.6-1.4) mg/dl Est Cr Clr Drug Dosing ml/min Est GFR ( Amer) ml/min Est GFR (Non-Af Amer) ml/min BUN/Creatinine Ratio (10-20) Glucose (70-99) mg/dl POC Glucose 207 H 187 H 102 H (70-99) mg/dl Calcium (8.5-10.1) mg/dl Phosphorus (2.5-4.9) mg/dl Magnesium (1.8-2.4) mg/dl Fld Lyme DNA (PCR) (Not Detected) Lyme Specimen Source 12/04/20 Range/Units Unknown Sodium (136-145) mmol/L Potassium (3.5-5.1) mmol/L Chloride (98-107) mmol/L Carbon Dioxide (21-32) mmol/L Anion Gap (3-11) BUN (7-18) mg/dl Creatinine (0.6-1.4) mg/dl Est Cr Clr Drug Dosing ml/min Est GFR ( Amer) ml/min Est GFR (Non-Af Amer) ml/min BUN/Creatinine Ratio (10-20) Glucose (70-99) mg/dl POC Glucose (70-99) mg/dl Calcium (8.5-10.1) mg/dl Phosphorus (2.5-4.9) mg/dl Magnesium (1.8-2.4) mg/dl Fld Lyme DNA (PCR) Not detected (Not Detected) Lyme Specimen Source CSF PG Care Time/CCT Total # of Minutes Spent Total Time Spent with Patient: Total time spent is greater than 50% in coordination of care (as documented) at patient's floor/unit and/or counseling patient: Coding Level of Care Code 91411 Subseq Hosp Care Lvl 3 Diagnoses Metabolic encephalopathy G93.41 DKA (diabetic ketoacidosis) E13.10 Diabetes mellitus complication detail: without coma Diabetes mellitus type: other specified (including GINGER) Acute CVA (cerebrovascular accident) I63.9 Leukocytosis D72.829 [place]enckebach I44.1 ROYAL (acute kidney injury) N17.9 Scrotal ulcer N50.89 Aspiration pneumonitis J69.0 Acute respiratory failure with hypoxia J96.01 ADHD F90.9 Depression F32.9 Obesity E66.9 Hyperlipidemia E78.5 Noncompliance with medications Z91.14 Knee pain, left M25.562 (1) DKA (diabetic ketoacidosis) Diabetes mellitus complication detail: without coma Diabetes mellitus type: other specified (including GINGER) Qualified Code(s): E13.10 - Other specified diabetes mellitus with ketoacidosis without coma
[2020-12-09 11:51] LABS: Lyme DNA PCR CSF or Synovial Not detected (Not Detected); Lyme DNA Source CSF
--- NOTE | 2020-12-09 12:18 | Pharmacy Report ---
Pharmacy Glycemic Short Note 2 - Date of Service December 09, 2020 - Glycemic Short BSG Results (Last 24 hours): 12/08/20 12/08/20 12/09/20 16:01 21:36 05:20 Glucose POC Glucose 102 H 187 H 207 H 12/09/20 12/09/20 12/09/20 05:58 07:21 11:37 Glucose 205 H POC Glucose 171 H 138 H OUTPATIENT ANTIDIABETIC REGIMEN: * NPH 18 units BID * Regular insulin 14 units TIDM ASSESSMENT: 12/10: * BSGs [phone] mg/dL yesterday and received 50 units of Lantus and ~38 units of NovoLog. * Fasting BSG elevated this morning at 205/171 mg/dL. Will increase total Lantus dose again today by ~12-20%. Lunch BSG within range today. Continue NovoLog scale. Patient continues to tolerate a diet. 12/09: * BSGs [phone] mg/dl yesterday * Fasting BSG today ranging from 143-206 mg/dL. Will increase AM lantus and lantus scale by 12-20%. Continue NovoLog scale * Patient is tolerating a diet. 12/07: * Patient was successfully transitioned of insulin infusion yesterday. * BSGs adequate thus far today ([phone]) * Patient received 20 units of Lantus this morning and will plan for scale this evening. Patient was ordered a diet at lunch but did not eat anything. Will continue to monitor this as basal dosing will be affected by PO intake. 12/06 * Labs have normalized, patient extubated today, plan to transition off of insulin infusion. * D5LR@100 ml/hr was running, now discontinued * Will transition with 50 units of lantus, once transitioned off will begin novolog CF 15 CR 5 12/05 * Mr Mccoy is a 70 y/o M with a PMH of T2DM who presents with hyperglycemia. * Patient initially started on insulin infusion for metabolic abnormalities. * Subsequently this morning was intubated. Insulin infusion was off from 0830 to 1000. * Continue insulin infusion as patient is NPO and intubated. PLAN FOR INPATIENT GLYCEMIC CONTROL: * Basal Insulin: * Lantus 30 units SC this AM * Lantus scale this evening (25 or 30 units SC based on BSG- See YOLANDA for details) * Correctional Insulin: Novolog Correction per scale ACHS Goal Range: Low 110 mg/dL - High 140 mg/dL Correction Factor: 15 mg/dL/unit * Prandial insulin: Per carb ratio of 1 unit per 5 grams CHO consume PLAN FOR DISCHARGE: * TBD
[2020-12-09] MEDS ORDERED: OLANZapine ZYDIS 5 MG ORALLY DIS. TAB PO PRN (14:34)
--- NOTE | 2020-12-09 15:02 | Orthopedic Consultation ---
Date of Service December 09, 2020 Assessment & Plan (1) Prepatellar bursitis, left knee: He may be dealing with little bit of prepatellar bursitis. All of his pain located anteriorly directly over the patella. He does not seem to have any pain deep in the knee joint. I will see any signs of joint effusion. There is no signs of septic arthritis. There is no signs of gout and his uric acid level was normal. We want to stay away from any steroids due to his DKA. We will treat him with an ice pack. We need to stay away from anti-inflammatories due to his kidney status. He can be weightbearing as tolerated. He can follow-up with orthopedics as needed as an outpatient. If you have any further questions please feel free to contact me personally at [phone]. History of Present Illness Reason for Consultation: Left knee pain. Requesting Physician: . Attending Physician: Lisa Mcnamara MD Dyllan is a pleasant 70-year-old male who was admitted to the hospital about 6 days ago. He had mental status changes in DKA. He apparently tried to break in the somebody's house. He has been treated in the ICU. He has been complaining of left knee pain. He is not a very good historian. Most of his pain seems located anteriorly. Orthopedics was consulted to evaluate and treat.. Allergies Allergy/AdvReac Type Severity Reaction Status Date / Time erythromycin base Allergy Intermediate Hives Verified 12/03/20 20:34 Penicillins Allergy Intermediate Hives Verified 12/03/20 20:34 Home Medications Medication Instructions Recorded Confirmed Type aspirin 81 mg tablet,delayed 81 mg PO DAILY 03/17/19 12/03/20 History release lisinopril 5 mg tablet 5 mg PO DAILY #30 tab 03/19/19 12/03/20 Rx metformin 500 mg tablet,extended 1,000 mg PO BID #120 tab 03/19/19 12/03/20 Rx release 24 hr topiramate 50 mg tablet 50 mg PO DAILY #30 tab 03/19/19 12/03/20 Rx atorvastatin 20 mg tablet 20 mg PO DAILY 05/11/20 12/03/20 History insulin NPH isoph U-100 human 100 18 unit SUBCUT BID ml 05/11/20 12/03/20 History unit/mL subcutaneous suspension (Novolin N NPH U-100 Insulin isophane) insulin regular human 100 unit/mL 14 unit SUBCUT TID ml 05/11/20 12/03/20 History injection solution (Novolin R Regular U-100 Insulin) insulin syringe-needle U-100 0.5 #10 ea 05/11/20 09/09/20 History mL 31 gauge x 5/16" (BD Insulin Syringe Ultra-Fine) lancets (Accu-Chek Fastclix Lancet ea 05/11/20 09/09/20 History Drum) tadalafil 10 mg tablet (Cialis) 10 mg PO DAILY PRN 05/11/20 12/03/20 History dextroamphetamine-amphetamine 30 30 mg PO BID 05/25/20 12/03/20 History mg tablet (Adderall) FreeStyle Marta 2 Sensor (flash #1 ea NS 07/30/20 09/09/20 Rx glucose sensor) blood sugar diagnostic (Accu-Chek ea 09/09/20 09/09/20 History Guide test strips) Past Med/Surg History Medical History Abnormal ECG ADHD Depression Depression Diabetes First degree AV block Hyperlipidemia Hypertension Left anterior fascicular block Obesity Prediabetes T2DM (type 2 diabetes mellitus) Uncontrolled type 2 diabetes mellitus Prudence Surgical History History of colonoscopy History of rectal surgery x3 for an abscess in anal sphincter History of root canal procedure multiple History of tonsillectomy History of wisdom tooth extraction Hx of eye surgery Hx of vasectomy Family History Father Family history of diabetes mellitus Diabetes Hypertension Heart disease Brother Prostate cancer Other No family history of adverse response to anesthesia Social History Smoking Status: Unknown if ever smoked Second Hand Exposure: No; Hx Alcohol Use: No Hx Substance Use: No Preferred Language: Danish Communication Ability: Effective 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 Physical Exam On examination of the left knee, there is no effusion. He has motion from 0 to 130 degrees. Is no instability. He has no pain over the medial or lateral joint lines. All of his pain is located directly over the patella. He has good strength with his quad.. Constitutional WD/WN, vitals as above Eyes PERRL, conjunctivae normal, anicteric sclerae ENMT external ear and nose normal, oropharynx normal Neck trachea midline, no thyromegaly Respiratory normal respiratory effort Cardiovascular RRR, no murmur, no edema Gastrointestinal (Abdomen) normal bowel sounds, soft, nontender, no hepatosplenomegaly Psychiatric A+Ox3, euthymic affect Results & Data Results & Data Laboratory Results . Diagnostic Findings X-rays of the left knee were reviewed and show no evidence of arthritis. I will see any loose bodies. The x-rays are negative.. PG Care Time/CCT Total # of Minutes Spent Total Time Spent with Patient: Total time spent is greater than 50% in c oordination of care (as documented) at patient's floor/unit and/or counseling patient: Coding Level of Care Code 25669 Inpt Consult Level 4 Diagnoses Prepatellar bursitis, left knee M70.42
[2020-12-09] MEDS: cefTRIAXone SODIUM 2,000 MG in DEXTROSE 5% 50 ML IV SCH (15:18)
[2020-12-10] MEDS: INSULIN ASPART 100 UNITS/ML 3 ML PEN SC SCH ×6 (01:32→20:58)
[2020-12-10] MEDS: metroNIDAZOLE 500 MG/100 ML BAG IV SCH ×3 (01:34→17:17)
[2020-12-10] MEDS: LINEZOLID 600 MG/300 ML BAG IV SCH ×2 (03:06→15:46)
[2020-12-10 05:34] LABS: Basophils # (auto) 0.04 K/uL (0-0.2); Basophils % (auto) 0.5 %; Eosinophils # (auto) 0.35 K/uL (0-0.5); Eosinophils % (auto) 4.1 %; Hemoglobin 11.7 g/dL (14.0-18.0); Immature Granulocytes # (auto) 0.07 K/uL (0.00-0.02); Immature Granulocytes % (auto) 0.8 %; Lymphocytes # (auto) 1.72 K/uL (1.2-3.4); Lymphocytes % (auto) 20.3 %; Mean Corpuscular Hemoglobin 34.9 pg (25-34); Mean Corpuscular Hgb Conc 35.5 g/dL (32-36); Mean Corpuscular Volume 98.5 fL (80-100); Mean Platelet Volume 10.5 fL (7.4-10.4); Monocytes # (auto) 0.71 K/uL (0.11-0.59); Monocytes % (auto) 8.4 %; Neutrophils % (auto) 65.9 %; Platelet Count 303 K/uL (130-400); RDW Coefficient of Variation 12.7 % (11.5-14.5); Red Blood Count 3.35 M/uL (4.7-6.1); White Blood Count 8.49 K/uL (4.8-10.8)
[2020-12-10 06:00] LABS: Calcium 8.1 mg/dl (8.5-10.1); Creatinine Clr Calc Pharmacy 68.7 ml/min; Est GFR (African American) 62.5 ml/min; Est GFR (Non-African American) 53.9 ml/min; Magnesium 2.1 mg/dl (1.8-2.4); Phosphorus 2.8 mg/dl (2.5-4.9); Potassium 3.9 mmol/L (3.5-5.1)
[2020-12-10] MEDS: ATORVASTATIN 40 MG TAB PO SCH (09:49)
[2020-12-10] MEDS: THIAMINE HCL 100 MG TAB PO SCH (09:49)
[2020-12-10] MEDS: TOPIRAMATE 50 MG TAB PO SCH (09:49)
[2020-12-10] MEDS: FOLIC ACID 1 MG TAB PO SCH (09:49)
[2020-12-10] MEDS: FLUCONAZOLE 100 MG TAB PO SCH (09:50)
[2020-12-10] MEDS: ASPIRIN 81 MG CHEW PO SCH (09:52)
[2020-12-10] MEDS: INSULIN GLARGINE SOLOSTAR 100 UNITS/ML 3 ML PEN SC SCH ×2 (09:53→20:58)
[2020-12-10] MEDS: HEPARIN SOD 5,000 UNIT/0.5 ML VIAL SQ SCH ×2 (09:53→20:59)
--- NOTE | 2020-12-10 13:14 | Pharmacy Report ---
Pharmacy Glycemic Short Note 2 - Date of Service December 10, 2020 - Glycemic Short BSG Results (Last 24 hours): 12/09/20 12/09/20 12/09/20 14:17 16:12 20:36 Glucose POC Glucose 135 H 160 H 176 H 12/10/20 12/10/20 12/10/20 01:31 04:47 04:54 Glucose 187 H POC Glucose 168 H 162 H 12/10/20 12/10/20 07:43 11:18 Glucose POC Glucose 135 H 190 H OUTPATIENT ANTIDIABETIC REGIMEN: * NPH 18 units BID * Regular insulin 14 units TIDM ASSESSMENT: 12/10: * BSGs improved, [phone] mg/dL yesterday and received 107 units total of insulin * Fasting BSG improved to 135 mg/dL (although did receive 4 units of correction overnight), will continue 30 BID of lantus, titrate up if BSG trends back up * Continue current novolog scale 12/09: * BSGs [phone] mg/dL yesterday and received 50 units of Lantus and ~38 units of NovoLog. * Fasting BSG elevated this morning at 205/171 mg/dL. Will increase total Lantus dose again today by ~12-20%. Lunch BSG within range today. Continue NovoLog scale. Patient continues to tolerate a diet. 12/08: * BSGs [phone] mg/dl yesterday * Fasting BSG today ranging from 143-206 mg/dL. Will increase AM lantus and lantus scale by 12-20%. Continue NovoLog scale * Patient is tolerating a diet. 12/07: * Patient was successfully transitioned of insulin infusion yesterday. * BSGs adequate thus far today ([phone]) * Patient received 20 units of Lantus this morning and will plan for scale this evening. Patient was ordered a diet at lunch but did not eat anything. Will continue to monitor this as basal dosing will be affected by PO intake. 12/06 * Labs have normalized, patient extubated today, plan to transition off of insulin infusion. * D5LR@100 ml/hr was running, now discontinued * Will transition with 50 units of lantus, once transitioned off will begin novolog CF 15 CR 5 12/05 * Mr Mccoy is a 70 y/o M with a PMH of T2DM who presents with hyperglycemia. * Patient initially started on insulin infusion for metabolic abnormalities. * Subsequently this morning was intubated. Insulin infusion was off from 0830 to 1000. * Continue insulin infusion as patient is NPO and intubated. PLAN FOR INPATIENT GLYCEMIC CONTROL: * Basal Insulin: * Lantus 30 units SC this AM * Lantus scale this evening (25 or 30 units SC based on BSG- See MAR for details) * Correctional Insulin: Novolog Correction per scale ACHS Goal Range: Low 110 mg/dL - High 140 mg/dL Correction Factor: 15 mg/dL/unit * Prandial insulin: Per carb ratio of 1 unit per 5 grams CHO consume PLAN FOR DISCHARGE: * TBD
[2020-12-10] MEDS: cefTRIAXone SODIUM 2,000 MG in DEXTROSE 5% 50 ML IV SCH (15:47)
--- NOTE | 2020-12-10 17:07 | Hospitalist Progress Note ---
Date of Service December 10, 2020 Assessment & Plan (1) Metabolic encephalopathy: Plan: Dyllan is a 70-year-old male with a past medical history of ADHD, diabetes, hyperlipidemia, hypertension, who was reportedly nonverbal trying to get into another home which his aishlw-rr-kdr reported was similar to how he had prior with elevated blood sugar. Was brought in by medics and reportedly combative in route and required Ativan IV. No additional history at time of arrival was available/obtainable. He had rapidly declining clinical status requiring intubation after sedation and was admitted to the ICU. Encephalopathy was profound and now is significantly improved now on 12/10 -Found to have several small acute CVAs on brain MRI which could be contributing. Brain MRI also with pachymeningeal enhancement -CSF with increased protein, 8 WBCs, positive xanthochromia, but negative bio fire rapid panel, Lyme still pending -CSF culture negative -Sputum culture negative -No fevers -Chest x-ray with small pleural effusion and patchy infiltrate which could be aspiration pneumonia -Urinalysis negative for infection -History from family that he drinks alcohol occasionally but do not suspect alcohol withdrawal although does have a macrocytosis without anemia suggestive of heavy alcohol use Urine toxicology screen negative Alcohol negative -NH3 normal -TSH normal Glycemic to over 700 on admission, with mild DKA which is now resolved Precedex infusion was initially used while in the ICU, discontinued. Was then extubated and remained somewhat combative and agitated with delirium which is now resolved -Blood cultures with likely contaminant with Coag neg Staph in 1 out of 4 bottles-repeat BCxs NGTD -Now found to have scrotal ulcer with cellulitis which may be contributing as well -also with left knee pain and erythema,tenderness but do not suspect septic joint--> is a prepatellar bursitis Neurology consulted. Suspects encephalopathy secondary to possible viral meningitis as well as hyperglycemia -Repeat brain MRI in 2 months recommended by radiology to follow-up on pachymeningeal enhancement -He received 1 dose of p.o. Zyprexa on 12/09 for worsening agitation and paranoia as well as hallucinations-this has significantly improved his mentation over the last 24 hours -Continue thiamine and folate -Continue treatment with antibiotics of scrotal ulcer with cellulitis -Continue to manage hyperglycemia as below -Treating stroke as below -Continue Zyprexa 5 mg p.o. once daily as needed for significant agitation Overall finally significantly improved on 12/10 (2) DKA (diabetic ketoacidosis): Plan: Diabetic ketoacidosis now resolved Hyperglycemic to over 700 on admission, elevated anion gap which is now closed Initially on insulin GTT, patient managed in ICU. Transitioned to subcu per pharmacy recs hemoglobin A1c elevated at 10.1 Holding home Metformin (3) Acute CVA (cerebrovascular accident): Plan: As above, found to have cerebellar stroke and 2 small parietal strokes on brain MRI Continue aspirin 81 mg daily, increase statin to atorvastatin 40 mg daily Blood pressure control Watch for atrial fibrillation/flutter-none so far Neurology thinks pattern could be consistent with embolic source versus global hypoxia PT reports that he may need rehab placement if confusion does not clear as the confusion was leading to increased impulsivity making him off balance OT reports could return home and is at baseline OT status (4) Leukocytosis: Plan: Now resolved Blood cultures with likely contaminant of coagulase-negative staph CXR: Left base airspace opacity, diffuse thickening. From aspiration, sputum culture negative Empiric Rocephin/Vanco given initially but then held With scrotal ulcer and aspiration pneumonia--restarted on ceftriaxone, linezolid, and metronidazole MRSA nasal swab positive -UA negative for infection as above -CSF with possible evidence of viral meningitis and also with xanthochromia but no hemorrhage seen on imaging Lactate 4.7, down trended to 2.3 Scrotal wound culture growing group B beta strep and yeast not Diane -Discontinue linezolid -Continue ceftriaxone as scrotal cellulitis still present to complete 2 more days for total of 7 -Continue metronidazole to cover in case of anaerobic infection of the scrotal wound Follow CBC (5) Prudence: Plan: Second degree AV block. He has a history of such on previous hospitalization Continues to have first-degree AV block and intermittent second-degree type I AV block that is asymptomatic TTE: Grade 1 diastolic dysfunction EF 65-70% on last echo Cardiology consulted. No indication for temporary pacing wire. Continue telemetry, if pauses or progresses to complete heart block reconsider (6) ROYAL (acute kidney injury): Plan: Creatinine acutely elevated to 1.7 and now improved back to 1.3 He is making urine UA with protein and blood possibly due to Trinidad trauma have since removed Trinidad catheter Follow BMP -hold toradol, and hold home lisinopril (7) Scrotal ulcer: Plan: With theAs above Appreciate urology consultation No abscess for drainage growing Group B Strep and now also with yeast not Diane albicans from wound cx Continue IV ceftriaxone and add on Diflucan 200 mg p.o. once daily Add on miconazole powder to the scrotum and groin (8) Aspiration pneumonitis: Plan: As above no longer on O2 Resolved (9) Acute respiratory failure with hypoxia: Plan: Was on ventilator for airway protection during severe agitation, followed by nasal cannula after extubation which is now weaned off Resolved (10) ADHD: Plan: U tox negative Patient requesting Adderall be added back on, however it has a significant in teraction with linezolid Discontinue linezolid as no longer needed -Would wait at least a few days before restarting Adderall (11) Depression: Plan: Long history of such. He reports that he is still taking Trintellix at home, although I cannot find it prescribed at external medication history Our pharmacy does not carry this here, and also interacts with linezolid His daughter could bring in his bottle from home, however would not restart it for at least a few days after stopping linezolid (12) Obesity: Plan: Continue home Topamax (13) Hyperlipidemia: Plan: Continue statin at higher dose given stroke (14) Noncompliance with medications: Plan: With a history of such (15) Knee pain, left: Plan: Left knee prepatellar bursitis with some warmth and very mild erythema Left knee x-ray negative Uric acid negative Appreciate orthopedics consultation Plan for NSAIDs if renal function improves, ice packs Pain is improving Plan: DVT prophylaxis-SQ heparin Disposition-continued stay on PCU, PT recommends possible rehab if confusion does not clear. Will have to have PT and OT reassess over the next 2 days to see if needs rehab versus going home. Would also depend on if his mentation continues to clear up through the weekend. Admission and Anticipated Discharge Date Admission Date: December 03, 2020 Subjective Pt doing so much better today. He is off the one-to-one sitter and is much more appropriate, less impulsive. No paranoia or hallucinations today at all. He reports he slept well last night. He denies any pain in the scrotum. No shortness of breath or cough, no chest pain, no abdominal pain. He is moving his bowels. He is eating very well. He asks that we restart his Adderall and Trintellix. We do not carry Trintellix here and I cannot find that he is actually being prescribed this as an outpatient, but perhaps he is getting samples at his doctor's office. Furthermore, his Adderall and Trintellix should not be restarted while he is on linezolid. Review of Systems Review of Systems: All systems reviewed & are unremarkable except as noted in HPI & below Physical Exam Constitutional: WD/WN, vitals as above + obese Eyes: + anicteric sclerae Neck: trachea midline, no thyromegaly Respiratory: normal respiratory effort, lungs clear to auscultation Cardiovascular: RRR, no murmur, no edema Chest (Breasts): Chest: normal inspection of chest Gastrointestinal (Abdomen): normal bowel sounds, soft, nontender, no hepatosplenomegaly Musculoskeletal: Extremities: + extremities abnormal to inspection (left knee mild erythema,edema,++TTP over anterior knee), no cyanosis and no clubbing Neurologic: moves all extremities and awake; no focal motor deficits Psychiatric: Orientation: alert, oriented x 3 and cooperative Lymphatic: no lymphedema Results & Data Results & Data ([facility]) Vital Signs (Past 12 Hours) Vital Signs Temp Pulse Resp BP Pulse Ox 12/10/20 15:59 37 C 49 L 20 122/51 L 97 12/10/20 11:23 37.1 C 48 L 24 121/53 L 95 Laboratory Results 12/10/20 12/10/20 12/10/20 Range/Units 19:44 15:20 11:18 WBC (4.8-10.8) K/uL RBC (4.7-6.1) M/uL Hgb (14.0-18.0) g/dL Hct (42-52) % MCV (80-100) fL MCH (25-34) pg MCHC (32-36) g/dL RDW Std Deviation (36.4-46.3) fL RDW Coeff of Yinka (11.5-14.5) % Plt Count (130-400) K/uL MPV (7.4-10.4) fL Immature Gran % (Auto) % Neut % (Auto) % Lymph % (Auto) % Bryan % (Auto) % Eos % (Auto) % Baso % (Auto) % Neut # (Auto) (1.4-6.5) K/uL Lymph # (Auto) (1.2-3.4) K/uL Bryan # (Auto) (0.11-0.59) K/uL Eos # (Auto) (0-0.5) K/uL Baso # (Auto) (0-0.2) K/uL Immature Gran # (Auto) (0.00-0.02) K/uL Sodium (136-145) mmol/L Potassium (3.5-5.1) mmol/L Chloride (98-107) mmol/L Carbon Dioxide (21-32) mmol/L Anion Gap (3-11) BUN (7-18) mg/dl Creatinine (0.6-1.4) mg/dl Est Cr Clr Drug Dosing ml/min Est GFR ( Amer) ml/min Est GFR (Non-Af Amer) ml/min BUN/Creatinine Ratio (10-20) Glucose (70-99) mg/dl POC Glucose 196 H 145 H 190 H (70-99) mg/dl Calcium (8.5-10.1) mg/dl Phosphorus (2.5-4.9) mg/dl Magnesium (1.8-2.4) mg/dl 12/10/20 12/10/20 12/10/20 Range/Units 07:43 04:54 04:47 WBC 8.49 (4.8-10.8) K/uL RBC 3.35 L (4.7-6.1) M/uL Hgb 11.7 L (14.0-18.0) g/dL Hct 33.0 L (42-52) % MCV 98.5 (80-100) fL MCH 34.9 H (25-34) pg MCHC 35.5 (32-36) g/dL RDW Std Deviation 46.0 (36.4-46.3) fL RDW Coeff of Yinka 12.7 (11.5-14.5) % Plt Count 303 (130-400) K/uL MPV 10.5 H (7.4-10.4) fL Immature Gran % (Auto) 0.8 % Neut % (Auto) 65.9 % Lymph % (Auto) 20.3 % Bryan % (Auto) 8.4 % Eos % (Auto) 4.1 % Baso % (Auto) 0.5 % Neut # (Auto) 5.60 (1.4-6.5) K/uL Lymph # (Auto) 1.72 (1.2-3.4) K/uL Bryan # (Auto) 0.71 H (0.11-0.59) K/uL Eos # (Auto) 0.35 (0-0.5) K/uL Baso # (Auto) 0.04 (0-0.2) K/uL Immature Gran # (Auto) 0.07 H (0.00-0.02) K/uL Sodium (136-145) mmol/L Potassium (3.5-5.1) mmol/L Chloride (98-107) mmol/L Carbon Dioxide (21-32) mmol/L Anion Gap (3-11) BUN (7-18) mg/dl Creatinine (0.6-1.4) mg/dl Est Cr Clr Drug Dosing ml/min Est GFR ( Amer) ml/min Est GFR (Non-Af Amer) ml/min BUN/Creatinine Ratio (10-20) Glucose (70-99) mg/dl POC Glucose 135 H 162 H (70-99) mg/dl Calcium (8.5-10.1) mg/dl Phosphorus (2.5-4.9) mg/dl Magnesium (1.8-2.4) mg/dl 12/10/20 12/10/20 Range/Units 04:47 01:31 WBC (4.8-10.8) K/uL RBC (4.7-6.1) M/uL Hgb (14.0-18.0) g/dL Hct (42-52) % MCV (80-100) fL MCH (25-34) pg MCHC (32-36) g/dL RDW Std Deviation (36.4-46.3) fL RDW Coeff of Yinka (11.5-14.5) % Plt Count (130-400) K/uL MPV (7.4-10.4) fL Immature Gran % (Auto) % Neut % (Auto) % Lymph % (Auto) % Bryan % (Auto) % Eos % (Auto) % Baso % (Auto) % Neut # (Auto) (1.4-6.5) K/uL Lymph # (Auto) (1.2-3.4) K/uL Bryan # (Auto) (0.11-0.59) K/uL Eos # (Auto) (0-0.5) K/uL Baso # (Auto) (0-0.2) K/uL Immature Gran # (Auto) (0.00-0.02) K/uL Sodium 140 (136-145) mmol/L Potassium 3.9 (3.5-5.1) mmol/L Chloride 113 H (98-107) mmol/L Carbon Dioxide 22 (21-32) mmol/L Anion Gap 5.0 (3-11) BUN 33 H (7-18) mg/dl Creatinine 1.32 (0.6-1.4) mg/dl Est Cr Clr Drug Dosing 68.7 ml/min Est GFR ( Amer) 62.5 ml/min Est GFR (Non-Af Amer) 53.9 ml/min BUN/Creatinine Ratio 25.0 H (10-20) Glucose 187 H (70-99) mg/dl POC Glucose 168 H (70-99) mg/dl Calcium 8.1 L (8.5-10.1) mg/dl Phosphorus 2.8 (2.5-4.9) mg/dl Magnesium 2.1 (1.8-2.4) mg/dl Wound culture from scrotum with group B beta strep and yeast not Diane albicans PG Care Time/CCT Total # of Minutes Spent Total Time Spent with Patient: Total time spent is greater than 50% in coordination of care (as documented) at patient's floor/unit and/or counseling patient: Coding Level of Care Code 08378 Subseq Hosp Care Lvl 3 Diagnoses Metabolic encephalopathy G93.41 DKA (diabetic ketoacidosis) E13.10 Diabetes mellitus complication detail: without coma Diabetes mellitus type: other specified (including GINGER) Acute CVA (cerebrovascular accident) I63.9 Leukocytosis D72.829 Wenckebach I44.1 ROYAL (acute kidney injury) N17.9 Scrotal ulcer N50.89 Aspiration pneumonitis J69.0 Acute respiratory failure with hypoxia J96.01 ADHD F90.9 Depression F32.9 Obesity E66.9 Hyperlipidemia E78.5 Noncompliance with medications Z91.14 Knee pain, left M25.562 (1) DKA (diabetic ketoacidosis) Diabetes mellitus complication detail: without coma Diabetes mellitus type: other specified (including GINGER) Qualified Code(s): E13.10 - Other specified diabetes mellitus with ketoacidosis without coma
[2020-12-10] MEDS: MICONAZOLE NITRATE POWDER 43 GM EXT SCH (22:35)
[2020-12-11] MEDS: metroNIDAZOLE 500 MG/100 ML BAG IV SCH ×3 (00:26→16:39)
[2020-12-11 01:24] LABS: Calcium 8.4 mg/dl (8.5-10.1); Creatinine Clr Calc Pharmacy 72.6 ml/min; Est GFR (African American) 66.7 ml/min; Est GFR (Non-African American) 57.6 ml/min; Magnesium 2.2 mg/dl (1.8-2.4); Potassium 4.3 mmol/L (3.5-5.1)
[2020-12-11 05:35] LABS: Basophils # (auto) 0.05 K/uL (0-0.2); Basophils % (auto) 0.6 %; Eosinophils # (auto) 0.23 K/uL (0-0.5); Eosinophils % (auto) 2.9 %; Hemoglobin 11.6 g/dL (14.0-18.0); Immature Granulocytes # (auto) 0.06 K/uL (0.00-0.02); Immature Granulocytes % (auto) 0.8 %; Lymphocytes # (auto) 2.06 K/uL (1.2-3.4); Mean Corpuscular Hemoglobin 34.2 pg (25-34); Mean Corpuscular Hgb Conc 34.1 g/dL (32-36); Mean Corpuscular Volume 100.3 fL (80-100); Mean Platelet Volume 10.2 fL (7.4-10.4); Monocytes # (auto) 0.67 K/uL (0.11-0.59); Monocytes % (auto) 8.4 %; Neutrophils # (auto) 4.86 K/uL (1.4-6.5); Neutrophils % (auto) 61.3 %; Platelet Count 336 K/uL (130-400); RDW Coefficient of Variation 12.8 % (11.5-14.5); RDW Standard Deviation 47.3 fL (36.4-46.3); Red Blood Count 3.39 M/uL (4.7-6.1); White Blood Count 7.93 K/uL (4.8-10.8)
[2020-12-11 06:02] LABS: Albumin Level 2.3 gm/dl (3.4-5.0); BUN Creatinine Ratio 21.2 (10-20); Calcium 8.7 mg/dl (8.5-10.1); Creatinine Clr Calc Pharmacy 78.3 ml/min; Est GFR (African American) 71.5 ml/min; Est GFR (Non-African American) 61.7 ml/min; Magnesium 2.2 mg/dl (1.8-2.4); Potassium 4.5 mmol/L (3.5-5.1)
[2020-12-11 06:05] LABS: Albumin Globulin Ratio 0.6 (0.9-2); Bilirubin,Total 0.4 mg/dl (0.2-1); Globulin 3.9 gm/dl (2.5-4.0); Total Protein 6.2 gm/dl (6.4-8.2)
[2020-12-11] MEDS: cefTRIAXone SODIUM 2,000 MG in DEXTROSE 5% 50 ML IV SCH (08:16)
[2020-12-11] MEDS: FLUCONAZOLE 100 MG TAB PO SCH (08:23)
[2020-12-11] MEDS: ATORVASTATIN 40 MG TAB PO SCH (08:23)
[2020-12-11] MEDS: THIAMINE HCL 100 MG TAB PO SCH (08:24)
[2020-12-11] MEDS: FOLIC ACID 1 MG TAB PO SCH (08:24)
[2020-12-11] MEDS: HEPARIN SOD 5,000 UNIT/0.5 ML VIAL SQ SCH ×2 (08:24→20:42)
[2020-12-11] MEDS: INSULIN GLARGINE SOLOSTAR 100 UNITS/ML 3 ML PEN SC SCH (08:26)
[2020-12-11] MEDS: INSULIN ASPART 100 UNITS/ML 3 ML PEN SC SCH ×4 (08:29→20:43)
[2020-12-11] MEDS: TOPIRAMATE 50 MG TAB PO SCH (08:30)
[2020-12-11] MEDS: ASPIRIN 81 MG CHEW PO SCH (08:32)
[2020-12-11] MEDS: MICONAZOLE NITRATE POWDER 43 GM EXT SCH ×2 (08:33→20:45)
[2020-12-11] MEDS ORDERED: DEXTROAMPHETAMINE AMPHETAMINE 30 MG PO SCH (09:00)
--- NOTE | 2020-12-11 13:58 | XCELERA ---
[id number]
--- NOTE | 2020-12-11 14:06 | Electrocardiogram Report ---
Test Reason : Blood Pressure : / mmHG Vent. Rate : 033 BPM Atrial Rate : 065 BPM P-R Int : 388 ms QRS Dur : 086 ms QT Int : 460 ms P-R-T Axes : 064 -51 038 degrees QTc Int : 340 ms Poor data quality, interpretation may be adversely affected Sinus rhythm with 2nd degree A-V block with 2:1 A-V conduction Left anterior fascicular block Cannot rule out Anterior infarct , age undetermined Abnormal ECG When compared with ECG of 04-DEC-2020 09:53, T wave inversion no longer evident in Inferior leads QT has shortened Confirmed by Sanya Krause ([id number]) on 12/11/2020 2:06:41 PM Referred By: REFERRED SELF Confirmed By:Sanya Krause
--- NOTE | 2020-12-11 15:01 | Hospitalist Progress Note ---
Date of Service December 11, 2020 Assessment & Plan (1) Metabolic encephalopathy: Plan: Dyllan is a 70-year-old male with a past medical history of ADHD, diabetes, hyperlipidemia, hypertension, who was reportedly nonverbal trying to get into another home which his [id number] reported was similar to how he had prior with elevated blood sugar. Was brought in by medics and reportedly combative in route and required Ativan IV. No additional history at time of arrival was available/obtainable. He had rapidly declining clinical status requiring intubation after sedation and was admitted to the ICU. Encephalopathy was profound and now is significantly improved since 12/10 -Found to have several small acute CVAs on brain MRI which could be contributing. Brain MRI also with pachymeningeal enhancement -CSF with increased protein, 8 WBCs, positive xanthochromia, but negative bio fire rapid panel, Lyme still pending -CSF culture negative -Sputum culture negative -No fevers -Chest x-ray with small pleural effusion and patchy infiltrate which could be aspiration pneumonia -Urinalysis negative for infection -History from family that he drinks alcohol occasionally but do not suspect alcohol withdrawal although does have a macrocytosis without anemia suggestive of heavy alcohol use Urine toxicology screen negative Alcohol negative -NH3 normal -TSH normal Glycemic to over 700 on admission, with mild DKA which is now resolved Precedex infusion was initially used while in the ICU, discontinued. Was then extubated and remained somewhat combative and agitated with delirium which is now resolved -Blood cultures with likely contaminant with Coag neg Staph in 1 out of 4 bottles-repeat BCxs NGTD -Now found to have scrotal ulcer with cellulitis which may be contributing as well -also with left knee pain and erythema,tenderness but do not suspect septic joint--> is a prepatellar bursitis Neurology consulted. Suspects encephalopathy secondary to possible viral meningitis as well as hyperglycemia -Repeat brain MRI in 2 months recommended by radiology to follow-up on pachymeningeal enhancement -He received 1 dose of p.o. Zyprexa on 12/09 for worsening agitation and paranoia as well as hallucinations-this has significantly improved his mentation over the last 24 hours -Continue thiamine and folate -Continue treatment with antibiotics of scrotal ulcer with cellulitis -Continue to manage hyperglycemia as below -Treating stroke as below -Continue Zyprexa 5 mg p.o. once daily as needed for significant agitation Overall finally significantly improved with some occasional trouble with memory (2) DKA (diabetic ketoacidosis): Plan: Diabetic ketoacidosis now resolved Hyperglycemic to over 700 on admission, elevated anion gap which is now closed Initially on insulin GTT, patient managed in ICU. Transitioned to subcu per pharmacy recs hemoglobin A1c elevated at 10.1 Holding home Metformin (3) Acute CVA (cerebrovascular accident): Plan: As above, found to have cerebellar stroke and 2 small parietal strokes on brain MRI Continue aspirin 81 mg daily, increase statin to atorvastatin 40 mg daily Blood pressure control Watch for atrial fibrillation/flutter-none so far Neurology thinks pattern could be consistent with embolic source versus global hypoxia -check ECHO with bubble study--> showed right to left atrial shunt--> Dopplers bilat LEs negative for DVT -Check CTA head/neck PT reports that he may need rehab placement if confusion does not clear as the confusion was leading to increased impulsivity making him off balance OT reports could return home and is at baseline OT status (4) Leukocytosis: Plan: Now resolved Blood cultures with likely contaminant of coagulase-negative staph CXR: Left base airspace opacity, diffuse thickening. From aspiration, sputum culture negative Empiric Rocephin/Vanco given initially but then held With scrotal ulcer and aspiration pneumonia--restarted on ceftriaxone, linezolid, and metronidazole MRSA nasal swab positive -UA negative for infection as above -CSF with possible evidence of viral meningitis and also with xanthochromia but no hemorrhage seen on imaging Lactate 4.7, down trended to 2.3 Scrotal wound culture growing group B beta strep and yeast not Diane -Discontinued linezolid -Continue ceftriaxone as scrotal cellulitis still present to complete 1 more day for total of 7 -Continue metronidazole to cover in case of anaerobic infection of the scrotal wound-today last day Follow CBC (5) Wenckebach: Plan: Second degree AV block. He has a history of such on previous hospitalization Continues to have first-degree AV block and intermittent second-degree type I AV block that is asymptomatic TTE: Grade 1 diastolic dysfunction EF 65-70% on last echo Cardiology consulted. No indication for temporary pacing wire. Continue telemetry, if pauses or progresses to complete heart block reconsider (6) ROYAL (acute kidney injury): Plan: Creatinine acutely elevated to 1.7 and now improved back to 1.1 He is making urine UA with protein and blood possibly due to Trin[place] trauma have since removed [place] catheter Follow BMP -hold toradol, and hold home lisinopril (7) Scrotal ulcer: Plan: as above Appreciate urology consultation No abscess for drainage growing Group B Strep and now also with yeast not Diane albicans from wound cx Continue IV ceftriaxone and add on Diflucan 200 mg p.o. once daily continue on miconazole powder to the scrotum and groin (8) Aspiration pneumonitis: Plan: As above no longer on O2 Resolved (9) Acute respiratory failure with hypoxia: Plan: Was on ventilator for airway protection during severe agitation, followed by nasal cannula after extubation which is now weaned off Resolved (10) ADHD: Plan: U tox negative Patient requesting Adderall be added back on, however it has a significant interaction with linezolid Discontinue linezolid as no longer needed -Would wait at least a few days before restarting Adderall (11) Depression: Plan: Long history of such. He reports that he is still taking Trintellix at home, although I cannot find it prescribed at external medication history Our pharmacy does not carry this here, and also interacts with linezolid His daughter could bring in his bottle from home, however would not restart it for at least a few days after stopping linezolid His sister in law reports that he frequently is noncompliant with his medications and doubts he has been taking it (12) Obesity: Plan: Continue home Topamax (13) Hyperlipidemia: Plan: Continue statin at higher dose given stroke (14) Noncompliance with medications: Plan: With a history of such (15) Knee pain, left: Plan: Left knee prepatellar bursitis with some warmth and very mild erythema Left knee x-ray negative Uric acid negative Appreciate orthopedics consultation Plan for NSAIDs if renal function improves, ice packs Pain is improving Plan: DVT prophylaxis-SQ heparin Disposition-continued stay on PCU, PT recommends possible rehab if confusion does not clear. Plan for [facility] possibly tomorrow Admission and Anticipated Discharge Date Admission Date: December 03, 2020 Subjective Mental status continues to improve today. He is oriented. Remains somewhat impulsive at times as per nursing-continues to get out of bed without assistance despite being asked to wait for assistance. Denies pain, no SOB or cough, no abd pains. Is eating and drinking, moving bowels. Tele remains with Mobitz type 1 Review of Systems Review of Systems: All systems reviewed & are unremarkable except as noted in HPI & below Physical Exam Constitutional: WD/WN, vitals as above + obese Eyes: + anicteric sclerae Neck: trachea midline, no thyromegaly Respiratory: normal respiratory effort, lungs clear to auscultation Cardiovascular: RRR, no murmur, no edema Chest (Breasts): Chest: normal inspection of chest Gastrointestinal (Abdomen): normal bowel sounds, soft, nontender, no hepatosplenomegaly Musculoskeletal: Extremities: + extremities abnormal to inspection (left knee mild erythema,edema,++TTP over anterior knee), no cyanosis and no clubbing Neurologic: moves all extremities and awake; no focal motor deficits Psychiatric: Orientation: alert, oriented x 3 and cooperative Lymphatic: no lymphedema Results & Data Results & Data ([facility]) Vital Signs (Past 12 Hours) Vital Signs Temp Pulse Resp BP Pulse Ox 12/11/20 07:39 36.8 C 52 L 20 157/73 H 95 12/11/20 04:00 36.7 C 47 L 16 117/57 L 97 Laboratory Results 12/11/20 12/11/20 12/11/20 Range/Units 16:24 11:08 07:25 WBC (4.8-10.8) K/uL RBC (4.7-6.1) M/uL Hgb (14.0-18.0) g/dL Hct (42-52) % MCV (80-100) fL MCH (25-34) pg MCHC (32-36) g/dL RDW Std Deviation (36.4-46.3) fL RDW Coeff of Yinka (11.5-14.5) % Plt Count (130-400) K/uL MPV (7.4-10.4) fL Immature Gran % (Auto) % Neut % (Auto) % Lymph % (Auto) % Verm[place] % (Auto) % Eos % (Auto) % Baso % (Auto) % Neut # (Auto) (1.4-6.5) K/uL Lymph # (Auto) (1.2-3.4) K/uL [place] # (Auto) (0.11-0.59) K/uL Eos # (Auto) (0-0.5) K/uL Baso # (Auto) (0-0.2) K/uL Immature Gran # (Auto) (0.00-0.02) K/uL Sodium (136-145) mmol/L Potassium (3.5-5.1) mmol/L Chloride (98-107) mmol/L Carbon Dioxide (21-32) mmol/L Anion Gap (3-11) BUN (7-18) mg/dl Creatinine (0.6-1.4) mg/dl Est Cr Clr Drug Dosing ml/min Est GFR ( Amer) ml/min Est GFR (Non-Af Amer) ml/min BUN/Creatinine Ratio (10-20) Glucose (70-99) mg/dl POC Glucose 134 H 164 H 90 (70-99) mg/dl Calcium (8.5-10.1) mg/dl Phosphorus (2.5-4.9) mg/dl Magnesium (1.8-2.4) mg/dl Total Bilirubin (0.2-1) mg/dl AST (15-37) U/L ALT (12-78) U/L Alkaline Phosphatase (45-117) U/L Total Protein (6.4-8.2) gm/dl Albumin (3.4-5.0) gm/dl Globulin (2.5-4.0) gm/dl Albumin/Globulin Ratio (0.9-2) 12/11/20 12/11/20 12/11/20 Range/Units 05:08 05:08 00:39 WBC 7.93 (4.8-10.8) K/uL RBC 3.39 L (4.7-6.1) M/uL Hgb 11.6 L (14.0-18.0) g/dL Hct 34.0 L (42-52) % MCV 100.3 H (80-100) fL MCH 34.2 H (25-34) pg MCHC 34.1 (32-36) g/dL RDW Std Deviation 47.3 H (36.4-46.3) fL RDW Coeff of Yinka 12.8 (11.5-14.5) % Plt Count 336 (130-400) K/uL MPV 10.2 (7.4-10.4) fL Immature Gran % (Auto) 0.8 % Neut % (Auto) 61.3 % Lymph % (Auto) 26.0 % Verm[place] % (Auto) 8.4 % Eos % (Auto) 2.9 % Baso % (Auto) 0.6 % Neut # (Auto) 4.86 (1.4-6.5) K/uL Lymph # (Auto) 2.06 (1.2-3.4) K/uL [place]illion # (Auto) 0.67 H (0.11-0.59) K/uL Eos # (Auto) 0.23 (0-0.5) K/uL Baso # (Auto) 0.05 (0-0.2) K/uL Immature Gran # (Auto) 0.06 H (0.00-0.02) K/uL Sodium 143 140 (136-145) mmol/L Potassium 4.5 4.3 (3.5-5.1) mmol/L Chloride 115 H 113 H (98-107) mmol/L Carbon Dioxide 23 24 (21-32) mmol/L Anion Gap 5.0 3.0 (3-11) BUN 25 H 27 H (7-18) mg/dl Creatinine 1.18 1.25 (0.6-1.4) mg/dl Est Cr Clr Drug Dosing 78.3 72.6 ml/min Est GFR ( Amer) 71.5 66.7 ml/min Est GFR (Non-Af Amer) 61.7 57.6 ml/min BUN/Creatinine Ratio 21.2 H 22.0 H (10-20) Glucose 120 H 94 (70-99) mg/dl POC Glucose (70-99) mg/dl Calcium 8.7 8.4 L (8.5-10.1) mg/dl Phosphorus 3.0 (2.5-4.9) mg/dl Magnesium 2.2 2.2 (1.8-2.4) mg/dl Total Bilirubin 0.4 (0.2-1) mg/dl AST 48 H (15-37) U/L ALT 73 (12-78) U/L Alkaline Phosphatase 78 (45-117) U/L Total Protein 6.2 L (6.4-8.2) gm/dl Albumin 2.3 L (3.4-5.0) gm/dl Globulin 3.9 (2.5-4.0) gm/dl Albumin/Globulin Ratio 0.6 L (0.9-2) Diagnostic Findings Venous Doppler Study 12/11/20 15:00 BILATERAL LOWER EXTREMITY VENOUS DOPPLER CLINICAL HISTORY: embolic strokes,+PFO,r/o DVT COMPARISON STUDY: No previous studies for comparison. TECHNIQUE: Sonography of the deep venous system of the bilateral lower extremities was performed. Compression and augmentation were evaluated. FINDINGS: The bilateral common femoral, superficial femoral and popliteal veins were compressible. Augmentation was normal. Flow was shown within the deep calf vessels. IMPRESSION: No evidence of deep venous thrombus within the bilateral lower extremities. ACT 112: Negative or not required by law. Electronically signed by: Lico Morales M.D. 12/11/2020 4:54 PM PG Care Time/CCT Total # of Minutes Spent Total Time Spent with Patient: Total time spent is greater than 50% in coordination of care (as documented) at patient's floor/unit and/or counseling patient: Coding Level of Care Code 51356 Subseq Hosp Care Lvl 3 Diagnoses Metabolic encephalopathy G93.41 DKA (diabetic ketoacidosis) E13.10 Diabetes mellitus complication detail: without coma Diabetes mellitus type: other specified (including GINGER) Acute CVA (cerebrovascular accident) I63.9 Leukocytosis D72.829 Wenckebach I44.1 ROYAL (acute kidney injury) N17.9 Scrotal ulcer N50.89 Aspiration pneumonitis J69.0 Acute respiratory failure with hypoxia J96.01 ADHD F90.9 Depression F32.9 Obesity E66.9 Hyperlipidemia E78.5 Noncompliance with medications Z91.14 Knee pain, left M25.562 (1) DKA (diabetic ketoacidosis) Diabetes mellitus complication detail: without coma Diabetes mellitus type: other specified (including GINGER) Qualified Code(s): E13.10 - Other specified diabetes mellitus with ketoacidosis without coma
--- NOTE | 2020-12-11 16:55 | Ultrasound Report ---
BILATERAL LOWER EXTREMITY VENOUS DOPPLER CLINICAL HISTORY: embolic strokes,+PFO,r/o DVT COMPARISON STUDY: No previous studies for comparison. TECHNIQUE: Sonography of the deep venous system of the bilateral lower extremities was performed. Co mpression and augmentation were evaluated. FINDINGS: The bilateral common femoral, superficial femoral and popliteal veins were compressible. A ugmentation was normal. Flow was shown within the deep calf vessels. IMPRESSION: No evidence of deep venous thrombus within the bilateral lower extremities. ACT 112: Negative or not required by law. Electronically signed by: Lico Morales M.D. 12/11/2020 4:54 PM
[2020-12-11] MEDS ORDERED: INSULIN GLARGINE SOLOSTAR 100 UNITS/ML 3 ML PEN SC SCH (21:00)
[2020-12-12 05:12] LABS: Basophils # (auto) 0.06 K/uL (0-0.2); Basophils % (auto) 0.8 %; Eosinophils # (auto) 0.36 K/uL (0-0.5); Eosinophils % (auto) 4.6 %; Hematocrit (blood only) 35.7 % (42-52); Hemoglobin 12.2 g/dL (14.0-18.0); Immature Granulocytes # (auto) 0.08 K/uL (0.00-0.02); Lymphocytes # (auto) 2.59 K/uL (1.2-3.4); Lymphocytes % (auto) 33.4 %; Mean Corpuscular Hemoglobin 34.4 pg (25-34); Mean Corpuscular Hgb Conc 34.2 g/dL (32-36); Mean Corpuscular Volume 100.6 fL (80-100); Mean Platelet Volume 10.1 fL (7.4-10.4); Monocytes # (auto) 0.53 K/uL (0.11-0.59); Monocytes % (auto) 6.8 %; Neutrophils # (auto) 4.13 K/uL (1.4-6.5); Neutrophils % (auto) 53.4 %; Platelet Count 332 K/uL (130-400); RDW Coefficient of Variation 12.7 % (11.5-14.5); Red Blood Count 3.55 M/uL (4.7-6.1); White Blood Count 7.75 K/uL (4.8-10.8)
[2020-12-12 05:31] LABS: BUN Creatinine Ratio 19.2 (10-20); Calcium 8.6 mg/dl (8.5-10.1); Creatinine Clr Calc Pharmacy 70.3 ml/min; Est GFR (African American) 62.5 ml/min; Est GFR (Non-African American) 53.9 ml/min; Potassium 4.8 mmol/L (3.5-5.1)
[2020-12-12] MEDS: ATORVASTATIN 40 MG TAB PO SCH (08:24)
[2020-12-12] MEDS: FOLIC ACID 1 MG TAB PO SCH (08:24)
[2020-12-12] MEDS: FLUCONAZOLE 100 MG TAB PO SCH (08:24)
[2020-12-12] MEDS: HEPARIN SOD 5,000 UNIT/0.5 ML VIAL SQ SCH ×2 (08:25→20:45)
[2020-12-12] MEDS: THIAMINE HCL 100 MG TAB PO SCH (08:25)
[2020-12-12] MEDS: TOPIRAMATE 50 MG TAB PO SCH (08:25)
[2020-12-12] MEDS: INSULIN GLARGINE SOLOSTAR 100 UNITS/ML 3 ML PEN SC SCH ×2 (08:25→20:46)
[2020-12-12] MEDS: INSULIN ASPART 100 UNITS/ML 3 ML PEN SC SCH ×4 (08:26→20:46)
[2020-12-12] MEDS: MICONAZOLE NITRATE POWDER 43 GM EXT SCH ×2 (08:27→20:49)
[2020-12-12] MEDS: cefTRIAXone SODIUM 2,000 MG in DEXTROSE 5% 50 ML IV SCH (08:30)
[2020-12-12] MEDS: ASPIRIN 81 MG CHEW PO SCH (08:30)
[2020-12-12] MEDS ORDERED: KETOROLAC TROMETHAMINE 15 MG/ML VIAL IV ONE (09:06)
--- NOTE | 2020-12-12 09:52 | XRay Report ---
XR knee LT 1 or 2V routine CLINICAL HISTORY: fall,left knee pain TECHNIQUE: 2 views of the right knee were obtained. Comparison: None available at the time of this dictation. FINDINGS: No joint effusion is seen. There is no evidence of an acute fracture. The alignment is anatomic. Join t spaces are well-preserved. No soft tissue abnormality is seen. IMPRESSION: No evidence of acute osseous injury. ACT 112: Negative or not required by law. Electronically signed by: Bong Wolfe M.D. 12/12/2020 9:51 AM
--- NOTE | 2020-12-12 10:36 | Pharmacy Report ---
Pharmacy Glycemic Short Note 2 - Date of Service December 12, 2020 - Glycemic Short BSG Results (Last 24 hours): 12/11/20 12/11/20 12/11/20 11:08 16:24 20:24 Glucose POC Glucose 164 H 134 H 159 H 12/12/20 12/12/20 04:47 07:24 Glucose 182 H POC Glucose 194 H OUTPATIENT ANTIDIABETIC REGIMEN: * NPH 18 units BID * Regular insulin 14 units TIDM ASSESSMENT: 12/11: * Pt received total 97 units of insulin yesterday; 55 units basal and 42 units bolus. * Fasting BSG today was elevated at 194 mg/dl. Basal dose was reduced yesterday at HS. Dose increased back up today. * Post prandial BSGs well controlled. Continued Novolog parameters the same. 12/10: * BSGs improved, [phone] mg/dL yesterday and received 107 units total of insulin * Fasting BSG improved to 135 mg/dL (although did receive 4 units of correction overnight), will continue 30 BID of lantus, titrate up if BSG trends back up * Continue current novolog scale 12/09: * BSGs [phone] mg/dL yesterday and received 50 units of Lantus and ~38 units of NovoLog. * Fasting BSG elevated this morning at 205/171 mg/dL. Will increase total Lantus dose again today by ~12-20%. Lunch BSG within range today. Continue NovoLog scale. Patient continues to tolerate a diet. 12/08: * BSGs [phone] mg/dl yesterday * Fasting BSG today ranging from 143-206 mg/dL. Will increase AM lantus and lantus scale by 12-20%. Continue NovoLog scale * Patient is tolerating a diet. 12/07: * Patient was successfully transitioned of insulin infusion yesterday. * BSGs adequate thus far today ([phone]) * Patient received 20 units of Lantus this morning and will plan for scale this evening. Patient was ordered a diet at lunch but did not eat anything. Will continue to monitor this as basal dosing will be affected by PO intake. 12/06 * Labs have normalized, patient extubated today, plan to transition off of insulin infusion. * D5LR@100 ml/hr was running, now discontinued * Will transition with 50 units of lantus, once transitioned off will begin novolog CF 15 CR 5 12/05 * Mr Mccoy is a 70 y/o M with a PMH of T2DM who presents with hyperglycemia. * Patient initially started on insulin infusion for metabolic abnormalities. * Subsequently this morning was intubated. Insulin infusion was off from 0830 to 1000. * Continue insulin infusion as patient is NPO and intubated. PLAN FOR INPATIENT GLYCEMIC CONTROL: * Basal Insulin: * Lantus 30 units SC BID * Correctional Insulin: Novolog Correction per scale ACHS Goal Range: Low 110 mg/dL - High 140 mg/dL Correction Factor: 15 mg/dL/unit * Prandial insulin: Per carb ratio of 1 unit per 5 grams CHO consume PLAN FOR DISCHARGE: * TBD
[2020-12-12] MEDS ORDERED: OPTIRAY 320 125ml IV ONE (12:21)
--- NOTE | 2020-12-12 12:39 | CT Scan Report ---
CT angio head wo/w, CT angio neck with con CLINICAL HISTORY: CVA TECHNIQUE: Contiguous axial CT images of the head were acquired from the base of the skull to the susan jean claude without intravenous contrast administration. CT angiography of the head and neck was performed f ollowing intravenous administration of iodinated contrast. Automated dose lowering techniques and/or adjustment according to patient size were utilized for this examination. Comparison: Comparison is made to CT head 12/03/2020 FINDINGS: CT head: Areas of decreased attenuation are present in the periventricular and subcortical white robert er bilaterally consistent with small vessel ischemic disease. Generalized cerebral atrophy with comme nsurate enlargement of the ventricles, sulci, and cisterns is also present. There is no acute intracr anial hemorrhage or evidence of acute territorial infarction. No shift of the midline structures, mas s effect, or extra-axial abnormalities are shown. Atherosclerotic calcifications are present in the intracranial segments of the internal carotid arteries. CTA Neck: A 3 vessel aortic arch is shown. Atherosclerotic plaque is present in the aortic arch and at the origin of the great vessels. There is no atherosclerotic plaque at the origins of the vertebra l arteries. The common carotid, external carotid, cervical segments of the internal carotid arteries, and the cervical segments of the vertebral arteries are patent. Tortuosity is incidentally noted in the extracranial aspect of the bilateral internal carotid arteries. There is no hemodynamically signi ficant diameter stenosis or dissection present. The right vertebral artery is dominant. CTA Head: The anterior and posterior cerebral circulations are patent. No hemodynamically significan t stenosis, dissection, or arteriovenous malformation is shown. 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 Atherosclerotic disease is noted. IMPRESSION: 1. No occlusion, hemodynamically significant stenosis, or dissection in the major cervical arteries. 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 2. No occlusion, hemodynamically significant stenosis, or dissection in the major cervical arteries. 3. Age-related encephalomalacia without evidence of acute abnormality in the brain parenchyma. Assessment of stenosis of the internal carotid arteries is based on NASCET criteria. ACT 112: Negative or not required by law. Electronically signed by: Bong Wolfe M.D. 12/12/2020 12:37 PM
--- NOTE | 2020-12-12 19:06 | Hospitalist Progress Note ---
Date of Service December 12, 2020 Assessment & Plan (1) Metabolic encephalopathy: Plan: Dyllan is a 70-year-old male with a past medical history of ADHD, diabetes, hyperlipidemia, hypertension, who was reportedly nonverbal trying to get into another home which his [id number] reported was similar to how he had prior with elevated blood sugar. Was brought in by medics and reportedly combative in route and required Ativan IV. No additional history at time of arrival was available/obtainable. He had rapidly declining clinical status requiring intubation after sedation and was admitted to the ICU. Encephalopathy was profound and now is significantly improved since 12/10, but still with some mild residual waxing and waning delirium-intermittent confusion, continued impulsivity -Found to have several small acute CVAs on brain MRI which could be contributing. Brain MRI also with pachymeningeal enhancement -CSF with increased protein, 8 WBCs, positive xanthochromia, but negative bio fire rapid panel, Lyme negative -CSF culture negative -Sputum culture negative -No fevers -Chest x-ray with small pleural effusion and patchy infiltrate which could be aspiration pneumonia -Urinalysis negative for infection -History from family that he drinks alcohol occasionally but do not suspect alcohol withdrawal although does have a macrocytosis without anemia suggestive of heavy alcohol use or liver disease Urine toxicology screen negative Alcohol negative -NH3 normal -TSH normal Glycemic to over 700 on admission, with mild DKA which is now resolved Precedex infusion was initially used while in the ICU, discontinued. Was then extubated and remained somewhat combative and agitated with delirium which then improved -Blood cultures with likely contaminant with Coag neg Staph in 1 out of 4 bottles-repeat BCxs NGTD -Now found to have scrotal ulcer with cellulitis which may be contributing as well -also with left knee pain and erythema,tenderness but do not suspect septic joint--> is a prepatellar bursitis Neurology consulted. Suspects encephalopathy secondary to possible viral meningitis as well as hyperglycemia -Repeat brain MRI in 2 months recommended by radiology to follow-up on pachymeningeal enhancement -He received 1 dose of p.o. Zyprexa on 12/09 for worsening agitation and paranoia as well as hallucinations-this has significantly improved his mentation over the last 24 hours -Continue thiamine and folate -Continue treatment with antibiotics of scrotal ulcer with cellulitis -Continue to manage hyperglycemia as below -Treating stroke as below -Continue Zyprexa 5 mg p.o. once daily as needed for significant agitation Overall finally significantly improved with some occasional trouble with memory (2) DKA (diabetic ketoacidosis): Plan: Diabetic ketoacidosis now resolved Hyperglycemic to over 700 on admission, elevated anion gap which is now closed -Family member reports that he has not been taking any of his medications for a long time-perhaps several weeks at least Initially on insulin GTT, patient managed in ICU. Transitioned to subcu per pharmacy recs hemoglobin A1c elevated at 10.1 Holding home Metformin but can be restarted upon discharge (3) Acute CVA (cerebrovascular accident): Plan: As above, found to have cerebellar stroke and 2 small parietal strokes on brain MRI Continue aspirin 81 mg daily, increased statin to atorvastatin 40 mg daily Blood pressure control Watch for atrial fibrillation/flutter-none so far Neurology thinks pattern could be consistent with embolic source versus global hypoxia -checked ECHO with bubble study--> showed right to left atrial shunt/PFO--> Dopplers bilat LEs negative for DVT -Checked CTA head/neck-shows small 3 mm left MCA aneurysm-Will need outpatient neurovascular evaluation and follow-up PT reports that he may need rehab placement if confusion does not clear as the confusion was leading to increased impulsivity making him off balance. He did have a fall in the hospital on the morning of 12/12-he reports he tried to urgently get to the toilet and urinate on the floor and slipped and fell on it, but it was unwitnessed OT reports could return home and is at baseline OT status My recommendation is that given his significant encephalopathy which is still not completely resolved, his ongoing left knee pain from prepatellar bursitis, his cerebellar stroke causing him to be mildly ataxic, and now with a fall, I strongly recommend that he go to acute rehab after discharge (4) Leukocytosis: Plan: Now resolved Blood cultures with likely contaminant of coagulase-negative staph CXR: Left base airspace opacity, diffuse thickening. From aspiration, sputum culture negative Empiric Rocephin/Vanco given initially but then held With scrotal ulcer and aspiration pneumonia--restarted on ceftriaxone, linezolid, and metronidazole x5-day courses MRSA nasal swab positive -UA negative for infection as above -CSF with possible evidence of viral meningitis and also with xanthochromia but no hemorrhage seen on imaging Lactate 4.7, down trended to 2.3 Scrotal wound culture growing group B beta strep and yeast not Diane -Has now completed 7-day course of IV ceftriaxone and metronidazole and cellulitis seems improved -Continue Diflucan x7-day course -Continue miconazole powder to the scrotum (5) Prudence: Plan: Second degree AV block. He has a history of such on previous hospitalization Continues to have first-degree AV block and intermittent second-degree type I AV block that is asymptomatic TTE: Grade 1 diastolic dysfunction EF 65-70% on last echo Cardiology consulted. No indication for temporary pacing wire. Continue telemetry, if pauses or progresses to complete heart block reconsider (6) ROYAL (acute kidney injury): Plan: Creatinine acutely elevated to 1.7 and now improved back to 1.1 He is making urine UA with protein and blood possibly due to Trinidad trauma have since removed Trinidad catheter Follow BMP - holding home lisinopril but this can be restarted in the morning (7) Scrotal ulcer: Plan: as above Appreciate urology consultation No abscess for drainage growing Group B Strep and now also with yeast not Diane albicans from wound cx completed 7 days of IV ceftriaxone and add will continue on Diflucan 200 mg p.o. once daily x 5 more days-last dose 12/17 continue on miconazole powder to the scrotum and groin (8) Aspiration pneumonitis: Plan: As above no longer on O2 Resolved, treated with ceftriaxone, linezolid, Flagyl (9) Acute respiratory failure with hypoxia: Plan: Was on ventilator for airway protection during severe agitation, followed by nasal cannula after extubation which is now weaned off Resolved (10) ADHD: Plan: U tox negative Patient requesting Adderall be added back on, however it has a significant interaction with linezolid Discontinue linezolid as no longer needed -Pharmacy recommends waiting at least 14 days to restart SSRIs or Adderall, but would wait at least a few days before restarting Adderall (11) Depression: Plan: Long history of such. He reports that he is still taking Trintellix at home, although I cannot find it prescribed at external medication history Our pharmacy does not carry this here, and also interacts with linezolid His daughter could bring in his bottle from home, however would not restart it for at least a few days after stopping linezolid His sister in law reports that he frequently is noncompliant with his medications and doubts he has been taking it (12) Obesity: Plan: Continue home Topamax (13) Hyperlipidemia: Plan: Continue statin at higher dose given stroke (14) Noncompliance with medications: Plan: With a history of such (15) Knee pain, left: Plan: Left knee prepatellar bursitis with some warmth and very mild erythema Left knee x-ray negative Uric acid negative Appreciate orthopedics consultation Plan for NSAIDs if renal function improves, ice packs Then had a fall onto that knee on 12/12 which worsened it Repeat x-ray on 12/12 - for fracture -Continue icing and give 1 dose of Toradol as renal function is improved (16) Cerebral aneurysm: Plan: 3 mm left MCA aneurysm noted on CT angiogram head neck Needs outpatient follow-up with neurovascular specialist at [facility] (17) PFO (patent foramen ovale): Plan: Noted as above No specific treatment Plan: DVT prophylaxis-SQ heparin Disposition-continued stay but can downgrade to medical floor with telemetry, PT recommends possible rehab if confusion does not clear. Plan for [facility] possibly tomorrow Admission and Anticipated Discharge Date Admission Date: December 03, 2020 Subjective Patient reports he got out of bed to try to urgently get to the toilet to urinate but started to urinate on the floor and then slipped in his own urine and fell down onto his knee this morning. He initially was complaining of severe left knee pain over the patella in the same place that he has been having pain. He denies any other injuries, did not hit his head did not lose consciousness. Otherwise he feels well, no chest pain or shortness of breath, no cough, no abdominal pains. He still remains somewhat mildly confused intermittently. Telemetry remains with intermittent Wenckebach with first-degree AV block. Review of Systems Review of Systems: All systems reviewed & are unremarkable except as noted in HPI & below Physical Exam Constitutional: WD/WN, vitals as above + obese Eyes: + anicteric sclerae Neck: trachea midline, no thyromegaly Respiratory: normal respiratory effort, lungs clear to auscultation Cardiovascular: RRR, no murmur, no edema Chest (Breasts): Chest: normal inspection of chest Gastrointestinal (Abdomen): normal bowel sounds, soft, nontender, no hepatosplenomegaly Musculoskeletal: Extremities: + extremities abnormal to inspection (left knee mild erythema,edema,++TTP over anterior knee), no cyanosis and no clubbing Skin: no rashes, warm and dry (1 cm scrotal ulcer with surrounding mild erythema) Neurologic: moves all extremities and awake; no focal motor deficits Psychiatric: Orientation: alert, oriented x 3 and cooperative But intermittently mildly confused Lymphatic: no lymphedema Results & Data Results & Data ([facility]) Vital Signs (Past 12 Hours) Vital Signs Temp Pulse Resp BP Pulse Ox 12/12/20 11:20 58 L 14 147/76 H 93 12/12/20 08:14 36.8 C 48 L 16 160/90 H 96 Laboratory Results 12/12/20 12/12/20 12/12/20 Range/Units 20:41 16:21 11:13 WBC (4.8-10.8) K/uL RBC (4.7-6.1) M/uL Hgb (14.0-18.0) g/dL Hct (42-52) % MCV (80-100) fL MCH (25-34) pg MCHC (32-36) g/dL RDW Std Deviation (36.4-46.3) fL RDW Coeff of Yinka (11.5-14.5) % Plt Count (130-400) K/uL MPV (7.4-10.4) fL Immature Gran % (Auto) % Neut % (Auto) % Lymph % (Auto) % [place] % (Auto) % Eos % (Auto) % Baso % (Auto) % Neut # (Auto) (1.4-6.5) K/uL Lymph # (Auto) (1.2-3.4) K/uL [place] # (Auto) (0.11-0.59) K/uL Eos # (Auto) (0-0.5) K/uL Baso # (Auto) (0-0.2) K/uL Immature Gran # (Auto) (0.00-0.02) K/uL Sodium (136-145) mmol/L Potassium (3.5-5.1) mmol/L Chloride (98-107) mmol/L Carbon Dioxide (21-32) mmol/L Anion Gap (3-11) BUN (7-18) mg/dl Creatinine (0.6-1.4) mg/dl Est Cr Clr Drug Dosing ml/min Est GFR ( Amer) ml/min Est GFR (Non-Af Amer) ml/min BUN/Creatinine Ratio (10-20) Glucose (70-99) mg/dl POC Glucose 168 H 153 H 126 H (70-99) mg/dl Calcium (8.5-10.1) mg/dl C.trachomatis RNA N.gonorrhoeae RNA Reference Lab Comment 12/12/20 12/12/20 12/12/20 Range/Units 07:24 04:47 04:47 WBC 7.75 (4.8-10.8) K/uL RBC 3.55 L (4.7-6.1) M/uL Hgb 12.2 L (14.0-18.0) g/dL Hct 35.7 L (42-52) % MCV 100.6 H (80-100) fL MCH 34.4 H (25-34) pg MCHC 34.2 (32-36) g/dL RDW Std Deviation 47.0 H (36.4-46.3) fL RDW Coeff of Yinka 12.7 (11.5-14.5) % Plt Count 332 (130-400) K/uL MPV 10.1 (7.4-10.4) fL Immature Gran % (Auto) 1.0 % Neut % (Auto) 53.4 % Lymph % (Auto) 33.4 % [place] % (Auto) 6.8 % Eos % (Auto) 4.6 % Baso % (Auto) 0.8 % Neut # (Auto) 4.13 (1.4-6.5) K/uL Lymph # (Auto) 2.59 (1.2-3.4) K/uL [place] # (Auto) 0.53 (0.11-0.59) K/uL Eos # (Auto) 0.36 (0-0.5) K/uL Baso # (Auto) 0.06 (0-0.2) K/uL Immature Gran # (Auto) 0.08 H (0.00-0.02) K/uL Sodium 139 (136-145) mmol/L Potassium 4.8 (3.5-5.1) mmol/L Chloride 112 H (98-107) mmol/L Carbon Dioxide 24 (21-32) mmol/L Anion Gap 3.0 (3-11) BUN 25 H (7-18) mg/dl Creatinine 1.32 (0.6-1.4) mg/dl Est Cr Clr Drug Dosing 70.3 ml/min Est GFR ( Amer) 62.5 ml/min Est GFR (Non-Af Amer) 53.9 ml/min BUN/Creatinine Ratio 19.2 (10-20) Glucose 182 H (70-99) mg/dl POC Glucose 194 H (70-99) mg/dl Calcium 8.6 (8.5-10.1) mg/dl C.trachomatis RNA N.gonorrhoeae RNA Reference Lab Comment 12/11/20 Range/Units 23:57 WBC (4.8-10.8) K/uL RBC (4.7-6.1) M/uL Hgb (14.0-18.0) g/dL Hct (42-52) % MCV (80-100) fL MCH (25-34) pg MCHC (32-36) g/dL RDW Std Deviation (36.4-46.3) fL RDW Coeff of Yinka (11.5-14.5) % Plt Count (130-400) K/uL MPV (7.4-10.4) fL Immature Gran % (Auto) % Neut % (Auto) % Lymph % (Auto) % [place] % (Auto) % Eos % (Auto) % Baso % (Auto) % Neut # (Auto) (1.4-6.5) K/uL Lymph # (Auto) (1.2-3.4) K/uL [place] # (Auto) (0.11-0.59) K/uL Eos # (Auto) (0-0.5) K/uL Baso # (Auto) (0-0.2) K/uL Immature Gran # (Auto) (0.00-0.02) K/uL Sodium (136-145) mmol/L Potassium (3.5-5.1) mmol/L Chloride (98-107) mmol/L Carbon Dioxide (21-32) mmol/L Anion Gap (3-11) BUN (7-18) mg/dl Creatinine (0.6-1.4) mg/dl Est Cr Clr Drug Dosing ml/min Est GFR ( Amer) ml/min Est GFR (Non-Af Amer) ml/min BUN/Creatinine Ratio (10-20) Glucose (70-99) mg/dl POC Glucose (70-99) mg/dl Calcium (8.5-10.1) mg/dl C.trachomatis RNA Pending N.gonorrhoeae RNA Pending Reference Lab Comment Pending Diagnostic Findings Head CTA 12/11/20 07:52 CT angio head wo/w, CT angio neck with con CLINICAL HISTORY: CVA TECHNIQUE: Contiguous axial CT images of the head were acquired from the base of the skull to the vertex without intravenous contrast administration. CT ang iography of the head and neck was performed following intravenous administration of iodinated contrast. Automated dose lowering techniques and/or adjustment according to patient size were utilized for this examination. Comparison: Comparison is made to CT head 12/03/2020 FINDINGS: CT head: Areas of decreased attenuation are present in the periventricular and subcortical white matter bilaterally consistent with small vessel ischemic disease. Generalized cerebral atrophy with commensurate enlargement of the ventricles, sulci, and cisterns is also present. There is no acute intracranial hemorrhage or evidence of acute territorial infarction. No shift of the midline structures, mass effect, or extra-axial abnormalities are shown. Atherosclerotic calcifications are present in the intracranial segments of the internal carotid arteries. CTA Neck: A 3 vessel aortic arch is shown. Atherosclerotic plaque is present in the aortic arch and at the origin of the great vessels. There is no atherosclerotic plaque at the origins of the vertebral arteries. The common carotid, external carotid, cervical segments of the internal carotid arteries, and the cervical segments of the vertebral arteries are patent. Tortuosity is incidentally noted in the extracranial aspect of the bilateral internal carotid arteries. There is no hemodynamically significant diameter stenosis or dissection present. The right vertebral artery is dominant. CTA Head: The anterior and posterior cerebral circulations are patent. No hemodynamically significant stenosis, dissection, or arteriovenous malformation is shown. 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 Atherosclerotic disease is noted. IMPRESSION: 1. No occlusion, hemodynamically significant stenosis, or dissection in the major cervical arteries. 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 2. No occlusion, hemodynamically significant stenosis, or dissection in the major cervical arteries. 3. Age-related encephalomalacia without evidence of acute abnormality in the brain parenchyma. Assessment of stenosis of the internal carotid arteries is based on NASCET criteria. ACT 112: Negative or not required by law. Electronically signed by: Bong Wolfe M.D. 12/12/2020 12:37 PM Neck CTA 12/11/20 07:52 CT angio head wo/w, CT angio neck with con CLINICAL HISTORY: CVA TECHNIQUE: Contiguous axial CT images of the head were acquired from the base of the skull to the vertex without intravenous contrast administration. CT angiography of the head and neck was performed following intravenous administration of iodinated contrast. Automated dose lowering techniques and/or adjustment according to patient size were utilized for this examination. Comparison: Comparison is made to CT head 12/03/2020 FINDINGS: CT head: Areas of decreased attenuation are present in the periventricular and subcortical white matter bilaterally consistent with small vessel ischemic disease. Generalized cerebral atrophy with commensurate enlargement of the ventricles, sulci, and cisterns is also present. There is no acute intracranial hemorrhage or evidence of acute territorial infarction. No shift of the midline structures, mass effect, or extra-axial abnormalities are shown. Atherosclerotic calcifications are present in the intracranial segments of the internal carotid arteries. CTA Neck: A 3 vessel aortic arch is shown. Atherosclerotic plaque is present in the aortic arch and at the origin of the great vessels. There is no atherosclerotic plaque at the origins of the vertebral arteries. The common carotid, external carotid, cervical segments of the internal carotid arteries, and the cervical segments of the vertebral arteries are patent. Tortuosity is incidentally noted in the extracranial aspect of the bilateral internal carotid arteries. There is no hemodynamically significant diameter stenosis or dissection present. The right vertebral artery is dominant. CTA Head: The anterior and posterior cerebral circulations are patent. No hemodynamically significant stenosis, dissection, or arteriovenous malformation is shown. 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 Atherosclerotic disease is noted. IMPRESSION: 1. No occlusion, hemodynamically significant stenosis, or dissection in the major cervical arteries. 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 2. No occlusion, hemodynamically significant stenosis, or dissection in the major cervical arteries. 3. Age-related encephalomalacia without evidence of acute abnormality in the brain parenchyma. Assessment of stenosis of the internal carotid arteries is based on NASCET criteria. ACT 112: Negative or not required by law. Electronically signed by: Bong Wolfe M.D. 12/12/2020 12:37 PM Knee X-Ray 12/12/20 09:07 XR knee LT 1 or 2V routine CLINICAL HISTORY: fall,left knee pain TECHNIQUE: 2 views of the right knee were obtained. Comparison: None available at the time of this dictation. FINDINGS: No joint effusion is seen. There is no evidence of an acute fracture. The alignment is anatomic. Joint spaces are well-preserved. No soft tissue abnormality is seen. IMPRESSION: No evidence of acute osseous injury. ACT 112: Negative or not required by law. Electronically signed by: Bong Wolfe M.D. 12/12/2020 9:51 AM PG Care Time/CCT Total # of Minutes Spent Total Time Spent with Patient: Total time spent is greater than 50% in coordination of care (as documented) at patient's floor/unit and/or counseling patient: Coding Level of Care Code 21067 Subseq Hosp Care Lvl 3 Diagnoses Metabolic encephalopathy G93.41 DKA (diabetic ketoacidosis) E13.10 Diabetes mellitus complication detail: without coma Diabetes mellitus type: other specified (including GINGER) Acute CVA (cerebrovascular accident) I63.9 Leukocytosis D72.829 Wenckebach I44.1 ROYAL (acute kidney injury) N17.9 Scrotal ulcer N50.89 Aspiration pneumonitis J69.0 Acute respiratory failure with hypoxia J96.01 ADHD F90.9 Depression F32.9 Obesity E66.9 Hyperlipidemia E78.5 Noncompliance with medications Z91.14 Knee pain, left M25.562 Cerebral aneurysm I67.1 PFO (patent foramen ovale) Q21.1 (1) DKA (diabetic ketoacidosis) Diabetes mellitus complication detail: without coma Diabetes mellitus type: other specified (including GINGER) Qualified Code(s): E13.10 - Other specified diabetes mellitus with ketoacidosis without coma
[2020-12-13] MEDS: THIAMINE HCL 100 MG TAB PO SCH (08:12)
[2020-12-13] MEDS: FOLIC ACID 1 MG TAB PO SCH (08:12)
[2020-12-13] MEDS: TOPIRAMATE 50 MG TAB PO SCH (08:12)
[2020-12-13] MEDS: FLUCONAZOLE 100 MG TAB PO SCH (08:12)
[2020-12-13] MEDS: ATORVASTATIN 40 MG TAB PO SCH (08:12)
[2020-12-13] MEDS: MICONAZOLE NITRATE POWDER 43 GM EXT SCH (08:13)
[2020-12-13] MEDS: INSULIN GLARGINE SOLOSTAR 100 UNITS/ML 3 ML PEN SC SCH (08:13)
[2020-12-13] MEDS: HEPARIN SOD 5,000 UNIT/0.5 ML VIAL SQ SCH (08:14)
[2020-12-13] MEDS: INSULIN ASPART 100 UNITS/ML 3 ML PEN SC SCH ×2 (08:16→12:18)
[2020-12-13] MEDS: ASPIRIN 81 MG CHEW PO SCH (08:21)
[2020-12-13] MEDS ORDERED: lisinopril 5 MG TAB PO SCH (09:00)
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
[2020-12-14 14:37] LABS: Chlamydia Trach RNA NOT DETECTED (NOT DETECTED); GC (Neis gonorrhoeae) RNA NOT DETECTED (NOT DETECTED)
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
== END 2020-12-13 16:08 | DRG 637 ==
LOC: ED 19:15 → SUATTDRO 22:30 → 1E 22:30 → 2W 12-12 21:20

== ENCOUNTER 2023-02-04 20:10 | Inpatient (IN) ==
--- NOTE | 2023-02-04 20:40 | Emergency Department Note ---
Impression & Plan Right-sided chest pain, Leukocytosis, Atrioventricular dissociation, Pneumonia, Acute hyperglycemia, Acute dehydration, Elevated troponin ED Provider Note NAME: HALLE PATTERSON AGE: 72 SEX: M : 1950 ARRIVES VIA: Ambulance INFORMANT: [Patient][EMS, family] ED PROVIDER(S): [Hardik Nicolas MD] CHIEF COMPLAINT: Cardiac assessment HISTORY OF PRESENT ILLNESS: The patient is a 72-year-old male who as per family is not caring for himself. He has refused help up until today. The patient is losing his urine and stool. He is not able to function on his own at home. He was found on the bathroom floor this past week by his brother. The patient is not taking his medications. His sugars have been running in the 4-500 range. He has been complaining of some right-sided chest pain for the last 3 weeks. Today, he agreed to come to the hospital for an evaluation and care. The patient complains of the right-sided chest pain, he denies fever, he does admit to some cough. No abdominal pain. No fever. Sugar as per EMS was around 480. Of note, his brother is at the bedside, his brother is in the process of obtaining medical power of energy attorney. PMHx/PSHx/Social Hx: See Below PHYSICAL EXAM: GENERAL: Patient is in no acute distress. HEENT: No acute trauma, normocephalic atraumatic, mucous membranes dry, no nasal congestion. There is orange discoloration around his mouth on his solares secondary to food or drink I suspect. NECK: No stridor, no adenopathy, no meningismus, trachea is midline. LUNGS: Clear to auscultation bilaterally, no wheeze, no rhonchi, breath sounds equal. Breath sounds are diminished bilaterally. Chest: Tender to the right mid lateral chest wall, no contusion or crepitus. HEART: Without murmurs gallops or rubs, regular rate and rhythm. ABDOMEN: Soft, nontender, no peritonitis. EXTREMITIES: No cyanosis, full range of motion of all the joints without pain or difficulty. NEUROLOGIC: Awake and alert, no acute motor or sensory deficits, no focal weakness. SKIN: No jaundice, no diaphoresis. DIFFERENTIAL DIAGNOSIS: Debilitation, dehydration, electrolyte imbalance, DKA, rib fracture, pneumonia, ND, UTI, medical noncompliance, among others. EMERGENCY DEPARTMENT PROCEDURES: MEDICAL DECISION MAKING: There is a significant leukocytosis at 24,000, this would be consistent with infection. Patient does have a mild anemia with a hemoglobin of 12.6. The anemia appears baseline looking back at previous testing. Platelet count slightly elevated. INR somewhat high at 1.3, the PTT was normal. Renal panel testing shows hyperglycemia with a sugar over 400. Some acidosis was seen consistent with early DKA. Lactic acid level was not not elevated making severe sepsis unlikely. No concerning liver enzyme elevation. The patient appeared to be in a euthyroid state. ECG shows what appears to be 3rd degree AV block with A-V dissociation. No ST elevation. Cardiac enzyme testing x 1 was slightly elevated. This troponin elevation could be consistent with cardiac injury or potentially just mismatch from his pneumonia. Chest x-ray shows what appears to be a right sided pneumonia. Respiratory bio fire returned negative. Chest and brain CTs are currently pending. Lyme disease testing is pending. Patient received IV saline, 2 L. He was given IV cefepime as antibiotic coverage. He received IV Tylenol and IV morphine for pain control. He received 6 units of IV insulin. The patient clearly needs to be admitted to the hospital. He has pneumonia, he is in a very mild DKA, he is dehydrated, he has A-V dissociation based on his ECG, he has been noncompliant with his medications and care. Patient's blood sugar has improved with treatment here in the ED, he is now in the 300s. I did speak with the family, I spoke with the patient, I spoke with case management, the on-call hospitalist was consulted. Prior/Outside records/notes reviewed: EMS notes. ECG per my interpretation: Indication was chest pain. The ECG shows what appears to be A-V dissociation. There appears to be a junctional rhythm at a rate of 69. There is no ST elevation. Poor R wave progression is seen. No PVCs. The QTc is 420. Compared to an ECG from 10 December 2020, the second- degree AV block with 2-1 conduction has progressed now to a third-degree AV block. Continuous Cardiac Monitoring per my interpretation: An order was placed for continuous cardiac monitoring. The monitor shows a rate of 64 with A-V dissociation and presumed third-degree AV block with junctional escape. Imaging/x-ray results per my interpretation: Chest x-ray shows a right lower lung pneumonia with an effusion. No pneumothorax. Chronic Medical/Social conditions affecting care: Medical noncompliance, advanced age. Care/Management discussed with: Case management, the on-call hospitalist. Level of care consideration(s): After review of the information above and other included data: --I believe the patient requires escalation of care to admission Critical Care Note: I have personally spent 54 minutes of critical care time in the direct management of this patient. This includes bedside care, interpretation of diagnostic studies, and testing, discussion with consultants, patient, and family members, and other required patient management activities. This 54 minutes is in excess of all separately billable procedures. DISPOSITION: Admission Past Med/Surg History Medical History PFO (patent foramen ovale) Cerebral aneurysm T2DM (type 2 diabetes mellitus) Uncontrolled type 2 diabetes mellitus 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 Abnormal ECG Hyperlipidemia Obesity Depression Hypertension Diabetes Prediabetes ADHD Depression Surgical History Hx of vasectomy History of rectal surgery x3 for an abscess in anal sphincter History of colonoscopy History of root canal procedure multiple History of wisdom tooth extraction History of tonsillectomy Hx of eye surgery Family History Father Family history of diabetes mellitus Diabetes Hypertension Heart disease Brother Prostate cancer Other No family history of adverse response to anesthesia Social History Smoking Status: Never smoker Second Hand Exposure: No; Do You Dip or Chew Tobacco: No; Hx Alcohol Use: No Hx Substance Use: No Preferred Language: Vietnamese Communication Ability: Effective Putty Worker Required: No Beliefs That Will Affect Care: None marital status: Single Current Living Situation: Family Current Living Situation Comment: pt lives with daughter per history and physical by MD Feels Safe at Home: Yes Assistive Devices: Walker Allergies Allergies Allergy/AdvReac Type Severity Reaction Status Date / Time erythromycin base Allergy Intermediate Hives Verified 12/03/20 20:34 Penicillins Allergy Intermediate Hives Verified 12/03/20 20:34 Home Meds Home Medications Medication Instructions Recorded Confirmed aspirin 81 mg tablet,delayed 81 mg PO DAILY 03/17/19 12/03/20 release insulin regular human 100 unit/mL 14 unit subcut TID 05/11/20 12/03/20 injection solution (Novolin R Regular U-100 Insulin) insulin syringe-needle U-100 0.5 #10 ea 05/11/20 09/09/20 mL 31 gauge x 5/16" (BD Insulin Syringe Ultra-Fine) lancets (Accu-Chek Fastclix Lancet 05/11/20 09/09/20 Drum) dextroamphetamine-amphetamine 30 30 mg PO BID 05/25/20 12/03/20 mg tablet (Adderall) blood sugar diagnostic (Accu-Chek 09/09/20 09/09/20 Guide test strips) Previous Rx's Medication Instructions Recorded lisinopril 5 mg tablet 5 mg PO DAILY #30 tabs 03/19/19 metformin 500 mg tablet,extended 1,000 mg (2 x 500 mg) PO BID #120 03/19/19 release 24 hr tabs topiramate 50 mg tablet 50 mg PO DAILY #30 tabs 03/19/19 FreeStyle Marta 2 Sensor (flash #1 ea 07/30/20 glucose sensor) atorvastatin 40 mg tablet 40 mg PO DAILY #30 tabs 12/13/20 insulin NPH isoph U-100 human 100 25 unit (0.25 mL) subcut BID #0 mL 12/13/20 unit/mL subcutaneous suspension (Novolin N NPH U-100 Insulin isophane) miconazole nitrate 2 % topical 1 applic EXT BID #85 grams 12/13/20 powder (Desenex) thiamine HCl (vitamin B1) 100 mg 100 mg PO QAM #30 tabs 12/13/20 tablet (Vitamin B-1) Results & Data (ED) Vital Signs Vital Signs - 24 hr 02/04/23 20:17 02/04/23 20:18 02/04/23 20:30 Temperature Temperature Source Pulse Rate 72 67 66 Respiratory Rate 21 23 Respiratory Effort / Characteristics Respiratory Depth Respiratory Pattern Blood Pressure 169/83 H Blood Pressure Mean 111 Pulse Oximetry 92 93 Oxygen Delivery Method Room Air Room Air Sepsis Recent Fever Within 48 Hours Sepsis New/Unexplained Change in Mental Status Sepsis Action Taken by Nursing 02/04/23 20:31 02/04/23 20:31 02/04/23 20:31 Temperature 37.1 C Temperature Source Oral Pulse Rate 64 70 Respiratory Rate 22 Respiratory Effort / Characteristics Non-Labored Respiratory Depth Normal Respiratory Pattern Regular Blood Pressure 169/83 H Blood Pressure Mean 111 Pulse Oximetry 92 92 93 Oxygen Delivery Method Room Air Room Air Room Air Sepsis Recent Fever Within 48 Hours No Sepsis New/Unexplained Change in Mental Status N/A Sepsis Action Taken by Nursing No Action Required 02/04/23 20:45 02/04/23 21:00 02/04/23 21:31 Temperature Temperature Source Pulse Rate 65 63 58 L Respiratory Rate 22 24 23 Respiratory Effort / Characteristics Respiratory Depth Respiratory Pattern Blood Pressure 133/82 163/94 H 169/74 H Blood Pressure Mean 99 117 105 Pulse Oximetry 93 92 93 Oxygen Delivery Method Room Air Room Air Room Air Sepsis Recent Fever Within 48 Hours Sepsis New/Unexplained Change in Mental Status Sepsis Action Taken by Shelter Medications Current Medication List: was personally reviewed by me Laboratory Data Attestation: I reviewed the patient's lab results. 02/04/23 20:23 02/04/23 20:23 Lab Results 02/04/23 02/04/23 02/04/23 Range/Units 20:23 20:29 20:37 WBC 24.04 H (4.8-10.8) K/ul RBC 3.75 L (4.70-6.10) M/uL Hgb 12.6 L (14.0-18.0) g/dl Hct 36.0 L (42.0-52.0) % MCV 96.0 (80.0-100.0) fL MCH 33.6 (25.0-34.0) pg MCHC 35.0 (32.0-36.0) g/dL RDW Std Deviation 46.4 H (36.4-46.3) fL RDW Coeff of Yinka 13.2 (11.5-14.5) % Plt Count 508 H (130-400) K/uL MPV 10.8 (9.4-12.4) fL Immature Gran % (Auto) 1.1 % Neut % (Auto) 88.6 % Lymph % (Auto) 4.9 % [place] % (Auto) 5.1 % Eos % (Auto) 0.0 % Baso % (Auto) 0.3 % Neut # (Auto) 21.28 H (1.40-6.50) K/uL Lymph # (Auto) 1.18 L (1.20-3.40) K/uL [place] # (Auto) 1.22 H (0.11-0.59) K/uL Eos # (Auto) 0.01 (0.00-0.50) K/uL Baso # (Auto) 0.08 (0.00-0.20) K/uL Immature Gran # (Auto) 0.27 H (0.01-0.20) K/uL Echinocytes 1+ PT 13.6 H (9.0-12.0) Seconds INR 1.3 H (0.9-1.1) APTT 25 (21-31) Seconds PTT Ratio 0.9 Sodium 130 L (136-145) mmol/L Potassium 4.3 (3.5-5.1) mmol/L Chloride 94 L (98-107) mmol/L Carbon Dioxide 18 L (21-32) mmol/L Anion Gap 18 H (3-11) BUN 27 H (6-23) mg/dl Creatinine 0.95 (0.6-1.4) mg/dl Est Cr Clr Drug Dosing 81.8 ml/min Est GFR ( Amer) 91.7 ml/min Est GFR (Non-Af Amer) 79.1 ml/min BUN/Creatinine Ratio 28.4 H (10-20) Glucose 414 H* (70-99(Fasting)) mg/dl POC Glucose 398 H* (70-99) mg/dl Lactate (0.4-2.0) mmol/L Calcium 8.9 (8.6-10.3) mg/dl Magnesium 1.8 (1.7-2.4) mg/dl Total Bilirubin 0.8 (0.2-1.0) mg/dl AST 24 (13-39) U/L ALT 17 (7-52) U/L Alkaline Phosphatase 95 (34-104) U/L Total Creatine Kinase 16 L (30-223) U/L Troponin I High Sens 43.5 H (0-20) pg/ml Total Protein 7.3 (6.0-8.3) gm/dl Albumin 2.6 L (3.4-5.0) gm/dl Globulin 4.7 H (2.5-4.0) gm/dl Albumin/Globulin Ratio 0.6 L (0.9-2) TSH 2.296 (0.300-4.500) uIu/ml Adenovirus (PCR) Not Detected (NotDetected) B. pertussis DNA (PCR) Not Detected (NotDetected) B.parapertussis DNA PCR Not Detected (NotDetected) C. pneumoniae DNA (PCR) Not Detected (NotDetected) Coronavirus OC43 (PCR) Not Detected (NotDetected) Coronavirus HKU1 (PCR) Not Detected (NotDetected) Coronavirus 229E (PCR) Not Detected (NotDetected) SARS-CoV-2 (PCR) Not Detected (NotDetected) Coronavirus NL63 (PCR) Not Detected (NotDetected) Human Metapneumovir PCR Not Detected (NotDetected) Influenza Type A (PCR) Not Detected (NotDetected) Influenza Type B (PCR) Not Detected (NotDetected) M. pneumoniae (PCR) Not Detected (NotDetected) Parainfluenza 1 (PCR) Not Detected (NotDetected) Parainfluenza 2 (PCR) Not Detected (NotDetected) Parainfluenza 3 (PCR) Not Detected (NotDetected) Parainfluenza 4 (PCR) Not Detected (NotDetected) RSV (PCR) Not Detected (NotDetected) Entero/Rhino (PCR) Not Detected (NotDetected) 02/04/23 02/04/23 Range/Units 21:11 21:33 WBC (4.8-10.8) K/ul RBC (4.70-6.10) M/uL Hgb (14.0-18.0) g/dl Hct (42.0-52.0) % MCV (80.0-100.0) fL MCH (25.0-34.0) pg MCHC (32.0-36.0) g/dL RDW Std Deviation (36.4-46.3) fL RDW Coeff of Yinka (11.5-14.5) % Plt Count (130-400) K/uL MPV (9.4-12.4) fL Immature Gran % (Auto) % Neut % (Auto) % Lymph % (Auto) % [place] % (Auto) % Eos % (Auto) % Baso % (Auto) % Neut # (Auto) (1.40-6.50) K/uL Lymph # (Auto) (1.20-3.40) K/uL [place] # (Auto) (0.11-0.59) K/uL Eos # (Auto) (0.00-0.50) K/uL Baso # (Auto) (0.00-0.20) K/uL Immature Gran # (Auto) (0.01-0.20) K/uL Echinocytes PT (9.0-12.0) Seconds INR (0.9-1.1) APTT (21-31) Seconds PTT Ratio Sodium (136-145) mmol/L Potassium (3.5-5.1) mmol/L Chloride (98-107) mmol/L Carbon Dioxide (21-32) mmol/L Anion Gap (3-11) BUN (6-23) mg/dl Creatinine (0.6-1.4) mg/dl Est Cr Clr Drug Dosing ml/min Est GFR ( Amer) ml/min Est GFR (Non-Af Amer) ml/min BUN/Creatinine Ratio (10-20) Glucose (70-99(Fasting)) mg/dl POC Glucose 386 H* (70-99) mg/dl Lactate 1.6 (0.4-2.0) mmol/L Calcium (8.6-10.3) mg/dl Magnesium (1.7-2.4) mg/dl Total Bilirubin (0.2-1.0) mg/dl AST (13-39) U/L ALT (7-52) U/L Alkaline Phosphatase (34-104) U/L Total Creatine Kinase (30-223) U/L Troponin I High Sens (0-20) pg/ml Total Protein (6.0-8.3) gm/dl Albumin (3.4-5.0) gm/dl Globulin (2.5-4.0) gm/dl Albumin/Globulin Ratio (0.9-2) TSH (0.300-4.500) uIu/ml Adenovirus (PCR) (NotDetected) B. pertussis DNA (PCR) (NotDetected) B.parapertussis DNA PCR (NotDetected) C. pneumoniae DNA (PCR) (NotDetected) Coronavirus OC43 (PCR) (NotDetected) Coronavirus HKU1 (PCR) (NotDetected) Coronavirus 229E (PCR) (NotDetected) SARS-CoV-2 (PCR) (NotDetected) Coronavirus NL63 (PCR) (NotDetected) Human Metapneumovir PCR (NotDetected) Influenza Type A (PCR) (NotDetected) Influenza Type B (PCR) (NotDetected) M. pneumoniae (PCR) (NotDetected) Parainfluenza 1 (PCR) (NotDetected) Parainfluenza 2 (PCR) (NotDetected) Parainfluenza 3 (PCR) (NotDetected) Parainfluenza 4 (PCR) (NotDetected) RSV (PCR) (NotDetected) Entero/Rhino (PCR) (NotDetected) Administered Medications Sodium Chloride (Nss) 1,000 mls @ 999 mls/hr IV .Q1H1M ONE Stop: 02/04/23 22:17 Last Admin: 02/04/23 21:35 Dose: 999 mls/hr Documented By: LESTER Discontinued Medications Sodium Chloride (Nss) 1,000 mls @ 999 mls/hr IV .Q1H1M YAMILETH Stop: 02/04/23 21:45 Last Infusion: 02/04/23 21:46 Dose: Infused Documented By: Admin: 02/04/23 20:42 Dose: 999 mls/hr Documented By: LESTER Cefepime HCl (Maxipime) 2,000 mg in 20 mls @ 5 mls/min IV NOW STA; Protocol Stop: 02/04/23 21:19 Last Admin: 02/04/23 21:35 Dose: 5 mls/min Documented By: LESTER Acetaminophen (Ofirmev) 1,000 mg in 100 mls @ 400 mls/hr IV NOW STA Stop: 02/04/23 21:44 Last Admin: 02/04/23 21:41 Dose: 400 mls/hr Documented By: LESTER Morphine Sulfate (Morphine Sulfate 2 Mg/Ml Carp) 2 mg IV NOW STA Stop: 02/04/23 21:31 Last Admin: 02/04/23 21:41 Dose: 2 mg Documented By: LESTER Discharge Plan Visit Data Chief Complaint: Cardiac Assessment Stated Complaint: CHEST/EPIGASTRIC PAIN X3 WEEKS ED Provider: Hardik Nicolas Discharge Problem: Right-sided chest pain, Leukocytosis, Atrioventricular dissociation, Pneumonia, Acute hyperglycemia, Acute dehydration, Elevated troponin Patient Disposition: Admitted As Inpatient Condition: Serious Forms Stand Alone Forms: My [facility] [employer] Prescriptions Prescriptions: No Action dextroamphetamine-amphetamine [Adderall] 30 mg tablet 30 mg PO BID Rx Instructions: administer doses at least 4-6 hours apart (DME) lancets [Accu-Chek Fastclix Lancet Drum] Misc See Rx Instructions .ROUTE .MEDSUPPLY Rx Instructions: test 4 times daily Novolin R Regular U100 Insulin 100 unit/mL solution 14 unit subcut TID (DME) insulin syringe-needle U-100 [BD Insulin Syringe Ultra-Fine] 0.5 mL 31 gauge x 5/16" syringe See Rx Instructions .ROUTE .MEDSUPPLY Qty: 10 Rx Instructions: use 5 needles daily (DME) Accu-Chek Guide test strips Strip See Rx Instructions .ROUTE .MEDSUPPLY Rx Instructions: test 1 times daily (DME) FreeStyle Marta 2 Sensor Kit See Rx Instructions .ROUTE .MEDSUPPLY Qty: 1 12RF Rx Instructions: Change q 14 days to momitor b,ood sugars as advised. aspirin 81 mg Tablet,Delayed Release (Dr/Ec) 81 mg PO DAILY lisinopril 5 mg tablet 5 mg PO DAILY Qty: 30 0RF metformin 500 mg tablet extended release 24 hr 1,000 mg PO BID Qty: 120 0RF topiramate 50 mg tablet 50 mg PO DAILY Qty: 30 0RF atorvastatin 40 mg Tablet 40 mg PO DAILY Qty: 30 0RF Desenex 2 % Powder 1 applic EXT BID Qty: 85 0RF thiamine HCl (vitamin B1) [Vitamin B-1] 100 mg Tablet 100 mg PO QAM Qty: 30 0RF Novolin N NPH U-100 Insulin 100 unit/mL suspension 25 unit subcut BID Qty: 0 0RF Referrals Referrals: Lillie Ramsay DO [Primary Care Provider] - Discharge Problem: Leukocytosis Qualifiers: Leukocytosis type: unspecified Qualified Code(s): D72.829 - Elevated white blood cell count, unspecified Pneumonia Qualifiers: Pneumonia type: due to unspecified organism Laterality: right Lung location: l ower lobe of lung Qualified Code(s): J18.9 - Pneumonia, unspecified organism
[2023-02-04] MEDS ORDERED: SODIUM CHLORIDE 0.9% 1,000 ML IV SCH ×2 (20:45→23:45)
[2023-02-04 21:13] LABS: Hemoglobin 12.6 g/dl (14.0-18.0); Mean Corpuscular Hemoglobin 33.6 pg (25.0-34.0); Mean Platelet Volume 10.8 fL (9.4-12.4); Platelet Count 508 K/uL (130-400); RDW Coefficient of Variation 13.2 % (11.5-14.5); RDW Standard Deviation 46.4 fL (36.4-46.3); Red Blood Count 3.75 M/uL (4.70-6.10); White Blood Count 24.04 K/ul (4.8-10.8)
[2023-02-04 21:16] LABS: INR 1.3 (0.9-1.1); Prothrombin Time 13.6 Seconds (9.0-12.0)
[2023-02-04] MEDS ORDERED: CEFEPIME 2,000 MG/20 ML VIAL IV STA (21:16)
[2023-02-04] MEDS ORDERED: SODIUM CHLORIDE 0.9% 1,000 ML IV ONE (21:17)
[2023-02-04 21:19] LABS: Albumin Globulin Ratio 0.6 (0.9-2); Albumin Level 2.6 gm/dl (3.4-5.0); BUN Creatinine Ratio 28.4 (10-20); Bilirubin,Total 0.8 mg/dl (0.2-1.0); Calcium 8.9 mg/dl (8.6-10.3); Creatinine Clr Calc Pharmacy 81.8 ml/min; Est GFR (African American) 91.7 ml/min; Est GFR (Non-African American) 79.1 ml/min; Globulin 4.7 gm/dl (2.5-4.0); Magnesium 1.8 mg/dl (1.7-2.4); Potassium 4.3 mmol/L (3.5-5.1); Total Protein 7.3 gm/dl (6.0-8.3); Troponin I High Sensitivity 43.5 pg/ml (0-20)
[2023-02-04] MEDS ORDERED: MoRPHine SULFATE 2 MG/ML CARP IV STA (21:30)
[2023-02-04] MEDS ORDERED: ACETAMINOPHEN 1,000 MG/100 ML VIAL IV STA (21:30)
[2023-02-04 21:35] LABS: Partial Thromboplastin Ratio 0.9; Partial Thromboplastin Time 25 Seconds (21-31)
[2023-02-04 21:45] LABS: Thyroid Stimulating Hormone 2.296 uIu/ml (0.300-4.500)
[2023-02-04 21:54] LABS: Basophils # (auto) 0.08 K/uL (0.00-0.20); Basophils % (auto) 0.3 %; Echinocytes 1+; Eosinophils # (auto) 0.01 K/uL (0.00-0.50); Immature Granulocytes # (auto) 0.27 K/uL (0.01-0.20); Immature Granulocytes % (auto) 1.1 %; Lymphocytes # (auto) 1.18 K/uL (1.20-3.40); Lymphocytes % (auto) 4.9 %; Monocytes # (auto) 1.22 K/uL (0.11-0.59); Monocytes % (auto) 5.1 %; Neutrophils # (auto) 21.28 K/uL (1.40-6.50); Neutrophils % (auto) 88.6 %
[2023-02-04 22:05] LABS: Adenovirus PCR Not Detected (NotDetected); Bordetella parapertussis PCR Not Detected (NotDetected); Bordetella pertussis PCR Not Detected (NotDetected); Chlamydia pneumoniae PCR Not Detected (NotDetected); Coronavirus 229E PCR Not Detected (NotDetected); Coronavirus CoV-2 (COVID19)PCR Not Detected (NotDetected); Coronavirus HKU1 PCR Not Detected (NotDetected); Coronavirus NL63 PCR Not Detected (NotDetected); Coronavirus OC43PCR Not Detected (NotDetected); Human Metapneumovirus PCR Not Detected (NotDetected); Influenza A PCR Not Detected (NotDetected); Influenza B PCR Not Detected (NotDetected); Mycoplasma pneumoniae PCR Not Detected (NotDetected); Parainfluenza Virus 1 PCR Not Detected (NotDetected); Parainfluenza Virus 2 PCR Not Detected (NotDetected); Parainfluenza Virus 3 PCR Not Detected (NotDetected); Parainfluenza Virus 4 PCR Not Detected (NotDetected); Respiratory Syncytial VirusPCR Not Detected (NotDetected); Rhinovirus/Enterovirus PCR Not Detected (NotDetected)
[2023-02-04] MEDS ORDERED: NovoLIN-R INSULIN PER UNIT CHARGE IV STA (22:11)
--- NOTE | 2023-02-04 22:27 | CT Scan Report ---
Exam(s): CT HEAD Without Contrast EXAM: CT Head Without Intravenous Contrast CLINICAL HISTORY: Reason for exam: fall. TECHNIQUE: Axial computed tomography images of the head/brain without intravenous contrast. CTDI is 35.79 mGy and DLP is 1582.02 mGy-cm. Automated exposure control was utilized for the study. A dose lowering technique was utilized adhering to the principles of ALARA. COMPARISON: No relevant prior studies available. FINDINGS: Brain: Unremarkable. No hemorrhage. No significant white matter disease. No edema. Ventricles: Unremarkable. No ventriculomegaly. Bones/joints: Unremarkable. No acute fracture. Soft tissues: Unremarkable. Sinuses: Unremarkable as visualized. No acute sinusitis. Mastoid air cells: Unremarkable as visualized. No mastoid effusion. IMPRESSION: Normal head/brain CT. Electronically signed by: tSeven Mendez M.D. 02/04/23 22:26 PM
--- NOTE | 2023-02-04 22:38 | CT Scan Report ---
Exam(s): CT CHEST Without Contrast EXAM: CT Chest Without Intravenous Contrast CLINICAL HISTORY: Reason for exam: poss rib fx. TECHNIQUE: Axial computed tomography images of the chest without intravenous contrast. CTDI is 35.79 mGy and DLP is 1280.02 mGy-cm. Automated exposure control was utilized for the study. A dose lowering technique was utilized adhering to the principles of ALARA. COMPARISON: No relevant prior studies available. FINDINGS: Lungs: Consolidation within the right middle lobe with areas of decreased attenuation in the periphery best seen on series 5 images 27-29 concerning for areas of pulmonary necrosis/abscess. No mass. Pleural space: Moderate loculated pleural effusion within the medial right lung base with smaller loculated pleural effusions adjacent to the medial right middle lobe, and to a lesser degree adjacent the consolidation along the lateral right middle lobe. No pneumothorax. Heart: Unremarkable. No cardiomegaly. No significant pericardial effusion. No significant coronary artery calcifications. Bones/joints: Unremarkable. No acute fracture. No dislocation. Soft tissues: Unremarkable. Vasculature: Unremarkable. No thoracic aortic aneurysm. Lymph nodes: Unremarkable. No enlarged lymph nodes. IMPRESSION: 1. Consolidation within the right middle lobe with areas of decreased attenuation in the periphery concerning for areas of pulmonary necrosis/abscess. 2. Moderate loculated pleural effusion within the medial right lung base with smaller loculated pleural effusions adjacent to the right middle lobe. Electronically signed by: Steven Mendez M.D. 02/04/23 22:36 PM
[2023-02-04 23:02] LABS: Lyme Ab IgG w/WB Rflx Negative (Negative); Lyme Ab IgM w/WB Rflx Negative (Negative)
[2023-02-04] MEDS ORDERED: VANCOMYCIN HCL 2,000 MG in SODIUM CHLORIDE 0.9% 500 ML IV ONE (23:07)
[2023-02-04] MEDS ORDERED: VANCOMYCIN CONSULT ACTIVE PRN (23:07)
--- NOTE | 2023-02-04 23:22 | XRay Report ---
SINGLE VIEW CHEST CLINICAL HISTORY: Generalized weakness. FINDINGS: An AP, portable, upright chest radiograph is compared to study dated 12/07/2020. The heart is enlarged noting atherosclerotic calcification of the thoracic aorta. The pulmonary vasculature is noncongested. There is dense airspace consolidation in the right mid to lower lung. There is a right pleural effusion which tracks along the right lateral chest wall. This is likely partially loculated. The left lung appears clear noting bibasilar atelectasis. No pneumothorax is seen. The skeletal stru ctures are osteopenic. The bony thorax is grossly intact. IMPRESSION: 1. Cardiomegaly without radiographic evidence of congestive failure. 2. There is dense airspace consolidation in the right mid to lower lung. Correlate clinically for yoel dence of pneumonia/aspiration pneumonitis. Radiographic follow-up to resolution is recommended. 3. Right pleural effusion. ACT 112: Negative or not required by law. Electronically signed by: Hardik Nassar M.D. 02/04/2023 11:20 PM
--- NOTE | 2023-02-04 23:24 | History & Physical Report ---
Date of Service February 04, 2023 Assessment & Plan (1) Pulmonary abscess: Plan: Patient has what appears to be pulmonary abscess necrosis possibly early empyema by CAT scan secondary to probable aspiration pneumonia. IV cefepime IV Flagyl IV vancomycin. Sputum cultures, blood cultures, consult pulmonology (2) Aspiration pneumonitis: Plan: Antibiotics as above consult pulmonology as above. Dysphagia evaluation -n.p.o. till the (3) DKA (diabetic ketoacidosis): Plan: Very early DKA received 6 units of IV insulin in the ER 2 L of saline. Will continue IV fluids we have added Lantus as well as sliding scale coverage will repeat a BMP at midnight to assess the patient's degree of acidosis I suspect his gap will be closing. If we need to institute IV insulin drip we will (4) Noncompliance with medications: Plan: Not taking medications at home over the last few weeks at least because he feels depressed and no desire to do much of anything including taking meds It is not a financial issue he can afford his medications as prescribed (5) Atrioventricular dissociation: Plan: History of AV disassociation with second-degree AV block. However it does appear the patient could have developed a complete heart block possibly secondary to critical illness. Pacemaker pads have been placed on the patient. Will watch the patient in the ICU will have cardiology evaluate the patient will get an echocardiogram. Troponin was mildly elevated will do serial troponins I suspect secondary to critical illness. (6) Incontinence of urine: Plan: I have ordered a bladder scan and to be called with results. The patient may need a Trinidad catheter. Will see what the urinalysis shows as well. He should be covered with broad-spectrum antibiotic therapy adequate to cover urine if UTIs present (7) Depressed: Plan: Patient does admit to being depressed as he has been suicidal in the past has had some suicidal thoughts in the recent past but no plan currently and denies any active suicidal thoughts or plan at this time. Given the patient's self-neglect at home take not taking medications for his depression we will go ahead and consult psychiatry. (8) Self neglect: Plan: As discussed above Long discussion with family licensed social worker will evaluate the situation AAA evaluation may be warranted. And psychiatry consult has been made as well Plan As discussed above. Please refer to orders for further planning. History of Present Illness Chief Complaint: Self-neglect to a certain extent at home with loss of bowel bladder continence ongoing for couple weeks. With increased weakness. Increase shortness of breath and chest pain. 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 States he has not taken them just because he does not feel like it this is not a financial issue. Patient did have a fall a few days ago that needed help up with family's assistance he refused evaluation multiple times over the last few weeks. tonight the family called 911 and requested transport to the hospital for evaluation. In the ER he was found to have a large right lower lobe/middle lobe infiltrate he received IV cefepime for this. In addition he was found to be in early diabetic ketoacidosis with a blood glucose greater than 400 and an anion gap of 18. The patient received 6 units of IV regular insulin and received 2 L of IV fluid. CT of the brain was negative for acute finding CT of the chest demonstrated a probable evolving pulmonary abscess with the degree of necrosis to the right lower lobe pneumonia EKG showed a high degree AV block in the ER's opinion this was 1/3 degree AV block the EKG is questionable but given this history of a second-degree AV block and a what appears to be a possible third-degree AV block she will be placed in the ICU with pacemaker pads in place. Echocardiogram will be obtained cardiology be consulted pulmonology be consulted for the pulmonary abscess for entertaining a possible chest tube in addition critical care will be consulted per protocol. I did discuss personally with the [facility] covering critical care tonight Allergies Allergy/AdvReac Type Severity Reaction Status Date / Time erythromycin base Allergy Intermediate Hives Verified 02/04/23 22:44 Penicillins Allergy Intermediate Hives Verified 02/04/23 22:44 Home Medications Medication Instructions Recorded Confirmed Type aspirin 81 mg tablet,delayed 81 mg PO DAILY 03/17/19 02/04/23 History release metformin 500 mg tablet,extended 1,000 mg (2 x 500 mg) PO BID #120 03/19/19 02/04/23 Rx release 24 hr tabs insulin syringe-needle U-100 0.5 #10 ea 05/11/20 02/04/23 History mL 31 gauge x 5/16" (BD Insulin Syringe Ultra-Fine) lancets (Accu-Chek Fastclix Lancet 05/11/20 02/04/23 History Drum) dextroamphetamine-amphetamine 30 30 mg PO BID 05/25/20 02/04/23 History mg tablet (Adderall) FreeStyle Marta 2 Sensor (flash #1 ea 07/30/20 02/04/23 Rx glucose sensor) blood sugar diagnostic (Accu-Chek 09/09/20 02/04/23 History Guide test strips) atorvastatin 40 mg tablet 40 mg PO DAILY #30 tabs 12/13/20 02/04/23 Rx miconazole nitrate 2 % topical 1 applic EXT BID #85 grams 12/13/20 02/04/23 Rx powder (Desenex) thiamine HCl (vitamin B1) 100 mg 100 mg PO QAM #30 tabs 12/13/20 02/04/23 Rx tablet (Vitamin B-1) buspirone 5 mg tablet 0 mg PO DIRECTED 02/04/23 02/04/23 History lisinopril 10 mg tablet 10 mg PO DAILY 02/04/23 02/04/23 History semaglutide 0.25 mg or 0.5 mg (2 0.5 mg subcut .WEEKLY 02/04/23 02/04/23 History mg/3 mL) subcutaneous pen injector (Ozempic) vortioxetine 5 mg tablet 0 mg PO DIRECTED 02/04/23 02/04/23 History (Trintellix) Past Med/Surg History Medical History (Updated 02/04/23 @ 23:30 by Jono Villarreal, PhD, DO) Self neglect Depressed Incontinence of urine Pulmonary abscess PFO (patent foramen ovale) Cerebral aneurysm T2DM (type 2 diabetes mellitus) Uncontrolled type 2 diabetes mellitus 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 Abnormal ECG Hyperlipidemia Obesity Depression Hypertension Diabetes Prediabetes ADHD Depression Surgical History Hx of vasectomy History of rectal surgery x3 for an abscess in anal sphincter History of colonoscopy History of root canal procedure multiple History of wisdom tooth extraction History of tonsillectomy Hx of eye surgery Family History Father Family history of diabetes mellitus Diabetes Hypertension Heart disease Brother Prostate cancer Other No family history of adverse response to anesthesia Social History Smoking Status: Never smoker Second Hand Exposure: No; Do You Dip or Chew Tobacco: No; Hx Alcohol Use: No Hx Substance Use: No Preferred Language: Lithuanian Communication Ability: Effective Community Service Patrol Officer Required: No Beliefs That Will Affect Care: None marital status: Single Current Living Situation: Family Current Living Situation Comment: pt lives with daughter per history and physical by MD Feels Safe at Home: Yes Assistive Devices: Walker Review of Systems Review of Systems: A 10 point review of system was obtained and unless otherwise stated here or in history of present illness are negative and noncontributory to chief complaint. Physical Exam Physical Exam: In general this is a pleasant 72-year-old male who is poor personal hygiene (smells of old urine etc.) but he is alert and oriented x 3 accompanied by his brother and [id number] at time my exam he interacts appropriately and pleasantly. He does admit to right-sided pleuritic chest pain. The patient does admit to suicidal thoughts in the past he has actually had plans in the past with firearms the firearms been removed from the house months ago. He does states that he would not actively harm himself but has had recent thoughts of doing so. None actively. He would not desire to be resuscitated if he had cardiopulmonary arrest. HEENT: Normocephalic atraumatic pupils are equal round and reactive to light bilaterally. No scleral icterus no conjunctival injection external auditory canals are patent septum is in the midline nose is without discharge oral mucosa is pink and dry without lesion. NECK: Supple no rigidity no lymphadenopathy no thyromegaly no carotid bruits no JVD no masses. HEART: Irregular rate and rhythm and rhythm I do not appreciate any ectopy or rub. No murmur. LUNGS: Significantly decreased breath sounds in the right middle and lower lung engel. With occasional rhonchi. Consistent with his dense pneumonia/empyema/abscess ABDOMEN: Soft nontender, no rebound, no peritoneal signs, positive bowel sounds, no appreciable organomegaly. EXTREMITIES: Intact, no peripheral cyanosis, clubbing or edema. Strength is 5 out of 5 in extremities x4, no pathological reflexes. NEUROLOGICAL: Cranial nerves II through XII are grossly intact with no focal deficit elicited upon examination. No tremor. Results & Data Results & Data Vital Signs (Past 12 Hours) Vital Signs Temp Pulse Resp BP Pulse Ox O2 Del Method 02/04/23 22:30 63 23 92 Room Air 02/04/23 22:13 63 17 150/75 H 02/04/23 21:31 58 L 23 169/74 H 93 Room Air 02/04/23 21:00 63 24 163/94 H 92 Room Air 02/04/23 20:45 65 22 133/82 93 Room Air 02/04/23 20:31 93 Room Air 02/04/23 20:31 37.1 C 70 22 169/83 H 92 Room Air 02/04/23 20:31 64 92 Room Air 02/04/23 20:30 66 23 93 Room Air 02/04/23 20:18 67 21 169/83 H 92 Room Air 02/04/23 20:17 72 Code Status & VTE Plan Code Status DO NOT RESUSCITATE. I discussed this with the patient. He was accompanied by family when we discussed. He is alert and oriented x 3. VTE Prophylaxis Plan VTE Prophylaxis will be ordered: Yes PG Care Time/CCT Total # of Minutes Spent Total Time Spent with Patient: Total time spent is greater than 50% in coordination of care (as documented) at patient's floor/unit and/or counseling patient: Coding Level of Care Code 52976 INT INP/OBS CARE 375MIN Diagnoses Pulmonary abscess J85.2 Aspiration pneumonitis J69.0 DKA (diabetic ketoacidosis) E13.10 Diabetes mellitus complication detail: without coma Diabetes mellitus type: other specified (including GINGER) Noncompliance with medications Z91.14 Atrioventricular dissociation I45.89 Incontinence of urine R32 Depressed F32.A Self neglect R46.89 (3) DKA (diabetic ketoacidosis) Diabetes mellitus complication detail: without coma Diabetes mellitus type: other specified (including GINGER) Qualified Code(s): E13.10 - Other specified diabetes mellitus with ketoacidosis without coma
[2023-02-04] MEDS ORDERED: metroNIDAZOLE 500 MG/100 ML BAG IV STA (23:36)
[2023-02-05 00:49] LABS: BUN Creatinine Ratio 30.7 (10-20); Creatinine Clr Calc Pharmacy 88.3 ml/min; Est GFR (African American) 98.8 ml/min; Est GFR (Non-African American) 85.2 ml/min; Potassium 4.1 mmol/L (3.5-5.1)
[2023-02-05 01:01] LABS: Appearance Urine Clear (Clear); Bacteria Urine Automated Negative (Negative); Bilirubin Urine Negative (Negative); Blood Urine Negative (Negative); Color Urine Yellow; Glucose Urine UA 3+ (Negative); Ketones Urine 3+ (Negative); Leukocyte Esterase Urine Negative (Negative); Nitrite Urine Negative (Negative); Protein Urine 2+ (Negative); RBC Urine Automated 0-4 /hpf (0-4); Specific Gravity Urine 1.038 (1.000-1.030); Urobilinogen Urine Negative (Negative)
[2023-02-05] MEDS ORDERED: CARBOHYDRATES FOR HYPOGLYCEMIA PO PRN ×2 (01:12→09:45)
[2023-02-05] MEDS ORDERED: GLUCAGON FOR INJ 1 MG VIAL SQ PRN (01:12)
[2023-02-05] MEDS ORDERED: GLUCOSE 40% GEL 15 GM TUBE PO PRN ×2 (01:12→09:45)
[2023-02-05] MEDS ORDERED: DEXTROSE 50% 50 ML SYRINGE IV PRN ×2 (01:12→09:45)
[2023-02-05] MEDS ORDERED: GLUCOSE 10 TAB/TUBE PO PRN ×2 (01:12→09:45)
[2023-02-05] MEDS ORDERED: LANTUS PER UNIT CHARGE SQ SCH (01:12)
[2023-02-05] MEDS ORDERED: INSULIN HUMAN REGULAR PER UNIT 5 UNITS in SYRINGE 4.95 ML IV ONE (01:30)
--- NOTE | 2023-02-05 02:50 | Critical Care Consultation ---
Date of Consultation February 05, 2023 Assessment & Plan (1) Complete AV block: Impression: 72-year-old male with past medical history of uncontrolled DM type II, second-degree AV block, HTN, HLD, depression with suicidal ideation, ADHD, and noncompliance with medication presents to the ICU with third-degree AV block and DKA. Patient reported to be noncompliant with medications by family over the past few months and was brought into the emergency department. Also noted to have right lower lobe lung abscess on CT chest. Neuro - Depression with suicidal ideationpatient appears to have worsening depression with recent suicidal ideation in which the family took the guns out of his house. He has no active plan at this time. He has reportedly been noncompliant with his psych medications for the past 3 weeks. Psych consulted for recommendations. Cardiac - Third-degree AV blockpatient with history of Wenckebach, now presents with complete heart block for which she is currently being monitored in the ICU. At this time hemodynamically stable with ventricular rate 40s to 60s, and appears t o be asymptomatic as well. Echo pending. Pads in place and atropine at bedside. Continuous monitoring on telemetry. Cardiology consulted, expect he will likely need pacemaker. Respiratory - Pulmonary abscessCT chest showing consolidation in the right middle lobe with concern for pulmonary necrosis/abscess and moderate loculated pleural effusions within the medial right lung base and smaller loculated pleural effusion absent right middle lobe. -Currently maintaining oxygen saturations on room air without respiratory distress -Continue cefepime for pulmonary coverage -Pulmonary consulted, follow-up recommendations -Continuous monitoring pulse ox GI - N.p.o. RENAL/LYTES - Creatinine within normal limits. Monitor routine BMPs and replete electrolytes as indicated - Urinary retentionunsure of etiology at this time. Trinidad inserted. Consider urology consult ENDO - DKApatient with mild DKA for which she was given IV insulin, started on basal bolus with sliding scale. Most recent lab work showing some improvement and hyperglycemia appears to be resolving. Continue with IV fluid resuscitation. Trend BMPs until gap closes. Follow-up hemoglobin A1c. Hold metformin for now HEME - H&H stable, monitor routine CBC ID - Empiric cefepime for loculated pneumonia LINES/IV ACCESS - Peripheral IVs DVT PROPHYLAXIS - SCDs Thank you for allowing us to participate in the care of this patient. Please refer to my attending physician's documentation for any further recommendations. (2) Pulmonary abscess: (3) Incontinence of urine: (4) Depressed: (5) DKA (diabetic ketoacidosis): (6) Hyperlipidemia: (7) Noncompliance with medications: History of Present Illness Attending Physician: Jono Villarreal, PhD, DO History of Present Illness Patient is a 72-year-old male with past medical history of DM type II, second- degree AV block, HTN, depression, HLD, ADHD, depression and suicidal ideation who was brought into the emergency department via EMS after family reported increased weakness and complaints of chest pain with shortness of breath along with noncompliance with home medications over the past few weeks. CT head was negative for acute intracranial findings however CT chest did demonstrate what appears to be an evolving pulmonary abscess in the right lower lobe. Lab work revealed positive ketones in urine, hyperglycemia and mild acidosis for which she was treated with IV insulin. Patient was noted to be bradycardic and EKG did show third-degree AV block, however patient did have ventricular rate in the 40s to 60s and was hemodynamically stable. Patient now being admitted to ICU for further monitoring at this time. Currently patient denies headache, dizziness, syncopal events, changes in vision, changes in gait, cough or congestion, fevers, chest pain or palpitations, shortness of breath, abdominal pain, nausea vomiting or diarrhea, swelling in hands or feet. Patient was noted to have urinary retention in the emergency department Trinidad catheter was placed. Allergies Allergy/AdvReac Type Severity Reaction Status Date / Time erythromycin base Allergy Intermediate Hives Verified 02/04/23 22:44 Penicillins Allergy Intermediate Hives Verified 02/04/23 22:44 Home Medications Medication Instructions Recorded Confirmed Type aspirin 81 mg tablet,delayed 81 mg PO DAILY 03/17/19 02/04/23 History release metformin 500 mg tablet,extended 1,000 mg (2 x 500 mg) PO BID #120 03/19/19 02/04/23 Rx release 24 hr tabs insulin syringe-needle U-100 0.5 #10 ea 05/11/20 02/04/23 History mL 31 gauge x 5/16" (BD Insulin Syringe Ultra-Fine) lancets (Accu-Chek Fastclix Lancet 05/11/20 02/04/23 History Drum) dextroamphetamine-amphetamine 30 30 mg PO BID 05/25/20 02/04/23 History mg tablet (Adderall) FreeStyle Marta 2 Sensor (flash #1 ea 07/30/20 02/04/23 Rx glucose sensor) blood sugar diagnostic (Accu-Chek 09/09/20 02/04/23 History Guide test strips) atorvastatin 40 mg tablet 40 mg PO DAILY #30 tabs 12/13/20 02/04/23 Rx miconazole nitrate 2 % topical 1 applic EXT BID #85 grams 12/13/20 02/04/23 Rx powder (Desenex) thiamine HCl (vitamin B1) 100 mg 100 mg PO QAM #30 tabs 12/13/20 02/04/23 Rx tablet (Vitamin B-1) buspirone 5 mg tablet 0 mg PO DIRECTED 02/04/23 02/04/23 History lisinopril 10 mg tablet 10 mg PO DAILY 02/04/23 02/04/23 History semaglutide 0.25 mg or 0.5 mg (2 0.5 mg subcut .WEEKLY 02/04/23 02/04/23 History mg/3 mL) subcutaneous pen injector (Ozempic) vortioxetine 5 mg tablet 0 mg PO DIRECTED 02/04/23 02/04/23 History (Trintellix) Patient History Medical History (Updated 02/05/23 @ 13:22 by Monroe Gordon MD) Aspiration pneumonia Pleurisy Loculated pleural effusion Self neglect Depressed Incontinence of urine Pulmonary abscess PFO (patent foramen ovale) Cerebral aneurysm T2DM (type 2 diabetes mellitus) Uncontrolled type 2 diabetes mellitus 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 Abnormal ECG Hyperlipidemia Obesity Depression Hypertension Diabetes Prediabetes ADHD Depression Surgical History Hx of vasectomy History of rectal surgery x3 for an abscess in anal sphincter History of colonoscopy History of root canal procedure multiple History of wisdom tooth extraction History of tonsillectomy Hx of eye surgery Family History Father Family history of diabetes mellitus Diabetes Hypertension Heart disease Brother Prostate cancer Other No family history of adverse response to anesthesia Social History Smoking Status: Former smoker Tobacco Type: Cigars Second Hand Exposure: Yes; Do You Dip or Chew Tobacco: No; Hx Alcohol Use: No Hx Substance Use: No Preferred Language: Egyptian Communication Ability: Effective Account Consultant Required: No Beliefs That Will Affect Care: None marital status: Single Current Living Situation: Alone Current Living Situation Comment: pt lives with daughter per history and physical by MD Feels Safe at Home: Yes Assistive Devices: None Review of Systems Review of Systems: All systems reviewed & are unremarkable except as noted in HPI & below Physical Exam Constitutional: + disheveled, cooperative and comfortabl e Eyes: PERRL, conjunctivae normal, anicteric sclerae ENMT: external ear and nose normal, oropharynx normal Neck: trachea midline, no thyromegaly Respiratory: normal respiratory effort, lungs clear to auscultation Cardiovascular: Rate/Rhythm: + bradycardic and + irregularly irregular Heart Sounds: no murmur Vessels: no JVD Extremities: no edema Gastrointestinal (Abdomen): normal bowel sounds, soft, nontender, no hepatosplenomegaly Musculoskeletal: no cyanosis or clubbing, extremities motor strength 5/5 Skin: no rashes, warm and dry Neurologic: PERRL, EOMI, accommodation nl, no face palsy, no dysarthria Psychiatric: Apperance: + disheveled Eye Contact: + poor eye contact Affect: + blunted affect Results & Data Results & Data Vital Signs (Past 12 Hours) Vital Signs Temp Pulse Pulse Resp BP BP Pulse Ox 02/05/23 01:13 36.7 C 58 L 31 H 154/105 H 91 02/05/23 00:11 51 L 02/05/23 00:00 59 L 17 143/74 H 92 02/04/23 23:30 60 16 125/74 02/04/23 23:00 55 L 14 157/65 H 90 02/04/23 22:30 63 23 92 02/04/23 22:13 63 17 150/75 H 02/04/23 21:31 58 L 23 169/74 H 93 02/04/23 21:00 63 24 163/94 H 92 02/04/23 20:45 65 22 133/82 93 02/04/23 20:31 93 02/04/23 20:31 37.1 C 70 22 169/83 H 92 02/04/23 20:31 64 92 02/04/23 20:30 66 23 93 02/04/23 20:18 67 21 169/83 H 92 02/04/23 20:17 72 O2 Del Method 02/05/23 01:13 Room Air 02/05/23 00:11 02/05/23 00:00 Room Air 02/04/23 23:30 02/04/23 23:00 Room Air 02/04/23 22:30 Room Air 02/04/23 22:13 02/04/23 21:31 Room Air 02/04/23 21:00 Room Air 02/04/23 20:45 Room Air 02/04/23 20:31 Room Air 02/04/23 20:31 Room Air 02/04/23 20:31 Room Air 02/04/23 20:30 Room Air 02/04/23 20:18 Room Air 02/04/23 20:17 Coding Level of Care Code 62850 IN/OBS CONSULT LVL 3,45M Diagnoses Complete AV block I44.2 Pulmonary abscess J85.2 Incontinence of urine R32 Depressed F32.A DKA (diabetic ketoacidosis) E11.10 Hyperlipidemia E78.5 Noncompliance with medications Z91.14 Time Spent (min) 48
[2023-02-05 04:22] LABS: Basophils # (auto) 0.08 K/uL (0.00-0.20); Basophils % (auto) 0.3 %; Eosinophils # (auto) 0.04 K/uL (0.00-0.50); Eosinophils % (auto) 0.2 %; Hematocrit (blood only) 34.7 % (42.0-52.0); Hemoglobin 11.8 g/dl (14.0-18.0); Immature Granulocytes # (auto) 0.31 K/uL (0.01-0.20); Immature Granulocytes % (auto) 1.3 %; Lymphocytes % (auto) 6.5 %; Mean Corpuscular Hemoglobin 32.6 pg (25.0-34.0); Mean Corpuscular Volume 95.9 fL (80.0-100.0); Mean Platelet Volume 10.5 fL (9.4-12.4); Monocytes # (auto) 1.45 K/uL (0.11-0.59); Monocytes % (auto) 6.3 %; Neutrophils # (auto) 19.71 K/uL (1.40-6.50); Neutrophils % (auto) 85.4 %; Platelet Count 491 K/uL (130-400); RDW Coefficient of Variation 13.2 % (11.5-14.5); RDW Standard Deviation 47.3 fL (36.4-46.3); Red Blood Count 3.62 M/uL (4.70-6.10); White Blood Count 23.09 K/ul (4.8-10.8)
[2023-02-05 04:36] LABS: Albumin Globulin Ratio 0.6 (0.9-2); Albumin Level 2.6 gm/dl (3.4-5.0); BUN Creatinine Ratio 31.3 (10-20); Bilirubin,Total 0.7 mg/dl (0.2-1.0); Calcium 8.4 mg/dl (8.6-10.3); Est GFR (African American) 102.7 ml/min; Est GFR (Non-African American) 88.6 ml/min; Globulin 4.2 gm/dl (2.5-4.0); Magnesium 1.7 mg/dl (1.7-2.4); Potassium 3.6 mmol/L (3.5-5.1); Total Protein 6.8 gm/dl (6.0-8.3)
[2023-02-05 04:53] LABS: INR 1.2 (0.9-1.1); Prothrombin Time 13.5 Seconds (9.0-12.0)
[2023-02-05] MEDS: MAGNESIUM SULFATE / D5W 1 GM/100 ML BAG IV SCH ×2 (05:49→07:46)
[2023-02-05] MEDS: POTASSIUM CHLORIDE / WTR 10 MEQ/100 ML PLCT IV SCH ×3 (05:50→07:46)
[2023-02-05] MEDS: CEFEPIME 2,000 MG in SYRINGE 0 ML IV SCH ×3 (05:50→21:00)
[2023-02-05] MEDS ORDERED: INSULIN ASPART PER UNIT CHARGE SC SCH (06:00)
[2023-02-05] MEDS ORDERED: ICU Protocol for HYPERglycemia SCH (07:30)
[2023-02-05 07:34] LABS: Estimated Average Glucose 349 mg/dl; Hematocrit (blood only) 33.6 % (42.0-52.0); Hemoglobin 11.6 g/dl (14.0-18.0); Hemoglobin A1C 13.8 % (4.5-5.6); Mean Corpuscular Hemoglobin 33.2 pg (25.0-34.0); Mean Corpuscular Hgb Conc 34.5 g/dL (32.0-36.0); Mean Corpuscular Volume 96.3 fL (80.0-100.0); Mean Platelet Volume 10.4 fL (9.4-12.4); Platelet Count 472 K/uL (130-400); RDW Coefficient of Variation 13.4 % (11.5-14.5); RDW Standard Deviation 47.4 fL (36.4-46.3); Red Blood Count 3.49 M/uL (4.70-6.10); White Blood Count 23.12 K/ul (4.8-10.8)
[2023-02-05] MEDS: metroNIDAZOLE 500 MG/100 ML BAG IV SCH ×3 (07:49→23:58)
[2023-02-05 08:01] LABS: Albumin Globulin Ratio 0.6 (0.9-2); Albumin Level 2.5 gm/dl (3.4-5.0); BUN Creatinine Ratio 35.1 (10-20); Bilirubin,Total 0.7 mg/dl (0.2-1.0); Calcium 8.3 mg/dl (8.6-10.3); Creatinine Clr Calc Pharmacy 103.8 ml/min; Est GFR (African American) 106.1 ml/min; Est GFR (Non-African American) 91.5 ml/min; Magnesium 1.8 mg/dl (1.7-2.4); Total Protein 6.5 gm/dl (6.0-8.3)
--- NOTE | 2023-02-05 08:01 | Hospitalist Progress Note ---
Date of Service February 05, 2023 Assessment & Plan (1) Pulmonary abscess: Plan: Patient has what appears to be necrotic pneumonia secondary to aspiration pneumonia. He also has loculated pleural effusions -remains hypoxic on 3L pnc -continue IV cefepime IV Flagyl IV vancomycin. Sputum cultures, blood cultures, consulted pulmonology - discussed, may need IR aspiration of the loculated effusion that is closest to the spine (2) Aspiration pneumonitis: Plan: Antibiotics as above Consulted ST for dysphagia assessment (3) DKA (diabetic ketoacidosis): Plan: Very early DKA on presentation received 6 units of IV insulin in the ER 2 L of saline. -reviewed BMP this am and anion gap has closed -continue subcutaneous insulin -BG improved to mid 200s, currently NPO so will stay with glargine 20 units bid and PRN aspart (4) Noncompliance with medications: Plan: Not taking medications at home over the last few weeks at least because he feels depressed and no desire to do much of anything including taking meds It is not a financial issue he can afford his medications as prescribed (5) Atrioventricular dissociation: Plan: History of AV disassociation with second-degree AV block. -AV dissociation -continue tele, has pacer pads -reviewed Echo 02/05: normal EF 55-60%, no rwma's, mild LVH, nl RV function, mild MR, high grade AV block, mild RVSP elevation, normal volume status -discussed with Dr. Moore - EP will consult. permanent pacemaker won't be an option until infectious issues are cleared up (6) Incontinence of urine: Plan: urinary retention noted in the ED - lanier placed was not taking his home meds, but does not appear to be on meds for BPH -start tamsulosin -voiding trial in 72h (7) Depressed: Plan: Patient does admit to being depressed as he has been suicidal in the past has had some suicidal thoughts in the recent past but no plan currently and denies any active suicidal thoughts or plan at this time. Given the patient's self-neglect at home take not taking medications for his depression we will go ahead and consult psychiatry. (8) Self neglect: Plan: As discussed above Long discussion with family adoption social worker will evaluate the situation AAA evaluation may be warranted. And psychiatry consult has been made as well -check TSH = 2.296, thiamine, B12 levels - ordered -thiamine supp Plan History of cerebellar stroke 2020 -continue aspirin, atorvastatin DM type 2 - as above, semaglutide is on his medlist HTN - cont lisinopril Hyponatremia - moderate, partially translational due to hyperglycemia, recheck BMP in AM DVT ppx: ordered enox 40 mg sq daily Admission and Anticipated Discharge Date Admission Date: February 04, 2023 Subjective does feel short of breath, coughing, limited reponses Physical Exam Physical Exam: PHYSICAL EXAMINATION Last 24h vital signs reviewed, see documentation in flowsheet General: ill appearing, no distress HEENT: Normocephalic, atraumatic, pupils round and equal, sclerae anicteric, no conjunctival injection, moist mucus membranes Lungs: Normal respiratory effort. coarse on R, absent R base. No RRW Heart: Regular rate and rhythm, no murmurs. No JVD Abdomen: Soft, nontender, nondistended. Bowel sounds present. Extremities: Warm, dry, well-perfused. No extremity edema. Neuro: Alert and oriented x hospital, answers direct questions but not offering conversation, face symmetric, moves 4 extremities well Psych: flat affect and normal behavior Results & Data Results & Data Vital Signs (Past 12 Hours) Vital Signs Temp Pulse Pulse Resp BP BP Pulse Ox 02/05/23 07:30 45 L 28 H 96 02/05/23 07:01 45 L 27 H 96 02/05/23 07:01 158/76 H 02/05/23 07:00 50 L 30 H 96 02/05/23 06:00 158/77 H 02/05/23 06:00 60 29 H 02/05/23 05:00 160/95 H 02/05/23 05:00 59 L 33 H 02/05/23 04:40 145/88 H 02/05/23 04:40 50 L 24 02/05/23 04:00 139/74 02/05/23 04:00 51 L 24 02/05/23 03:00 62 22 02/05/23 03:00 157/94 H 02/05/23 02:00 61 27 H 97 02/05/23 02:00 165/81 H 02/05/23 01:46 58 L 34 H 90 02/05/23 01:46 153/83 H 02/05/23 01:13 02/05/23 01:13 36.7 C 58 L 31 H 154/105 H 91 02/05/23 01:12 02/05/23 01:12 54 L 02/05/23 01:00 152/111 H 02/05/23 01:00 60 23 91 02/05/23 00:11 51 L 02/05/23 00:00 59 L 17 143/74 H 92 02/04/23 23:30 60 16 125/74 02/04/23 23:00 55 L 14 157/65 H 90 02/04/23 22:30 63 23 92 02/04/23 22:13 63 17 150/75 H 02/04/23 21:31 58 L 23 169/74 H 93 02/04/23 21:00 63 24 163/94 H 92 02/04/23 20:45 65 22 133/82 93 02/04/23 20:31 93 02/04/23 20:31 37.1 C 70 22 169/83 H 92 02/04/23 20:31 64 92 02/04/23 20:30 66 23 93 02/04/23 20:18 67 21 169/83 H 92 02/04/23 20:17 72 Pulse Ox O2 Del Method O2 Del Method O2 Flow Rate O2 Flow Rate 02/05/23 07:30 02/05/23 07:01 Room Air 02/05/23 07:01 02/05/23 07:00 02/05/23 06:00 02/05/23 06:00 02/05/23 05:00 02/05/23 05:00 02/05/23 04:40 02/05/23 04:40 02/05/23 04:00 02/05/23 04:00 02/05/23 03:00 02/05/23 03:00 02/05/23 02:00 02/05/23 02:00 02/05/23 01:46 02/05/23 01:46 02/05/23 01:13 Nasal Cannula 3 02/05/23 01:13 Room Air 02/05/23 01:12 92 Nasal Cannula 3 02/05/23 01:12 02/05/23 01:00 02/05/23 01:00 02/05/23 00:11 02/05/23 00:00 Room Air 02/04/23 23:30 02/04/23 23:00 Room Air 02/04/23 22:30 Room Air 02/04/23 22:13 02/04/23 21:31 Room Air 02/04/23 21:00 Room Air 02/04/23 20:45 Room Air 02/04/23 20:31 Room Air 02/04/23 20:31 Room Air 02/04/23 20:31 Room Air 02/04/23 20:30 Room Air 02/04/23 20:18 Room Air 02/04/23 20:17 PG Care Time/CCT Total # of Minutes Spent Total Time Spent with Patient: Total time spent is greater than 50% in coordination of care (as documented) at patient's floor/unit and/or counseling patient: Coding Level of Care Code 16799 SUB INP/OBS CARE 3/50MIN Diagnoses Pulmonary abscess J85.2 Aspiration pneumonitis J69.0 DKA (diabetic ketoacidosis) E13.10 Diabetes mellitus complication detail: without coma Diabetes mellitus type: other specified (including GINGER) Noncompliance with medications Z91.14 Atrioventricular dissociation I45.89 Incontinence of urine R32 Depressed F32.A Self neglect R46.89 (3) DKA (diabetic ketoacidosis) Diabetes mellitus complication detail: without coma Diabetes mellitus type: other specified (including GINGER) Qualified Code(s): E13.10 - Other specified diabetes mellitus with ketoacidosis without coma
[2023-02-05 08:16] LABS: Basophils % (auto) 0.4 %; Echinocytes 2+; Eosinophils # (auto) 0.04 K/uL (0.00-0.50); Eosinophils % (auto) 0.2 %; Immature Granulocytes # (auto) 0.25 K/uL (0.01-0.20); Immature Granulocytes % (auto) 1.1 %; Lymphocytes # (auto) 1.13 K/uL (1.20-3.40); Lymphocytes % (auto) 4.9 %; Monocytes # (auto) 1.41 K/uL (0.11-0.59); Monocytes % (auto) 6.1 %; Neutrophils # (auto) 20.19 K/uL (1.40-6.50); Neutrophils % (auto) 87.3 %; Polychromasia 1+
[2023-02-05] MEDS: ASPIRIN 81 MG ECTAB PO SCH ×2 (08:21→18:59)
--- NOTE | 2023-02-05 08:49 | Cardiology Consultation ---
Date of Consultation February 05, 2023 Assessment & Plan Plan A 72 yo M w/ a PMHx of T2DM, CVA, HTN, Hx of 2nd degree heart block, depression presents w/ increasing chest pain and dyspnea over several weeks observed by family, cessation of taking meds, self-neglect and some mild/moderate altered mental status. 1. AV dissociation/complete heart block - no correlation between P waves and QRS complexes suggestive of complete heart block - echocardiogram results pending - consider transcutaneous pacemaker - F/U w/ implantation of pacemaker, most likely dual pacemaker (r. atrium/r. ventricle) 2. Hypertension, elevated BPs during hosp stay - continue lisinopril 3. Hx of CVA - continue aspirin and atorvastatin 4. Hx of 2nd degree heart block 5. 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 States he has not taken them just because he does not feel like it; this is not a financial issue. Patient did have a fall a few days ago that needed help up with family's assistance he refused evaluation multiple times over the last few weeks. tonight the family called 911 and requested transport to the hospital for evaluation. In the ER he was found to have a large right lower lobe/middle lobe infiltrate he received IV cefepime for this. In addition he was found to be in early diabetic ketoacidosis with a blood glucose greater than 400 and an anion gap of 18. The patient received 6 units of IV regular insulin and received 2 L of IV fluid. CT of the brain was negative for acute finding CT of the chest demonstrated a probable evolving pulmonary abscess with the degree of necrosis to the right lower lobe pneumonia EKG showed a high degree AV block in the ER's opinion this was 1/3 degree AV block the EKG is questionable but given this history of a second-degree AV block and a what appears to be a possible third-degree AV block she will be placed in the ICU with pacemaker pads in place. Echocardiogram will be obtained cardiology be consulted, pulmonology be consulted for the pulmonary abscess for entertaining a possible chest tube, in addition critical care will be consulted per protocol. I did discuss personally with the [facility] covering critical care tonight. Allergies Allergy/AdvReac Type Severity Reaction Status Date / Time erythromycin base Allergy Intermediate Hives Verified 02/04/23 22:44 Penicillins Allergy Intermediate Hives Verified 02/04/23 22:44 Home Medications Medication Instructions Recorded Confirmed Type aspirin 81 mg tablet,delayed 81 mg PO DAILY 03/17/19 02/04/23 History release metformin 500 mg tablet,extended 1,000 mg (2 x 500 mg) PO BID #120 03/19/19 02/04/23 Rx release 24 hr tabs insulin syringe-needle U-100 0.5 #10 ea 05/11/20 02/04/23 History mL 31 gauge x 5/16" (BD Insulin Syringe Ultra-Fine) lancets (Accu-Chek Fastclix Lancet 05/11/20 02/04/23 History Drum) dextroamphetamine-amphetamine 30 30 mg PO BID 05/25/20 02/04/23 History mg tablet (Adderall) FreeStyle Marta 2 Sensor (flash #1 ea 07/30/20 02/04/23 Rx glucose sensor) blood sugar diagnostic (Accu-Chek 09/09/20 02/04/23 History Guide test strips) atorvastatin 40 mg tablet 40 mg PO DAILY #30 tabs 12/13/20 02/04/23 Rx miconazole nitrate 2 % topical 1 applic EXT BID #85 grams 12/13/20 02/04/23 Rx powder (Desenex) thiamine HCl (vitamin B1) 100 mg 100 mg PO QAM #30 tabs 12/13/20 02/04/23 Rx tablet (Vitamin B-1) buspirone 5 mg tablet 0 mg PO DIRECTED 02/04/23 02/04/23 History lisinopril 10 mg tablet 10 mg PO DAILY 02/04/23 02/04/23 History semaglutide 0.25 mg or 0.5 mg (2 0.5 mg subcut .WEEKLY 02/04/23 02/04/23 History mg/3 mL) subcutaneous pen injector (Ozempic) vortioxetine 5 mg tablet 0 mg PO DIRECTED 02/04/23 02/04/23 History (Trintellix) Patient History Medical History (Updated 02/05/23 @ 05:24 by APOLINAR Hernandez) Self neglect Depressed Incontinence of urine Pulmonary abscess PFO (patent foramen ovale) Cerebral aneurysm T2DM (type 2 diabetes mellitus) Uncontrolled type 2 diabetes mellitus 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 Abnormal ECG Hyperlipidemia Obesity Depression Hypertension Diabetes Prediabetes ADHD Depression Surgical History Hx of vasectomy History of rectal surgery x3 for an abscess in anal sphincter History of colonoscopy History of root canal procedure multiple History of wisdom tooth extraction History of tonsillectomy Hx of eye surgery Family History Father Family history of diabetes mellitus Diabetes Hypertension Heart disease Brother Prostate cancer Other No family history of adverse response to anesthesia Social History Smoking Status: Former smoker Tobacco Type: Cigars Second Hand Exposure: Yes; Do You Dip or Chew Tobacco: No; Hx Alcohol Use: No Hx Substance Use: No Preferred Language: Georgian Communication Ability: Effective Mailing Manager Required: No Beliefs That Will Affect Care: None marital status: Single Current Living Situation: Alone Current Living Situation Comment: pt lives with daughter per history and physical by MD Feels Safe at Home: Yes Assistive Devices: None Review of Systems Constitutional: + fatigue and + weakness Respiratory: + cough, + chest congestion and + dyspne a Cardiovascular: no chest pain and no palpitations Gastrointestinal: no abdominal pain, no nausea, no vomiting, no constipation and no diarrhea/loose stools Genitourinary: no dysuria Physical Exam Respiratory: Auscultation: no crackles and no wheezes Cardiovascular: RRR, no murmur, no edema Extremities: normal capillary refill; no pedal edema and no edema Gastrointestinal (Abdomen): normal bowel sounds, soft, nontender, no hepatosplenomegaly Psychiatric: Orientation: alert, oriented to person, oriented to place, oriented to time and cooperative Results & Data Vital Signs (Past 12 Hours) Vital Signs Temp Pulse Pulse Resp BP BP Pulse Ox 02/05/23 08:00 02/05/23 08:00 02/05/23 08:00 52 L 02/05/23 07:30 45 L 28 H 96 02/05/23 07:01 45 L 27 H 96 02/05/23 07:01 158/76 H 02/05/23 07:00 50 L 30 H 96 02/05/23 06:00 158/77 H 02/05/23 06:00 60 29 H 02/05/23 05:00 160/95 H 02/05/23 05:00 59 L 33 H 02/05/23 04:40 145/88 H 02/05/23 04:40 50 L 24 02/05/23 04:00 139/74 02/05/23 04:00 51 L 24 02/05/23 03:00 62 22 02/05/23 03:00 157/94 H 02/05/23 02:00 61 27 H 97 02/05/23 02:00 165/81 H 02/05/23 01:46 58 L 34 H 90 02/05/23 01:46 153/83 H 02/05/23 01:13 02/05/23 01:13 36.7 C 58 L 31 H 154/105 H 91 02/05/23 01:12 02/05/23 01:12 54 L 02/05/23 01:00 152/111 H 02/05/23 01:00 60 23 91 02/05/23 00:11 51 L 02/05/23 00:00 59 L 17 143/74 H 92 02/04/23 23:30 60 16 125/74 02/04/23 23:00 55 L 14 157/65 H 90 02/04/23 22:30 63 23 92 02/04/23 22:13 63 17 150/75 H 02/04/23 21:31 58 L 23 169/74 H 93 02/04/23 21:00 63 24 163/94 H 92 Pulse Ox O2 Del Method O2 Del Method O2 Flow Rate O2 Flow Rate 02/05/23 08:00 Room Air, Nasal Cannula 3 02/05/23 08:00 Nasal Cannula 02/05/23 08:00 02/05/23 07:30 02/05/23 07:01 Room Air 02/05/23 07:01 02/05/23 07:00 02/05/23 06:00 02/05/23 06:00 02/05/23 05:00 02/05/23 05:00 02/05/23 04:40 02/05/23 04:40 02/05/23 04:00 02/05/23 04:00 02/05/23 03:00 02/05/23 03:00 02/05/23 02:00 02/05/23 02:00 02/05/23 01:46 02/05/23 01:46 02/05/23 01:13 Nasal Cannula 3 02/05/23 01:13 Room Air 02/05/23 01:12 92 Nasal Cannula 3 02/05/23 01:12 02/05/23 01:00 02/05/23 01:00 02/05/23 00:11 02/05/23 00:00 Room Air 02/04/23 23:30 02/04/23 23:00 Room Air 02/04/23 22:30 Room Air 02/04/23 22:13 02/04/23 21:31 Room Air 02/04/23 21:00 Room Air
[2023-02-05] MEDS ORDERED: VANCOMYCIN HCL 1,250 MG in SODIUM CHLORIDE 0.9% 250 ML IV SCH (09:00)
[2023-02-05] MEDS ORDERED: INFLUENZA VACCINE HIGH-DOSE (HD-IIV4) PF 65+ 0.7mL SYR IM ONE (09:00)
[2023-02-05] MEDS ORDERED: ASPIRIN 81 MG ECTAB PO SCH (09:00)
[2023-02-05] MEDS: ATORVASTATIN 40 MG TAB PO SCH (09:01)
[2023-02-05] MEDS: lisinopril 10 MG TAB PO SCH (09:01)
--- NOTE | 2023-02-05 09:23 | Cardiology Consultation ---
Date of Consultation February 05, 2023 Assessment & Plan (1) Complete AV block: (2) Elevated troponin: (3) Aspiration pneumonia: (4) Loculated pleural effusion: (5) Hypertension: Plan ASSESSMENT/PLAN: 1. Complete heart block: Underlying junctional rhythm and seems to be t olerating it well. Recommend pacemaker. Does not require temporary pacemaker at this time but if he should become unstable, would consider transcutaneous pacing and temporary transvenous pacemaker placement. Discussed with electrophysiology who plans on seeing patient tomorrow. Currently, complicated by current infection. Blood cultures are pending. Avoid medication that may slow the heart rate. 2. Elevated troponin: Likely demand ischemia in the setting of pneumonia. He did not present with acute coronary syndrome. 3. Aspiration pneumonia/pleural effusion: As per critical care team and hospitalist service. 4. Hypertension: Blood pressure has mostly been elevated. Generally, blood pressure has been mostly mildly elevated. If becomes/remains severely elevated, can cautiously lower blood pressure and will defer to critical care team. 5. Disposition: Electrophysiology to evaluate tomorrow. Patient care discussed with health care coordinator, Dr. Gordon. Patient care also communicated with primary hospitalist, Dr. Fung. Highly complex medical issues. Thank you for allowing me to participate in the care of your patient. Please call for any other questions or concerns. Sincerely, Estevan Moore M.D. History of Present Illness Reason for Consultation: Heart block Requesting Physician: Jono Villarreal Attending Physician: Grace Fung MD History of Present Illness Mr. Mccoy is a 72-year-old gentleman with a history significant for medication noncompliance, insulin-dependent diabetes type 2 AV block, dyslipidemia, stroke, and hypertension. He was admitted on 02/04/2023 with DKA, pneumonia with pulmonary abscess, and AV block. Much of the history was obtained by speaking with his daughter, Ngozi, who was present at the bedside. The patient himself contributed some and also reviewing records. His daughter brings him food once a week. She states that he typically does not look well but when she found him yesterday, he was much worse. He had been complaining to her via telephone that he had chest pain. He initially said that he had chest pain for couple days but then later during our conversation stated 30 days. She found him with change of mental status and confusion. He has not been taking any of his medications apparently, including insulin. He has had a dry cough and shortness of breath for at least a few days but timing unclear given his inconsistent history. When she got to his home, she found him holding his chest and abnormal mental status from baseline. He was found to have DKA and imaging demonstrated pne umonia and concern for pulmonary necrosis/abscess as well as a loculated pleural effusion. ECG demonstrated sinus rhythm with A-V dissociation and otherwise junctional rhythm. He has mostly been hypertensive while here. His daughter states that he does not go to provider appointments in the outpatient setting, including PCP. Review of systems: As above. Review of systems otherwise negative/unremarkable. Family history: Father at 65 with CHF. Social history: Smokes cigars in the past but has since quit. Denies alcohol or drug abuse. Lives alone. Has 2 children (Sonido and Ngozi). 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 Ngozi was at the bedside. Allergies Allergy/AdvReac Type Severity Reaction Status Date / Time erythromycin base Allergy Intermediate Hives Verified 02/04/23 22:44 Penicillins Allergy Intermediate Hives Verified 02/04/23 22:44 Home Medications Medication Instructions Recorded Confirmed Type aspirin 81 mg tablet,delayed 81 mg PO DAILY 03/17/19 02/04/23 History release metformin 500 mg tablet,extended 1,000 mg (2 x 500 mg) PO BID #120 03/19/19 02/04/23 Rx release 24 hr tabs insulin syringe-needle U-100 0.5 #10 ea 05/11/20 02/04/23 History mL 31 gauge x 5/16" (BD Insulin Syringe Ultra-Fine) lancets (Accu-Chek Fastclix Lancet 05/11/20 02/04/23 History Drum) dextroamphetamine-amphetamine 30 30 mg PO BID 05/25/20 02/04/23 History mg tablet (Adderall) FreeStyle Marta 2 Sensor (flash #1 ea 07/30/20 02/04/23 Rx glucose sensor) blood sugar diagnostic (Accu-Chek 09/09/20 02/04/23 History Guide test strips) atorvastatin 40 mg tablet 40 mg PO DAILY #30 tabs 12/13/20 02/04/23 Rx miconazole nitrate 2 % topical 1 applic EXT BID #85 grams 12/13/20 02/04/23 Rx powder (Desenex) thiamine HCl (vitamin B1) 100 mg 100 mg PO QAM #30 tabs 12/13/20 02/04/23 Rx tablet (Vitamin B-1) buspirone 5 mg tablet 0 mg PO DIRECTED 02/04/23 02/04/23 History lisinopril 10 mg tablet 10 mg PO DAILY 02/04/23 02/04/23 History semaglutide 0.25 mg or 0.5 mg (2 0.5 mg subcut .WEEKLY 02/04/23 02/04/23 History mg/3 mL) subcutaneous pen injector (Ozempic) vortioxetine 5 mg tablet 0 mg PO DIRECTED 02/04/23 02/04/23 History (Trintellix) Patient History Medical History Aspiration pneumonia Pleurisy Loculated pleural effusion Self neglect Depressed Incontinence of urine Pulmonary abscess PFO (patent foramen ovale) Cerebral aneurysm T2DM (type 2 diabetes mellitus) Uncontrolled type 2 diabetes mellitus First degree AV block Left anterior fascicular block Prudence Abnormal ECG Hyperlipidemia Obesity Depression Hypertension Diabetes Prediabetes ADHD Depression Surgical History Hx of vasectomy History of rectal surgery x3 for an abscess in anal sphincter History of colonoscopy History of root canal procedure multiple History of wisdom tooth extraction History of tonsillectomy Hx of eye surgery Family History Father Family history of diabetes mellitus Diabetes Hypertension Heart disease Brother Prostate cancer Other No family history of adverse response to anesthesia Social History Smoking Status: Former smoker Tobacco Type: Cigars Second Hand Exposure: Yes; Do You Dip or Chew Tobacco: No; Hx Alcohol Use: No Hx Substance Use: No Preferred Language: Persian Communication Ability: Effective Gage Designer Required: No Beliefs That Will Affect Care: None marital status: Single Current Living Situation: Alone Current Living Situation Comment: pt lives with daughter per history and physical by MD Feels Safe at Home: Yes Assistive Devices: None Physical Exam Physical Exam: Gen.: No acute distress. Alert and oriented to self, year, and place. He did not know the month. HEENT: Anicteric sclera. Neck: Thick neck. No bruits. Normal carotid upstrokes bilaterally. Cardiac: No ventricular heave. Regular. Normal S1-S2. No murmurs, rubs, or gallops. Pulmonary: Decreased breath sounds throughout the right lung field, especially at the base and mid level. Abdomen: Soft, nontender, nondistended, with normoactive bowel sounds. No bruits noted. Extremities: 2+ radial pulses bilaterally. 2+ posterior tibialis pulses bilaterally. Trace bilateral pedal edema. No cyanosis. Results & Data Vital Signs (Past 12 Hours) Vital Signs Temp Pulse Pulse Resp BP BP Pulse Ox 02/05/23 08:00 02/05/23 08:00 02/05/23 08:00 52 L 02/05/23 07:30 45 L 28 H 96 02/05/23 07:01 45 L 27 H 96 02/05/23 07:01 158/76 H 02/05/23 07:00 50 L 30 H 96 02/05/23 06:00 158/77 H 02/05/23 06:00 60 29 H 02/05/23 05:00 160/95 H 02/05/23 05:00 59 L 33 H 02/05/23 04:40 145/88 H 02/05/23 04:40 50 L 24 02/05/23 04:00 139/74 02/05/23 04:00 51 L 24 02/05/23 03:00 62 22 02/05/23 03:00 157/94 H 02/05/23 02:00 61 27 H 97 02/05/23 02:00 165/81 H 02/05/23 01:46 58 L 34 H 90 02/05/23 01:46 153/83 H 02/05/23 01:13 02/05/23 01:13 36.7 C 58 L 31 H 154/105 H 91 02/05/23 01:12 02/05/23 01:12 54 L 02/05/23 01:00 152/111 H 02/05/23 01:00 60 23 91 02/05/23 00:11 51 L 02/05/23 00:00 59 L 17 143/74 H 92 02/04/23 23:30 60 16 125/74 02/04/23 23:00 55 L 14 157/65 H 90 02/04/23 22:30 63 23 92 02/04/23 22:13 63 17 150/75 H 02/04/23 21:31 58 L 23 169/74 H 93 Pulse Ox O2 Del Method O2 Del Method O2 Flow Rate O2 Flow Rate 02/05/23 08:00 Room Air, Nasal Cannula 3 02/05/23 08:00 Nasal Cannula 02/05/23 08:00 02/05/23 07:30 02/05/23 07:01 Room Air 02/05/23 07:01 02/05/23 07:00 02/05/23 06:00 02/05/23 06:00 02/05/23 05:00 02/05/23 05:00 02/05/23 04:40 02/05/23 04:40 02/05/23 04:00 02/05/23 04:00 02/05/23 03:00 02/05/23 03:00 02/05/23 02:00 02/05/23 02:00 02/05/23 01:46 02/05/23 01:46 02/05/23 01:13 Nasal Cannula 3 02/05/23 01:13 Room Air 02/05/23 01:12 92 Nasal Cannula 3 02/05/23 01:12 02/05/23 01:00 02/05/23 01:00 02/05/23 00:11 02/05/23 00:00 Room Air 02/04/23 23:30 02/04/23 23:00 Room Air 02/04/23 22:30 Room Air 02/04/23 22:13 02/04/23 21:31 Room Air Laboratory Results Laboratory Results - last 24 hr 02/04/23 02/04/23 02/04/23 20:23 20:29 20:37 WBC 24.04 H RBC 3.75 L Hgb 12.6 L Hct 36.0 L MCV 96.0 MCH 33.6 MCHC 35.0 RDW Std Deviation 46.4 H RDW Coeff of Yinka 13.2 Plt Count 508 H MPV 10.8 Immature Gran % (Auto) 1.1 Neut % (Auto) 88.6 Lymph % (Auto) 4.9 [place] % (Auto) 5.1 Eos % (Auto) 0.0 Baso % (Auto) 0.3 Neut # (Auto) 21.28 H Lymph # (Auto) 1.18 L [place] # (Auto) 1.22 H Eos # (Auto) 0.01 Baso # (Auto) 0.08 Immature Gran # (Auto) 0.27 H Polychromasia Echinocytes 1+ PT 13.6 H INR 1.3 H APTT 25 PTT Ratio 0.9 Sodium 130 L Potassium 4.3 Chloride 94 L Carbon Dioxide 18 L Anion Gap 18 H BUN 27 H Creatinine 0.95 Est Cr Clr Drug Dosing 81.8 Est GFR ( Amer) 91.7 Est GFR (Non-Af Amer) 79.1 BUN/Creatinine Ratio 28.4 H Glucose 414 H* POC Glucose 398 H* Estimat Average Glucose Hemoglobin A1c Lactate Calcium 8.9 Magnesium 1.8 Total Bilirubin 0.8 AST 24 ALT 17 Alkaline Phosphatase 95 Total Creatine Kinase 16 L Troponin I High Sens 43.5 H Total Protein 7.3 Albumin 2.6 L Globulin 4.7 H Albumin/Globulin Ratio 0.6 L TSH 2.296 Urine Color Urine Appearance Urine pH Ur Specific Boyce Urine Protein Urine Glucose (UA) Urine Ketones Urine Blood Urine Nitrite Urine Bilirubin Urine Urobilinogen Ur Leukocyte Esterase Urine WBC (Auto) Urine RBC (Auto) U Hyaline Cast (Auto) U Epithel Cells (Auto) Urine Bacteria (Auto) Nasal Screen MRSA (PCR) Adenovirus (PCR) Not Detected B. pertussis DNA (PCR) Not Detected B.parapertussis DNA PCR Not Detected Lyme Disease IgG Ab Negative Lyme Disease IgM Ab Negative C. pneumoniae DNA (PCR) Not Detected Coronavirus OC43 (PCR) Not Detected Coronavirus HKU1 (PCR) Not Detected Coronavirus 229E (PCR) Not Detected SARS-CoV-2 (PCR) Not Detected Coronavirus NL63 (PCR) Not Detected Human Metapneumovir PCR Not Detected Influenza Type A (PCR) Not Detected Influenza Type B (PCR) Not Detected M. pneumoniae (PCR) Not Detected Parainfluenza 1 (PCR) Not Detected Parainfluenza 2 (PCR) Not Detected Parainfluenza 3 (PCR) Not Detected Parainfluenza 4 (PCR) Not Detected RSV (PCR) Not Detected Entero/Rhino (PCR) Not Detected 02/04/23 02/04/23 02/04/23 21:11 21:33 22:17 WBC RBC Hgb Hct MCV MCH MCHC RDW Std Deviation RDW Coeff of Yinka Plt Count MPV Immature Gran % (Auto) Neut % (Auto) Lymph % (Auto) [place] % (Auto) Eos % (Auto) Baso % (Auto) Neut # (Auto) Lymph # (Auto) [place] # (Auto) Eos # (Auto) Baso # (Auto) Immature Gran # (Auto) Polychromasia Echinocytes PT INR APTT PTT Ratio Sodium Potassium Chloride Carbon Dioxide Anion Gap BUN Creatinine Est Cr Clr Drug Dosing Est GFR ( Amer) Est GFR (Non-Af Amer) BUN/Creatinine Ratio Glucose POC Glucose 386 H* Estimat Average Glucose Hemoglobin A1c Lactate 1.6 Calcium Magnesium Total Bilirubin AST ALT Alkaline Phosphatase Total Creatine Kinase Troponin I High Sens 38.6 H Total Protein Albumin Globulin Albumin/Globulin Ratio TSH Urine Color Urine Appearance Urine pH Ur Specific Boyce Urine Protein Urine Glucose (UA) Urine Ketones Urine Blood Urine Nitrite Urine Bilirubin Urine Urobilinogen Ur Leukocyte Esterase Urine WBC (Auto) Urine RBC (Auto) U Hyaline Cast (Auto) U Epithel Cells (Auto) Urine Bacteria (Auto) Nasal Screen MRSA (PCR) Adenovirus (PCR) B. pertussis DNA (PCR) B.parapertussis DNA PCR Lyme Disease IgG Ab Lyme Disease IgM Ab C. pneumoniae DNA (PCR) Coronavirus OC43 (PCR) Coronavirus HKU1 (PCR) Coronavirus 229E (PCR) SARS-CoV-2 (PCR) Coronavirus NL63 (PCR) Human Metapneumovir PCR Influenza Type A (PCR) Influenza Type B (PCR) M. pneumoniae (PCR) Parainfluenza 1 (PCR) Parainfluenza 2 (PCR) Parainfluenza 3 (PCR) Parainfluenza 4 (PCR) RSV (PCR) Entero/Rhino (PCR) 02/04/23 02/05/23 02/05/23 23:09 00:04 00:45 WBC RBC Hgb Hct MCV MCH MCHC RDW Std Deviation RDW Coeff of Yinka Plt Count MPV Immature Gran % (Auto) Neut % (Auto) Lymph % (Auto) [place] % (Auto) Eos % (Auto) Baso % (Auto) Neut # (Auto) Lymph # (Auto) [place] # (Auto) Eos # (Auto) Baso # (Auto) Immature Gran # (Auto) Polychromasia Echinocytes PT INR APTT PTT Ratio Sodium 130 L Potassium 4.1 Chloride 99 Carbon Dioxide 17 L Anion Gap 14 H BUN 27 H Creatinine 0.88 Est Cr Clr Drug Dosing 88.3 Est GFR ( Amer) 98.8 Est GFR (Non-Af Amer) 85.2 BUN/Creatinine Ratio 30.7 H Glucose 371 H* POC Glucose 376 H* Estimat Average Glucose Hemoglobin A1c Lactate Calcium 8.0 L Magnesium Total Bilirubin AST ALT Alkaline Phosphatase Total Creatine Kinase Troponin I High Sens 36.3 H Total Protein Albumin Globulin Albumin/Globulin Ratio TSH Urine Color Yellow Urine Appearance Clear Urine pH 5.0 Ur Specific Boyce 1.038 H Urine Protein 2+ H Urine Glucose (UA) 3+ H Urine Ketones 3+ H Urine Blood Negative Urine Nitrite Negative Urine Bilirubin Negative Urine Urobilinogen Negative Ur Leukocyte Esterase Negative Urine WBC (Auto) 1-5 Urine RBC (Auto) 0-4 U Hyaline Cast (Auto) 1-5 U Epithel Cells (Auto) 5-10 H Urine Bacteria (Auto) Negative Nasal Screen MRSA (PCR) Adenovirus (PCR) B. pertussis DNA (PCR) B.parapertussis DNA PCR Lyme Disease IgG Ab Lyme Disease IgM Ab C. pneumoniae DNA (PCR) Coronavirus OC43 (PCR) Coronavirus HKU1 (PCR) Coronavirus 229E (PCR) SARS-CoV-2 (PCR) Coronavirus NL63 (PCR) Human Metapneumovir PCR Influenza Type A (PCR) Influenza Type B (PCR) M. pneumoniae (PCR) Parainfluenza 1 (PCR) Parainfluenza 2 (PCR) Parainfluenza 3 (PCR) Parainfluenza 4 (PCR) RSV (PCR) Entero/Rhino (PCR) 02/05/23 02/05/23 02/05/23 01:39 02:42 03:38 WBC 23.09 H RBC 3.62 L Hgb 11.8 L Hct 34.7 L MCV 95.9 MCH 32.6 MCHC 34.0 RDW Std Deviation 47.3 H RDW Coeff of Yinka 13.2 Plt Count 491 H MPV 10.5 Immature Gran % (Auto) 1.3 Neut % (Auto) 85.4 Lymph % (Auto) 6.5 [place] % (Auto) 6.3 Eos % (Auto) 0.2 Baso % (Auto) 0.3 Neut # (Auto) 19.71 H Lymph # (Auto) 1.50 [place] # (Auto) 1.45 H Eos # (Auto) 0.04 Baso # (Auto) 0.08 Immature Gran # (Auto) 0.31 H Polychromasia Echinocytes PT 13.5 H INR 1.2 H APTT PTT Ratio Sodium 132 L Potassium 3.6 Chloride 100 Carbon Dioxide 20 L Anion Gap 12 H BUN 25 H Creatinine 0.80 Est Cr Clr Drug Dosing 96.0 Est GFR ( Amer) 102.7 Est GFR (Non-Af Amer) 88.6 BUN/Creatinine Ratio 31.3 H Glucose 222 H POC Glucose 356 H* 228 H Estimat Average Glucose Hemoglobin A1c Lactate Calcium 8.4 L Magnesium 1.7 Total Bilirubin 0.7 AST 22 ALT 18 Alkaline Phosphatase 90 Total Creatine Kinase Troponin I High Sens Total Protein 6.8 Albumin 2.6 L Globulin 4.2 H Albumin/Globulin Ratio 0.6 L TSH Urine Color Urine Appearance Urine pH Ur Specific Boyce Urine Protein Urine Glucose (UA) Urine Ketones Urine Blood Urine Nitrite Urine Bilirubin Urine Urobilinogen Ur Leukocyte Esterase Urine WBC (Auto) Urine RBC (Auto) U Hyaline Cast (Auto) U Epithel Cells (Auto) Urine Bacteria (Auto) Nasal Screen MRSA (PCR) Adenovirus (PCR) B. pertussis DNA (PCR) B.parapertussis DNA PCR Lyme Disease IgG Ab Lyme Disease IgM Ab C. pneumoniae DNA (PCR) Coronavirus OC43 (PCR) Coronavirus HKU1 (PCR) Coronavirus 229E (PCR) SARS-CoV-2 (PCR) Coronavirus NL63 (PCR) Human Metapneumovir PCR Influenza Type A (PCR) Influenza Type B (PCR) M. pneumoniae (PCR) Parainfluenza 1 (PCR) Parainfluenza 2 (PCR) Parainfluenza 3 (PCR) Parainfluenza 4 (PCR) RSV (PCR) Entero/Rhino (PCR) 02/05/23 02/05/23 02/05/23 07:11 07:45 09:57 WBC 23.12 H RBC 3.49 L Hgb 11.6 L Hct 33.6 L MCV 96.3 MCH 33.2 MCHC 34.5 RDW Std Deviation 47.4 H RDW Coeff of Yinka 13.4 Plt Count 472 H MPV 10.4 Immature Gran % (Auto) 1.1 Neut % (Auto) 87.3 Lymph % (Auto) 4.9 [place] % (Auto) 6.1 Eos % (Auto) 0.2 Baso % (Auto) 0.4 Neut # (Auto) 20.19 H Lymph # (Auto) 1.13 L [place] # (Auto) 1.41 H Eos # (Auto) 0.04 Baso # (Auto) 0.10 Immature Gran # (Auto) 0.25 H Polychromasia 1+ Echinocytes 2+ PT INR APTT PTT Ratio Sodium 133 L Potassium 4.0 Chloride 102 Carbon Dioxide 22 Anion Gap 9 BUN 26 H Creatinine 0.74 Est Cr Clr Drug Dosing 103.8 Est GFR ( Amer) 106.1 Est GFR (Non-Af Amer) 91.5 BUN/Creatinine Ratio 35.1 H Glucose 241 H POC Glucose 272 H 307 H* Estimat Average Glucose 349 Hemoglobin A1c 13.8 H Lactate Calcium 8.3 L Magnesium 1.8 Total Bilirubin 0.7 AST 18 ALT 16 Alkaline Phosphatase 87 Total Creatine Kinase Troponin I High Sens Total Protein 6.5 Albumin 2.5 L Globulin 4.0 Albumin/Globulin Ratio 0.6 L TSH Urine Color Urine Appearance Urine pH Ur Specific Boyce Urine Protein Urine Glucose (UA) Urine Ketones Urine Blood Urine Nitrite Urine Bilirubin Urine Urobilinogen Ur Leukocyte Esterase Urine WBC (Auto) Urine RBC (Auto) U Hyaline Cast (Auto) U Epithel Cells (Auto) Urine Bacteria (Auto) Nasal Screen MRSA (PCR) Adenovirus (PCR) B. pertussis DNA (PCR) B.parapertussis DNA PCR Lyme Disease IgG Ab Lyme Disease IgM Ab C. pneumoniae DNA (PCR) Coronavirus OC43 (PCR) Coronavirus HKU1 (PCR) Coronavirus 229E (PCR) SARS-CoV-2 (PCR) Coronavirus NL63 (PCR) Human Metapneumovir PCR Influenza Type A (PCR) Influenza Type B (PCR) M. pneumoniae (PCR) Parainfluenza 1 (PCR) Parainfluenza 2 (PCR) Parainfluenza 3 (PCR) Parainfluenza 4 (PCR) RSV (PCR) Entero/Rhino (PCR) 02/05/23 02/05/23 09:58 Unknown WBC RBC Hgb Hct MCV MCH MCHC RDW Std Deviation RDW Coeff of Yinka Plt Count MPV Immature Gran % (Auto) Neut % (Auto) Lymph % (Auto) [place] % (Auto) Eos % (Auto) Baso % (Auto) Neut # (Auto) Lymph # (Auto) [place] # (Auto) Eos # (Auto) Baso # (Auto) Immature Gran # (Auto) Polychromasia Echinocytes PT INR APTT PTT Ratio Sodium Potassium Chloride Carbon Dioxide Anion Gap BUN Creatinine Est Cr Clr Drug Dosing Est GFR ( Amer) Est GFR (Non-Af Amer) BUN/Creatinine Ratio Glucose POC Glucose 264 H Estimat Average Glucose Hemoglobin A1c Lactate Calcium Magnesium Total Bilirubin AST ALT Alkaline Phosphatase Total Creatine Kinase Troponin I High Sens Total Protein Albumin Globulin Albumin/Globulin Ratio TSH Urine Color Urine Appearance Urine pH Ur Specific Boyce Urine Protein Urine Glucose (UA) Urine Ketones Urine Blood Urine Nitrite Urine Bilirubin Urine Urobilinogen Ur Leukocyte Esterase Urine WBC (Auto) Urine RBC (Auto) U Hyaline Cast (Auto) U Epithel Cells (Auto) Urine Bacteria (Auto) Nasal Screen MRSA (PCR) Negative Adenovirus (PCR) B. pertussis DNA (PCR) B.parapertussis DNA PCR Lyme Disease IgG Ab Lyme Disease IgM Ab C. pneumoniae DNA (PCR) Coronavirus OC43 (PCR) Coronavirus HKU1 (PCR) Coronavirus 229E (PCR) SARS-CoV-2 (PCR) Coronavirus NL63 (PCR) Human Metapneumovir PCR Influenza Type A (PCR) Influenza Type B (PCR) M. pneumoniae (PCR) Parainfluenza 1 (PCR) Parainfluenza 2 (PCR) Parainfluenza 3 (PCR) Parainfluenza 4 (PCR) RSV (PCR) Entero/Rhino (PCR) Diagnostic Findings ECHO 02/05/23: 1. Top normal left ventricular size with normal systolic function. EF 55-60%. No regional wall motion abnormalities. Mild concentric left ventricular hypertrophy. 2. Moderately dilated right ventricle with normal systolic function. 3. Mild right atrial dilation. 4. Mild mitral regurgitation. 5. Mild pulmonary hypertension. Estimated RVSP 41 mmHg. 6. Technically difficult study, enhanced with IV Definity. 7. Sinus rhythm with high grade AV block. Heart rate mostly upper 40s to lower 50s. 8. Compared to prior study on 12/11/2020, RVSP is now mildly elevated. Labs reviewed and notable for leukocytosis, stable renal function, normal potassium, mild hyponatremia, minimally elevated high-sensitivity troponin and trending downward since presentation, reduced but stable hemoglobin. Lyme unremarkable. ECG personally reviewed 02/04/2023: Sinus rhythm with A-V dissociation and accelerated junctional rhythm. 69 bpm. Poor R wave progression. Nonspecific T wave abnormality. History and physical report reviewed. CT head 02/04/2023: Normal per radiology. CT chest 02/04/2023: Right middle lobe consolidation with concerning areas of pulmonary necrosis/abscess. Moderate loculated pleural effusion within the medial right lung base with smaller loculated pleural effusions adjacent to the right middle lobe. Telemetry personally reviewed: High-grade AV block but no significant pauses or profound bradycardia noted. Medications Administered Current Inpatient Medications Aspirin (Aspirin 81 Mg Ectab) 81 mg PO BID YAMILETH Stop: 03/07/23 08:59 Last Admin: 02/05/23 08:21 Dose: Not Given Atorvastatin Calcium (Atorvastatin 40 Mg Tab) 40 mg PO DAILY YAMILETH Stop: 03/07/23 08:59 Last Admin: 02/05/23 09:01 Dose: 40 mg Dextrose (Dextrose 50% 50 Ml Syringe) 25 - 50 ml IV UD PRN; Protocol PRN Reason: Hypoglycemia Protocol Stop: 03/07/23 09:44 Glucagon (Glucagon For Inj 1 Mg Vial) 1 mg IM UD PRN; Protocol PRN Reason: Hypoglycemia Protocol Stop: 03/07/23 09:44 Glucose (Glucose 40% Gel 15 Gm Tube) 15 - 30 gm PO UD PRN; Protocol PRN Reason: Hypoglycemia Protocol Stop: 03/07/23 09:44 Glucose (Glucose 10 Tab/Tube) 4 - 8 tab PO UD PRN; Protocol PRN Reason: Hypoglycemia Protocol Stop: 03/07/23 09:44 Cefepime HCl 2,000 mg/ Syringe 20 mls @ 5 mls/min IV Q8H YAMILETH; Protocol Stop: 02/12/23 05:59 Last Admin: 02/05/23 05:50 Dose: 5 mls/min Metronidazole (Flagyl) 500 mg in 100 mls @ 100 mls/hr IV Q8H YAMILETH; Protocol Stop: 02/12/23 07:59 Last Infusion: 02/05/23 08:54 Dose: Infused Insulin Aspart (Insulin Aspart Per Unit Charge) 0 units SC Q6 YAMILETH; Protocol Stop: 03/07/23 09:44 Last Admin: 02/05/23 10:02 Dose: 5 units Lisinopril (Lisinopril 10 Mg Tab) 10 mg PO DAILY YAMILETH Stop: 03/07/23 08:59 Last Admin: 02/05/23 09:01 Dose: 10 mg Miscellaneous (Carbohydrates For Hypoglycemia ) 15 - 30 gm PO UD PRN PRN Reason: Hypoglycemia Treatment Stop: 03/07/23 09:44 Miscellaneous Information (Pharmacy Glycemic Mgmt Consult) 1 each N/A UD PRN PRN Reason: Consult Stop: 03/07/23 09:40 PG Care Time/CCT Total # of Minutes Spent Total Time Spent with Patient: Total time spent is greater than 50% in coordination of care (as documented) at patient's floor/unit and/or counseling patient: Coding Level of Care Code 23815 INT INP/OBS CARE 3/75MIN Diagnoses Complete AV block I44.2 Elevated troponin R79.89 Aspiration pneumonia J69.0 Loculated pleural effusion J90 Hypertension I10
--- NOTE | 2023-02-05 09:27 | XCELERA ---
[id number] [id number]
[2023-02-05] MEDS ORDERED: PHARMACY GLYCEMIC MGMT CONSULT PRN (09:41)
[2023-02-05] MEDS ORDERED: LANTUS PER UNIT CHARGE SC STA (09:41)
[2023-02-05] MEDS ORDERED: GLUCAGON FOR INJ 1 MG VIAL IM PRN (09:45)
[2023-02-05] MEDS: INSULIN ASPART PER UNIT CHARGE SC SCH ×4 (10:02→23:57)
[2023-02-05 10:45] LABS: BUN Creatinine Ratio 29.3 (10-20); Calcium 8.3 mg/dl (8.6-10.3); Creatinine Clr Calc Pharmacy 93.7 ml/min; Est GFR (African American) 101.7 ml/min; Est GFR (Non-African American) 87.7 ml/min; Potassium 4.3 mmol/L (3.5-5.1)
--- NOTE | 2023-02-05 13:11 | Pulmonary Consultation ---
Date of Consultation February 05, 2023 Assessment & Plan (1) Loculated pleural effusion: (2) Pleurisy: (3) Aspiration pneumonia: Plan 72-year-old male with a complex medical history including severe anxiety and depression, prior CVA, DKA, hypertension and complete heart block with evidence of aspiration pneumonia on CT chest. There is a heterogeneous consolidation in the right middle lobe concerning for possible necrotizing pneumonia. There is also a peripheral/anterior component which appears to be a loculated effusion. Additionally there is a moderate loculated effusion posterior/medially at the right lung base. Highly suspect aspiration is the source of his pneumonia. Agree with continuing Flagyl and cefepime at this time. Loculated posterior effusion may be technically challenging to safely sample and drain at bedside. Will refer the patient to radiology for drainage once he is more stable from a cardiac perspective. Patient is pending cardiac evaluation given underlying heart block. Thank you for the consult. Will follow with you. History of Present Illness Reason for Consultation: Necrotizing pneumonia Attending Physician: Grace Fung MD History of Present Illness 72-year-old male with a history of type 2 diabetes mellitus, secondary AV block, hypertension, depression, hyperlipidemia and obesity who presented to the hospital due to increased shortness of breath, chest pain and fatigue. Patient has had poor medical compliance with his medications as of late due to severe depression. On admission he was found to be bradycardic. He had a stat CTA of his chest which revealed a large right middle lobe pneumonia with a small loculated effusion anteriorly and a moderate size loculated effusion posteriorly. There also appears to be a necrotizing component to the pneumonia. Patient denies any overt shortness of breath at this present time. Denies any fevers or chills. Other issues include ongoing bradycardia thought to be possible complete heart block. Cardiology consult has been placed by primary team. Patient is hemodynamically stable and is only on 3 L of oxygen at this time. Allergies Allergy/AdvReac Type Severity Reaction Status Date / Time erythromycin base Allergy Intermediate Hives Verified 02/04/23 22:44 Penicillins Allergy Intermediate Hives Verified 02/04/23 22:44 Home Medications Medication Instructions Recorded Confirmed Type aspirin 81 mg tablet,delayed 81 mg PO DAILY 03/17/19 02/04/23 History release metformin 500 mg tablet,extended 1,000 mg (2 x 500 mg) PO BID #120 03/19/19 02/04/23 Rx release 24 hr tabs insulin syringe-needle U-100 0.5 #10 ea 05/11/20 02/04/23 History mL 31 gauge x 5/16" (BD Insulin Syringe Ultra-Fine) lancets (Accu-Chek Fastclix Lancet 05/11/20 02/04/23 History Drum) dextroamphetamine-amphetamine 30 30 mg PO BID 05/25/20 02/04/23 History mg tablet (Adderall) FreeStyle Marta 2 Sensor (flash #1 ea 07/30/20 02/04/23 Rx glucose sensor) blood sugar diagnostic (Accu-Chek 09/09/20 02/04/23 History Guide test strips) atorvastatin 40 mg tablet 40 mg PO DAILY #30 tabs 12/13/20 02/04/23 Rx miconazole nitrate 2 % topical 1 applic EXT BID #85 grams 12/13/20 02/04/23 Rx powder (Desenex) thiamine HCl (vitamin B1) 100 mg 100 mg PO QAM #30 tabs 12/13/20 02/04/23 Rx tablet (Vitamin B-1) buspirone 5 mg tablet 0 mg PO DIRECTED 02/04/23 02/04/23 History lisinopril 10 mg tablet 10 mg PO DAILY 02/04/23 02/04/23 History semaglutide 0.25 mg or 0.5 mg (2 0.5 mg subcut .WEEKLY 02/04/23 02/04/23 History mg/3 mL) subcutaneous pen injector (Ozempic) vortioxetine 5 mg tablet 0 mg PO DIRECTED 02/04/23 02/04/23 History (Trintellix) Patient History Medical History (Updated 02/05/23 @ 13:22 by Monroe Gordon MD) Aspiration pneumonia Pleurisy Loculated pleural effusion Self neglect Depressed Incontinence of urine Pulmonary abscess PFO (patent foramen ovale) Cerebral aneurysm T2DM (type 2 diabetes mellitus) Uncontrolled type 2 diabetes mellitus 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 Abnormal ECG Hyperlipidemia Obesity Depression Hypertension Diabetes Prediabetes ADHD Depression Surgical History Hx of vasectomy History of rectal surgery x3 for an abscess in anal sphincter History of colonoscopy History of root canal procedure multiple History of wisdom tooth extraction History of tonsillectomy Hx of eye surgery Family History Father Family history of diabetes mellitus Diabetes Hypertension Heart disease Brother Prostate cancer Other No family history of adverse response to anesthesia Social History Smoking Status: Former smoker Tobacco Type: Cigars Second Hand Exposure: Yes; Do You Dip or Chew Tobacco: No; Hx Alcohol Use: No Hx Substance Use: No Preferred Language: Belarusian Communication Ability: Effective 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 Patient is in no apparent distress. Patient is well-developed. Eyes: Pupils are equal round and reactive to light. Conjunctivae are normal. Anicteric sclera. Ears nose, mouth and throat: Mallampati class 2. Normal posterior oropharynx. Uvula is midline. Neck: Trachea is midline. Visual inspection is normal. Respiratory: Mild crackles. Cardiovascular: Regular rate and rhythm. No murmurs. No edema. Gastrointestinal: Normal bowel sounds, soft, nontender and nondistended. No hepatosplenomegaly noted. Musculoskeletal: No cyanosis. Patient is able to move all extremities. Str ength is 5 out of 5 in the upper and lower extremities. Skin: No rashes, warm dry and intact. Neurologic: No obvious focal neurological deficits seen. Psychiatric: Flat affect and mood. Results & Data Results & Data Vital Signs (Past 12 Hours) Vital Signs Temp Pulse Pulse Resp BP BP Pulse Ox 02/05/23 10:00 185/90 H 02/05/23 10:00 67 29 H 95 02/05/23 09:30 47 L 27 H 95 02/05/23 09:00 50 L 24 94 02/05/23 09:00 159/72 H 02/05/23 08:30 56 L 33 H 94 02/05/23 08:00 160/68 H 02/05/23 08:00 49 L 30 H 95 02/05/23 08:00 02/05/23 08:00 02/05/23 08:00 52 L 02/05/23 07:30 45 L 28 H 96 02/05/23 07:01 45 L 27 H 96 02/05/23 07:01 158/76 H 02/05/23 07:00 50 L 30 H 96 02/05/23 06:00 158/77 H 02/05/23 06:00 60 29 H 02/05/23 05:00 160/95 H 02/05/23 05:00 59 L 33 H 02/05/23 04:40 145/88 H 02/05/23 04:40 50 L 24 02/05/23 04:00 139/74 02/05/23 04:00 51 L 24 02/05/23 03:00 62 22 02/05/23 03:00 157/94 H 02/05/23 02:00 61 27 H 97 02/05/23 02:00 165/81 H 02/05/23 01:46 58 L 34 H 90 02/05/23 01:46 153/83 H 02/05/23 01:13 02/05/23 01:13 36.7 C 58 L 31 H 154/105 H 91 02/05/23 01:12 02/05/23 01:12 54 L Pulse Ox O2 Del Method O2 Del Method O2 Flow Rate O2 Flow Rate 02/05/23 10:00 02/05/23 10:00 02/05/23 09:30 02/05/23 09:00 02/05/23 09:00 02/05/23 08:30 02/05/23 08:00 02/05/23 08:00 02/05/23 08:00 Room Air, Nasal Cannula 3 02/05/23 08:00 Nasal Cannula 02/05/23 08:00 02/05/23 07:30 02/05/23 07:01 Room Air 02/05/23 07:01 02/05/23 07:00 02/05/23 06:00 02/05/23 06:00 02/05/23 05:00 02/05/23 05:00 02/05/23 04:40 02/05/23 04:40 02/05/23 04:00 02/05/23 04:00 02/05/23 03:00 02/05/23 03:00 02/05/23 02:00 02/05/23 02:00 02/05/23 01:46 02/05/23 01:46 02/05/23 01:13 Nasal Cannula 3 02/05/23 01:13 Room Air 02/05/23 01:12 92 Nasal Cannula 3 02/05/23 01:12 PG Care Time/CCT Total # of Minutes Spent Total Time Spent with Patient: Total time spent is greater than 50% in coordination of care (as documented) at patient's floor/unit and/or counseling patient: Coding Level of Care Code 72710 INT INP/OBS CARE 375MIN Diagnoses Loculated pleural effusion J90 Pleurisy R09.1 Aspiration pneumonia J69.0
--- NOTE | 2023-02-05 14:20 | Pharmacy Report ---
Pharmacy Glycemic Short Note 2 - Date of Service February 05, 2023 - Glycemic Short BSG Results (Last 24 hours): 02/04/23 02/04/23 02/04/23 20:23 20:29 21:33 Glucose 414 H* POC Glucose 398 H* 386 H* 02/04/23 02/05/23 02/05/23 23:09 00:04 01:39 Glucose 371 H* POC Glucose 376 H* 356 H* 02/05/23 02/05/23 02/05/23 02:42 03:38 07:11 Glucose 222 H 241 H POC Glucose 228 H 02/05/23 02/05/23 02/05/23 07:45 09:57 09:58 Glucose POC Glucose 272 H 307 H* 264 H 02/05/23 02/05/23 10:02 12:17 Glucose 258 H POC Glucose 261 H OUTPATIENT ANTIDIABETIC REGIMEN: * Metformin 1 g PO BID * Ozempic 2 mg SC weekly * Reportedly has not been taking home meds for > 1 month * HbA1c: 13.8% (02/05/23) ASSESSMENT: * 72 yo M admitted on 02/04/23 secondary to pulmonary abscess / mild DKA. Pharmacy has been consulted to assist with inpatient glycemic management. Patient is a Type 2 diabetic as an outpatient. Please refer to outpatient regimen and most recent HbA1c above. * Upon presentation, patient demonstrated mild signs of DKA with anion gap of 18, CO2 of 18, and blood sugar of 414 mg/dL. Patient was not started on an insulin infusion however. Instead, he received about 2.5 L of fluid followed by two IV insulin boluses (6 units x 1 and 5 units x 1). BSGs trended down and repeat BMP on the floor showed acidosis had resolved. A one time dose of Lantus 10 units was given upon arrival to the floor. * BSG was 272 mg/dL this AM with an anion gap of 10 and CO2 of 21. Basal bolus insulin was started at this time. Gave an addition basal dose this morning and will start a BID regiment his evening. Novolog based on weight/stress of 3. * Patient is NPO for the time being. May need to back off insulin once it reaches steady state. Remains on Cefepime and Flagyl for pulmonary abscess. PLAN FOR INPATIENT GLYCEMIC CONTROL: * Hold outpatient oral diabetes medications * Basal insulin * Lantus 10 units SC around 0200 * Lantus 15 units SC around 1000 * Lantus 20 units SC BID starting this evening * Bolus insulin * NovoLog per scale ACHS or Q6hrs while NPO * Goal Range: Low 110 mg/dL - High 140 mg/dL * Correction Factor: 15 mg/dL/unit * Nutritional / Prandial insulin per carb ratio of 1 unit per 5 grams CHO consumed
[2023-02-05] MEDS: ENOXAPARIN INJ 40 MG/0.4 ML SYR SQ SCH (16:56)
[2023-02-05] MEDS: THIAMINE HCL 100 MG TAB PO SCH (16:57)
--- NOTE | 2023-02-05 17:37 | Psychiatric Consultation ---
Date of Consultation February 05, 2023 Impression / Recommendations Impression 72 y/o man who presents as profoundly depressed. He denies suicidal thoughts, denies having stopped all his medication (specifically says he's taking at least vortioxetine), and tacitly acknowledges very poor self-care recently. Obtaining details is very challenging due to his monosyllabic speech and marked latency of response. I can't even really assess his rate of speech given that he doesn't often multiple words in a row. I actually doubt he's being uncooperative or even necessarily guarded but rather my sense is that his thinking is slowed to the degree that his speech indicates. He tells me (and told others) that vortioxetine has helped. We don't know the dose, but it's non-formulary in any event so once we can get his actual pills brought in we'll know and he can resume it. It appears as if he may have been supposed to take amphetamine-dextroamphetamine 30 mg BID as well (I couldn't get a clear sense from him). Given the severity of the depression, that would be a reasonable medication for his to be taking. He may also have a prescription for buspirone. There might be good reasons for that, but I think we should focus on the smallest number of the most important medications in light of what seems to be pretty clear difficulty adhering to a medication regimen at home. Overall I spent a total of 56 minutes on the floor for this consultation assessment including review of chart records, review of test results, direct evaluation of the patient [id number], risk assessment, discussion with the psychiatric liaison nurse, and documentation in the electronic health record. (1) Major depressive disorder, recurrent, severe without psychotic features: Plan * resume vortioxetine - dose is currently unknown, but it's non-formulary and he's using samples. Once it can be brought in from home, we should be able to determine the dose. * resume amphetamine-dextroamphetamine 30 mg BID Psych History Identifying Data HALLE PATTERSON is a 72-year-old M with a history of depression, admitted on 02/04/2023 for pulmonary abscess and DKA. Consult is by the hospitalist service for "depression / self neglect/ stopped all meds/". Chief Complaint "I'm OK". History of Present Illness As part of a thorough review of the available medical records, I have read and confirmed the following note by the ED physician: "The patient is a 72-year-old male who as per family is not caring for himself. He has refused help up until today. The patient is losing his urine and stool. He is not able to function on his own at home. He was found on the bathroom floor this past week by his brother. The patient is not taking his medications. His sugars have been running in the 4-500 range. He has been complaining of some right-sided chest pain for the last 3 weeks. Today, he agreed to come to the hospital for an evaluation and care." and the following notes by the psychiatric liaison nurses: "Pt. laying in bed, willing to speak with liaison. Pt appearing slightly restless and distracted during times of the assessment. Depressed tone while speaking. Alert and oriented to person, place, situation. Able to state the year but month to be "late December... or its January." Pt taking 5-10 second pauses after each question before answering. Pt. states having recent suicidal thoughts. Denies current SI during conversation. States having depression. Rates depression 07/29. Denies anxiety. States depression has been going on since 2003. Pt states in 2003 he was cheated out of a business and money. Pt denies any current stressors/triggers other than having chest pain for the past few weeks. Pt denies SIB/HI/hallucinations/delusions. Pt states having a plan to kill self in 2003 by shooting self. States having recent plan also by shooting self but states his brother took his guns away. Denies past suicide attempts. Pt states he lives by himself. Denies hx of childhood trauma but states going through his divorce was hard. Pt states he sees [facility] for psychiatry. Pt states [facility] is also his [id number] and called EMS to take him to the ED. Pt denies current therapist. Denies inpt treatment hx. Pt states he was on Trintellix for depression because he stopped taking all his medications. Pt states his Trintellix seemed to be working. Pt not able to explain why he stopped taking his medications. Pt does not think there is any family psych hx. Denies current substance use. States using marijuana and alcohol in the 1970s-80s. Denies hx of alcoholism. Willing to sign ROIs later on. Pt understands if he would have any concerns/requests for behavioral health, liaison would return to see him. PHQ-9 score:16, #9 score:2." "Patient seen on rounds, resting in bed and awoke easily to name, alert and oriented x 4 - flat affect and gives short answers, patient denies SI and denies any recent SI - denies HI, denies hallucinations/delusions, denies any inpatient psychiatric history, patient does endorse being depressed and does endorse feeling lonely at home, denies drug/alcohol use, denies access to guns, patient is agreeable to meeting with psychiatrist and signed JOSIAH for daughter and [facility], per temporary staff accountant patient's daughter was at bedside today and states that while her dad made statements about not taking his metformin or heart medications he has not actually been taking them for years and is baseline non-compliant, she also states he has been neglecting his own self-care at home and soiling himself around the house" On exam, pt lies in bed awake maintaining unwavering eye contact. He moves very little. He is alert and oriented to person, place, time, and circumstances. Affect is blunted nearly to the point of being flat. Speech is of markedly increased latency of response, quiet, and brief (usually monosyllabic). He volunteers no information beyond the briefest possible answers to questions. When asked how he's doing says "OK". With much questioning he endorses essentially the history as documented by others. He acknowledges being very depressed for many years with intermittent suicidal thoughts and occasionally with plans that include high-lethality plans such as shooting himself. He insists that he is not currently having any suicidal thoughts at all. He says he's been taking vortioxetine samples (isn't sure of the dose) and thinks it is working, but he isn't able to articulate what sort of improvement he's noted. When I noted that a concern on the part of the treatment team is that he seemed to have stopped all his medication he said "no" and wouldn't elaborate. Past Psychiatric History Previous Psych Admissions: none History of Previous Suicide Attempt: No Allergies Allergy/AdvReac Type Severity Reaction Status Date / Time erythromycin base Allergy Intermediate Hives Verified 02/04/23 22:44 Penicillins Allergy Intermediate Hives Verified 02/04/23 22:44 Home Medications Medication Instructions Recorded Confirmed Type aspirin 81 mg tablet,delayed 81 mg PO DAILY 03/17/19 02/04/23 History release metformin 500 mg tablet,extended 1,000 mg (2 x 500 mg) PO BID #120 03/19/19 02/04/23 Rx release 24 hr tabs insulin syringe-needle U-100 0.5 #10 ea 05/11/20 02/04/23 History mL 31 gauge x 5/16" (BD Insulin Syringe Ultra-Fine) lancets (Accu-Chek Fastclix Lancet 05/11/20 02/04/23 History Drum) dextroamphetamine-amphetamine 30 30 mg PO BID 05/25/20 02/04/23 History mg tablet (Adderall) FreeStyle Marta 2 Sensor (flash #1 ea 07/30/20 02/04/23 Rx glucose sensor) blood sugar diagnostic (Accu-Chek 09/09/20 02/04/23 History Guide test strips) atorvastatin 40 mg tablet 40 mg PO DAILY #30 tabs 12/13/20 02/04/23 Rx miconazole nitrate 2 % topical 1 applic EXT BID #85 grams 12/13/20 02/04/23 Rx powder (Desenex) thiamine HCl (vitamin B1) 100 mg 100 mg PO QAM #30 tabs 12/13/20 02/04/23 Rx tablet (Vitamin B-1) buspirone 5 mg tablet 0 mg PO DIRECTED 02/04/23 02/04/23 History lisinopril 10 mg tablet 10 mg PO DAILY 02/04/23 02/04/23 History semaglutide 0.25 mg or 0.5 mg (2 0.5 mg subcut .WEEKLY 02/04/23 02/04/23 History mg/3 mL) subcutaneous pen injector (Ozempic) vortioxetine 5 mg tablet 0 mg PO DIRECTED 02/04/23 02/04/23 History (Trintellix) Patient History Medical History (Updated 02/05/23 @ 21:15 by Robin Villarreal MD) Major depressive disorder, recurrent, severe without psychotic features Aspiration pneumonia Pleurisy Loculated pleural effusion Self neglect Depressed Incontinence of urine Pulmonary abscess PFO (patent foramen ovale) Cerebral aneurysm T2DM (type 2 diabetes mellitus) Uncontrolled type 2 diabetes mellitus 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 Abnormal ECG Hyperlipidemia Obesity Depression Hypertension Diabetes Prediabetes ADHD Depression Surgical History Hx of vasectomy History of rectal surgery x3 for an abscess in anal sphincter History of colonoscopy History of root canal procedure multiple History of wisdom tooth extraction History of tonsillectomy Hx of eye surgery Family History Father Family history of diabetes mellitus Diabetes Hypertension Heart disease Brother Prostate cancer Other No family history of adverse response to anesthesia Social History Smoking Status: Former smoker Tobacco Type: Cigars Second Hand Exposure: Yes; Do You Dip or Chew Tobacco: No; Hx Alcohol Use: No Hx Substance Use: No Preferred Language: Iraqi Communication Ability: Effective Tie Tamper Required: No Beliefs That Will Affect Care: None marital status: Single Current Living Situation: Alone Current Living Situation Comment: pt lives with daughter per history and physical by MD Feels Safe at Home: Yes Assistive Devices: None Physical Exam Psychiatric: Orientation: alert, oriented to person, oriented to place and oriented to time Apperance: appropriately dressed and appropriately groomed Eye Contact: good eye contact Motor Behavior: + psychomotor retardation Speech: + abnormal rate/rhythm/volume of speech (markedly increase latency, monosyllabic) Affect: + blunted affect (very nearly flat); + mood not congruent with affect Mood: + depressed mood Thought Process: + concrete thought process Thought Content: reality based without delusions Suicidal Thoughts: denies suicidal thoughts, denies suicidal plan and denies suicidal intent Homicidal Thoughts: denies homicidal thoughts Hallucinations: no auditory hallucinations and no visual hallucinations Cognition: recent memory grossly intact, remote memory grossly intact, attention grossly intact and language grossly intact Estimated Intelligence: consistent with education level Insight: + fair insight Judgment: + impaired judgement Vital Signs (Past 24 Hours): Last Vital Signs Temp 37 C 02/05/23 14:10 Pulse 61 02/05/23 17:01 Resp 33 H 02/05/23 17:01 BP 150/81 H 02/05/23 17:01 Pulse Ox 93 02/05/23 17:01 O2 Del Method Nasal Cannula 02/05/23 16:30 O2 Flow Rate 3 02/05/23 16:30 Review of Systems Psychiatric: + depression, + anhedonia and + paranoia; no suicidal ideation and no hallucinations Results & Data (PSY) Medications Administered Aspirin (Aspirin 81 Mg Ectab) 81 mg PO BID [facility] Stop: 03/07/23 08:59 Last Admin: 02/05/23 08:21 Dose: Not Given Documented By: JOHN Atorvastatin Calcium (Atorvastatin 40 Mg Tab) 40 mg PO DAILY YAMILETH Stop: 03/07/23 08:59 Last Admin: 02/05/23 09:01 Dose: 40 mg Documented By: JOHN Enoxaparin Sodium (Enoxaparin Inj 40 Mg/0.4 Ml Syr) 40 mg SQ Q24H [facility] Stop: 03/07/23 15:59 Last Admin: 02/05/23 16:56 Dose: 40 mg Documented By: JOHN Cefepime HCl 2,000 mg/ Syringe 20 mls @ 5 mls/min IV Q8H [facility]; Protocol Stop: 02/12/23 05:59 Last Admin: 02/05/23 14:16 Dose: 5 mls/min Documented By: Admin: 02/05/23 05:50 Dose: 5 mls/min Documented By: VINCENT Metronidazole (Flagyl) 500 mg in 100 mls @ 100 mls/hr IV Q8H [facility]; Protocol Stop: 02/12/23 07:59 Last Infusion: 02/05/23 16:20 Dose: Infused Documented By: Admin: 02/05/23 15:12 Dose: 100 mls/hr Documented By: Infusion: 02/05/23 08:54 Dose: Infused Documented By: Admin: 02/05/23 07:49 Dose: 100 mls/hr Documented By: JOHN Insulin Aspart (Insulin Aspart Per Unit Charge) 0 units SC Q6 [facility]; Protocol Stop: 03/07/23 09:44 Last Admin: 02/05/23 12:39 Dose: 9 units Documented By: JOHN Co-signed By: ELAINA Admin: 02/05/23 10:02 Dose: 5 units Documented By: JOHN Co-signed By: MARIBETH Lisinopril (Lisinopril 10 Mg Tab) 10 mg PO DAILY [facility] Stop: 03/07/23 08:59 Last Admin: 02/05/23 09:01 Dose: 10 mg Documented By: JOHN Thiamine HCl (Thiamine Hcl 100 Mg Tab) 100 mg PO QAM [facility] Stop: 03/07/23 15:59 Last Admin: 02/05/23 16:57 Dose: 100 mg Documented By: JOHN Coding Level of Care Code 48853 [facility] Intl Hosp Care Lvl 3 Diagnoses Major depressive disorder, recurrent, severe without psychotic features F33.2 Time Spent (min) 56
[2023-02-05] MEDS: TAMSULOSIN HCL 0.4 MG CAP PO SCH (20:58)
[2023-02-05] MEDS ORDERED: LANTUS PER UNIT CHARGE SC SCH (21:00)
[2023-02-06] MEDS: ACETAMINOPHEN 325 MG TAB PO PRN (02:00)
[2023-02-06 04:52] LABS: Hematocrit (blood only) 31.4 % (42.0-52.0); Hemoglobin 10.9 g/dl (14.0-18.0); Mean Corpuscular Hgb Conc 34.7 g/dL (32.0-36.0); Mean Corpuscular Volume 95.2 fL (80.0-100.0); Mean Platelet Volume 10.5 fL (9.4-12.4); Nucleated RBC # (auto) 0.02 K/uL (0.00-0.12); Nucleated RBC % (auto) 0.1 %; Platelet Count 453 K/uL (130-400); RDW Coefficient of Variation 13.4 % (11.5-14.5); RDW Standard Deviation 46.8 fL (36.4-46.3); White Blood Count 20.32 K/ul (4.8-10.8)
[2023-02-06 05:08] LABS: BUN Creatinine Ratio 36.2 (10-20); Creatinine Clr Calc Pharmacy 111.3 ml/min; Est GFR (African American) 109.2 ml/min; Est GFR (Non-African American) 94.2 ml/min; Magnesium 1.7 mg/dl (1.7-2.4); Phosphorus 2.6 mg/dl (2.5-4.9); Potassium 3.3 mmol/L (3.5-5.1)
[2023-02-06] MEDS ORDERED: POTASSIUM CHLORIDE CRTAB 20 MEQ TABCR PO STA (05:54)
[2023-02-06] MEDS: CEFEPIME 2,000 MG in SYRINGE 0 ML IV SCH ×3 (06:00→21:39)
[2023-02-06] MEDS: INSULIN ASPART PER UNIT CHARGE SC SCH ×4 (06:00→21:39)
[2023-02-06 06:11] LABS: INR 1.4 (0.9-1.1); Prothrombin Time 14.8 Seconds (9.0-12.0)
--- NOTE | 2023-02-06 06:15 | Electrocardiogram Report ---
Test Reason : Blood Pressure : / mmHG Vent. Rate : 069 BPM Atrial Rate : 073 BPM P-R Int : 000 ms QRS Dur : 088 ms QT Int : 392 ms P-R-T Axes : 000 -30 033 degrees QTc Int : 420 ms Sinus rhythm with A-V dissociation and Accelerated Junctional rhythm Left axis deviation Anterior infarct (cited on or before 10-DEC-2020) Abnormal ECG When compared with ECG of 10-DEC-2020 21:02, Junctional rhythm is now Present AV dissociation has replaced 2:1 AV block Vent. rate has increased BY 36 BPM Questionable change in initial forces of Anterior leads Confirmed by Andrew Moore ([id number] on 02/06/2023 6:14:50 AM Referred By: REFERRED SELF Confirmed By:Andrew Moore
[2023-02-06] MEDS: MAGNESIUM SULFATE / D5W 1 GM/100 ML BAG IV SCH ×2 (06:20→07:39)
[2023-02-06] MEDS: POTASSIUM CHLORIDE / WTR 10 MEQ/100 ML PLCT IV SCH ×2 (06:20→07:39)
--- NOTE | 2023-02-06 08:21 | Critical Care Progress Note ---
Date of Service February 06, 2023 Assessment & Plan (1) Complete AV block: (2) Incontinence of urine: (3) Depressed: (4) DKA (diabetic ketoacidosis): (5) Hyperlipidemia: (6) Noncompliance with medications: (7) Loculated pleural effusion: (8) Anemia: Plan His hemodynamics have remained stable. He continues to have evidence of complete heart block on telemetry. Patient is awaiting evaluation by EP. Additionally, he remains on broad-spectrum antibiotics for aspiration pneumonia. Blood cultures remain negative. I placed an order for radiology to place a small bore pigtail catheter in the loculated right pleural effusion. I am holding all antiplatelets and anticoagulants at this time in anticipation for possible procedures. He does appear to have some mild anemia which may be due to to dilution and frequent blood draws. He seems to have a mild baseline anemia which can be worked up further as an outpatient. Replacing electrolytes as needed. He is currently on lisinopril for hypertension. He has a history of severe depression. Appreciate psychiatry consultation. Patient denies suicidal ideation. Will defer initiation of the psychiatric medications to primary team and psychiatry service. Disposition will be deferred to the cardiology team as he is currently in complete heart block. Admission and Anticipated Discharge Date Admission Date: February 04, 2023 Subjective Patient seen and examined. His mood and affect are blunted, but responds appropriately. He denies any chest pain, shortness of breath, nausea, fevers, chills or night sweats. His hemodynamics have been stable. Review of Systems Review of Systems: All systems reviewed & are unremarkable except as noted in HPI & below Physical Exam Physical Exam: Constitutional: Patient appears to be of their stated age. Patient is in no apparent distress. Patient is well-developed. Eyes: Pupils are equal round and reactive to light. Conjunctivae are normal. Anicteric sclera. Ears nose, mouth and throat: Mallampati class 2. Normal posterior oropharynx. Uvula is midline. Neck: Trachea is midline. Visual inspection is normal. Respiratory: Mild crackles. No increased work of breathing. Cardiovascular: Regular rate and rhythm. No murmurs. No edema. Gastrointestinal: Normal bowel sounds, soft, nontender and nondistended. No hepatosplenomegaly noted. Musculoskeletal: No cyanosis. Patient is able to move all extremities. Strength is 5 out of 5 in the upper and lower extremities. Skin: No rashes, warm dry and intact. Neurologic: No obvious focal neurological deficits seen. Psychiatric: Flat affect and mood. Results & Data Results & Data Vital Signs (Past 12 Hours) Vital Signs Temp Pulse Resp BP Pulse Ox Pulse Ox O2 Del Method 02/06/23 07:00 49 L 29 H 96 02/06/23 06:05 144/79 H 02/06/23 06:00 47 L 28 H 95 02/06/23 05:01 125/64 02/06/23 05:00 51 L 22 93 02/06/23 04:00 37 C 02/06/23 04:00 53 L 27 H 95 Nasal Cannula 02/06/23 03:00 133/63 02/06/23 03:00 49 L 25 H 95 02/06/23 02:00 63 21 93 02/06/23 02:00 151/90 H 02/06/23 01:12 96 02/06/23 01:00 121/56 L 02/06/23 01:00 53 L 26 H 93 02/06/23 00:00 153/95 H 02/06/23 00:00 54 L 21 93 Nasal Cannula 02/06/23 00:00 37.4 C 02/06/23 00:00 62 02/05/23 23:00 55 L 28 H 92 02/05/23 23:00 125/71 02/05/23 22:00 169/78 H 02/05/23 22:00 58 L 32 H 94 02/05/23 21:00 59 L 30 H 93 02/05/23 21:00 149/88 H O2 Del Method O2 Flow Rate O2 Flow Rate 02/06/23 07:00 02/06/23 06:05 02/06/23 06:00 02/06/23 05:01 02/06/23 05:00 02/06/23 04:00 02/06/23 04:00 3 02/06/23 03:00 02/06/23 03:00 02/06/23 02:00 02/06/23 02:00 02/06/23 01:12 Nasal Cannula 3 02/06/23 01:00 02/06/23 01:00 02/06/23 00:00 02/06/23 00:00 3 02/06/23 00:00 02/06/23 00:00 02/05/23 23:00 02/05/23 23:00 02/05/23 22:00 02/05/23 22:00 02/05/23 21:00 02/05/23 21:00 Coding Level of Care Code 41302 SUB INP/OBS CARE 3/50MIN Diagnoses Complete AV block I44.2 Incontinence of urine R32 Depressed F32.A DKA (diabetic ketoacidosis) E11.10 Hyperlipidemia E78.5 Noncompliance with medications Z91.14 Loculated pleural effusion J90 Anemia D64.9
[2023-02-06] MEDS: LANTUS PER UNIT CHARGE SC SCH ×2 (08:44→21:41)
[2023-02-06] MEDS: metroNIDAZOLE 500 MG/100 ML BAG IV SCH ×3 (08:45→23:27)
[2023-02-06] MEDS: THIAMINE HCL 100 MG TAB PO SCH (08:45)
[2023-02-06] MEDS: ATORVASTATIN 40 MG TAB PO SCH (08:45)
[2023-02-06] MEDS: lisinopril 10 MG TAB PO SCH (08:46)
--- NOTE | 2023-02-06 09:31 | Cardiology Progress Note ---
Date of Service February 06, 2023 Assessment & Plan (1) Atrioventricular dissociation: Plan 1. AV dissociation: On presentation he has some evidence of an accelerated junctional rhythm, although for the most part it looks like 2-1 AV block. Over the past 24 hours he has had predominantly Mobitz 1 second-degree block and 2-1 AV block with a heart rate averaging 50. There has been no wide-complex rhythm suggesting that this is all AV clint. He is on no medications to cause it. Although he may need a pacemaker in the future, he does not have symptoms and with his current pneumonia I am very reluctant to implant a pacemaker. We will continue to observe for worsening of his rhythm. I would avoid AV clint blockers, although his 2-1 AV block is typically with higher sinus rates so a low-dose of beta-linda could potentially help but I would not do the experiment unless he needs a beta-linda. We will continue to monitor his rhythm. Admission and Anticipated Discharge Date Admission Date: February 04, 2023 Subjective Chart reviewed and patient interviewed and examined. He does not seem to have any symptoms related to bradycardia and denies symptoms of lightheadedness, dizziness denies, palpitations, presyncope or syncope. Either here or prior to admission. Physical Exam Physical Exam: Constitutional: Alert, cooperative and in no distress. Pulmonary: Crackles on auscultation bilaterally. Cardiac: Mostly regular rhythm with no murmur, gallop or rub. Abdomen: Soft, nontender with normal bowel sounds. Extremities: No edema. Skin: No rash, ecchymoses or petechiae. Results & Data Vital Signs (Past 12 Hours) Vital Signs Temp Pulse Resp BP Pulse Ox Pulse Ox O2 Del Method 02/06/23 08:46 60 37 H 91 02/06/23 08:46 113/76 02/06/23 08:42 59 L 95 Nasal Cannula 02/06/23 08:41 67 26 H 96 02/06/23 08:00 37.1 C 02/06/23 08:00 52 L 22 97 02/06/23 07:42 139/88 02/06/23 07:42 43 L 22 96 Nasal Cannula 02/06/23 07:00 49 L 29 H 96 02/06/23 06:05 144/79 H 02/06/23 06:00 47 L 28 H 95 02/06/23 05:01 125/64 02/06/23 05:00 51 L 22 93 02/06/23 04:00 37 C 02/06/23 04:00 53 L 27 H 95 Nasal Cannula 02/06/23 03:00 133/63 02/06/23 03:00 49 L 25 H 95 02/06/23 02:00 63 21 93 02/06/23 02:00 151/90 H 02/06/23 01:12 96 02/06/23 01:00 121/56 L 02/06/23 01:00 53 L 26 H 93 02/06/23 00:00 153/95 H 02/06/23 00:00 54 L 21 93 Nasal Cannula 02/06/23 00:00 37.4 C 02/06/23 00:00 62 02/05/23 23:00 55 L 28 H 92 02/05/23 23:00 125/71 02/05/23 22:00 169/78 H 02/05/23 22:00 58 L 32 H 94 O2 Del Method O2 Flow Rate O2 Flow Rate 02/06/23 08:46 02/06/23 08:46 02/06/23 08:42 2 02/06/23 08:41 02/06/23 08:00 02/06/23 08:00 02/06/23 07:42 02/06/23 07:42 2 02/06/23 07:00 02/06/23 06:05 02/06/23 06:00 02/06/23 05:01 02/06/23 05:00 02/06/23 04:00 02/06/23 04:00 3 02/06/23 03:00 02/06/23 03:00 02/06/23 02:00 02/06/23 02:00 02/06/23 01:12 Nasal Cannula 3 02/06/23 01:00 02/06/23 01:00 02/06/23 00:00 02/06/23 00:00 3 02/06/23 00:00 02/06/23 00:00 02/05/23 23:00 02/05/23 23:00 02/05/23 22:00 02/05/23 22:00 Laboratory Results Coagulation 02/06/23 Range/Units 03:38 PT 14.8 H (9.0-12.0) Seconds CBC 02/06/23 Range/Units 03:38 WBC 20.32 H (4.8-10.8) K/ul RBC 3.30 L (4.70-6.10) M/uL Hgb 10.9 L (14.0-18.0) g/dl Hct 31.4 L (42.0-52.0) % Plt Count 453 H (130-400) K/uL Comprehensive Metabolic Panel 02/05/23 02/06/23 Range/Units 10:02 03:38 Sodium 131 L 134 L (136-145) mmol/L Potassium 4.3 3.3 L D (3.5-5.1) mmol/L Chloride 100 103 (98-107) mmol/L Carbon Dioxide 21 23 (21-32) mmol/L BUN 24 H 25 H (6-23) mg/dl Creatinine 0.82 0.69 (0.6-1.4) mg/dl Glucose 258 H 164 H (70-99(Fasting)) mg/dl Calcium 8.3 L 8.0 L (8.6-10.3) mg/dl Intake and Output 02/05/23 02/06/23 02/06/23 22:59 06:59 14:59 Intake Total 100 / 865.833 100 / 865.833 165.833 / 165.833 Output Total 525 / 1600 350 / 1600 Balance -425 / -734.167 -250 / -734.167 165.833 / 165.833 Intake: IV 100 / 865.833 100 / 865.833 165.833 / 165.833 Magnesium Sulfate / D5w 1 gm In 65.833 / 65.833 100 ml @ 50 mls/hr IV Q2H [facility] Rx#:[id number] Potassium Chloride / Wtr 10 meq 100 / 100 In 100 ml @ 100 mls/hr IV Q1H [facility] Rx#:[id number] metroNIDAZOLE 500 mg In 100 ml 100 / 300 100 / 300 @ 100 mls/hr IV Q8H [facility] Rx#: [id number] Output: Urine Amount (Catheter) 525 / 1600 350 / 1600 [place]/Indwelling 525 / 1600 350 / 1600 Other: Weight 100.4 kg Weight Measurement Method Built in [facility] Diagnostic Findings Telemetry: Second-degree and high-grade AV block over the past 24 hours, heart rate averaging right around 50 bpm. For the most part it appears to be Mobitz 1 second-degree AV block and 2-1 AV block, I do not see any higher degree AV block. PG Care Time/CCT Total # of Minutes Spent Total Time Spent with Patient: Total time spent is greater than 50% in coordination of care (as documented) at patient's floor/unit and/or counseling patient: Coding Level of Care Code 89318 SUB INP/OBS CARE 2/35MIN Diagnoses Atrioventricular dissociation I45.89
--- NOTE | 2023-02-06 13:37 | Pharmacy Report ---
Pharmacy Glycemic Short Note 2 - Date of Service February 06, 2023 - Glycemic Short BSG Results (Last 24 hours): 02/05/23 02/05/23 02/05/23 17:41 20:53 23:53 Glucose POC Glucose 227 H 204 H 244 H 02/06/23 02/06/23 02/06/23 03:38 05:56 08:40 Glucose 164 H POC Glucose 151 H 171 H 02/06/23 11:34 Glucose POC Glucose 196 H OUTPATIENT ANTIDIABETIC REGIMEN: * Metformin 1 g PO BID * Ozempic 2 mg SC weekly * Reportedly has not been taking home meds for > 1 month * HbA1c: 13.8% (02/05/23) ASSESSMENT: 02/06 * BSG's have trended down significantly. Ordered diet for today (no pacemaker planned) but again NPO after midnight tonight. * Will back off of Lantus for now due to trend down in BSG and also planned NPO again tomorrow * No change to Novolog for now 02/05 * 72 yo M admitted on 02/04/23 secondary to pulmonary abscess / mild DKA. Pharmacy has been consulted to assist with inpatient glycemic management. Patient is a Type 2 diabetic as an outpatient. Please refer to outpatient regimen and most recent HbA1c above. * Upon presentation, patient demonstrated mild signs of DKA with anion gap of 18, CO2 of 18, and blood sugar of 414 mg/dL. Patient was not started on an insulin infusion however. Instead, he received about 2.5 L of fluid followed by two IV insulin boluses (6 units x 1 and 5 units x 1). BSGs trended down and repeat BMP on the floor showed acidosis had resolved. A one time dose of Lantus 10 units was given upon arrival to the floor. * BSG was 272 mg/dL this AM with an anion gap of 10 and CO2 of 21. Basal bolus insulin was started at this time. Gave an addition basal dose this morning and will start a BID regiment his evening. Novolog based on weight/stress of 3. * Patient is NPO for the time being. May need to back off insulin once it reaches steady state. Remains on Cefepime and Flagyl for pulmonary abscess. PLAN FOR INPATIENT GLYCEMIC CONTROL: * Hold outpatient oral diabetes medications * Basal insulin * Lantus 0-15 units depending on BSG - see MAR for details * Bolus insulin * NovoLog per scale ACHS or Q6hrs while NPO * Goal Range: Low 110 mg/dL - High 140 mg/dL * Correction Factor: 15 mg/dL/unit * Nutritional / Prandial insulin per carb ratio of 1 unit per 5 grams CHO consumed
--- NOTE | 2023-02-06 14:55 | Communication Note ---
Date of Service: February 06, 2023 Psychiatric liaison nurse got current medication orders from [place] where they're prescribed. Based on that information, I recommend he take: * vortioxetine ("Trintellix") 20 mg QPM with supper * amphetamine-dextroamphetamine XR ("Adderall XR) 20 mg QAM
--- NOTE | 2023-02-06 15:09 | CT Scan Report ---
CT-guided right pleural pigtail catheter placement INDICATION: Loculated right pleural effusion PROCEDURE: Procedure and risks were explained. Informed consent was obtained. A final timeout was com pleted. The patient was originally taken to the ultrasound exam room for the procedure. Ultrasound im aging at the bedside did not reveal a safe window and therefore the patient was taken to CT suite for the procedure. The patient was placed in a left decubitus position on the CT exam table. The right p osterior thorax was prepped and draped in sterile fashion. 1% buffered lidocaine was utilized for ski n anesthesia. Utilizing CT guidance, an 18-gauge Chiba needle was advanced into the loculated right pleural effusio n. A 0.035 Amplatz wire was introduced and exchanged over a wire for a 10 Mohawk locking pigtail cath eter. Approximately 20 mL of yellow pleural fluid was sent to lab for analysis. The pigtail was sutur ed to the skin with 2-0 silk and placed to water seal drainage. The patient tolerated the procedure w ell. Post CT imaging demonstrated adequate pigtail catheter placement. Vital signs will be monitored and a chest x-ray will be obtained on the floor. IMPRESSION: Right pleural pigtail catheter placement as above. Performed, dictated, and signed by Gabriel Candelario PA-C; to be co-signed by Dr. Lico Morales. Electronically signed by: Lico Morales M.D. 02/06/2023 3:16 PM
--- NOTE | 2023-02-06 15:26 | XRay Report ---
XR chest 1V portable CLINICAL HISTORY: s/p rt pleural pigtail placement TECHNIQUE: Single frontal radiograph of the chest was obtained. Comparison: Comparison is made to chest radiograph 02/04/2023 FINDINGS: A right chest tube has been placed. Cardiomegaly is noted. Bilateral lower lung predominant airspace opacities are seen. Right pleural effusion is decreased in size, small bilateral pleural effusions re main. No pneumothorax. IMPRESSION: Interval placement of right portacatheter with decrease in size of pleural effusion. No pneumothorax. ACT 112: Negative or not required by law. Electronically signed by: Bong Wolfe M.D. 02/06/2023 3:25 PM
[2023-02-06 15:40] LABS: Appearance Pleural Fluid Slightly Hazy; Color Pleural Fluid Yellow; RBC Pleural Fluid Auto 4000 /uL; Source Pleural Fluid Right Lung; WBC Pleural Fluid Auto 1563 /uL
[2023-02-06 15:55] LABS: Total Protein Pleural Fluid 3.9 gm/dl
[2023-02-06 16:31] LABS: Lymphocytes, Fluid 2 %; Mono,Macrophage,Mesothelial 6 %; Neutrophils, Fluid 92 %
[2023-02-06] MEDS ORDERED: Nursing to Pharmacy Communication SCH (21:30)
[2023-02-06] MEDS: TAMSULOSIN HCL 0.4 MG CAP PO SCH (21:39)
[2023-02-07 04:23] LABS: Hematocrit (blood only) 33.5 % (42.0-52.0); Hemoglobin 11.5 g/dl (14.0-18.0); Mean Corpuscular Hemoglobin 32.9 pg (25.0-34.0); Mean Corpuscular Hgb Conc 34.3 g/dL (32.0-36.0); Mean Corpuscular Volume 95.7 fL (80.0-100.0); Mean Platelet Volume 10.1 fL (9.4-12.4); Platelet Count 459 K/uL (130-400); RDW Coefficient of Variation 13.3 % (11.5-14.5); White Blood Count 16.67 K/ul (4.8-10.8)
[2023-02-07 04:36] LABS: BUN Creatinine Ratio 27.2 (10-20); Calcium 7.9 mg/dl (8.6-10.3); Creatinine Clr Calc Pharmacy 94.9 ml/min; Est GFR (African American) 102.2 ml/min; Est GFR (Non-African American) 88.2 ml/min; Magnesium 1.7 mg/dl (1.7-2.4); Phosphorus 2.5 mg/dl (2.5-4.9); Potassium 3.9 mmol/L (3.5-5.1)
[2023-02-07 04:59] LABS: INR 1.5 (0.9-1.1)
[2023-02-07] MEDS: CEFEPIME 2,000 MG in SYRINGE 0 ML IV SCH ×3 (05:28→22:31)
[2023-02-07] MEDS ORDERED: LANTUS PER UNIT CHARGE SC ONE (07:30)
--- NOTE | 2023-02-07 07:39 | XRay Report ---
XR chest 1V portable HISTORY: follow up chest tube COMPARISON: Chest 02/06/2023. FINDINGS: Right basilar chest tube is unchanged in position. A small right pleural effusion persists. No pneumothorax. The heart remains enlarged. Right mid to lower lung zone airspace opacities and lef t basilar densities remain unchanged. No acute fractures. IMPRESSION: 1. Right basilar chest tube is unchanged in position. No definite pneumothorax. 2. Small right pleural effusion and right mid to lower lung zone airspace opacities persist. ACT 112: Negative or not required by law. Electronically signed by: Michael Coughlin M.D. 02/07/2023 7:38 AM
--- NOTE | 2023-02-07 07:49 | Hospitalist Progress Note ---
Date of Service February 06, 2023 Assessment & Plan (1) Loculated pleural effusion: Plan: right side s/p IR chest tube placement today initial fluid studies concerning for infectious process / empyema with exudative characteristics, low pH, high LDH, predominant neutrophils, etc cont cefepime cont flagyl await culture defer Rx to pulmonary (2) Aspiration pneumonitis: Plan: right-sided pneumonia aspiration suspected but passed swallow eval by speech therapy remains on cefepime + flagyl day #2 of IV abx (3) DKA (diabetic ketoacidosis): Plan: Very early DKA at time of ER presentation Now resolved Pharmacy managing his DM was only on metformin at home along with ozempic a1c 13.8% will need intensive insulin regimen at discharge (4) Major depressive disorder, recurrent, severe without psychotic features: Plan: appreciate psych consult and recs (5) Noncompliance with medications: Plan: 2nd to #4 (6) Atrioventricular dissociation: Plan: Mobitz 1 as well as 2:1 block appreciate Cardiology/EP eval and recs BPs remain high tolerating the AV block no urgent pacemaker at this time follow on tele he is not on AV clint agents (7) Incontinence of urine: Plan: urinary retention noted in the ED - lanier placed started on tamsulosin - tolerating such (8) Self neglect: Plan: will need PT/OT lives alone but due to multiple issues has not been thriving at home (9) Hyponatremia: Plan: partially due to "pseudo"hyponatremia follow BMPs (10) Hypertension: Plan: lisinopril daily (11) ADHD: Plan: typically on adderall daily currently on hold (12) History of stroke: Plan: 2020 MRI Brain with small R cerebellar CVA at that time and 2 tiny CVAs right parietal lobe no long-term consequences from this per daughter typically on aspirin for secondary prevention cont statin Plan DVT ppx - lovenox 40mg daily but on hold due to procedures Admission and Anticipated Discharge Date Admission Date: February 04, 2023 Subjective patient resting in bed comfortably daughter at bedside denies any dyspnea some cough no chest pain, no pleuritic pain no abd pain no nausea/emesis awaiting going to IR for chest tube placement tele - Mobitz 1 AV block and 2:1 AV block Review of Systems Review of Systems: gen - no fevers cv - no orthopnea pulm - mild cough, no sputum GI - no nausea or emesis Physical Exam Physical Exam: gen - NAD, modest thought blocking vs confusion mouth - MMM neck - no JVD heart - irregular, s1 s2, no murmur lungs - decreased BS right base with rales; left lung more clear, no wheezes abd - soft NT ND BS+ ext - no edema, pulses 2+ b/l psych - awake, alert but answers questions slowly Results & Data Results & Data Vital Signs (Past 12 Hours) Vital Signs Temp Pulse Pulse Resp BP BP Pulse Ox 02/06/23 20:00 37.8 C H 58 L 24 153/62 H 94 02/06/23 17:30 68 20 140/57 L 94 02/06/23 17:01 66 92 02/06/23 17:00 72 20 90 02/06/23 16:47 124/99 02/06/23 16:47 84 31 H 94 02/06/23 16:30 82 28 H 124/99 93 02/06/23 16:00 02/06/23 16:00 67 30 H 118/97 95 02/06/23 15:30 58 L 28 H 92 02/06/23 15:00 78 28 H 02/06/23 12:00 66 33 H 02/06/23 12:00 156/74 H 02/06/23 11:31 95 02/06/23 11:31 70 35 H 02/06/23 11:23 68 33 H 02/06/23 11:00 59 L 33 H 91 02/06/23 10:01 52 L 27 H 94 02/06/23 10:00 58 L 28 H 93 02/06/23 09:01 59 L 28 H 90 02/06/23 09:00 61 34 H 88 L 02/06/23 08:46 60 37 H 91 02/06/23 08:46 113/76 02/06/23 08:42 59 L 95 02/06/23 08:41 67 26 H 96 02/06/23 08:00 02/06/23 08:00 02/06/23 08:00 44 L 02/06/23 08:00 37.1 C 02/06/23 08:00 52 L 22 97 02/06/23 07:42 139/88 02/06/23 07:42 43 L 22 96 Pulse Ox O2 Del Method O2 Del Method O2 Flow Rate O2 Flow Rate 02/06/23 16:00 2 02/06/23 16:00 02/06/23 15:30 02/06/23 15:00 02/06/23 12:00 02/06/23 12:00 02/06/23 11:31 Room Air 02/06/23 11:31 02/06/23 11:23 02/06/23 11:00 Nasal Cannula 2 02/06/23 10:01 02/06/23 10:00 02/06/23 09:01 02/06/23 09:00 02/06/23 08:46 02/06/23 08:46 02/06/23 08:42 Nasal Cannula 2 02/06/23 08:41 02/06/23 08:00 Nasal Cannula 02/06/23 08:00 Nasal Cannula 2 02/06/23 08:00 02/06/23 08:00 02/06/23 08:00 02/06/23 07:42 02/06/23 07:42 Nasal Cannula [address] 02/04/23 20:31 Exam(s): CT CHEST Without Contrast EXAM: CT Chest Without Intravenous Contrast CLINICAL HISTORY: Reason for exam: poss rib fx. TECHNIQUE: Axial computed tomography images of the chest without intravenous contrast. CTDI is 35.79 mGy and DLP is 1280.02 mGy-cm. Automated exposure control was utilized for the study. A dose lowering technique was utilized adhering to the principles of ALARA. COMPARISON: No relevant prior studies available. FINDINGS: Lungs: Consolidation within the right middle lobe with areas of decreased attenuation in the periphery best seen on series 5 images 27-29 concerning for areas of pulmonary necrosis/abscess. No mass. Pleural space: Moderate loculated pleural effusion within the medial right lung base with smaller loculated pleural effusions adjacent to the medial right middle lobe, and to a lesser degree adjacent the consolidation along the lateral right middle lobe. No pneumothorax. Heart: Unremarkable. No cardiomegaly. No significant pericardial effusion. No significant coronary artery calcifications. Bones/joints: Unremarkable. No acute fracture. No dislocation. Soft tissues: Unremarkable. Vasculature: Unremarkable. No thoracic aortic aneurysm. Lymph nodes: Unremarkable. No enlarged lymph nodes. IMPRESSION: 1. Consolidation within the right middle lobe with areas of decreased attenuation in the periphery concerning for areas of pulmonary necrosis/abscess. 2. Moderate loculated pleural effusion within the medial right lung base with smaller loculated pleural effusions adjacent to the right middle lobe. Electronically signed by: Steven Mendez M.D. 02/04/23 22:36 PM Chest X-Ray 02/04/23 20:31 SINGLE VIEW CHEST CLINICAL HISTORY: Generalized weakness. FINDINGS: An AP, portable, upright chest radiograph is compared to study dated 12/07/2020. The heart is enlarged noting atherosclerotic calcification of the thoracic aorta. The pulmonary vasculature is noncongested. There is dense airspace consolidation in the right mid to lower lung. There is a right pleural effusion which tracks along the right lateral chest wall. This is likely partially loculated. The left lung appears clear noting bibasilar atelectasis. No pneumothorax is seen. The skeletal structures are osteopenic. The bony thorax is grossly intact. IMPRESSION: 1. Cardiomegaly without radiographic evidence of congestive failure. 2. There is dense airspace consolidation in the right mid to lower lung. Correlate clinically for evidence of pneumonia/aspiration pneumonitis. Radiographic follow-up to resolution is recommended. 3. Right pleural effusion. ACT 112: Negative or not required by law. Electronically signed by: Hardik Nassar M.D. 02/04/2023 11:[address] 02/04/23 20:40 Exam(s): CT HEAD Without Contrast EXAM: CT Head Without Intravenous Contrast CLINICAL HISTORY: Reason for exam: fall. TECHNIQUE: Axial computed tomography images of the head/brain without intravenous contrast. CTDI is 35.79 mGy and DLP is 1582.02 mGy-cm. Automated exposure control was utilized for the study. A dose lowering technique was utilized adhering to the principles of ALARA. COMPARISON: No relevant prior studies available. FINDINGS: Brain: Unremarkable. No hemorrhage. No significant white matter disease. No edema. Ventricles: Unremarkable. No ventriculomegaly. Bones/joints: Unremarkable. No acute fracture. Soft tissues: Unremarkable. Sinuses: Unremarkable as visualized. No acute sinusitis. Mastoid air cells: Unremarkable as visualized. No mastoid effusion. IMPRESSION: Normal head/brain CT. Electronically signed by: Steven Mendez M.D. 02/04/23 22:[address] 02/06/23 14:18 CT-guided right pleural pigtail catheter placement INDICATION: Loculated right pleural effusion PROCEDURE: Procedure and risks were explained. Informed consent was obtained. A final timeout was completed. The patient was originally taken to the ultrasound exam room for the procedure. Ultrasound imaging at the bedside did not reveal a safe window and therefore the patient was taken to CT suite for the procedure. The patient was placed in a left decubitus position on the CT exam table. The right posterior thorax was prepped and draped in sterile fashion. 1% buffered lidocaine was utilized for skin anesthesia. Utilizing CT guidance, an 18-gauge Chiba needle was advanced into the loculated right pleural effusion. A 0.035 Amplatz wire was introduced and exchanged over a wire for a 10 Moroccan locking pigtail catheter. Approximately 20 mL of yellow pleural fluid was sent to lab for analysis. The pigtail was sutured to the skin with 2-0 silk and placed to water seal drainage. The patient tolerated the procedure well. Post CT imaging demonstrated adequate pigtail catheter placement. Vital signs will be monitored and a chest x-ray will be obtained on the floor. IMPRESSION: Right pleural pigtail catheter placement as above. Performed, dictated, and signed by Gabriel Candelario PA-C; to be co-signed by Dr. Lico Morales. Electronically signed by: Lico Morales M.D. 02/06/2023 3:16 PM Chest X-Ray 02/06/23 14:45 XR chest 1V portable CLINICAL HISTORY: s/p rt pleural pigtail placement TECHNIQUE: Single frontal radiograph of the chest was obtained. Comparison: Comparison is made to chest radiograph 02/04/2023 FINDINGS: A right chest tube has been placed. Cardiomegaly is noted. Bilateral lower lung predominant airspace opacities are seen. Right pleural effusion is decreased in size, small bilateral pleural effusions remain. No pneumothorax. IMPRESSION: Interval placement of right portacatheter with decrease in size of pleural effu hayley. No pneumothorax. ACT 112: Negative or not required by law. Electronically signed by: Bong oWlfe M.D. 02/06/2023 3:25 PM Diagnostic Findings Laboratory Results - last 24 hr 02/06/23 02/06/23 02/06/23 08:40 11:34 14:30 WBC RBC Hgb Hct MCV MCH MCHC RDW Std Deviation RDW Coeff of Yinka Plt Count MPV PT INR Sodium Potassium Chloride Carbon Dioxide Anion Gap BUN Creatinine Est Cr Clr Drug Dosing Est GFR ( Amer) Est GFR (Non-Af Amer) BUN/Creatinine Ratio Glucose POC Glucose 171 H 196 H Calcium Phosphorus Magnesium Fluid Neutrophils % 92 Fluid Lymphocytes % 2 Fluid Meso/Macro/[place] % 6 Fluid Comment Pleural Fluid Source Right Lung Pleural Color Yellow Pleural Appearance Slightly Hazy Pleural pH 7.04 L Pleural WBC (Auto) 1563 Pleural RBC (Auto) 4000 Pleural Total Protein 3.9 Pleural LDH 852 Pleural Glucose 145 Pleural Amylase 11 02/06/23 16:34 WBC RBC Hgb Hct MCV MCH MCHC RDW Std Deviation RDW Coeff of Yinka Plt Count MPV PT INR Sodium Potassium Chloride Carbon Dioxide Anion Gap BUN Creatinine Est Cr Clr Drug Dosing Est GFR ( Amer) Est GFR (Non-Af Amer) BUN/Creatinine Ratio Glucose POC Glucose 246 H Calcium Phosphorus Magnesium Fluid Neutrophils % Fluid Lymphocytes % Fluid Meso/Macro/[place] % Fluid Comment Pleural Fluid Source Pleural Color Pleural Appearance Pleural pH Pleural WBC (Auto) Pleural RBC (Auto) Pleural Total Protein Pleural LDH Pleural Glucose Pleural Amylase PG Care Time/CCT Total # of Minutes Spent Total Time Spent with Patient: Total time spent is greater than 50% in coordination of care (as documented) at patient's floor/unit and/or counseling patient: Coding Level of Care Code 89341 SUB INP/OBS CARE 03/15MIN Diagnoses Loculated pleural effusion J90 Aspiration pneumonitis J69.0 DKA (diabetic ketoacidosis) E13.10 Diabetes mellitus complication detail: without coma Diabetes mellitus type: other specified (including GINGER) Major depressive disorder, recurrent, severe without psychotic features F33.2 Noncompliance with medications Z91.14 Atrioventricular dissociation I45.89 Incontinence of urine R32 Self neglect R46.89 Hyponatremia E87.1 Hypertension I10 ADHD F90.9 History of stroke Z86.73 (3) DKA (diabetic ketoacidosis) Diabetes mellitus complication detail: without coma Diabetes mellitus type: other specified (including GINGER) Qualified Code(s): E13.10 - Other specified diabetes mellitus with ketoacidosis without coma
[2023-02-07] MEDS: INSULIN ASPART PER UNIT CHARGE SC SCH ×4 (07:53→20:24)
[2023-02-07] MEDS: metroNIDAZOLE 500 MG/100 ML BAG IV SCH ×2 (07:55→15:41)
[2023-02-07] MEDS: ATORVASTATIN 40 MG TAB PO SCH (08:00)
[2023-02-07] MEDS: lisinopril 10 MG TAB PO SCH (08:01)
[2023-02-07] MEDS: THIAMINE HCL 100 MG TAB PO SCH (08:01)
--- NOTE | 2023-02-07 09:57 | Pulmonology Progress Note ---
Date of Service February 07, 2023 Assessment & Plan (1) Loculated pleural effusion: (2) Aspiration pneumonia: Plan Patient appears to be improving from a pneumonia standpoint. Right pigtail catheter placed 02/06/2023 for a loculated pleural effusion. Fluid appears to be exudative with a low pH. Suspect parapneumonic effusion. Cultures pending. Repeat chest x-ray with mild improvement of pleural effusion. Will flush the catheter with saline and consider instillation of tPA and dornase if no significant drainage after flushing the catheter with saline. Continue broad-spectrum antibiotics. Will continue to follow. Thank you for the consult. Admission and Anticipated Discharge Date Admission Date: February 04, 2023 Subjective Patient seen and examined. Denies any significant chest pain or shortness of breath at present. Pigtail catheter draining minimal fluid. Review of Systems Review of Systems: All systems reviewed & are unremarkable except as noted in HPI & below Physical Exam Physical Exam: Constitutional: Patient appears to be of their stated age. Patient is in no apparent distress. Patient is well-developed. Eyes: Pupils are equal round and reactive to light. Conjunctivae are normal. Anicteric sclera. Ears nose, mouth and throat: Mallampati class 2. Normal posterior oropharynx. Uvula is midline. Neck: Trachea is midline. Visual inspection is normal. Respiratory: Mild crackles. No increased work of breathing. Cardiovascular: Regular rate and rhythm. No murmurs. No edema. Gastrointestinal: Normal bowel sounds, soft, nontender and nondistended. No hepatosplenomegaly noted. Musculoskeletal: No cyanosis. Patient is able to move all extremities. Strength is 5 out of 5 in the upper and lower extremities. Skin: No rashes, warm dry and intact. Neurologic: No obvious focal neurological deficits seen. Psychiatric: Flat affect and mood. Results & Data Results & Data Vital Signs (Past 12 Hours) Vital Signs Temp Pulse Pulse Resp BP Pulse Ox Pulse Ox 02/07/23 08:00 02/07/23 08:00 61 02/07/23 07:14 36.7 C 53 L 22 164/68 H 98 02/07/23 04:03 37.6 C 59 L 24 161/40 H 97 02/07/23 01:00 95 02/07/23 00:02 60 02/06/23 23:48 37.3 C 56 L 24 94 O2 Del Method O2 Del Method O2 Flow Rate O2 Flow Rate 02/07/23 08:00 Nasal Cannula 3 02/07/23 08:00 02/07/23 07:14 Nasal Cannula 3 02/07/23 04:03 Nasal Cannula 3 02/07/23 01:00 Nasal Cannula 3 02/07/23 00:02 02/06/23 23:48 Nasal Cannula 3 PG Care Time/CCT Total # of Minutes Spent Total Time Spent with Patient: Total time spent is greater than 50% in coordination of care (as documented) at patient's floor/unit and/or counseling patient: Coding Level of Care Code 16034 SUB INP/OBS CARE 2/35MIN Diagnoses Loculated pleural effusion J90 Aspiration pneumonia J69.0
--- NOTE | 2023-02-07 10:46 | Pharmacy Report ---
Pharmacy Glycemic Short Note 2 - Date of Service February 07, 2023 - Glycemic Short BSG Results (Last 24 hours): 02/06/23 02/06/23 02/06/23 11:34 16:34 21:01 Glucose POC Glucose 196 H 246 H 183 H 02/07/23 02/07/23 03:44 07:12 Glucose 173 H POC Glucose 192 H OUTPATIENT ANTIDIABETIC REGIMEN: * Metformin 1 g PO BID * Ozempic 2 mg SC weekly * Reportedly has not been taking home meds for > 1 month * HbA1c: 13.8% (02/05/23) ASSESSMENT: 02/07: * AM fasting BSG >180 mg/dL today, but patient once again NPO. May be considered for diet later today. Will cautiously increase Lantus this AM. * Post-prandial BSG's elevated >180 mg/dL when patient was consuming a good amount of CHO with meals. Will tighten CHO ratio. 02/06 * BSG's have trended down significantly. Ordered diet for today (no pacemaker planned) but again NPO after midnight tonight. * Will back off of Lantus for now due to trend down in BSG and also planned NPO again tomorrow * No change to Novolog for now 02/05 * 72 yo M admitted on 02/04/23 secondary to pulmonary abscess / mild DKA. Pharmacy has been consulted to assist with inpatient glycemic management. Patient is a Type 2 diabetic as an outpatient. Please refer to outpatient regimen and most recent HbA1c above. * Upon presentation, patient demonstrated mild signs of DKA with anion gap of 18, CO2 of 18, and blood sugar of 414 mg/dL. Patient was not started on an insulin infusion however. Instead, he received about 2.5 L of fluid followed by two IV insulin boluses (6 units x 1 and 5 units x 1). BSGs trended down and repeat BMP on the floor showed acidosis had resolved. A one time dose of Lantus 10 units was given upon arrival to the floor. * BSG was 272 mg/dL this AM with an anion gap of 10 and CO2 of 21. Basal bolus insulin was started at this time. Gave an addition basal dose this morning and will start a BID regiment his evening. Novolog based on weight/stress of 3. * Patient is NPO for the time being. May need to back off insulin once it reaches steady state. Remains on Cefepime and Flagyl for pulmonary abscess. PLAN FOR INPATIENT GLYCEMIC CONTROL: * Hold outpatient oral diabetes medications * Basal insulin * Lantus 20 units x1 this AM then 10-20 units tonight, depending on BSG - see MAR for details * Bolus insulin * NovoLog per scale ACHS or Q6hrs while NPO * Goal Range: Low 110 mg/dL - High 140 mg/dL * Correction Factor: 15 mg/dL/unit * Nutritional / Prandial insulin per carb ratio of 1 unit per 4 grams CHO consumed
[2023-02-07 11:01] LABS: Glucose Pleural Fluid 70 mg/dl; LDH Pleural Fluid 428 U/L; Total Protein Pleural Fluid < 3.0 gm/dl
[2023-02-07 12:06] LABS: Appearance Pleural Fluid Clear; Color Pleural Fluid Pale Yellow; Mono,Macrophage,Mesothelial 5 %; Neutrophils, Fluid 95 %; RBC Pleural Fluid Auto < 2000 /uL; Source Pleural Fluid Right Lung; WBC Pleural Fluid Auto 511 /uL
[2023-02-07] MEDS: ENOXAPARIN INJ 40 MG/0.4 ML SYR SQ SCH (17:19)
--- NOTE | 2023-02-07 18:32 | Hospitalist Progress Note ---
Date of Service February 07, 2023 Assessment & Plan (1) Acute metabolic encephalopathy: Plan: suspect 2nd to pneumonia can't rule out other processes - subacute CVA, etc ammonia level wnl VBG without hypercapnia low threshold for MRI brain given previous h/o stroke 2020 supportive care avoid sedatives, benzos, etc (2) Loculated pleural effusion: Plan: right side s/p IR chest tube placement yesterday initial fluid studies concerning for infectious process / empyema with exudative characteristics, low pH, high LDH, predominant neutrophils, etc however, no growth on the pleural fluid cx to date minimal output from the chest tube since placement cont cefepime cont flagyl follow culture defer Rx to pulmonary - MIST-2 protocol needed? cxr in am (3) Aspiration pneumonitis: Plan: right-sided pneumonia initially aspiration had been suspected but passed swallow eval by speech therapy remains on cefepime + flagyl day #3 of IV abx (4) DKA (diabetic ketoacidosis): Plan: Very early DKA at time of ER presentation Now resolved Pharmacy managing his DM was only on metformin at home along with ozempic a1c 13.8% will need intensive insulin regimen at discharge (5) Major depressive disorder, recurrent, severe without psychotic features: Plan: appreciate psych consult and recs resume Trintellix (6) Noncompliance with medications: Plan: 2nd to depression? other? (7) Atrioventricular dissociation: Plan: Mobitz 1 as well as 2:1 block appreciate Cardiology/EP eval and recs BPs remain high tolerating the AV block no urgent pacemaker at this time follow on tele he is not on AV clint agents (8) Incontinence of urine: Plan: urinary retention noted in the ED - lanier placed started on tamsulosin - tolerating such (9) Self neglect: Plan: PT/OT evals ordered lives alone but due to multiple issues has not been thriving at home (10) Hyponatremia: Plan: partially due to "pseudo"hyponatremia serum osm noted Na level stable follow BMPs (11) Hypertension: Plan: lisinopril daily but uncontrolled add amlodipine 5mg daily (12) ADHD: Plan: typically on adderall daily currently on hold (13) History of stroke: Plan: 2020 MRI Brain with small R cerebellar CVA at that time and 2 tiny CVAs right parietal lobe no long-term consequences from this per daughter typically on aspirin for secondary prevention cont statin Plan DVT ppx - lovenox 40mg daily Admission and Anticipated Discharge Date Admission Date: February 04, 2023 Subjective patient confused during the visit slow to answer questions sleepy - in fact he fell asleep while we were talking he knew he was at [facility], but could not provide any other pertinent history/ROS staff report he has been sleepy much of the day very weak no plans for pacemaker placement today although chest tube is in place there has been little drainage from the tube Review of Systems Review of Systems: Unobtainable due to cognitive status Physical Exam Physical Exam: gen - NAD, sleepy/confused/borderline lethargic -- falling asleep during the visit mouth - MMM neck - no JVD heart - irregular, s1 s2, no murmur lungs - decreased BS right base with rales; left lung clear; no wheezes; +tachypnea; +mild retractions abd - soft NT ND BS+ ext - no edema, pulses 2+ b/l psych - confused, sleepy neuro - no asterixis; moves all 4 limbs equally; speech clear/fluent Results & Data Results & Data Vital Signs (Past 12 Hours) Vital Signs Temp Pulse Pulse Resp BP Pulse Ox O2 Del Method 02/07/23 16:00 62 02/07/23 15:00 36.7 C 64 18 184/78 H 96 Nasal Cannula 02/07/23 12:43 36.9 C 64 22 161/104 H 94 Nasal Cannula 02/07/23 08:00 Nasal Cannula 02/07/23 08:00 61 02/07/23 07:14 36.7 C 53 L 22 164/68 H 98 Nasal Cannula O2 Flow Rate 02/07/23 16:00 02/07/23 15:00 2 02/07/23 12:43 3 02/07/23 08:00 3 02/07/23 08:00 02/07/23 07:14 3 Laboratory Results Laboratory Results 02/06/23 02/06/23 02/06/23 03:38 08:40 11:34 WBC RBC Hgb Hct MCV MCH MCHC RDW Std Deviation RDW Coeff of Yinka Plt Count MPV PT 14.8 H INR 1.4 H VBG pH VBG pCO2 VBG pO2 VBG HCO3 VBG O2 Saturation VBG Base Excess Sodium Potassium Chloride Carbon Dioxide Anion Gap BUN Creatinine Est Cr Clr Drug Dosing Est GFR ( Amer) Est GFR (Non-Af Amer) BUN/Creatinine Ratio Glucose POC Glucose 171 H 196 H Osmolality Lactate Calcium Phosphorus Magnesium Ammonia Fluid Neutrophils % Fluid Lymphocytes % Fluid [place] % Fluid Comment Pleural Fluid Source Pleural Color Pleural Appearance Pleural pH Pleural WBC (Auto) Pleural RBC (Auto) Pleural Total Protein Pleural LDH Pleural Glucose Pleural Amylase 02/06/23 02/06/23 02/06/23 14:30 16:34 21:01 WBC RBC Hgb Hct MCV MCH MCHC RDW Std Deviation RDW Coeff of Yinka Plt Count MPV PT INR VBG pH VBG pCO2 VBG pO2 VBG HCO3 VBG O2 Saturation VBG Base Excess Sodium Potassium Chloride Carbon Dioxide Anion Gap BUN Creatinine Est Cr Clr Drug Dosing Est GFR ( Amer) Est GFR (Non-Af Amer) BUN/Creatinine Ratio Glucose POC Glucose 246 H 183 H Osmolality Lactate Calcium Phosphorus Magnesium Ammonia Fluid Neutrophils % 92 Fluid Lymphocytes % 2 Fluid [place] % 6 Fluid Comment Pleural Fluid Source Right Lung Pleural Color Yellow Pleural Appearance Slightly Hazy Pleural pH 7.04 L Pleural WBC (Auto) 1563 Pleural RBC (Auto) 4000 Pleural Total Protein 3.9 Pleural LDH 852 Pleural Glucose 145 Pleural Amylase 11 02/07/23 02/07/23 02/07/23 03:44 07:12 10:30 WBC 16.67 H RBC 3.50 L Hgb 11.5 L Hct 33.5 L MCV 95.7 MCH 32.9 MCHC 34.3 RDW Std Deviation 47.0 H RDW Coeff of Yinka 13.3 Plt Count 459 H MPV 10.1 PT 16.0 H INR 1.5 H VBG pH VBG pCO2 VBG pO2 VBG HCO3 VBG O2 Saturation VBG Base Excess Sodium 132 L Potassium 3.9 Chloride 99 Carbon Dioxide 25 Anion Gap 8 BUN 22 Creatinine 0.81 Est Cr Clr Drug Dosing 94.9 Est GFR ( Amer) 102.2 Est GFR (Non-Af Amer) 88.2 BUN/Creatinine Ratio 27.2 H Glucose 173 H POC Glucose 192 H Osmolality Lactate Calcium 7.9 L Phosphorus 2.5 Magnesium 1.7 Ammonia Fluid Neutrophils % 95 Fluid Lymphocytes % Fluid [place] % 5 Fluid Comment Pleural Fluid Source Right Lung Pleural Color Pale Yellow Pleural Appearance Clear Pleural pH Pleural WBC (Auto) 511 Pleural RBC (Auto) < 2000 Pleural Total Protein < 3.0 Pleural LDH 428 Pleural Glucose 70 Pleural Amylase 02/07/23 02/07/23 02/07/23 11:16 16:07 18:41 WBC RBC Hgb Hct MCV MCH MCHC RDW Std Deviation RDW Coeff of Yinka Plt Count MPV PT INR VBG pH 7.47 H VBG pCO2 35 L VBG pO2 72 VBG HCO3 26 VBG O2 Saturation 95.9 VBG Base Excess 2.1 Sodium 132 L Potassium Chloride Carbon Dioxide Anion Gap BUN Creatinine Est Cr Clr Drug Dosing Est GFR ( Amer) Est GFR (Non-Af Amer) BUN/Creatinine Ratio Glucose POC Glucose 166 H 141 H Osmolality 280 Lactate 1.1 Calcium Phosphorus Magnesium Ammonia 33.0 Fluid Neutrophils % Fluid Lymphocytes % Fluid [place] % Fluid Comment Pleural Fluid Source Pleural Color Pleural Appearance Pleural pH Pleural WBC (Auto) Pleural RBC (Auto) Pleural Total Protein Pleural LDH Pleural Glucose Pleural Amylase PG Care Time/CCT Total # of Minutes Spent Total Time Spent with Patient: Total time spent is greater than 50% in coordination of care (as documented) at patient's floor/unit and/or counseling patient: Coding Level of Care Code 74581 SUB INP/OBS CARE 235MIN Diagnoses Acute metabolic encephalopathy G93.41 Loculated pleural effusion J90 Aspiration pneumonitis J69.0 DKA (diabetic ketoacidosis) E13.10 Diabetes mellitus complication detail: without coma Diabetes mellitus type: other specified (including GINGER) Major depressive disorder, recurrent, severe without psychotic features F33.2 Noncompliance with medications Z91.14 Atrioventricular dissociation I45.89 Incontinence of urine R32 Self neglect R46.89 Hyponatremia E87.1 Hypertension I10 ADHD F90.9 History of stroke Z86.73 (4) DKA (diabetic ketoacidosis) Diabetes mellitus complication detail: without coma Diabetes mellitus type: other specified (including GINGER) Qualified Code(s): E13.10 - Other specified diabetes mellitus with ketoacidosis without coma
[2023-02-07] MEDS ORDERED: amLODIPine BESYLATE 5 MG TAB PO ONE (19:00)
[2023-02-07 19:04] LABS: Base Excess VBG 2.1 mEq/L; HCO3 VBG 26 mmol/L; Oxygen Saturation VBG 95.9 %; PCO2 VBG 35 mmHg (38-50); PO2 VBG 72 mmHg; pH VBG 7.47 (7.36-7.41)
[2023-02-07] MEDS: TAMSULOSIN HCL 0.4 MG CAP PO SCH (20:25)
[2023-02-07] MEDS ORDERED: LANTUS PER UNIT CHARGE SC SCH (21:00)
[2023-02-08] MEDS: metroNIDAZOLE 500 MG/100 ML BAG IV SCH ×3 (00:24→15:35)
[2023-02-08 05:21] LABS: Magnesium 1.6 mg/dl (1.7-2.4); Phosphorus 2.6 mg/dl (2.5-4.9)
[2023-02-08] MEDS: CEFEPIME 2,000 MG in SYRINGE 0 ML IV SCH ×3 (05:37→20:45)
[2023-02-08 06:08] LABS: BUN Creatinine Ratio 29.9 (10-20); Calcium 7.7 mg/dl (8.6-10.3); Creatinine Clr Calc Pharmacy 113.5 ml/min; Est GFR (African American) 110.5 ml/min; Est GFR (Non-African American) 95.3 ml/min; Potassium 3.5 mmol/L (3.5-5.1)
[2023-02-08] MEDS: MAGNESIUM SULFATE / D5W 1 GM/100 ML BAG IV SCH ×2 (06:25→08:13)
[2023-02-08] MEDS: INSULIN ASPART PER UNIT CHARGE SC SCH ×4 (07:49→20:35)
[2023-02-08] MEDS: ATORVASTATIN 40 MG TAB PO SCH (07:51)
[2023-02-08] MEDS: THIAMINE HCL 100 MG TAB PO SCH (07:51)
[2023-02-08] MEDS: lisinopril 10 MG TAB PO SCH (07:51)
--- NOTE | 2023-02-08 08:50 | XRay Report ---
XR chest 2V PA/lateral CLINICAL HISTORY: follow up pleural effusion COMPARISON STUDY: Chest CT February 04, 2023. Chest radiograph February 07, 2023. FINDINGS: Right pleural catheter is unchanged in position. There is no pneumothorax. Small loculated right pleural effusion is similar to prior chest radiograph. This is improved when compared to CT of February 04, 2023. Right lung airspace opacities persist. No evidence for pulmonary edema. Hazy left basilar opacity favors atelectasis or epicardial fat pad. Cardiomediastinal silhouette is stable. IMPRESSION: No change in position of a right pleural catheter. No pneumothorax. Stable small loculated right pleu ral effusion and right lung airspace opacities. ACT 112: Negative or not required by law. Electronically signed by: Lico Morales M.D. 02/08/2023 8:49 AM
[2023-02-08] MEDS ORDERED: LANTUS PER UNIT CHARGE SC ONE ×2 (09:00→21:00)
[2023-02-08] MEDS ORDERED: VORTIOXETINE HYDROBROMIDE PO SCH (09:00)
[2023-02-08] MEDS: ACETAMINOPHEN 325 MG TAB PO PRN (09:03)
[2023-02-08 09:23] LABS: Basophils # (auto) 0.08 K/uL (0.00-0.20); Basophils % (auto) 0.5 %; Eosinophils # (auto) 0.11 K/uL (0.00-0.50); Eosinophils % (auto) 0.7 %; Hematocrit (blood only) 33.1 % (42.0-52.0); Hemoglobin 11.5 g/dl (14.0-18.0); Immature Granulocytes # (auto) 0.13 K/uL (0.01-0.20); Immature Granulocytes % (auto) 0.8 %; Lymphocytes # (auto) 1.36 K/uL (1.20-3.40); Lymphocytes % (auto) 8.8 %; Mean Corpuscular Hemoglobin 33.1 pg (25.0-34.0); Mean Corpuscular Hgb Conc 34.7 g/dL (32.0-36.0); Mean Corpuscular Volume 95.4 fL (80.0-100.0); Mean Platelet Volume 10.5 fL (9.4-12.4); Monocytes # (auto) 0.91 K/uL (0.11-0.59); Monocytes % (auto) 5.9 %; Neutrophils # (auto) 12.93 K/uL (1.40-6.50); Neutrophils % (auto) 83.3 %; Platelet Count 457 K/uL (130-400); RDW Coefficient of Variation 13.4 % (11.5-14.5); RDW Standard Deviation 46.8 fL (36.4-46.3); Red Blood Count 3.47 M/uL (4.70-6.10); White Blood Count 15.52 K/ul (4.8-10.8)
[2023-02-08] MEDS: HYDROmorphone INJ 0.5 MG/0.5 ML SYR IV PRN ×2 (09:30→17:51)
--- NOTE | 2023-02-08 09:56 | Pulmonary Consultation ---
Date of Consultation February 08, 2023 History of Present Illness Attending Physician: Gage Whitmore MD Allergies Allergy/AdvReac Type Severity Reaction Status Date / Time erythromycin base Allergy Intermediate Hives Verified 02/04/23 22:44 Penicillins Allergy Intermediate Hives Verified 02/04/23 22:44 Home Medications Medication Instructions Recorded Confirmed Type aspirin 81 mg tablet,delayed 81 mg PO DAILY 03/17/19 02/04/23 History release metformin 500 mg tablet,extended 1,000 mg (2 x 500 mg) PO BID #120 03/19/19 02/04/23 Rx release 24 hr tabs insulin syringe-needle U-100 0.5 #10 ea 05/11/20 02/04/23 History mL 31 gauge x 5/16" (BD Insulin Syringe Ultra-Fine) lancets (Accu-Chek Fastclix Lancet 05/11/20 02/04/23 History Drum) FreeStyle Marta 2 Sensor (flash #1 ea 07/30/20 02/04/23 Rx glucose sensor) blood sugar diagnostic (Accu-Chek 09/09/20 02/04/23 History Guide test strips) atorvastatin 40 mg tablet 40 mg PO DAILY #30 tabs 12/13/20 02/04/23 Rx miconazole nitrate 2 % topical 1 applic EXT BID #85 grams 12/13/20 02/04/23 Rx powder (Desenex) thiamine HCl (vitamin B1) 100 mg 100 mg PO QAM #30 tabs 12/13/20 02/04/23 Rx tablet (Vitamin B-1) buspirone 5 mg tablet 0 mg PO DIRECTED 02/04/23 02/04/23 History lisinopril 10 mg tablet 10 mg PO DAILY 02/04/23 02/04/23 History semaglutide 0.25 mg or 0.5 mg (2 0.5 mg subcut .WEEKLY 02/04/23 02/04/23 History mg/3 mL) subcutaneous pen injector (Ozempic) vortioxetine 5 mg tablet 20 mg PO DAILYBD 02/04/23 02/06/23 History (Trintellix) Adderall XR 20 mg PO DAILY 02/06/23 02/06/23 History Patient History Medical History (Updated 02/08/23 @ 06:04 by Gage Whitmore MD) Anemia Major depressive disorder, recurrent, severe without psychotic features Aspiration pneumonia Pleurisy Loculated pleural effusion Self neglect Depressed Incontinence of urine Pulmonary abscess PFO (patent foramen ovale) Cerebral aneurysm T2DM (type 2 diabetes mellitus) Uncontrolled type 2 diabetes mellitus First degree AV block Left anterior fascicular block [place] Abnormal ECG Hyperlipidemia Obesity Depression Hypertension Diabetes Prediabetes ADHD Depression Surgical History Hx of vasectomy History of rectal surgery x3 for an abscess in anal sphincter History of colonoscopy History of root canal procedure multiple History of wisdom tooth extraction History of tonsillectomy Hx of eye surgery Family History Father Family history of diabetes mellitus Diabetes Hypertension Heart disease Brother Prostate cancer Other No family history of adverse response to anesthesia Social History Smoking Status: Former smoker Tobacco Type: Cigars Second Hand Exposure: Yes; Do You Dip or Chew Tobacco: No; Hx Alcohol Use: No Hx Substance Use: No Preferred Language: Lithuanian Communication Ability: Effective 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 Beliefs That Will Affect Care: None marital status: Single Current Living Situation: Alone Current Living Situation Comment: pt lives with daughter per history and physical by MD Feels Safe at Home: Yes Assistive Devices: None Results & Data Results & Data Vital Signs (Past 12 Hours) Vital Signs Temp Pulse Pulse Resp BP BP Pulse Ox 02/08/23 08:00 02/08/23 07:19 36.4 C L 65 20 136/72 95 02/08/23 05:51 37.1 C 70 24 158/76 H 95 02/08/23 01:00 02/08/23 00:00 72 02/07/23 23:14 37.4 C 73 24 141/74 H 94 Pulse Ox O2 Del Method O2 Del Method O2 Flow Rate O2 Flow Rate 02/08/23 08:00 Nasal Cannula 2 02/08/23 07:19 Nasal Cannula 2.0 02/08/23 05:51 Nasal Cannula 3 02/08/23 01:00 94 Nasal Cannula 3 02/08/23 00:00 02/07/23 23:14 Nasal Cannula 3 PG Care Time/CCT Total # of Minutes Spent Total Time Spent with Patient: Total time spent is greater than 50% in coordination of care (as documented) at patient's floor/unit and/or counseling patient: Coding
[2023-02-08] MEDS: amLODIPine BESYLATE 5 MG TAB PO SCH (09:57)
--- NOTE | 2023-02-08 10:45 | Pharmacy Report ---
Pharmacy Glycemic Short Note 2 - Date of Service February 08, 2023 - Glycemic Short BSG Results (Last 24 hours): 02/07/23 02/07/23 02/07/23 11:16 16:07 20:08 Glucose POC Glucose 166 H 141 H 238 H 02/08/23 02/08/23 04:27 07:21 Glucose 181 H POC Glucose 196 H OUTPATIENT ANTIDIABETIC REGIMEN: * Metformin 1 g PO BID * Ozempic 2 mg SC weekly * Reportedly has not been taking home meds for > 1 month * HbA1c: 13.8% (02/05/23) ASSESSMENT: 02/08 * Patient now ordered a diet. Also, is no longer ICU status, making tighter glycemic control more reasonable. * AM fasting BSG elevated. Will increase Lantus. * Minimal PO intake yesterday *charted* despite starting diet later in the day, however, significant jump in BSG from dinner to HS suspicious for uncovered CHO consumption prior. No change to Novolog for now - will assess ongoing trend in BSG's post-prandially. 02/07: * AM fasting BSG >180 mg/dL today, but patient once again NPO. May be considered for diet later today. Will cautiously increase Lantus this AM. * Post-prandial BSG's elevated >180 mg/dL when patient was consuming a good amount of CHO with meals. Will tighten CHO ratio. 02/06 * BSG's have trended down significantly. Ordered diet for today (no pacemaker planned) but again NPO after midnight tonight. * Will back off of Lantus for now due to trend down in BSG and also planned NPO again tomorrow * No change to Novolog for now 02/05 * 72 yo M admitted on 02/04/23 secondary to pulmonary abscess / mild DKA. Pharmacy has been consulted to assist with inpatient glycemic management. Patient is a Type 2 diabetic as an outpatient. Please refer to outpatient regimen and most recent HbA1c above. * Upon presentation, patient demonstrated mild signs of DKA with anion gap of 18, CO2 of 18, and blood sugar of 414 mg/dL. Patient was not started on an insulin infusion however. Instead, he received about 2.5 L of fluid followed by two IV insulin boluses (6 units x 1 and 5 units x 1). BSGs trended down and repeat BMP on the floor showed acidosis had resolved. A one time dose of Lantus 10 units was given upon arrival to the floor. * BSG was 272 mg/dL this AM with an anion gap of 10 and CO2 of 21. Basal bolus insulin was started at this time. Gave an addition basal dose this morning and will start a BID regiment his evening. Novolog based on weight/stress of 3. * Patient is NPO for the time being. May need to back off insulin once it reaches steady state. Remains on Cefepime and Flagyl for pulmonary abscess. PLAN FOR INPATIENT GLYCEMIC CONTROL: * Hold outpatient oral diabetes medications * Basal insulin * Lantus 30 units x1 this AM then 10-20 units tonight, depending on BSG - see MAR for details * Bolus insulin * NovoLog per scale ACHS or Q6hrs while NPO * Goal Range: Low 110 mg/dL - High 140 mg/dL * Correction Factor: 15 mg/dL/unit * Nutritional / Prandial insulin per carb ratio of 1 unit per 4 grams CHO consumed
[2023-02-08] MEDS: ENOXAPARIN INJ 40 MG/0.4 ML SYR SQ SCH (15:35)
[2023-02-08] MEDS ORDERED: SODIUM CHLORIDE 1 GM TABLET PO STA (18:30)
--- NOTE | 2023-02-08 20:15 | Hospitalist Progress Note ---
Date of Service February 08, 2023 Assessment & Plan (1) Acute metabolic encephalopathy: Plan: likely was due to pneumonia improved ammonia level wnl VBG without hypercapnia if mental status worsens again would obtain MRI brain given previous h/o stroke 2020 cont supportive care cont IV abx avoid sedatives, benzos, etc (2) Loculated pleural effusion: Plan: right side s/p IR chest tube placement initial fluid studies concerning for infectious process / empyema with exudative characteristics, low pH, high LDH, predominant neutrophils, etc however, no growth on the pleural fluid cx to date; thus - effusion likely parapneumonic in etiology cxr from this am noted Dr Gordon pulled the chest tube today cont cefepime cont flagyl (3) Aspiration pneumonitis: Plan: right-sided pneumonia initially aspiration had been suspected but passed swallow eval by speech therapy remains on cefepime + flagyl day #4 of IV abx may be able to transition to PO abx tomorrow in light of #2 Dr Gordon recommending 14 days of Rx (4) DKA (diabetic ketoacidosis): Plan: Very early DKA at time of ER presentation Now resolved Pharmacy managing his DM was only on metformin at home along with ozempic a1c 13.8% will need intensive insulin regimen at discharge (5) Major depressive disorder, recurrent, severe without psychotic features: Plan: appreciate psych consult and recs resumed Trintellix (6) Noncompliance with medications: Plan: 2nd to depression? underlying cognitive impairment? other? (7) Atrioventricular dissociation: Plan: Mobitz 1 as well as 2:1 block have been seen while here at one point early in the stay there was complete AV dissociation appreciate Cardiology/EP eval and recs tolerating the AV block thus far no urgent pacemaker at this time follow on tele he is not on AV clint agents (8) Incontinence of urine: Plan: urinary retention noted in the ED - lanier placed started on tamsulosin - tolerating such voiding trial prior to discharge admit u/a not suggestive of UTI (9) Self neglect: Plan: PT/OT evals ordered lives alone but due to multiple issues has not been thriving at home likely to need rehab post-d/c (10) Hyponatremia: Plan: partially due to "pseudo"hyponatremia some of the hyponatremia may be from SIADH as well if SIADH is present - likely due to pneumonia on exam today he is euvolemic serum osm noted to be normal urine osm very high urine Na nearly 100 NaCl tab 2gm x 1 now repeat BMP am (11) Hypertension: Plan: lisinopril daily but uncontrolled added amlodipine 5mg daily - BPs improved (12) ADHD: Plan: typically on adderall daily currently on hold (13) History of stroke: Plan: 2020 MRI Brain with small R cerebellar CVA at that time and 2 tiny CVAs right parietal lobe no long-term consequences from this per daughter typically on aspirin for secondary prevention - resume in am tomorrow cont statin Plan DVT ppx - lovenox 40mg daily left message for pt's daughter on her voicemail this evening care d/w Dr Gordon Admission and Anticipated Discharge Date Admission Date: February 04, 2023 Subjective patient had right-sided chest tube removed by Dr Gordon today during the visit he was complaining of pain over the right chest wall site prior to CT removal he had had a fairly good day per nursing was eating/drinking robustly drank at least 1000cc of fluid today more awake/alert during my visit he only complained of the right chest wall pain denied substernal pain denied left sided chest pain denied dyspnea at rest denied N/V 2:1 block present on tele Review of Systems Review of Systems: gen - ongoing fatigue; no fevers cv - see HPI pulm - no significant sputum GI - no abd pain/nausea/emesis neuro - no dizziness with standing/walking Physical Exam Physical Exam: gen - having active pain in right chest, much more awake/alert today, mouth - MMM neck - no JVD heart - irregular, s1 s2, no murmur lungs - decreased BS right base; left lung clear; no wheezes; no increased work of breathing today abd - soft NT ND BS+ ext - no edema, pulses 2+ b/l psych - more awake/alert today skin - normal turgor, cap refill < 2 sec Results & Data Results & Data Vital Signs (Past 12 Hours) Vital Signs Temp Pulse Resp BP BP Pulse Ox O2 Del Method 02/08/23 19:45 36.8 C 61 18 123/69 94 Nasal Cannula 02/08/23 15:26 36.4 C L 66 22 120/71 93 Nasal Cannula 02/08/23 11:28 36.8 C 71 16 124/76 92 Nasal Cannula O2 Flow Rate 02/08/23 19:45 2 02/08/23 15:26 2.0 02/08/23 11:28 2.0 Laboratory Results Laboratory Results - last 24 hr 02/08/23 02/08/23 02/08/23 04:27 04:28 07:21 WBC 15.52 H RBC 3.47 L Hgb 11.5 L Hct 33.1 L MCV 95.4 MCH 33.1 MCHC 34.7 RDW Std Deviation 46.8 H RDW Coeff of Yinka 13.4 Plt Count 457 H MPV 10.5 Immature Gran % (Auto) 0.8 Neut % (Auto) 83.3 Lymph % (Auto) 8.8 Luce % (Auto) 5.9 Eos % (Auto) 0.7 Baso % (Auto) 0.5 Neut # (Auto) 12.93 H Lymph # (Auto) 1.36 Luce # (Auto) 0.91 H Eos # (Auto) 0.11 Baso # (Auto) 0.08 Immature Gran # (Auto) 0.13 Sodium 131 L Potassium 3.5 Chloride 100 Carbon Dioxide 22 Anion Gap 9 BUN 20 Creatinine 0.67 Est Cr Clr Drug Dosing 113.5 Est GFR ( Amer) 110.5 Est GFR (Non-Af Amer) 95.3 BUN/Creatinine Ratio 29.9 H Glucose 181 H POC Glucose 196 H Calcium 7.7 L Phosphorus 2.6 Magnesium 1.6 L Urine Osmolality Ur Random Sodium 02/08/23 02/08/23 02/08/23 10:00 11:27 16:22 WBC RBC Hgb Hct MCV MCH MCHC RDW Std Deviation RDW Coeff of Yinka Plt Count MPV Immature Gran % (Auto) Neut % (Auto) Lymph % (Auto) Luce % (Auto) Eos % (Auto) Baso % (Auto) Neut # (Auto) Lymph # (Auto) Luce # (Auto) Eos # (Auto) Baso # (Auto) Immature Gran # (Auto) Sodium Potassium Chloride Carbon Dioxide Anion Gap BUN Creatinine Est Cr Clr Drug Dosing Est GFR ( Amer) Est GFR (Non-Af Amer) BUN/Creatinine Ratio Glucose POC Glucose 254 H 229 H Calcium Phosphorus Magnesium Urine Osmolality 826 H Ur Random Sodium 95 Diagnostic Findings pleural fluid cultures negative blood cultures negative PG Care Time/CCT Total # of Minutes Spent Total Time Spent with Patient: Total time spent is greater than 50% in coordination of care (as documented) at patient's floor/unit and/or counseling patient: Coding Level of Care Code 00078 SUB INP/OBS CARE MIN Diagnoses Acute metabolic encephalopathy G93.41 Loculated pleural effusion J90 Aspiration pneumonitis J69.0 DKA (diabetic ketoacidosis) E13.10 Diabetes mellitus complication detail: without coma Diabetes mellitus type: other specified (including GINGER) Major depressive disorder, recurrent, severe without psychotic features F33.2 Noncompliance with medications Z91.14 Atrioventricular dissociation I45.89 Incontinence of urine R32 Self neglect R46.89 Hyponatremia E87.1 Hypertension I10 ADHD F90.9 History of stroke Z86.73 (4) DKA (diabetic ketoacidosis) Diabetes mellitus complication detail: without coma Diabetes mellitus type: other specified (including GINGER) Qualified Code(s): E13.10 - Other specified diabetes mellitus with ketoacidosis without coma
[2023-02-08] MEDS: TAMSULOSIN HCL 0.4 MG CAP PO SCH (20:35)
--- NOTE | 2023-02-08 22:27 | Pulmonology Progress Note ---
Date of Service February 08, 2023 Assessment & Plan (1) Loculated pleural effusion: (2) Aspiration pneumonia: Plan Patient appears to be improving from a pneumonia standpoint. Right pigtail catheter placed 02/06/2023 for a loculated pleural effusion. Fluid appears to be exudative with a low pH. Suspect parapneumonic effusion. Cultures negative. Repeat chest x-ray with mild improvement of pleural effusion. Cytology negative x2. No signs of empyema. Chest tube removed due to minimal drainage 02/08/23. Recommend repeat cxr in 6-7 days. Continue broad-spectrum antibiotics for 14 days. Can switch to PO. No further input. Please call with questions. Admission and Anticipated Discharge Date Admission Date: February 04, 2023 Subjective Minimal output from chest tube. Complaint of pain around chest tube. No fevers, chills or ns. No shortness of breath. Review of Systems Review of Systems: All systems reviewed & are unremarkable except as noted in HPI & below Physical Exam Physical Exam: Constitutional: Patient appears to be of their stated age. Patient is in no apparent distress. Patient is well-developed. Eyes: Pupils are equal round and reactive to light. Conjunctivae are normal. Anicteric sclera. Ears nose, mouth and throat: Mallampati class 2. Normal posterior oropharynx. Uvula is midline. Neck: Trachea is midline. Visual inspection is normal. Respiratory: Mild crackles. No increased work of breathing. Cardiovascular: Regular rate and rhythm. No murmurs. No edema. Gastrointestinal: Normal bowel sounds, soft, nontender and nondistended. No h epatosplenomegaly noted. Musculoskeletal: No cyanosis. Patient is able to move all extremities. Strength is 5 out of 5 in the upper and lower extremities. Skin: No rashes, warm dry and intact. Neurologic: No obvious focal neurological deficits seen. Psychiatric: Flat affect and mood. Results & Data Results & Data Vital Signs (Past 12 Hours) Vital Signs Temp Pulse Resp BP BP Pulse Ox O2 Del Method 02/08/23 19:45 36.8 C 61 18 123/69 94 Nasal Cannula 02/08/23 15:26 36.4 C L 66 22 120/71 93 Nasal Cannula 02/08/23 11:28 36.8 C 71 16 124/76 92 Nasal Cannula O2 Flow Rate 02/08/23 19:45 2 02/08/23 15:26 2.0 02/08/23 11:28 2.0 PG Care Time/CCT Total # of Minutes Spent Total Time Spent with Patient: Total time spent is greater than 50% in coordination of care (as documented) at patient's floor/unit and/or counseling patient: Coding Level of Care Code 76149 SUB INP/OBS CARE 2/35MIN Diagnoses Loculated pleural effusion J90 Aspiration pneumonia J69.0
--- NOTE | 2023-02-08 22:59 | Procedure Note ---
Procedure Note Date of Service February 08, 2023 Note Dressing taken down from chest tube site. Locking pigtail cath disengaged. Suture removed. Chest tube pulled while patient humming. Catheter was fully intact. Occlusive dressing applied. Coding CPT Codes Pulmonary/Thoracic - Pulmonary and Thoracic: 99466 Remove lung catheter ([id number]) [facility] [place]arges) Pulmonary/Thoracic Procedure 1: Pulmonary and Thoracic: 69929 Remove lung catheter
[2023-02-09] MEDS: metroNIDAZOLE 500 MG/100 ML BAG IV SCH ×4 (00:32→23:33)
[2023-02-09 06:36] LABS: BUN Creatinine Ratio 32.4 (10-20); Calcium 7.8 mg/dl (8.6-10.3); Creatinine Clr Calc Pharmacy 112.8 ml/min; Est GFR (African American) 109.8 ml/min; Est GFR (Non-African American) 94.7 ml/min; Magnesium 1.8 mg/dl (1.7-2.4); Potassium 3.9 mmol/L (3.5-5.1)
[2023-02-09] MEDS: CEFEPIME 2,000 MG in SYRINGE 0 ML IV SCH ×3 (06:40→21:26)
[2023-02-09] MEDS: INSULIN ASPART PER UNIT CHARGE SC SCH ×4 (07:44→21:27)
[2023-02-09] MEDS: THIAMINE HCL 100 MG TAB PO SCH (07:47)
[2023-02-09] MEDS: ATORVASTATIN 40 MG TAB PO SCH (07:47)
[2023-02-09] MEDS: amLODIPine BESYLATE 5 MG TAB PO SCH (07:47)
[2023-02-09] MEDS: ASPIRIN 81 MG ECTAB PO SCH (07:47)
[2023-02-09] MEDS: lisinopril 10 MG TAB PO SCH (07:47)
[2023-02-09] MEDS: SODIUM CHLORIDE 1 GM TABLET PO SCH (08:16)
[2023-02-09] MEDS: LANTUS PER UNIT CHARGE SC SCH ×2 (08:16→21:26)
--- NOTE | 2023-02-09 12:18 | Hospitalist Progress Note ---
Date of Service February 09, 2023 Assessment & Plan (1) Pneumonia: Plan: right-sided pneumonia initially aspiration had been suspected but passed swallow eval by speech therapy and no swallowing issues while hospitalized remains on cefepime + flagyl day #5 of IV abx can likely transition to PO abx tomorrow Dr Gordon recommending 14 days of Rx for his pneumonia given the severity of the process, parapneumonic effusion, ?necrotizing on CT, etc (2) Hyponatremia: Plan: partially due to "pseudo"hyponatremia some of the hyponatremia likely from SIADH as well if SIADH is present - likely due to pneumonia on exam today he remains euvolemic serum osm noted to be normal urine osm very high urine Na nearly 100 cont NaCl tab 2gm daily serial Na levels (3) Acute metabolic encephalopathy: Plan: 2nd to pneumonia, DKA, hyponatremia, etc ammonia level wnl VBG without hypercapnia avoid sedatives, benzos, etc due to prior h/o CVA, thought blocking/confusion, etc - obtained MRI brain - this returned negative for stroke (4) Loculated pleural effusion: Plan: right side s/p IR chest tube placement initial fluid studies concerning for infectious process / empyema with exudative characteristics, low pH, high LDH, predominant neutrophils, etc however, no growth on the pleural fluid cx to date; thus - effusion likely parapneumonic in etiology following chest tube placement he had minimal output cxr following CT placement was stable Dr Gordon discontinued the CT on 02/08/23 cont cefepime cont flagyl (5) DKA (diabetic ketoacidosis): Plan: Very early DKA at time of ER presentation Now resolved Pharmacy managing his DM was only on metformin at home along with ozempic a1c 13.8% will need intensive insulin regimen at discharge (6) Major depressive disorder, recurrent, severe without psychotic features: Plan: appreciate psych consult and recs contTrintellix (7) Noncompliance with medications: Plan: 2nd to depression? underlying cognitive impairment? other? (8) Atrioventricular dissociation: Plan: Mobitz 1 as well as 2:1 block were seen while here early in the stay never had symptoms from the above at one point early in the stay there was complete AV dissociation appreciate Cardiology/EP eval and recs no urgent pacemaker recommended by EP follow on tele of note -- he is not on AV clint agents (9) Incontinence of urine: Plan: urinary retention noted in the ED - lanier placed started on tamsulosin - tolerating such voiding trial today admit u/a not suggestive of UTI (10) Self neglect: Plan: PT/OT evals ordered lives alone but due to multiple issues has not been thriving at home needs rehab post-d/c (11) Hypertension: Plan: cont lisinopril daily cont amlodipine 5mg daily BPs controlled (12) ADHD: Plan: typically on adderall daily currently on hold (13) History of stroke: Plan: 2020 MRI Brain with small R cerebellar CVA at that time and 2 tiny CVAs right parietal lobe no long-term consequences from this per daughter typically on aspirin for secondary prevention - resumed cont statin MRI brain today negative for acute/subacute CVA Plan DVT ppx - lovenox 40mg daily left message for pt's daughter on her voicemail this evening as well as yesterday evening dispo - [facility] - this ? Admission and Anticipated Discharge Date Admission Date: February 04, 2023 Subjective tele stable overnight pt sitting in chair eating during the visit very awake/alert/talkative today denies any specific complaints he asks "why am I having a hard time remembering things and saying things?" denies any focal motor weakness staff report he has had a good day, eating/drinking well Review of Systems Review of Systems: gen - no fevers or chills cv - no dyspnea; no chest pain or pleuritic pain on right pulm - scant cough GI - no abd pain/nausea/emesis - lanier still in place Physical Exam Physical Exam: gen - sitting in chair, looks good today, very awake/alert mouth - MMM neck - no JVD heart - RRR, s1 s2, no murmur lungs - decreased BS right base but otherwise clear in the right apex; left lung clear; no wheezes; no increased work of breathing abd - soft NT ND BS+ ext - no edema, pulses 2+ b/l neuro - no facial droop; strength 5/5 x 4 exts Results & Data Results & Data Vital Signs (Past 12 Hours) Vital Signs Temp Pulse Resp BP BP Pulse Ox O2 Del Method 02/09/23 12:08 37.2 C 61 18 130/74 95 Nasal Cannula 02/09/23 08:03 36.5 C 61 18 134/77 92 Nasal Cannula 02/09/23 08:00 Nasal Cannula 02/09/23 03:07 37.0 C 57 L 18 123/82 90 Room Air O2 Flow Rate 02/09/23 12:08 2 02/09/23 08:03 2 02/09/23 08:00 2 02/09/23 03:07 Laboratory Results Laboratory Results - last 24 hr 02/06/23 02/09/23 02/09/23 03:38 05:26 07:24 Sodium 131 L Potassium 3.9 Chloride 102 Carbon Dioxide 23 Anion Gap 6 BUN 22 Creatinine 0.68 Est Cr Clr Drug Dosing 112.8 Est GFR ( Amer) 109.8 Est GFR (Non-Af Amer) 94.7 BUN/Creatinine Ratio 32.4 H Glucose 148 H POC Glucose 173 H Calcium 7.8 L Magnesium 1.8 Vitamin B1 11 Urine Osmolality 02/09/23 02/09/23 02/09/23 08:30 11:19 16:05 Sodium 132 L Potassium Chloride Carbon Dioxide Anion Gap BUN Creatinine Est Cr Clr Drug Dosing Est GFR ( Amer) Est GFR (Non-Af Amer) BUN/Creatinine Ratio Glucose POC Glucose 174 H Calcium Magnesium Vitamin B1 Urine Osmolality 667 02/09/23 02/09/23 16:12 20:54 Sodium Potassium Chloride Carbon Dioxide Anion Gap BUN Creatinine Est Cr Clr Drug Dosing Est GFR ( Amer) Est GFR (Non-Af Amer) BUN/Creatinine Ratio Glucose POC Glucose 152 H 200 H Calcium Magnesium Vitamin B1 Urine Osmolality PG Care Time/CCT Total # of Minutes Spent Total Time Spent with Patient: Total time spent is greater than 50% in coordination of care (as documented) at patient's floor/unit and/or counseling patient: Coding Level of Care Code 37400 SUB INP/OBS CARE 2MIN Diagnoses Pneumonia J18.9 Laterality: right Lung location: lower lobe of lung Pneumonia type: due to unspecified organism Hyponatremia E87.1 Acute metabolic encephalopathy G93.41 Loculated pleural effusion J90 DKA (diabetic ketoacidosis) E13.10 Diabetes mellitus complication detail: without coma Diabetes mellitus type: other specified (including GINGER) Major depressive disorder, recurrent, severe without psychotic features F33.2 Noncompliance with medications Z91.14 Atrioventricular dissociation I45.89 Incontinence of urine R32 Self neglect R46.89 Hypertension I10 ADHD F90.9 History of stroke Z86.73 (1) Pneumonia Laterality: right Lung location: lower lobe of lung Pneumonia type: due to unspecified organism Qualified Code(s): J18.9 - Pneumonia, unspecified organism (5) DKA (diabetic ketoacidosis) Diabetes mellitus complication detail: without coma Diabetes mellitus type: other specified (including GINGER) Qualified Code(s): E13.10 - Other specified diabetes mellitus with ketoacidosis without coma
--- NOTE | 2023-02-09 13:14 | Pharmacy Report ---
Pharmacy Glycemic Short Note 2 - Date of Service February 09, 2023 - Glycemic Short BSG Results (Last 24 hours): 02/08/23 02/08/23 02/09/23 16:22 20:14 05:26 Glucose 148 H POC Glucose 229 H 299 H 02/09/23 02/09/23 07:24 11:19 Glucose POC Glucose 173 H 174 H OUTPATIENT ANTIDIABETIC REGIMEN: * Metformin 1 g PO BID * Ozempic 2 mg SC weekly * Reportedly has not been taking home meds for > 1 month * HbA1c: 13.8% (02/05/23) ASSESSMENT: 02/09 * Patient used 108 units of insulin yesterday, 50 units of basal, 58 units of prandial/correctional * Fasting this AM 173 mg/dL- improving, will adjust basal with ~15% increase * Prandial/HS BSGs elevated yesterday, will tighten carb ratio 02/08 * Patient now ordered a diet. Also, is no longer ICU status, making tighter glycemic control more reasonable. * AM fasting BSG elevated. Will increase Lantus. * Minimal PO intake yesterday *charted* despite starting diet later in the day, however, significant jump in BSG from dinner to HS suspicious for uncovered CHO consumption prior. No change to Novolog for now - will assess ongoing trend in BSG's post-prandially. 02/07: * AM fasting BSG >180 mg/dL today, but patient once again NPO. May be c onsidered for diet later today. Will cautiously increase Lantus this AM. * Post-prandial BSG's elevated >180 mg/dL when patient was consuming a good amount of CHO with meals. Will tighten CHO ratio. 02/06 * BSG's have trended down significantly. Ordered diet for today (no pacemaker planned) but again NPO after midnight tonight. * Will back off of Lantus for now due to trend down in BSG and also planned NPO again tomorrow * No change to Novolog for now 02/05 * 72 yo M admitted on 02/04/23 secondary to pulmonary abscess / mild DKA. Pharmacy has been consulted to assist with inpatient glycemic management. Patient is a Type 2 diabetic as an outpatient. Please refer to outpatient regimen and most recent HbA1c above. * Upon presentation, patient demonstrated mild signs of DKA with anion gap of 18, CO2 of 18, and blood sugar of 414 mg/dL. Patient was not started on an insulin infusion however. Instead, he received about 2.5 L of fluid followed by two IV insulin boluses (6 units x 1 and 5 units x 1). BSGs trended down and repeat BMP on the floor showed acidosis had resolved. A one time dose of Lantus 10 units was given upon arrival to the floor. * BSG was 272 mg/dL this AM with an anion gap of 10 and CO2 of 21. Basal bolus insulin was started at this time. Gave an addition basal dose this morning and will start a BID regiment his evening. Novolog based on weight/stress of 3. * Patient is NPO for the time being. May need to back off insulin once it reaches steady state. Remains on Cefepime and Flagyl for pulmonary abscess. PLAN FOR INPATIENT GLYCEMIC CONTROL: * Hold outpatient oral diabetes medications * Basal insulin * Lantus 28 units BID * Bolus insulin * NovoLog per scale ACHS or Q6hrs while NPO * Goal Range: Low 110 mg/dL - High 140 mg/dL * Correction Factor: 15 mg/dL/unit * Nutritional / Prandial insulin per carb ratio of 1 unit per 3.5 grams CHO consumed
[2023-02-09] MEDS: ENOXAPARIN INJ 40 MG/0.4 ML SYR SQ SCH (15:20)
--- NOTE | 2023-02-09 19:33 | Magnetic Resonance Report ---
MR brain wo con CLINICAL HISTORY: altered MS, thought blocking; prior h/o CVA TECHNIQUE: Multiplanar and multisequence MR images of the brain were obtained without intravenous con trast. Comparison: Comparison is made to MRI brain 12/04/[address] head 02/04/2023 FINDINGS: No abnormal restricted diffusion is identified. Foci of T2 and FLAIR hyperintensity are noted in the paraventricular areas consistent with chronic small vessel ischemic disease. Ex vacuo ventriculomegal y and sulcal enlargement is noted compatible with diffuse volume loss. No mass is seen. There is no m ass effect or midline shift. There is no evidence of acute intraparenchymal hemorrhage. No extra axia l fluid collections are seen. The corpus callosum, pituitary gland, and cerebellar tonsils appear olivia ssly unremarkable. Flow voids of the major intracranial arterial vessels are identified. The imaged portions of the para nasal sinuses, mastoid air cells, and orbits are unremarkable. IMPRESSION: No acute abnormality and in particular no evidence of acute infarct. ACT 112: Negative or not required by law. Electronically signed by: Bong Wolfe M.D. 02/09/2023 7:32 PM
[2023-02-09] MEDS: TAMSULOSIN HCL 0.4 MG CAP PO SCH (21:26)
[2023-02-09] MEDS: ACETAMINOPHEN 325 MG TAB PO PRN (22:49)
[2023-02-10] MEDS: CEFEPIME 2,000 MG in SYRINGE 0 ML IV SCH (06:12)
[2023-02-10] MEDS: INSULIN ASPART PER UNIT CHARGE SC SCH ×5 (08:05→21:26)
[2023-02-10] MEDS: LANTUS PER UNIT CHARGE SC SCH ×2 (08:05→21:27)
[2023-02-10] MEDS: ATORVASTATIN 40 MG TAB PO SCH (08:06)
[2023-02-10] MEDS: THIAMINE HCL 100 MG TAB PO SCH (08:06)
[2023-02-10] MEDS: ASPIRIN 81 MG ECTAB PO SCH (08:06)
[2023-02-10] MEDS: lisinopril 10 MG TAB PO SCH (08:06)
[2023-02-10] MEDS: SODIUM CHLORIDE 1 GM TABLET PO SCH (08:07)
[2023-02-10] MEDS: amLODIPine BESYLATE 5 MG TAB PO SCH (08:08)
[2023-02-10 08:53] LABS: BUN Creatinine Ratio 21.3 (10-20); Calcium 8.2 mg/dl (8.6-10.3); Creatinine Clr Calc Pharmacy 102.3 ml/min; Est GFR (African American) 105.5 ml/min; Potassium 3.8 mmol/L (3.5-5.1)
[2023-02-10 09:20] LABS: Hematocrit (blood only) 35.1 % (42.0-52.0); Hemoglobin 11.9 g/dl (14.0-18.0); Mean Corpuscular Hgb Conc 33.9 g/dL (32.0-36.0); Mean Corpuscular Volume 97.2 fL (80.0-100.0); Mean Platelet Volume 10.3 fL (9.4-12.4); Platelet Count 464 K/uL (130-400); RDW Coefficient of Variation 13.4 % (11.5-14.5); RDW Standard Deviation 47.8 fL (36.4-46.3); Red Blood Count 3.61 M/uL (4.70-6.10); White Blood Count 14.32 K/ul (4.8-10.8)
[2023-02-10] MEDS: levoFLOXacin 750 MG TAB PO SCH (09:39)
[2023-02-10] MEDS: metroNIDAZOLE 500 MG TAB PO SCH ×3 (09:40→21:09)
[2023-02-10] MEDS: ACETAMINOPHEN 325 MG TAB PO PRN ×2 (11:09→21:28)
[2023-02-10] MEDS ORDERED: ONDANSETRON INJ 2 MG/ML 2 ML VIAL IV PRN (11:28)
[2023-02-10] MEDS: POLYETHYLENE (MIRALAX) 17 GM PACK PO SCH (13:52)
--- NOTE | 2023-02-10 15:35 | XRay Report ---
XR chest 2V PA/lateral CLINICAL HISTORY: R pneumonia + effusion; interval change COMPARISON STUDY: Chest CT February 04, 2023. Chest radiograph February 08, 2023. FINDINGS: The right pleural catheter has been removed. Small loculated right pleural effusion is pres ent. Dense right mid lung opacity is noted. There is also right basilar opacity. There is a trace lef t pleural effusion. Cardiomediastinal silhouette is stable. There is no evidence for pulmonary edema. No pneumothorax. IMPRESSION: 1. Persistent dense right mid and right basilar airspace opacity suggestive of pneumonia. 2. Interval removal of the right pleural catheter. No pneumothorax. Small loculated right pleural eff usion. ACT 112: Negative or not required by law. Electronically signed by: Lico Morales M.D. 02/10/2023 3:34 PM
[2023-02-10] MEDS ORDERED: bisacodyL 5 MG TABEC PO ONE (15:40)
--- NOTE | 2023-02-10 15:42 | Hospitalist Progress Note ---
Date of Service February 10, 2023 Assessment & Plan (1) Pneumonia: Plan: right-sided pneumonia initially aspiration had been suspected but passed swallow eval by speech therapy and no swallowing issues while hospitalized s/p 5 days of IV cefepime + flagyl transition to PO abx today since he is clinically improved --> will use levaquin (for typicals, atypicals, and gram negatives) + flagyl for anaerobes was MRSA + in 2020 but now he is MRSA negative this admission --> defer on MRSA coverage as he improved w/o such while here Dr Gordon recommending 14 days of Rx in total for his pneumonia given the severity of the process, parapneumonic effusion, ?necrotizing on CT, etc will obtain a repeat 2-view cxr today to ensure right-sided effusion is stable (2) Hyponatremia: Plan: partially due to "pseudo"hyponatremia some of the hyponatremia likely from SIADH as well if SIADH is present - likely due to pneumonia he remains euvolemic serum osm noted to be normal urine osm very high urine Na nearly 100 cont NaCl tab 2gm daily serial Na levels have improved repeat BMP am (3) Acute metabolic encephalopathy: Plan: 2nd to pneumonia, DKA, hyponatremia, etc resolved back to baseline ammonia level wnl VBG without hypercapnia avoid sedatives, benzos, etc due to prior h/o CVA, thought blocking/confusion, etc - obtained MRI brain - this returned negative for stroke (4) Loculated pleural effusion: Plan: right side s/p IR chest tube placement initial fluid studies concerning for infectious process / empyema with exudative characteristics, low pH, high LDH, predominant neutrophils, etc however, no growth on the pleural fluid cx to date; thus - effusion likely parapneumonic in etiology following chest tube placement he had minimal output cxr following CT placement was stable Dr Gordon discontinued the CT on 02/08/23 s/p 5 days of cefepime/flagyl changing to levaquin/flagyl today by mouth (5) DKA (diabetic ketoacidosis): Plan: Very early DKA at time of ER presentation Now resolved Pharmacy managing his DM - appreciate their assistance was only on metformin at home along with ozempic a1c 13.8% will need intensive insulin regimen at discharge (6) Major depressive disorder, recurrent, severe without psychotic features: Plan: appreciate psych consult and recs cont Trintellix (7) Noncompliance with medications: Plan: 2nd to depression? underlying cognitive impairment? other? (8) Atrioventricular dissociation: Plan: Mobitz 1 as well as 2:1 block were seen while here early in the stay never had symptoms from the above at one point early in the stay there was also complete AV dissociation appreciate Cardiology/EP eval and recs tele overnight - some high degree AV block (2:1 block) but no 3rd degree block I shared some of the tele strips with Dr Delgado from [facility] [place] Cardiology via [place] Dr Delgado again confirms no 3rd degree block, 2nd degree only no pacemaker insertion at this time Dr Delgado to check on patient tomorrow (9) Incontinence of urine: Plan: urinary retention noted in the ED - lanier placed started on tamsulosin - tolerating such voiding trial since d/c of lanier -- passed admit u/a not suggestive of UTI (10) Self neglect: Plan: lives alone but due to multiple issues has not been thriving at home PT/OT evals ordered - rehab needed post-discharge (11) Hypertension: Plan: cont lisinopril daily cont amlodipine 5mg daily cont flomax 0.4mg HS BPs controlled (12) ADHD: Plan: typically on adderall daily currently on hold can resume at d/c (13) History of stroke: Plan: 2020 MRI Brain with small R cerebellar CVA at that time and 2 tiny CVAs right p arietal lobe no long-term consequences from this per daughter typically on aspirin for secondary prevention - resumed cont statin MRI brain this admission negative for acute/subacute CVA (14) Constipation: Plan: mod-severe add miralax dulcolax x 1 KUB x-ray with mod-severe fecal loading Plan DVT ppx - lovenox 40mg daily left message for pt's daughter on her voicemail twice this week updated pt's brother at bedside today dispo - [facility] - this weekend? Admission and Anticipated Discharge Date Admission Date: February 04, 2023 Subjective patient w/o any specific complaints during rounds, but apparently he had had nausea this am following breakfast (he ate 100% of breakfast per flowsheets, however) eating well in general denies ANY cough denies dyspnea denies abd pain last stool? 3-4 days ago?? pt's brother was at bedside during the visit pt has been accepted at [facility] Review of Systems Review of Systems: gen - no fevers or chills cv - no chest pain or pleuritic pain pulm - no sputum, no wheezing GI - no vomiting despite the nausea this am Physical Exam Physical Exam: gen - sitting in bed, looks well, awake, alert, no cough; but "loud/noisy" breathing mouth - MMM neck - no JVD heart - RRR, s1 s2, no murmur lungs - decreased BS right base; mild rales R base; left lung clear; no wheezes; no increased work of breathing but breathing is "noisy" (somewhat loud) abd - soft NT BS+; mildly distended ext - no edema, pulses 2+ b/l psych - awake, alert, more interactive today than prior visits Results & Data Results & Data Vital Signs (Past 12 Hours) Vital Signs Temp Pulse Resp BP Pulse Ox O2 Del Method 02/10/23 12:21 37.5 C 58 L 18 137/78 91 Room Air 02/10/23 08:16 36.4 C L 65 18 148/74 H 93 Room Air 02/10/23 08:00 Room Air Laboratory Results Laboratory Results - last 48 hr 02/06/23 02/09/23 02/09/23 03:38 11:19 16:05 WBC RBC Hgb Hct MCV MCH MCHC RDW Std Deviation RDW Coeff of Yinka Plt Count MPV Absolute Nucleated RBC Nucleated RBC % (auto) Sodium 132 L Potassium Chloride Carbon Dioxide Anion Gap BUN Creatinine Est Cr Clr Drug Dosing Est GFR ( Amer) Est GFR (Non-Af Amer) BUN/Creatinine Ratio Glucose POC Glucose 174 H Calcium Vitamin B1 11 02/09/23 02/09/23 02/10/23 16:12 20:54 07:31 WBC RBC Hgb Hct MCV MCH MCHC RDW Std Deviation RDW Coeff of Yinka Plt Count MPV Absolute Nucleated RBC Nucleated RBC % (auto) Sodium Potassium Chloride Carbon Dioxide Anion Gap BUN Creatinine Est Cr Clr Drug Dosing Est GFR ( Amer) Est GFR (Non-Af Amer) BUN/Creatinine Ratio Glucose POC Glucose 152 H 200 H 143 H Calcium Vitamin B1 02/10/23 02/10/23 02/10/23 08:01 11:26 16:32 WBC 14.32 H RBC 3.61 L Hgb 11.9 L Hct 35.1 L MCV 97.2 MCH 33.0 MCHC 33.9 RDW Std Deviation 47.8 H RDW Coeff of Yinka 13.4 Plt Count 464 H MPV 10.3 Absolute Nucleated RBC Nucleated RBC % (auto) Sodium 134 L Potassium 3.8 Chloride 102 Carbon Dioxide 27 Anion Gap 5 BUN 16 Creatinine 0.75 Est Cr Clr Drug Dosing 102.3 Est GFR ( Amer) 105.5 Est GFR (Non-Af Amer) 91.0 BUN/Creatinine Ratio 21.3 H Glucose 133 H POC Glucose 208 H 198 H Calcium 8.2 L Vitamin B1 PG Care Time/CCT Total # of Minutes Spent Total Time Spent with Patient: Total time spent is greater than 50% in coordination of care (as documented) at patient's floor/unit and/or counseling patient: Coding Level of Care Code 16751 SUB INP/OBS CARE 3/50MIN Diagnoses Pneumonia J18.9 Laterality: right Lung location: lower lobe of lung Pneumonia type: due to unspecified organism Hyponatremia E87.1 Acute metabolic encephalopathy G93.41 Loculated pleural effusion J90 DKA (diabetic ketoacidosis) E13.10 Diabetes mellitus complication detail: without coma Diabetes mellitus type: other specified (including GINGER) Major depressive disorder, recurrent, severe without psychotic features F33.2 Noncompliance with medications Z91.14 Atrioventricular dissociation I45.89 Incontinence of urine R32 Self neglect R46.89 Hypertension I10 ADHD F90.9 History of stroke Z86.73 Constipation K59.00 (1) Pneumonia Laterality: right Lung location: lower lobe of lung Pneumonia type: due to unspecified organism Qualified Code(s): J18.9 - Pneumonia, unspecified organism (5) DKA (diabetic ketoacidosis) Diabetes mellitus complication detail: without coma Diabetes mellitus type: other specified (including GINGER) Qualified Code(s): E13.10 - Other specified diabetes mellitus with ketoacidosis without coma
--- NOTE | 2023-02-10 15:49 | XRay Report ---
KUB CLINICAL HISTORY: nausea, ?constipation COMPARISON STUDY: CT of the abdomen and pelvis December 07, 2020. FINDINGS: The bowel gas pattern is normal. There is a moderate amount of stool within the colon and m ild to moderate amount of stool within the rectum. No urinary calculi are identified. Pelvic calcific ations represent phleboliths. IMPRESSION: 1. No evidence for a bowel obstruction. 2. Moderate amount of stool within the colon. Mild to moderate amount of stool within the rectum. ACT 112: Negative or not required by law. Electronically signed by: Lico Morales M.D. 02/10/2023 3:48 PM
[2023-02-10] MEDS: ENOXAPARIN INJ 40 MG/0.4 ML SYR SQ SCH (16:47)
[2023-02-10] MEDS: TAMSULOSIN HCL 0.4 MG CAP PO SCH (21:08)
[2023-02-11 06:01] LABS: Hematocrit (blood only) 30.8 % (42.0-52.0); Hemoglobin 10.5 g/dl (14.0-18.0); Mean Corpuscular Hemoglobin 32.8 pg (25.0-34.0); Mean Corpuscular Hgb Conc 34.1 g/dL (32.0-36.0); Mean Corpuscular Volume 96.3 fL (80.0-100.0); Mean Platelet Volume 10.3 fL (9.4-12.4); Nucleated RBC # (auto) 0.02 K/uL (0.00-0.12); Nucleated RBC % (auto) 0.1 %; Platelet Count 413 K/uL (130-400); RDW Coefficient of Variation 13.2 % (11.5-14.5); RDW Standard Deviation 46.4 fL (36.4-46.3); White Blood Count 14.51 K/ul (4.8-10.8)
[2023-02-11 06:17] LABS: BUN Creatinine Ratio 22.4 (10-20); Creatinine Clr Calc Pharmacy 101.2 ml/min; Est GFR (African American) 104.9 ml/min; Est GFR (Non-African American) 90.5 ml/min; Potassium 3.9 mmol/L (3.5-5.1)
[2023-02-11] MEDS: INSULIN ASPART PER UNIT CHARGE SC SCH ×4 (08:07→21:26)
[2023-02-11] MEDS: LANTUS PER UNIT CHARGE SC SCH ×2 (08:07→21:27)
[2023-02-11] MEDS: metroNIDAZOLE 500 MG TAB PO SCH ×3 (08:08→19:56)
[2023-02-11] MEDS: POLYETHYLENE (MIRALAX) 17 GM PACK PO SCH (08:08)
[2023-02-11] MEDS: levoFLOXacin 750 MG TAB PO SCH (08:09)
[2023-02-11] MEDS: ASPIRIN 81 MG ECTAB PO SCH (08:09)
[2023-02-11] MEDS: THIAMINE HCL 100 MG TAB PO SCH (08:09)
[2023-02-11] MEDS: amLODIPine BESYLATE 5 MG TAB PO SCH (08:09)
[2023-02-11] MEDS: lisinopril 10 MG TAB PO SCH (08:09)
[2023-02-11] MEDS: ATORVASTATIN 40 MG TAB PO SCH (08:09)
--- NOTE | 2023-02-11 12:11 | Hospitalist Progress Note ---
Date of Service February 11, 2023 Assessment & Plan (1) Pneumonia: Plan: right-sided with parapneumonic effusion. Status post right thoracostomy tube placement which was removed February 08. Fluid does not appear to be empyema. Probably represents parapneumonic effusion. He was treated with intravenous cefepime and Flagyl and is now on oral Levaquin and Flagyl. White blood cell count trending down. He is now on room air. Pulmonary medicine recommended 14 days of therapy. (2) Hyponatremia: Plan: Appears to be pseudohyponatremia related to elevated glucose levels on admission. Serum osmolarity normal. Doubt SIADH. Now corrected. Sodium chloride tablets have been discontinued. (3) Acute metabolic encephalopathy: Plan: Present on admission. Now resolved (4) Loculated pleural effusion: Plan: right side. Appears to be parapneumonic and not empyema. Status post right thoracostomy tube which was removed February 08. Appreciate pulmonology consultation and recommendations. (5) DKA (diabetic ketoacidosis): Plan: Very early DKA at time of ER presentation. Resolved. Glucose 109 this morning, February 11. Currently on basal insulin therapy. He will resume his usual home management at the time of discharge. (6) Major depressive disorder, recurrent, severe without psychotic features: Plan: appreciate psych consult and recs. Cont Trintellix (7) Atrioventricular dissociation: Plan: Mobitz 1 as well as 2:1 block were seen while here early in the stay. Transient A-V dissociation also seen. Cardiology consultation and recommendations appreciated. No indication for permanent pacemaker at this time. Telemetry. (8) Incontinence of urine: Plan: urinary retention noted in the ED - lanier placed. He has been started on tamsulosin and the Lanier catheter has been removed. Current symptoms probably represent prostatism (9) Self neglect: Plan: lives alone but due to multiple issues has not been thriving at home . Awaiting IPR placement (10) Hypertension: Plan: Stable. Continue lisinopril and amlodipine (11) ADHD: Plan: Adderall is temporarily on hold. Will resume at discharge. (12) History of stroke: Plan: Stable. Continue current medical management Plan Anticipate discharge to [facility] when arrangements are finalized. He now is medically stable. Admission and Anticipated Discharge Date Admission Date: February 04, 2023 Subjective Alert and oriented. He is now on room air. Daughter is at the bedside. Right chest tube was removed February 08. He is now on oral Levaquin and Flagyl. Sodium chloride tablets have been discontinued. Awaiting placement at [facility]. He is medically stable for discharge. Review of Systems 2 Review of Systems: Constitutional-no fever or chills ENT-no blurred vision, no double vision, no epistaxis, no sore throat Respiratory-no cough, no wheezing, no shortness of breath Cardiac-no palpitations, no chest pain, no syncope GI-no nausea, vomiting, diarrhea, melena, hematochezia -no urinary retention, no urinary incontinence, no dysuria, no hematuria Musculoskeletal-no joint pain, no muscle tenderness Skin-no bruising, no rashes, no pruritus Neuro-no isolated weakness, no paresthesia, no weakness Psych-no depression, no anxiety Physical Exam 2 Physical Exam: General-alert and oriented x3, no fevers, no chills HEENT-head atraumatic and normocephalic, pupils equal and reactive to light, extraocular muscles intact Neck-no lymphadenopathy or thyromegaly, trachea midline Chest-right base rhonchi. No wheezing. Cardiac-regular rate and rhythm, normal S1 and S2 Abdomen-normal bowel sounds, nontender, no hepatosplenomegaly Extremities-no cyanosis, clubbing, or edema Neuro-cranial nerves II through XII intact, motor and sensory function within normal limits, strength symmetrical, no focal deficits Psych-normal affect, normal mood Results & Data Results & Data Vital Signs (Past 12 Hours) Vital Signs Temp Pulse Resp BP Pulse Ox O2 Del Method O2 Flow Rate 02/11/23 08:34 93 Room Air 02/11/23 08:00 Room Air 02/11/23 07:56 36.4 C L 69 18 166/71 H 94 Room Air 02/11/23 03:10 36.8 C 49 L 20 148/98 H 95 Nasal Cannula 1 Laboratory Results 02/11/23 05:17 02/11/23 05:17 PG Care Time/CCT Total # of Minutes Spent Total Time Spent with Patient: Total time spent is greater than 50% in coordination of care (as documented) at patient's floor/unit and/or counseling patient: Coding Level of Care Code 11106 SUB INP/OBS CARE 3/50MIN Diagnoses Pneumonia J18.9 Laterality: right Lung location: lower lobe of lung Pneumonia type: due to unspecified organism Hyponatremia E87.1 Acute metabolic encephalopathy G93.41 Loculated pleural effusion J90 DKA (diabetic ketoacidosis) E13.10 Diabetes mellitus complication detail: without coma Diabetes mellitus type: other specified (including GINGER) Major depressive disorder, recurrent, severe without psychotic features F33.2 Atrioventricular dissociation I45.89 Incontinence of urine R32 Self neglect R46.89 Hypertension I10 ADHD F90.9 History of stroke Z86.73 (1) Pneumonia Laterality: right Lung location: lower lobe of lung Pneumonia type: due to unspecified organism Qualified Code(s): J18.9 - Pneumonia, unspecified organism (5) DKA (diabetic ketoacidosis) Diabetes mellitus complication detail: without coma Diabetes mellitus type: o ther specified (including GINGER) Qualified Code(s): E13.10 - Other specified diabetes mellitus with ketoacidosis without coma
[2023-02-11] MEDS: ENOXAPARIN INJ 40 MG/0.4 ML SYR SQ SCH (16:36)
[2023-02-11] MEDS: TAMSULOSIN HCL 0.4 MG CAP PO SCH (19:55)
[2023-02-12] MEDS: INSULIN ASPART PER UNIT CHARGE SC SCH ×2 (08:16→13:21)
[2023-02-12] MEDS: metroNIDAZOLE 500 MG TAB PO SCH ×2 (08:17→13:21)
[2023-02-12] MEDS: ATORVASTATIN 40 MG TAB PO SCH (08:17)
[2023-02-12] MEDS: lisinopril 10 MG TAB PO SCH (08:17)
[2023-02-12] MEDS: amLODIPine BESYLATE 5 MG TAB PO SCH (08:17)
[2023-02-12] MEDS: THIAMINE HCL 100 MG TAB PO SCH (08:17)
[2023-02-12] MEDS: LANTUS PER UNIT CHARGE SC SCH (08:17)
[2023-02-12] MEDS: levoFLOXacin 750 MG TAB PO SCH (08:18)
[2023-02-12] MEDS: ASPIRIN 81 MG ECTAB PO SCH (08:18)
[2023-02-12] MEDS: POLYETHYLENE (MIRALAX) 17 GM PACK PO SCH (08:18)
[2023-02-12] MEDS ORDERED: LANTUS PER UNIT CHARGE SC STA (08:34)
[2023-02-12] MEDS ORDERED: LANTUS PER UNIT CHARGE SC SCH (09:00)
--- NOTE | 2023-02-12 12:53 | Discharge Summary ---
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 States he has not taken them just because he does not feel like it this is not a financial issue. Patient did have a fall a few days ago that needed help up with family's assistance he refused evaluation multiple times over the last few weeks. tonight the family called 911 and requested transport to the hospital for evaluation. In the ER he was found to have a large right lower lobe/middle lobe infiltrate he received IV cefepime for this. In addition he was found to be in early diabetic ketoacidosis with a blood glucose greater than 400 and an anion gap of 18. The patient received 6 units of IV regular insulin and received 2 L of IV fluid. CT of the brain was negative for acute finding CT of the chest demonstrated a probable evolving pulmonary abscess with the degree of necrosis to the right lower lobe pneumonia EKG showed a high degree AV block in the ER's opinion this was 1/3 degree AV block the EKG is questionable but given this history of a second-degree AV block and a what appears to be a possible third-degree AV block she will be placed in the ICU with pacemaker pads in place. Echocardiogram will be obtained cardiology be consulted pulmonology be consulted for the pulmonary abscess for entertaining a possible chest tube in addition critical care will be consulted per protocol. I did discuss personally with the [facility] covering critical care jhoan Principal Diagnosis Right lower lobe pneumonia with parapneumonic effusion, diabetic ketoacidosis, acute metabolic encephalopathy, urinary retention, transient A-V dissociation Discharge Exam General-alert and oriented x3, no fevers, no chills HEENT-head atraumatic and normocephalic, pupils equal and reactive to light, extraocular muscles intact Neck-no lymphadenopathy or thyromegaly, trachea midline Chest-right base rhonchi. No wheezing. Cardiac-regular rate and rhythm, normal S1 and S2 Abdomen-normal bowel sounds, nontender, no hepatosplenomegaly Extremities-no cyanosis, clubbing, or edema Neuro-cranial nerves II through XII intact, motor and sensory function within normal limits, strength symmetrical, no focal deficits Psych-normal affect, normal mood Discharge Data Allergies Allergy/AdvReac Type Severity Reaction Status Date / Time erythromycin base Allergy Intermediate Hives Verified 02/04/23 22:44 Penicillins Allergy Intermediate Hives Verified 02/04/23 22:44 Consultations 02/04/23 21:36 ED Decision to Admit Stat 02/04/23 23:15 Consult Pulmonology Stat 02/04/23 23:22 Consult Cardiology Stat Consult Psychiatry Stat 02/05/23 01:12 Consult Business Analysis Professional Routine 02/05/23 01:33 Consult Behavioral Health Liaison Routine 02/05/23 01:43 Consult Cardiology Routine 02/05/23 02:36 Consult Psychiatry Routine Ordered Studies 02/04/23 20:31 CT chest diagnostic wo con Stat 02/04/23 20:40 CT head/brain wo con Stat 02/06/23 14:18 IR thoracentesis w/tube CT Stat 02/09/23 12:53 MR brain wo con Routine Diabetes Follow up Diabetes Follow-up Needed for HgbA1c >9% Hospital Course (1) Pneumonia: right-sided with parapneumonic effusion. Status post right thoracostomy tube placement which was removed February 08. Fluid does not appear to be empyema. Probably represents parapneumonic effusion. He was treated with intravenous cefepime and Flagyl and is now on oral Levaquin and Flagyl. White blood cell count trending down. He is now on room air. Pulmonary medicine recommended 14 days of antibiotic therapy. (2) Hyponatremia: Appears to be pseudohyponatremia related to elevated glucose levels on admission. Serum osmolarity normal. Doubt SIADH. Now corrected. Sodium chloride tablets have been discontinued. (3) Acute metabolic encephalopathy: Present on admission. Now resolved (4) Loculated pleural effusion: right side. Appears to be parapneumonic and not empyema. Status post right thoracostomy tube which was removed February 08. Appreciate pulmonology consul tation and recommendations. (5) DKA (diabetic ketoacidosis): Very early DKA at time of ER presentation. Resolved. Treated while hospitalized with basal insulin therapy. He will resume his usual home management at the time of discharge. (6) Major depressive disorder, recurrent, severe without psychotic features: appreciate psych consult and recs. Cont Trintellix (7) Atrioventricular dissociation: Mobitz 1 as well as 2:1 block were seen while here early in the stay. Transient A-V dissociation also seen. Cardiology consultation and recommendations appreciated. No indication for permanent pacemaker at this time. Telemetry. (8) Incontinence of urine: urinary retention noted in the ED - lanier placed. He has been started on tamsulosin and the Lanier catheter has been removed. Current symptoms probably represent prostatism (9) Self neglect: lives alone but due to multiple issues has not been thriving at home . Awaiting IPR placement (10) Hypertension: Stable. Continue lisinopril and amlodipine (11) ADHD: Adderall is temporarily on hold. Will resume at discharge. (12) History of stroke: Stable. Continue current medical management Plan [facility] Total Time Total Time Spent Total Time Spent (In Minutes): 45 minutes Discharge Plan Discharge Items Patient Disposition: Transfer Inpatient Rehab Fac Reason For Visit: PNA / PULM ABSCESS, EARLY DKA Discharge Diagnosis: Right lower lobe pneumonia with parapneumonic effusion, diabetic ketoacidosis, transient A-V dissociation, acute metabolic encephalopathy, pseudohyponatremia Condition on Discharge: Good Activity: Resume your previous activity Non-emergency contact: Primary Care Provider Follow-up/Referrals: Lillie Ramsay DO [Primary Care Provider] - Diet: Carb Consistent or DM2 Addtl Attending Provider Instructions: Continue Levaquin and Flagyl for 8 more days. Pending Studies at Discharge: No Stand-Alone Forms: My [facility] Skilled Items Patient informed of condition?: Yes DNR: Yes Discharge Level of Care: Acute rehab Communicable Disease: No Discharge Prognosis: Stable Lines: None Urinary Catheter: No Medications and DC Order Prescriptions: New tamsulosin 0.4 mg Capsule 0.4 mg PO HS Qty: 0 0RF amlodipine [Norvasc] 5 mg Tablet 5 mg PO QAM Qty: 0 0RF aspirin 81 mg Tablet,Delayed Release (Dr/Ec) 81 mg PO QAM Qty: 0 0RF levofloxacin 750 mg Tablet 750 mg PO DAILY@1100 Qty: 0 0RF metronidazole 500 mg Tablet 500 mg PO TID Qty: 0 0RF polyethylene glycol 3350 [Miralax] 17 gram Powder In Packet 17 g PO DAILY Qty: 0 0RF Continued (DME) lancets [Accu-Chek Fastclix Lancet Drum] Misc See Rx Instructions .ROUTE .MEDSUPPLY Rx Instructions: test 4 times daily (DME) insulin syringe-needle U-100 [BD Insulin Syringe Ultra-Fine] 0.5 mL 31 gauge x 5/16" syringe See Rx Instructions .ROUTE .MEDSUPPLY Qty: 10 Rx Instructions: use 5 needles daily (DME) Accu-Chek Guide test strips Strip See Rx Instructions .ROUTE .MEDSUPPLY Rx Instructions: test 1 times daily (DME) FreeStyle Marta 2 Sensor Kit See Rx Instructions .ROUTE .MEDSUPPLY Qty: 1 12RF Rx Instructions: Change q 14 days to momitor b,ood sugars as advised. aspirin 81 mg Tablet,Delayed Release (Dr/Ec) 81 mg PO DAILY Rx Instructions: has not been taking any meds for over a month. metformin 500 mg tablet extended release 24 hr 1,000 mg PO BID Qty: 120 0RF atorvastatin 40 mg Tablet 40 mg PO DAILY Qty: 30 0RF Rx Instructions: Has not been taking his meds for over a month. miconazole nitrate [Desenex] 2 % Powder 1 applic EXT BID Qty: 85 0RF thiamine HCl (vitamin B1) [Vitamin B-1] 100 mg Tablet 100 mg PO QAM Qty: 30 0RF buspirone [BuSpar] 5 mg Tablet 0 mg PO DIRECTED Rx Instructions: has not been taking, family not sure of dose. lisinopril 10 mg tablet 10 mg PO DAILY Trintellix 5 mg Tablet 20 mg PO DAILYBD Rx Instructions: [facility] Ozempic 0.25 mg or 0.5 mg (2 mg/3 mL) pen injector 0.5 mg SUBCUT .WEEKLY Rx Instructions: has not been taking Adderall XR 20 mg PO DAILY Discharge Orders: Discharge Order (Routine); Ordered 02/12/23 Ordered By: Maximino Valentin Admission Data Admit Date/Time: 02/04/23 23:06 Attending Provider: Maximino Valentin Admit Provider: Jono Villarreal Primary Care Provider: Lillie Ramsay Other Providers: Andrew Moore; Kaur Ortiz; Melida Hammond; Bryan Morel; Robin Villarreal; Jono Villarreal; Billy Solano; Rudy Ramsay; [facility] Coding Level of Care Code 16666 INP/OBS DISCH >30 MIN Diagnoses Pneumonia J18.9 Laterality: right Lung location: lower lobe of lung Pneumonia type: due to unspecified organism Hyponatremia E87.1 Acute metabolic encephalopathy G93.41 Loculated pleural effusion J90 DKA (diabetic ketoacidosis) E13.10 Diabetes mellitus complication detail: without coma Diabetes mellitus type: other specified (including GINGER) Major depressive disorder, recurrent, severe without psychotic features F33.2 Atrioventricular dissociation I45.89 Incontinence of urine R32 Self neglect R46.89 Hypertension I10 ADHD F90.9 History of stroke Z86.73
[2023-02-13] MEDS ORDERED: LANTUS PER UNIT CHARGE SC SCH (09:00)
--- NOTE | 2023-02-16 14:42 | Coding Query ---
To promote full compliance with coding requirements relating to patient care, provider participation is requested in all cases of criminal attorney uncertainty. Please assist us with the question(s) below: Coding Question(s): The diagnosis(es) below was documented in the H&P through 02/10 Progress Note, then subsequently fell off all further documentation. Please indicate if it is still a possible diagnosis or ruled out. Physician's Response(s): SUSPECTED/PROBABLE ASPIRATION PNEUMONIA (documented on H&P through 02/10 Progress Note) ( ) Diagnosed and POA ( ) Diagnosed and not POA ( x ) Ruled out ( ) Other (please specify) POSSIBLE PULMONARY NECROSIS/ABSCESS/NECROTIZING PNEUMONIA (documented on H&P through 02/10 Progress Note) ( ) Diagnosed and POA ( ) Diagnosed and not POA ( x ) Ruled out ( ) Other (please specify) MTDD
== END 2023-02-12 14:33 | DRG 193 ==
LOC: ED 20:10 → SUATTDRO 23:06 → 1E 23:06 → 2E 02-08 06:49

== ENCOUNTER 2024-01-23 12:49 | Inpatient (IN) ==
--- NOTE | 2024-01-23 13:08 | Emergency Department Note ---
ED Provider Note CHIEF COMPLAINT: Fall, confusion, head laceration HISTORY OF PRESENTING ILLNESS: [] The patient was found by his family on the floor with blood from a laceration to the back of his head. The patient's family took him into the shower to clean off the blood, but he was very confused and they couldn't get him out of the shower and called 911. EMS found the patient slumped over in the shower and he was confused. The patient does not remember anything about the fall. He is not complaining of any pain or any symptoms, but he is a poor historian. He is not on any blood thinners. He is not sure about his tetanus status. He has a bruise to the left shoulder and an upper arm bruise. He was found to be at 79% on room air in the ER and an oxymask was placed. He is not on oxygen recently. He was recently at [facility] (unknown why), but was recently discharged home with his daughter. REVIEW OF SYSTEMS: See HPI for pertinent positives and pertinent negatives. ALLERGIES: [] MEDICATIONS: [] PAST MEDICAL HISTORY: [] PHYSICAL EXAM: [] DIFFERENTIAL DIAGNOSIS: [] ED COURSE AND MEDICAL DECISION MAKING: HISTORY FROM INDEPENDENT HISTORIAN: [] MEDICATIONS GIVEN: [] MONITOR: Continuous monitor and storage bin tender: Order was placed for continuous monitor and storage bin tender. Patient was placed on the monitor and storage bin tender and continuous pulse ox. Patient was noted to be in normal sinus rhythm at an initial rate of [] bpm per my interpretation. EKG: EKG was interpreted by myself as []. INTERPRETATION OF LABS: I interpreted the labs with full lab results as below in the lab section of this note. Pertinent lab results discussed in the MDM section below. INTERPRETATION OF IMAGING: Imaging studies were interpreted by myself and read by radiology as per the imaging section of this note. [] EXTERNAL RECORDS REVIEWED: [] CHRONIC MEDICAL/SOCIAL CONDITIONS AFFECTING CARE: [] ESCALATION OF CARE CONSIDERED: [] CONSULTATIONS: [] PROCEDURES: [] SPLINTING: Definitive fracture care was performed by myself. The patient was placed in [] under my direction. Neurovascular status was rechecked and intact. MDM SUMMARY: I examined the patient. An IV lock was placed and labs were drawn. []. The patient was educated on the treatment plan and the discharge instructions. The patient was discharged home in stable condition. DIAGNOSIS: [] TREATMENT PLAN/DISCHARGE INSTRUCTIONS: [] Past Med/Surg History Problem List (Updated 05/14/23 @ 15:52 by Dyllan Burton MD) Dementia Acute metabolic encephalopathy Hyponatremia Aspiration pneumonia Pleurisy Loculated pleural effusion DKA (diabetic ketoacidosis) Complete AV block Incontinence of urine Pulmonary abscess Atrioventricular dissociation (Acute) PFO (patent foramen ovale) Cerebral aneurysm Prepatellar bursitis, left knee Knee pain, left Acute respiratory failure with hypoxia Scrotal ulcer Meningoencephalitis Acute CVA (cerebrovascular accident) Delirium Leukocytosis Metabolic encephalopathy Acute alteration in mental status (Acute) ROYAL (acute kidney injury) (Acute) T2DM (type 2 diabetes mellitus) (Chronic) 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 Syncope Abnormal ECG Obesity (Chronic) Depression (Chronic) Diabetes Colon cancer screening Medical History (Updated 05/14/23 @ 15:52 by Dyllan Burton MD) History of stroke Anemia Major depressive disorder, recurrent, severe without psychotic features Depressed Hyperlipidemia Hypertension Prediabetes ADHD Depression Surgical History Hx of vasectomy History of rectal surgery x3 for an abscess in anal sphincter History of colonoscopy History of root canal procedure multiple History of wisdom tooth extraction History of tonsillectomy Hx of eye surgery Family History Father Family history of diabetes mellitus Diabetes Hypertension Heart disease Brother Prostate cancer Other No family history of adverse response to anesthesia Social History Smoking Status: Former smoker Tobacco Type: Cigars Second Hand Exposure: Yes; Do You Dip or Chew Tobacco: No; Hx Alcohol Use: No Hx Substance Use: No Preferred Language: Kyrgyz Communication Ability: Effective Computer Discovery Teacher Required: No Beliefs That Will Affect Care: None marital status: Single Current Living Situation: Alone Current Living Situation Comment: pt lives with daughter per history and physical by MD Feels Safe at Home: Yes Assistive Devices: None Allergies Allergies Allergy/AdvReac Type Severity Reaction Status Date / Time erythromycin base Allergy Intermediate Hives Verified 02/04/23 22:44 Penicillins Allergy Intermediate Hives Verified 02/04/23 22:44 Home Meds Home Medications Medication Instructions Recorded Confirmed aspirin 81 mg tablet,delayed 81 mg PO DAILY 03/17/19 05/14/23 release insulin syringe-needle U-100 0.5 #10 ea 05/11/20 05/14/23 mL 31 gauge x 5/16" (BD Insulin Syringe Ultra-Fine) lancets (Accu-Chek Fastclix Lancet 05/11/20 05/14/23 Drum) blood sugar diagnostic (Accu-Chek 09/09/20 05/14/23 Guide test strips) buspirone 5 mg tablet 0 mg PO DIRECTED 02/04/23 05/14/23 lisinopril 10 mg tablet 10 mg PO DAILY 02/04/23 05/14/23 semaglutide 0.25 mg or 0.5 mg (2 0.5 mg subcut .WEEKLY 02/04/23 05/14/23 mg/3 mL) subcutaneous pen injector (Ozempic) Adderall XR 20 mg PO DAILY 02/06/23 05/14/23 dextromethorphan IR 45 1 tab PO QAM 05/14/23 05/14/23 mg-bupropion ER 105 mg biphasic tablet (Auvelity) Previous Rx's Medication Instructions Recorded metformin 500 mg tablet,extended 1,000 mg (2 x 500 mg) PO BID #120 03/19/19 release 24 hr tabs FreeStyle Marta 2 Sensor (flash #1 ea 07/30/20 glucose sensor) atorvastatin 40 mg tablet 40 mg PO DAILY #30 tabs 12/13/20 miconazole nitrate 2 % topical 1 applic EXT BID #85 grams 12/13/20 powder (Desenex) thiamine HCl (vitamin B1) 100 mg 100 mg PO QAM #30 tabs 12/13/20 tablet (Vitamin B-1) amlodipine 5 mg tablet (Norvasc) 5 mg PO QAM #0 tabs 02/12/23 aspirin 81 mg tablet,delayed 81 mg PO QAM #0 tabs 02/12/23 release levofloxacin 750 mg tablet 750 mg PO DAILY@1100 #0 tabs 02/12/23 metronidazole 500 mg tablet 500 mg PO TID #0 tabs 02/12/23 polyethylene glycol 3350 17 gram 17 g PO DAILY #0 ea 02/12/23 oral powder packet (Miralax) tamsulosin 0.4 mg capsule 0.4 mg PO HS #0 caps 02/12/23 Discharge Plan Visit Data Chief Complaint: Fall Stated Complaint: FALL, CONFUSION, HEAD LAC ED Provider: Barrett Andujar ED Midlevel Provider: Anh Marshall Forms Stand Alone Forms: My [facility] Prescriptions Prescriptions: No Action (DME) lancets [Accu-Chek Fastclix Lancet Drum] Misc See Rx Instructions .ROUTE .MEDSUPPLY Rx Instructions: test 4 times daily (DME) insulin syringe-needle U-100 [BD Insulin Syringe Ultra-Fine] 0.5 mL 31 gauge x 5/16" syringe See Rx Instructions .ROUTE .MEDSUPPLY Qty: 10 Rx Instructions: use 5 needles daily (DME) Accu-Chek Guide test strips Strip See Rx Instructions .ROUTE .MEDSUPPLY Rx Instructions: test 1 times daily (DME) FreeStyle Marta 2 Sensor Kit See Rx Instructions .ROUTE .MEDSUPPLY Qty: 1 12RF Rx Instructions: Change q 14 days to momitor b,ood sugars as advised. Auvelity 45-105 mg tablet,IR,delayed rel,biphasic 1 tab PO QAM aspirin 81 mg Tablet,Delayed Release (Dr/Ec) 81 mg PO DAILY Rx Instructions: has not been taking any meds for over a month. metformin 500 mg tablet extended release 24 hr 1,000 mg PO BID Qty: 120 0RF atorvastatin 40 mg Tablet 40 mg PO DAILY Qty: 30 0RF Rx Instructions: Has not been taking his meds for over a month. miconazole nitrate [Desenex] 2 % Powder 1 applic EXT BID Qty: 85 0RF thiamine HCl (vitamin B1) [Vitamin B-1] 100 mg Tablet 100 mg PO QAM Qty: 30 0RF buspirone 5 mg Tablet 0 mg PO DIRECTED Rx Instructions: has not been taking, family not sure of dose. lisinopril 10 mg tablet 10 mg PO DAILY Ozempic 0.25 mg or 0.5 mg (2 mg/3 mL) pen injector 0.5 mg SUBCUT .WEEKLY Rx Instructions: has not been taking Adderall XR 20 mg PO DAILY polyethylene glycol 3350 [Miralax] 17 gram Powder In Packet 17 g PO DAILY Qty: 0 0RF metronidazole 500 mg Tablet 500 mg PO TID Qty: 0 0RF amlodipine [Norvasc] 5 mg Tablet 5 mg PO QAM Qty: 0 0RF aspirin 81 mg Tablet,Delayed Release (Dr/Ec) 81 mg PO QAM Qty: 0 0RF tamsulosin 0.4 mg Capsule 0.4 mg PO HS Qty: 0 0RF levofloxacin 750 mg Tablet 750 mg PO DAILY@1100 Qty: 0 0RF Referrals Referrals: Lillie Ramsay, [Primary Care Provider] -
--- NOTE | 2024-01-23 13:12 | Emergency Department Note ---
ED Visit Note I was asked to repair this patient's scalp laceration by Dr. Andujar. Please see his dictation for further details. The patient was found by his family members on the ground bleeding from a head laceration. Unwitnessed fall and unknown how long he was on the floor. The patient is confused and is a poor historian. Tetanus status is unknown. The patient has a 2.5 cm laceration to the occipital aspect of the scalp more on the right side. There is no active bleeding, but there is surrounding dried blood. The edges minimally gape apart with traction. No foreign bodies noted. No deep structures injured within the base of the wound. Risks and benefits of the procedure were discussed. Verbal consent was obtained to perform the procedure and the procedure was performed by myself. Using sterile technique the wound was cleaned with Betadine. The area was sterilely draped. 2 ml of 1% lidocaine with epi was used to anesthetize the patient's scalp. Once the patient was numb, the wound was copiously irrigated under pressure with sterile saline. The wound was explored and there were no deep structures present. The laceration was repaired using 4 devendra with the wound edges being well approximated. The patient tolerated the procedure well. The bleeding stopped. The area was cleaned with sterile saline and dressed with bacitracin ointment. .
--- NOTE | 2024-01-23 13:58 | XRay Report ---
XR chest 1V portable CLINICAL HISTORY: Trauma COMPARISON STUDY: Chest CT February 04, 2023. Chest radiograph February 10, 2023. FINDINGS: There is no pneumothorax. Cardiomegaly is again noted. There are small bilateral pleural ef fusions with bibasilar opacities. Right midlung opacity on chest radiograph of February 10, 2023 has improved. There is mild interstitial thickening. IMPRESSION: 1. Cardiomegaly with interstitial pulmonary edema. 2. Small bilateral pleural effusions with associated bibasilar opacities which could reflect pneumoni a or atelectasis. Radiographic follow-up is recommended. ACT 112: Negative or not required by law. Electronically signed by: Lico Morales M.D. 01/23/2024 1:57 PM
--- NOTE | 2024-01-23 13:59 | XRay Report ---
XR pelvis 1-2V routine CLINICAL HISTORY: Trauma COMPARISON: CT of the abdomen and pelvis December 07, 2020. FINDINGS: Sacroiliac joints and symphysis pubis are intact. There are no acute fractures within the pelvis or hips. Apparent foreshortening of the femoral necks is likely technical. There is a moderate amount of stool within the rectum. IMPRESSION: No fractures within the pelvis or hips. ACT 112: Negative or not required by law. Electronically signed by: Lico Morales M.D. 01/23/2024 1:58 PM
[2024-01-23 14:03] LABS: Basophils # (auto) 0.12 K/uL (0.00-0.20); Eosinophils # (auto) 0.09 K/uL (0.00-0.50); Eosinophils % (auto) 0.8 %; Hematocrit (blood only) 34.2 % (42.0-52.0); Hemoglobin 11.4 g/dl (14.0-18.0); Immature Granulocytes # (auto) 0.13 K/uL (0.01-0.20); Immature Granulocytes % (auto) 1.1 %; Lymphocytes # (auto) 0.78 K/uL (1.20-3.40); Lymphocytes % (auto) 6.7 %; Mean Corpuscular Hemoglobin 35.2 pg (25.0-34.0); Mean Corpuscular Hgb Conc 33.3 g/dL (32.0-36.0); Mean Corpuscular Volume 105.6 fL (80.0-100.0); Mean Platelet Volume 10.7 fL (9.4-12.4); Monocytes # (auto) 0.73 K/uL (0.11-0.59); Monocytes % (auto) 6.3 %; Neutrophils # (auto) 9.75 K/uL (1.40-6.50); Neutrophils % (auto) 84.1 %; Nucleated RBC # (auto) 0.04 K/uL (0.00-0.12); Nucleated RBC % (auto) 0.3 %; Platelet Count 308 K/uL (130-400); RDW Coefficient of Variation 18.8 % (11.5-14.5); RDW Standard Deviation 73.6 fL (36.4-46.3); Red Blood Count 3.24 M/uL (4.70-6.10)
[2024-01-23 14:03] LABS: iSTAT Creatinine 1.1 mg/dl (0.6-1.3); iSTAT Hemoglobin 13.3 g/dl (14.0-18.0); iSTAT Ionized Calcium 1.15 mmol/l (1.12-1.32); iSTAT Potassium 4.8 mmol/L (3.3-5.0)
--- NOTE | 2024-01-23 14:04 | XRay Report ---
XR humerus LT 2V HISTORY: 73 years-old Male trauma acute left upper extremity pain status post trauma COMPARISON: Elbow radiographs 12/03/2020 TECHNIQUE: 2 views of the left humerus FINDINGS: Mild glenohumeral and moderate AC joint osteoarthritis. No acute fracture, dislocation or osseous ero hayley. No opaque foreign bodies. IMPRESSION: No acute fracture identified. ACT 112: Negative or not required by law. The above report was generated using voice recognition software. It may contain grammatical, syntax o r spelling errors. Electronically signed by: Roni Voss M.D. 01/23/2024 2:02 PM
[2024-01-23] MEDS: cefTRIAXone SODIUM 2,000 MG/50 ML BAG IV STA (14:09)
[2024-01-23 14:24] LABS: Alanine Aminotransferase 23 U/L (7-52); Albumin Globulin Ratio 1.1 (0.9-2); Albumin Level 4.1 gm/dl (3.4-5.0); Alkaline Phosphatase 176 U/L (34-104); Anion Gap 6 (3-11); BUN Creatinine Ratio 27.1 (10-20); Bilirubin,Total 1.1 mg/dl (0.2-1.0); Blood Urea Nitrogen 26 mg/dl (6-23); Calcium 9.3 mg/dl (8.6-10.3); Carbon Dioxide 27 mmol/L (21-32); Chloride 105 mmol/L (98-107); Creatine Kinase 73 U/L (30-223); Creatinine Clr Calc Pharmacy 85.8 ml/min; Globulin 3.7 gm/dl (2.5-4.0); Glucose 82 mg/dl (70-99(Fasting)); Lipase 46 U/L (11-82); Sodium 138 mmol/L (136-145); Total Protein 7.8 gm/dl (6.0-8.3)
[2024-01-23 14:31] LABS: Troponin I High Sensitivity 30.1 pg/ml (0-20)
[2024-01-23 14:33] LABS: INR 1.2 (0.9-1.1); Partial Thromboplastin Time 26 Seconds (21-31); Prothrombin Time 12.6 Seconds (9.0-12.0)
[2024-01-23] MEDS: OPTIRAY 320 100ml IV ONE (14:40)
--- NOTE | 2024-01-23 14:58 | CT Scan Report ---
CT OF THE HEAD WITHOUT CONTRAST CLINICAL HISTORY: trauma COMPARISON STUDY: MRI of the brain March 15, 2023. Head CT February 04, 2023. TECHNIQUE: Helical axial images of the head were obtained without IV contrast. Automated exposure con trol was utilized for the study. A dose lowering technique was utilized adhering to the principles o f ALARA. FINDINGS: This exam is moderately compromised by motion artifact. No acute intracranial hemorrhage, m idline shift or mass effect is present. The ventricular system is stable. The basal cisterns are pineda nt. No extra axial collections are present. A right posterior scalp contusion is present. There are n o calvarial fractures. There is moderate mucosal thickening of the maxillary sinuses with secretions and air-fluid level within the left maxillary sinus. There is moderate ethmoid sinus mucosal thickeni ng as well as mucosal thickening of the sphenoid sinuses. IMPRESSION: 1. No acute intracranial findings. Exam moderately compromised by motion artifact. 2. Right posterior scalp contusion. No calvarial fractures. 3. Sinus opacification, as above. ACT 112: Negative or not required by law. Electronically signed by: Lico Morales M.D. 01/23/2024 2:57 PM
--- NOTE | 2024-01-23 15:02 | CT Scan Report ---
CT OF THE CERVICAL SPINE WITHOUT CONTRAST CLINICAL HISTORY: trauma COMPARISON STUDY: Cervical spine CT December 13, 2020. CTA of the neck December 12, 2020. TECHNIQUE: Helical axial images of the cervical spine were obtained without IV contrast. Sagittal a nd coronal reconstructions were viewed. Automated exposure control was utilized for the study. A do se lowering technique was utilized adhering to the principles of ALARA. FINDINGS: Alignment of the cervical spine is anatomic. Vertebral body heights are maintained. No acut e cervical spine fracture or subluxation is present. There is no prevertebral edema. Facet joints are intact. This exam is mildly compromised by artifact. Moderate multilevel degenerative disc disease and facet arthrosis is present. The central canal and neural foramen are suboptimally assessed given CT technique. IMPRESSION: 1. No acute cervical spine fracture or subluxation. Exam mildly compromised by motion artifact. 2. Moderate multilevel degenerative changes within the cervical spine. ACT 112: Negative or not required by law. Electronically signed by: Lico Morales M.D. 01/23/2024 3:01 PM
--- NOTE | 2024-01-23 15:14 | CT Scan Report ---
CHEST CT WITH CONTRAST; CT ABDOMEN AND PELVIS WITH IV CONTRAST ONLY CT DOSE: 4272.33 mGy.cm HISTORY: Acute chest and abdominal trauma status post fall trauma TECHNIQUE: Multiaxial CT images of the chest, abdomen and pelvis were performed following the IV admi nistration of 94 cc of Optiray. A dose lowering technique was utilized adhering to the principles o f ALARA. COMPARISON: Pelvis and left humerus radiographs of same day, chest CT 02/04/2023, CT abdomen and pel vis 12/07/2020 FINDINGS: CT CHEST: Unremarkable thyroid. Mildly enlarged mediastinal and hilar lymph nodes measure up to 11 mm , mildly decreased in size from prior. Moderate cardiomegaly. No pericardial effusion. Unremarkable t horacic aorta. No pulmonary emboli. Trace right and moderate left pleural effusions. No pneumothorax. Intralobular septal thickening with diffuse linear opacities at the right lung suggestive of scarring intermixed with atelectasis. Depen dent bibasilar consolidation with left lower lobe volume loss. Mild generalized body wall edema. Dege nerative changes of the shoulders and spine. No acute fracture identified. CT ABDOMEN/PELVIS: No pneumatosis or pneumoperitoneum. Study is degraded by respiratory motion artifa ct. Unremarkable spleen, pancreas and right adrenal gland. 1.6 cm soft tissue attenuating left adrena l gland lesion previously measured 10 mm. Mildly distended gallbladder. Heterogeneous liver with travis inal nodularity suggestive of cirrhosis. Patent portal vein. There are a few hypodensities of the kid neys suggestive of probable cysts. No hydronephrosis. Prostatomegaly. Unremarkable urinary bladder. Subcentimeter retroperitoneal lymph nodes. Atherosclerosis of the aorta without aneurysm. Colonic div erticulosis. No bowel obstruction or bowel wall thickening. Small moderate abdominal pelvic ascites. Anasarca. No retroperitoneal hemorrhage identified. No acute fracture is seen. IMPRESSION: 1. No acute posttraumatic intrathoracic, intra-abdominal or intrapelvic abnormality identified. 2. Cirrhosis with ascites, abdominal varicosities and anasarca. 3. Small right and moderate left pleural effusions with bilateral pulmonary opacities favoring atelec tasis/scarring. Underlying pneumonia would be difficult to exclude. 4. Mediastinal and hilar lymphadenopathy redemonstrated, mildly improved compared to the 02/04/2023 s tudy. 5. No acute fracture is seen. 6. Additional findings as above. ACT 112: Negative or not required by law. Electronically signed by: Roni Voss M.D. 01/23/2024 3:12 PM
[2024-01-23] MEDS: LORazepam 2 MG/1 ML VIAL IV STA (15:43)
[2024-01-23 15:46] LABS: Magnesium 1.8 mg/dl (1.7-2.4); Potassium 4.5 mmol/L (3.5-5.1)
--- NOTE | 2024-01-23 16:01 | Electrocardiogram Report ---
Test Reason : Blood Pressure : */* mmHG Vent. Rate : 62 BPM Atrial Rate : 79 BPM P-R Int : * ms QRS Dur : 86 ms QT Int : 410 ms P-R-T Axes : 44 -46 69 degrees QTcB Int : 416 ms Sinus rhythm with 2nd degree A-V block (Mobitz I) Low voltage QRS Left anterior fascicular block Cannot rule out Anterior infarct (cited on or before 10-Dec-2020) Abnormal ECG When compared with ECG of 04-Feb-2023 20:20, Significant changes have occurred Confirmed by Sanya Krause ([id number]) on 01/23/2024 4:00:36 PM Referred By: REFERRED SELF Confirmed By: Sanya Krause
[2024-01-23] MEDS: LIDOCAINE 1%/EPINEPHRINE 1:100,000 50 ML VIAL INFIL ONE (16:30)
--- NOTE | 2024-01-23 16:45 | History & Physical Report ---
Date of Service January 23, 2024 Assessment & Plan (1) Pneumonia: Plan: Patient with cough, rhinorrhea, sore throat, and dyspnea x [address] showing small right and moderate left pleural effusions with bilateral pulmonary opacities favoring atelectasis/scarring, underlying pneumonia difficult to exclude CXR showing small bilateral pleural effusions with associated bibasilar opacities which could reflect pneumonia vs atelectasis - procal negative - leukocytosis with neutrophil predominance (WBC 11.60) - Rocephin in ED -> continue + addition of doxycycline for atypical coverage with macrolide allergy - biofire pending - blood culture ordered - wean O2 as tolerated - incentive spirometry (2) AV block, 2nd degree: Plan: Known history of AV disassociation with second-degree AV block Has been evaluated by cardiology in the past, discussions of pacemaker but never followed through EKG on admission showing second degree AV block (Mobitz 1) ECHO 01/2023 showed EF 55 to 60%, dilated right ventricle, mild right atrial dilation, mild MR, mild pulmonary hypertension RSVP 41, sinus rhythm with high- grade AV block - bradycardic (trending in 50s-60s) - no electrolyte abnormalities - recurrent unwitnessed falls -> possible syncopal episodes?? - monitor on telemetry - will order echo - will consult cardiology (3) Hypoxic: Plan: secondary to #1 79% on RA - currently on 4L NC - wean O2 as tolerated with TX above (4) Elevated troponin: Plan: suspect secondary to AV block and illness 30.1 -> 25.8 - trend - monitor on tele (5) Cirrhosis: Plan: No known history of cirrhosis Denies alcohol use history CT showing cirrhosis with ascites, abdominal varicosities and anasarca - LFTs showing elevated alk phosphatase (176), AST and ALT WNL - PT/INR WNL - trend CMP - acute hepatitis panel ordered - lipid panel with AM labs (6) Edema: Plan: +3 pitting BL LE edema with ascites, anasarca - no history of CHF - Renal function stable - cirrhosis seen on CT as above with #5 - unlikely to 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 and 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 onset of edema; will continue for now - TEDs and promote leg elevation - Low NA diet - will add Lasix 40 mg IV daily (7) Trauma: Plan: patient found laying in shower after a fall, unwitnessed fall and poor historian Patient with recurrent falls as per daughter; all unwitnessed humerus x-ray negative, pelvis x-ray negative head CT showing right posterior scalp contusion - 4 devendra to scalp contusion - PT/OT to eval with recurrent unwitnessed falls (8) T2DM (type 2 diabetes mellitus): Plan: Controlled on Insulin and Metformin at home - Most recent A1C 9.1 (02/2023); will repeat with AM labs - hold Metformin - continue home Lantus 40 units QAM - SSI with target BSG range 110-140mg/dL, CF 20, carb ratio 7 - T2DM diet - BSG ACHS if eating, q6h if npo (9) Depression: Plan: chronic history of depression with SI - currently denies SI today but stated that he has 'always had thoughts of SI and plans' - declines psychiatric eval - continue home medications - Auvelity Plan Chronic stable diagnoses: dementia - stable ADHD - continue Adderall HTN - continue amlodipine and lisinopril HLD - continue ASA and atorvastatin GERD - continue PPI VTE ppx: Heparin Q12 Diet: T2DM, low Na diet Code status: DNR/DNI Dispo: Med/Tele Admission and Anticipated Discharge Date Admission Date: 01/23/24 History of Present Illness Chief Complaint: trauma Primary Care Provider: Lillie Ramsay DO Patient is a 73-year-old male with past history of AV dissociation, depression, type II DM, CVA 2020. he presents today after an unwitnessed fall in his bathroom. He has a laceration on the right back of his head. Patient does not remember the fall, he just remembers being in the shower earlier. He is a poor historian with underlying dementia. He does endorse dyspnea on exertion, dry cough, rhinorrhea, and sore throat for the past few weeks. He also endorses 1 episode of diarrhea 2 days ago. He stated that he has had bilateral LE edema for weeks to months. Patient denies fever, chills, headache, dizziness, lightheadedness, chest pain, abdominal pain, nausea, vomiting, constipation, dysuria, hematuria, numbness, tingling. Talked with patient's daughter on the phone, she stated that she lives with them at home. She heard him fall in the shower and found him wrapped up in the shower curtain with blood coming from the back of his head. She stated that he has fallen several times over the past few months, all unwitnessed but likely due to slipping in the bathroom. He has also followed up at a few times. She denies that they are syncopal episodes. She stated that he has had workups for the A-V block in the past, discussions of possible pacemaker, but never followed through. He does not follow with cardiology outpatient. He has had cough, rhinorrhea, sore throat, and dyspnea for the past few weeks. She works at the [employer] and is around sick children daily, but she herself denies being sick recently. She is having a shower chair put in due to recent falls in the shower. Allergies Allergy/AdvReac Type Severity Reaction Status Date / Time erythromycin base Allergy Intermediate Hives Verified 02/04/23 22:44 Penicillins Allergy Intermediate Hives Verified 02/04/23 22:44 Home Medications Medication Instructions Recorded Confirmed Type insulin syringe-needle U-100 0.5 #10 ea 05/11/20 05/14/23 History mL 31 gauge x 5/16" (BD Insulin Syringe Ultra-Fine) lancets (Accu-Chek Fastclix Lancet 05/11/20 05/14/23 History Drum) FreeStyle Marta 2 Sensor (flash #1 ea 07/30/20 05/14/23 Rx glucose sensor) blood sugar diagnostic (Accu-Chek 09/09/20 05/14/23 History Guide test strips) thiamine HCl (vitamin B1) 100 mg 100 mg PO QAM #30 tabs 12/13/20 01/23/24 Rx tablet (Vitamin B-1) lisinopril 10 mg tablet 10 mg PO DAILY 02/04/23 01/23/24 History semaglutide 0.25 mg or 0.5 mg (2 0.5 mg subcut .WEEKLY 02/04/23 01/23/24 History mg/3 mL) subcutaneous pen injector (Ozempic) Adderall XR 20 mg PO UD 02/06/23 01/23/24 History amlodipine 5 mg tablet (Norvasc) 5 mg PO QAM #0 tabs 02/12/23 01/23/24 Rx polyethylene glycol 3350 17 gram 17 g PO DAILY #0 ea 02/12/23 01/23/24 Rx oral powder packet (Miralax) dextromethorphan IR 45 1 tab PO UD 05/14/23 01/23/24 History mg-bupropion ER 105 mg biphasic tablet (Auvelity) aspirin 81 mg tablet,delayed 81 mg PO UD 01/23/24 01/23/24 History release atorvastatin 40 mg tablet 40 mg PO HS 01/23/24 01/23/24 History insulin glargine 100 unit/mL (3 40 unit subcut QAM 01/23/24 01/23/24 History mL) subcutaneous pen (Basaglar KwikPen U-100 Insulin) metformin 1,000 mg tablet 1,000 mg PO BID 01/23/24 01/23/24 History pantoprazole 40 mg tablet,delayed 40 mg PO DAILY 01/23/24 01/23/24 History release tamsulosin 0.4 mg capsule 0.4 mg PO UD 01/23/24 01/23/24 History Past Med/Surg History Problem List (Updated 01/23/24 @ 17:39 by Evelyn Fitzgerald PA-C) Edema Pneumonia Hypoxic Elevated troponin Cirrhosis AV block, 2nd degree Trauma Dementia Acute metabolic encephalopathy Hyponatremia Aspiration pneumonia Pleurisy Loculated pleural effusion DKA (diabetic ketoacidosis) Complete AV block Incontinence of urine Pulmonary abscess Atrioventricular dissociation (Acute) PFO (patent foramen ovale) Cerebral aneurysm Prepatellar bursitis, left knee Knee pain, left Acute respiratory failure with hypoxia Scrotal ulcer Meningoencephalitis Acute CVA (cerebrovascular accident) Delirium Leukocytosis Metabolic encephalopathy Acute alteration in mental status (Acute) ROYAL (acute kidney injury) (Acute) T2DM (type 2 diabetes mellitus) (Chronic) 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 Syncope Abnormal ECG Obesity (Chronic) Depression (Chronic) Diabetes Colon cancer screening Medical History (Updated 01/23/24 @ 17:39 by Evelyn Fitzgerald PA-C) History of stroke Anemia Major depressive disorder, recurrent, severe without psychotic features Depressed Hyperlipidemia Hypertension Prediabetes ADHD Depression Surgical History Hx of vasectomy History of rectal surgery x3 for an abscess in anal sphincter History of colonoscopy History of root canal procedure multiple History of wisdom tooth extraction History of tonsillectomy Hx of eye surgery Family History Father Family history of diabetes mellitus Diabetes Hypertension Heart disease Brother Prostate cancer Other No family history of adverse response to anesthesia Social History Smoking Status: Never smoker Tobacco Type: Cigars Second Hand Exposure: Yes; Do You Dip or Chew Tobacco: No; Hx Alcohol Use: No Hx Substance Use: No Preferred Language: Thai Communication Ability: Effective Manager Salt Required: No Beliefs That Will Affect Care: None marital status: Single Current Living Situation: Alone Current Living Situation Comment: pt lives with daughter per history and physical by MD Feels Safe at Home: Yes Assistive Devices: None Review of Systems Review of Systems: see HPI Physical Exam Physical Exam: The patient is awake, alert and oriented 4, well developed and well nourished, in no acute distress. Non-toxic appearing. HEENT- EOMI, mucous membranes moist. Hearing grossly intact. Laceration to right posterior scalp contusion. Heart-normal S1 and S2. No murmurs, rubs or gallops. Lungs-decreased LLL, no respiratory distress, no accessory muscle use. Abdomen-normal bowel sounds and soft. Ascites noted. Non-tender. Extremities- no clubbing, cyanosis. +3 pitting edema BL LE. Rheumatologic-normal range of motion. Psychiatric-normal affect. Results & Data Results & Data Vital Signs (Past 12 Hours) Vital Signs Temp Pulse Pulse Resp BP BP Pulse Ox 01/23/24 16:00 56 L 20 146/74 H 94 01/23/24 15:00 59 L 26 H 158/79 H 92 01/23/24 14:38 55 L 17 152/78 H 92 01/23/24 13:35 144/77 H 01/23/24 13:30 94 01/23/24 13:30 36.5 C 60 26 H 148/75 H 94 01/23/24 13:29 63 24 93 01/23/24 13:28 50 L 01/23/24 13:23 71 21 92 01/23/24 13:09 79 L 01/23/24 13:09 66 25 H 95 01/23/24 13:09 36.5 C 60 25 H 153/83 H 79 L 01/23/24 13:08 58 L 19 95 O2 Del Method O2 Flow Rate 01/23/24 16:00 Nasal Cannula 4 01/23/24 15:00 Nasal Cannula 4 01/23/24 14:38 Oxymask 6 01/23/24 13:35 01/23/24 13:30 Oxymask 6 01/23/24 13:30 Oxymask 6 01/23/24 13:29 01/23/24 13:28 01/23/24 13:23 01/23/24 13:09 Room Air, Oxymask 0 01/23/24 13:09 Oxymask 6 01/23/24 13:09 Oxymask 6 01/23/24 13:08 Code Status & VTE Plan Code Status DNR/DNI Supervising Physician Co-Signing Physician Notes Patient seen and examined, chart reviewed, case discussed with Evelyn Fitzgerald PA-C and I agree with the assessment and plan as above except as otherwise noted Labs and images reviewed Dyllan is a 73-year-old male with a history of type II DM, CVA, heart block who presents after a fall. Somewhat poor historian due to dementia. Patient was found wrapped in a shower curtain and has had multiple falls in the last month which he attributes to sleeping but have been not witnessed. Patient denies syncope but again has had A-V block noted in the past. On admission EKG with secondary AV block suspected Sosa Dodd. Initially patient is suspected to have possible pneumonia due to bilateral pulmonary opacities and respiratory symptoms in the last 3 weeks with possible improvement followed by subsequent worsening. Agree with following on telemetry overnight. Troponin is downtrending. Echo is pending. CT with no prior history of cirrhosis and no alcohol use but does have evidence of cirrhosis, varicosities, and anasarca. Acute hepatitis panel is ordered, A1c ordered. Lipid panel ordered last A1c 9.1 previously up to 13 DDx include steatohepatitis contrasted CT without evidence of thrombosis. Patient denies alcohol use. Patient with cirrhosis, ascites, and some element of congestion. Will add Lasix 40 mg daily. Agree with above. On evening reassessment patient remains hypoxic on high flow. DDx includes CHF and pneumonia. ABG ordered. CPAP nightly as needed ordered. MRSA nare remains pending. PG Care Time/CCT Total # of Minutes Spent Total Time Spent with Patient: Total time spent is greater than 50% in coordination of care (as documented) at patient's floor/unit and/or counseling patient: Coding Level of Care Code 42904 INT INP/OBS CARE 375MIN Diagnoses Pneumonia J18.9 AV block, 2nd degree I44.1 Hypoxic R09.02 Elevated troponin R79.89 Cirrhosis K74.60 Edema R60.9 Trauma T14.90XA T2DM (type 2 diabetes mellitus) E11.9 Depression F32.9
[2024-01-23 18:26] LABS: Adenovirus PCR Not Detected (NotDetected); Bordetella parapertussis PCR Not Detected (NotDetected); Bordetella pertussis PCR Not Detected (NotDetected); Chlamydia pneumoniae PCR Not Detected (NotDetected); Coronavirus 229E PCR Not Detected (NotDetected); Coronavirus CoV-2 (COVID19)PCR Not Detected (NotDetected); Coronavirus HKU1 PCR Not Detected (NotDetected); Coronavirus NL63 PCR Not Detected (NotDetected); Coronavirus OC43PCR Not Detected (NotDetected); Human Metapneumovirus PCR Not Detected (NotDetected); Influenza A PCR Not Detected (NotDetected); Influenza B PCR Not Detected (NotDetected); Mycoplasma pneumoniae PCR Not Detected (NotDetected); Parainfluenza Virus 1 PCR Not Detected (NotDetected); Parainfluenza Virus 2 PCR Not Detected (NotDetected); Parainfluenza Virus 3 PCR Not Detected (NotDetected); Parainfluenza Virus 4 PCR Not Detected (NotDetected); Respiratory Syncytial VirusPCR Not Detected (NotDetected); Rhinovirus/Enterovirus PCR Not Detected (NotDetected)
[2024-01-23 19:17] LABS: Appearance Urine Clear (Clear); Bacteria Urine Automated None Seen (None Seen); Bilirubin Urine Negative (Negative); Blood Urine Negative (Negative); Cast Urine Automated 0-2 /lpf (0-2); Color Urine Yellow; Epithelial Cell Urine Auto 0-2 /hpf (0-2); Glucose Urine UA Negative (Negative); Ketones Urine Negative (Negative); Leukocyte Esterase Urine Negative (Negative); Nitrite Urine Negative (Negative); Protein Urine 1+ (Negative); RBC Urine Automated 0-2 /hpf (0-2); Specific Gravity Urine 1.043 (1.000-1.030); Urobilinogen Urine Negative (Negative); WBC Urine Automated 0-5 /hpf (0-5); pH Urine 5.5 (4.5-7.5)
[2024-01-23] MEDS: FUROSEMIDE 40 MG/4 ML VIAL IV SCH (19:24)
--- NOTE | 2024-01-23 20:06 | Emergency Department Note ---
History of Present Illness General Chief complaint: Trauma Stated complaint: FALL, CONFUSION, HEAD LAC Time Seen by Provider: 01/23/24 13:02 History of Present Illness Provider complaint: Fall The patient was found by his family on the floor with blood from a laceration to the back of his head. The patient's family took him into the shower to clean off the blood, but he was very confused and they couldn't get him out of the shower and called 911. EMS found the patient slumped over in the shower and he was confused. The patient does not remember anything about the fall. Unsure how long he was down on the floor for. He is not complaining of any pain or any symptoms, but he is a poor historian. Home Medications Medication Instructions Recorded Confirmed Type insulin syringe-needle U-100 0.5 #10 ea 05/11/20 05/14/23 History mL 31 gauge x 5/16" (BD Insulin Syringe Ultra-Fine) lancets (Accu-Chek Fastclix Lancet 05/11/20 05/14/23 History Drum) FreeStyle Marta 2 Sensor (flash #1 ea 07/30/20 05/14/23 Rx glucose sensor) blood sugar diagnostic (Accu-Chek 09/09/20 05/14/23 History Guide test strips) thiamine HCl (vitamin B1) 100 mg 100 mg PO QAM #30 tabs 12/13/20 01/23/24 Rx tablet (Vitamin B-1) lisinopril 10 mg tablet 10 mg PO DAILY 02/04/23 01/23/24 History semaglutide 0.25 mg or 0.5 mg (2 0.5 mg subcut .WEEKLY 02/04/23 01/23/24 History mg/3 mL) subcutaneous pen injector (Ozempic) Adderall XR 20 mg PO UD 02/06/23 01/23/24 History amlodipine 5 mg tablet (Norvasc) 5 mg PO QAM #0 tabs 02/12/23 01/23/24 Rx polyethylene glycol 3350 17 gram 17 g PO DAILY #0 ea 02/12/23 01/23/24 Rx oral powder packet (Miralax) dextromethorphan IR 45 1 tab PO UD 05/14/23 01/23/24 History mg-bupropion ER 105 mg biphasic tablet (Auvelity) aspirin 81 mg tablet,delayed 81 mg PO UD 01/23/24 01/23/24 History release atorvastatin 40 mg tablet 40 mg PO HS 01/23/24 01/23/24 History insulin glargine 100 unit/mL (3 40 unit subcut QAM 01/23/24 01/23/24 History mL) subcutaneous pen (Basaglar KwikPen U-100 Insulin) metformin 1,000 mg tablet 1,000 mg PO BID 01/23/24 01/23/24 History pantoprazole 40 mg tablet,delayed 40 mg PO DAILY 01/23/24 01/23/24 History release tamsulosin 0.4 mg capsule 0.4 mg PO UD 01/23/24 01/23/24 History Allergies Allergy/AdvReac Type Severity Reaction Status Date / Time erythromycin base Allergy Intermediate Hives Verified 02/04/23 22:44 Penicillins Allergy Intermediate Hives Verified 02/04/23 22:44 Past Med/Surg History Problem List (Updated 01/23/24 @ 20:06 by Barrett Andujar MD) Laceration of head (Acute) CHI (closed head injury) (Acute) Hypoxia (Acute) Fall (Acute) Edema Pneumonia Hypoxic Elevated troponin Cirrhosis AV block, 2nd degree (Acute) Trauma Dementia Acute metabolic encephalopathy Hyponatremia Aspiration pneumonia Pleurisy Loculated pleural effusion DKA (diabetic ketoacidosis) Complete AV block Incontinence of urine Pulmonary abscess Atrioventricular dissociation (Acute) PFO (patent foramen ovale) Cerebral aneurysm Prepatellar bursitis, left knee Knee pain, left Acute respiratory failure with hypoxia Scrotal ulcer Meningoencephalitis Acute CVA (cerebrovascular accident) Delirium Leukocytosis Metabolic encephalopathy Acute alteration in mental status (Acute) ROYAL (acute kidney injury) (Acute) T2DM (type 2 diabetes mellitus) (Chronic) 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 Syncope Abnormal ECG Obesity (Chronic) Depression (Chronic) Diabetes Colon cancer screening Medical History History of stroke Anemia Major depressive disorder, recurrent, severe without psychotic features Depressed Hyperlipidemia Hypertension Prediabetes ADHD Depression Surgical History Hx of vasectomy History of rectal surgery x3 for an abscess in anal sphincter History of colonoscopy History of root canal procedure multiple History of wisdom tooth extraction History of tonsillectomy Hx of eye surgery Family History Father Family history of diabetes mellitus Diabetes Hypertension Heart disease Brother Prostate cancer Other No family history of adverse response to anesthesia Social History Smoking Status: Never smoker Tobacco Type: Cigars Second Hand Exposure: Yes; Do You Dip or Chew Tobacco: No; Hx Alcohol Use: No Hx Substance Use: No Preferred Language: Divehi Communication Ability: Effective Appointment Setter Required: No Beliefs That Will Affect Care: None marital status: Single Current Living Situation: Alone Current Living Situation Comment: pt lives with daughter per history and physical by MD Feels Safe at Home: Yes Assistive Devices: None Physical Exam Vital Signs Vital Signs - 24 hr 01/23/24 13:08 01/23/24 13:09 01/23/24 13:09 Temperature 36.5 C Temperature Source Pulse Rate 58 L 60 Pulse Rate [Apical] 66 Pulse Rate from SpO2 Sensor Pulse Rhythm [Apical] Respiratory Rate 19 25 H 25 H Respiratory Effort / Characteristics Respiratory Depth Blood Pressure 153/83 H Blood Pressure [Left Arm] Blood Pressure Mean Blood Pressure Mean [Left Arm] Pulse Oximetry 95 79 L 95 Oxygen Delivery Method Oxymask Oxymask Oxygen Flow Rate 6 6 Sepsis Recent Fever Within 48 Hours Sepsis New/Unexplained Change in Mental Status Sepsis Action Taken by Nursing Oxygen Flow Rate - Titration Pulse Oximetry Post Tiitration 01/23/24 13:09 01/23/24 13:23 01/23/24 13:28 Temperature Temperature Source Pulse Rate 71 50 L Pulse Rate [Apical] Pulse Rate from SpO2 Sensor Pulse Rhythm [Apical] Respiratory Rate 21 Respiratory Effort / Characteristics Respiratory Depth Blood Pressure Blood Pressure [Left Arm] Blood Pressure Mean Blood Pressure Mean [Left Arm] Pulse Oximetry 79 L 92 Oxygen Delivery Method Room Air Oxymask Oxygen Flow Rate 0 Sepsis Recent Fever Within 48 Hours Sepsis New/Unexplained Change in Mental Status Sepsis Action Taken by Nursing Oxygen Flow Rate - Titration 6 Pulse Oximetry Post Tiitration 95 01/23/24 13:29 01/23/24 13:30 01/23/24 13:30 Temperature 36.5 C Temperature Source Oral Pulse Rate 63 60 Pulse Rate [Apical] Pulse Rate from SpO2 Sensor 64 Pulse Rhythm [Apical] Respiratory Rate 24 26 H Respiratory Effort / Characteristics Respiratory Depth Blood Pressure 148/75 H Blood Pressure [Left Arm] Blood Pressure Mean 99 Blood Pressure Mean [Left Arm] Pulse Oximetry 93 94 94 Oxygen Delivery Method Oxymask Oxymask Oxygen Flow Rate 6 6 Sepsis Recent Fever Within 48 Hours No Sepsis New/Unexplained Change in Mental Status N/A Sepsis Action Taken by Nursing No Action Required Oxygen Flow Rate - Titration Pulse Oximetry Post Tiitration 01/23/24 13:35 01/23/24 14:38 01/23/24 15:00 Temperature Temperature Source Pulse Rate Pulse Rate [Apical] 55 L 59 L Pulse Rate from SpO2 Sensor Pulse Rhythm [Apical] Respiratory Rate 17 26 H Respiratory Effort / Characteristics Respiratory Depth Blood Pressure 144/77 H Blood Pressure [Left Arm] 152/78 H 158/79 H Blood Pressure Mean 124 Blood Pressure Mean [Left Arm] 102 105 Pulse Oximetry 92 92 Oxygen Delivery Method Oxymask Nasal Cannula Oxygen Flow Rate 6 4 Sepsis Recent Fever Within 48 Hours Sepsis New/Unexplained Change in Mental Status Sepsis Action Taken by Nursing Oxygen Flow Rate - Titration Pulse Oximetry Post Tiitration 01/23/24 16:00 01/23/24 17:52 Temperature Temperature Source Pulse Rate Pulse Rate [Apical] 56 L 56 L Pulse Rate from SpO2 Sensor Pulse Rhythm [Apical] Regular Respiratory Rate 20 20 Respiratory Effort / Characteristics Non-Labored Non-Labored Respiratory Depth Normal Normal Blood Pressure Blood Pressure [Left Arm] 146/74 H 158/84 H Blood Pressure Mean Blood Pressure Mean [Left Arm] 98 108 Pulse Oximetry 94 93 Oxygen Delivery Method Nasal Cannula Nasal Cannula Oxygen Flow Rate 4 Sepsis Recent Fever Within 48 Hours Sepsis New/Unexplained Change in Mental Status Sepsis Action Taken by Nursing Oxygen Flow Rate - Titration Pulse Oximetry Post Tiitration Physical Exam HENT: Exam performed. - Head: Laceration to the occiput. EYES: Conjunctivae and EOM are normal. Pupils are equal, round, and reactive to light. Right eye exhibits no discharge. Left eye exhibits no discharge. No scleral icterus. NECK: Patient in c-collar. CV: Normal rate, irregular rhythm, normal heart sounds and intact distal pulses. There is no peripheral edema. Palpable radial pulses bue. PULM/CHEST: Diminished breath sounds on the right. - Chest Wall: No crepitus bilaterally. ABD: The abdomen is soft. There is no tenderness. MUSC/SKEL: Normal range of motion. There is no peripheral edema, tenderness or deformity. NEURO: Motor and sensation grossly intact. SKIN: Ecchymosis over the left upper extremity over the biceps and mid humerus. Course Course 1302: The patient was evaluated in room B2. A complete history and physical exam was performed Cardiac monitoring: An order was placed for continuous cardiac monitoring. The monitor shows a rate of 60 interpreted by me Patient hypoxic on room air. Supplemental oxygen was applied which improved the patient's oxygen saturation. Patient was made trauma alert. EKG is concerning for second-degree type II heart block versus second-degree type I Sosa Dodd. Will discuss with cardiology. External medical records reviewed. Patient has a history of atrial ventricular dissociation during his last admission in January 2023 the patient was between accelerated junctional rhythm but mostly looks to be at a 2-1 AV block with a Mobitz type I averaging a rate of 50. 1315: Discussed the case with Dr. Jimi Mcleantany cardiology who reviewed the patient's EKG and stated he appeared to be in a secondary degree type I AV block Amilcar. 1320: Chest x-ray viewed by me shows no pneumothorax but is concerning for right middle lobe/aspiration pneumonia. Discussed with pharmacy and they recommended Rocephin for the patient for the possible aspiration pneumonia. 1430: Vital signs stable on supplemental oxygen. CT of the head shows no ICH when viewed by me. CT of the chest shows no pneumothorax and does show possible aspiration pneumonia when viewed by me. CT of the abdomen pelvis appears to show ascites when viewed by me. 1530: Patient becoming more confused and agitated trying to get up out of bed. Ativan ordered for the patient. Ammonia will be drawn for the patient also. 1610: Vital signs stable on supplemental oxygen. Labs show a blood cell count 11.6. Hemoglobin 11.4. Coagulation studies unremarkable. Potassium 4.5. Ammonia is unremarkable. Lactate 1.9. High-sensitivity troponin 30.1. Procalcitonin negative. Laceration was repaired by Rolando WINTER. See her procedure note. Patient will be admitted to the [facility] hospitalist team. Administered Medications Discontinued Medications Ceftriaxone Sodium (Rocephin) 2,000 mg in 50 mls @ 100 mls/hr IV NOW STA Stop: 01/23/24 13:55 Last Infusion: 01/23/24 14:39 Dose: Infused Documented By: Admin: 01/23/24 14:09 Dose: 100 mls/hr Documented By: ML Ioversol (Optiray 320 100ml) 94 ml IV ONCE ONE Stop: 01/23/24 14:41 Last Admin: 01/23/24 14:40 Dose: 94 ml Documented By: MALAIKAF Lorazepam (Lorazepam 2 Mg/1 Ml Vial) 1 mg IV NOW STA Stop: 01/23/24 15:23 Last Admin: 01/23/24 15:43 Dose: 1 mg Documented By: HB Critical Care Time Critical Care Time: Yes Total Critical Care Time: 80 I have personally spent greater than 80 minutes of critical care time in the direct management of this patient. This includes bedside care, interpretation of diagnostic studies, and testing, discussion with consultants, patient, and family members, and other required patient management activities. This 80 minutes is in excess of all separately billable procedures. Medical Decision Making Medical Records Attestation: I reviewed the patient's medical records. External medical records reviewed. Patient has a history of atrial ventricular dissociation during his last admission in January 2023 the patient was between accelerated junctional rhythm but mostly looks to be at a 2-1 AV block with a Mobitz type I averaging a rate of 50. Laboratory Data Attestation: I reviewed the patient's lab results. 01/23/24 13:44 01/23/24 15:09 Lab Results 01/23/24 01/23/24 01/23/24 Range/Units 13:39 13:44 13:51 WBC 11.60 H (4.8-10.8) K/ul RBC 3.24 L (4.70-6.10) M/uL Hgb 11.4 L (14.0-18.0) g/dl POC Hgb 13.3 L (14.0-18.0) g/dl Hct 34.2 L (42.0-52.0) % POC Hct 39 L (42-52) % MCV 105.6 H (80.0-100.0) fL MCH 35.2 H (25.0-34.0) pg MCHC 33.3 (32.0-36.0) g/dL RDW Std Deviation 73.6 H (36.4-46.3) fL RDW Coeff of Yinka 18.8 H (11.5-14.5) % Plt Count 308 (130-400) K/uL MPV 10.7 (9.4-12.4) fL Immature Gran % (Auto) 1.1 % Neut % (Auto) 84.1 % Lymph % (Auto) 6.7 % [place] % (Auto) 6.3 % Eos % (Auto) 0.8 % Baso % (Auto) 1.0 % Neut # (Auto) 9.75 H (1.40-6.50) K/uL Lymph # (Auto) 0.78 L (1.20-3.40) K/uL [place] # (Auto) 0.73 H (0.11-0.59) K/uL Eos # (Auto) 0.09 (0.00-0.50) K/uL Baso # (Auto) 0.12 (0.00-0.20) K/uL Immature Gran # (Auto) 0.13 (0.01-0.20) K/uL Absolute Nucleated RBC 0.04 (0.00-0.12) K/uL Nucleated RBC % (auto) 0.3 % PT 12.6 H (9.0-12.0) Seconds INR 1.2 H (0.9-1.1) APTT 26 (21-31) Seconds PTT Ratio 1.0 POC Sodium 141 (135-144) mmol/L Sodium 138 (136-145) mmol/L POC Potassium 4.8 (3.3-5.0) mmol/L Potassium TNP POC Chloride 106 (101-112) mmol/L Chloride 105 (98-107) mmol/L Carbon Dioxide 27 (21-32) mmol/L POC Total CO2 25 (24-31) mmol/L Anion Gap 6 (3-11) POC Anion Gap 15.0 L (16-25) mmol/L POC BUN 30 H (7-18) mg/dl BUN 26 H (6-23) mg/dl Creatinine 0.96 (0.6-1.4) mg/dl POC Creatinine 1.1 (0.6-1.3) mg/dl Est Cr Clr Drug Dosing 85.8 ml/min eGFR 82.94 BUN/Creatinine Ratio 27.1 H (10-20) Glucose 82 (70-99(Fasting)) mg/dl POC Glucose (other) 82 (70-99) mg/dl Lactate 1.9 (0.4-2.0) mmol/L Calcium 9.3 (8.6-10.3) mg/dl POC Ioniz Calcium Mt 1.15 (1.12-1.32) mmol/l Magnesium (1.7-2.4) mg/dl Total Bilirubin 1.1 H (0.2-1.0) mg/dl AST TNP ALT 23 (7-52) U/L Alkaline Phosphatase 176 H (34-104) U/L Ammonia (18-72) umol/L Total Creatine Kinase 73 (30-223) U/L Troponin I High Sens 30.1 H (0-20) pg/ml Total Protein 7.8 (6.0-8.3) gm/dl Albumin 4.1 (3.4-5.0) gm/dl Globulin 3.7 (2.5-4.0) gm/dl Albumin/Globulin Ratio 1.1 (0.9-2) Lipase 46 (11-82) U/L Procalcitonin < 0.02 (0-0.5) ng/ml Urine Color Urine Appearance (Clear) Urine pH (4.5-7.5) Ur Specific [place] (1.000-1.030) Urine Protein (Negative) Urine Glucose (UA) (Negative) Urine Ketones (Negative) Urine Blood (Negative) Urine Nitrite (Negative) Urine Bilirubin (Negative) Urine Urobilinogen (Negative) Ur Leukocyte Esterase (Negative) Urine WBC (Auto) (0-5) /hpf Urine RBC (Auto) (0-2) /hpf U Hyaline Cast (Auto) (0-2) /lpf U Epithel Cells (Auto) (0-2) /hpf Urine Bacteria (Auto) (None Seen) Ethyl Alcohol mg/dL < 10.0 (<10.0) mg/dl Adenovirus (PCR) (NotDetected) B. pertussis DNA (PCR) (NotDetected) B.parapertussis DNA PCR (NotDetected) C. pneumoniae DNA (PCR) (NotDetected) Coronavirus OC43 (PCR) (NotDetected) Coronavirus HKU1 (PCR) (NotDetected) Coronavirus 229E (PCR) (NotDetected) SARS-CoV-2 (PCR) (NotDetected) Coronavirus NL63 (PCR) (NotDetected) Human Metapneumovir PCR (NotDetected) Influenza Type A (PCR) (NotDetected) Influenza Type B (PCR) (NotDetected) M. pneumoniae (PCR) (NotDetected) Parainfluenza 1 (PCR) (NotDetected) Parainfluenza 2 (PCR) (NotDetected) Parainfluenza 3 (PCR) (NotDetected) Parainfluenza 4 (PCR) (NotDetected) RSV (PCR) (NotDetected) Entero/Rhino (PCR) (NotDetected) Blood Type Cancelled Antibody Screen Cancelled 01/23/24 01/23/24 01/23/24 Range/Units 15:09 15:37 17:20 WBC (4.8-10.8) K/ul RBC (4.70-6.10) M/uL Hgb (14.0-18.0) g/dl POC Hgb (14.0-18.0) g/dl Hct (42.0-52.0) % POC Hct (42-52) % MCV (80.0-100.0) fL MCH (25.0-34.0) pg MCHC (32.0-36.0) g/dL RDW Std Deviation (36.4-46.3) fL RDW Coeff of Yinka (11.5-14.5) % Plt Count (130-400) K/uL MPV (9.4-12.4) fL Immature Gran % (Auto) % Neut % (Auto) % Lymph % (Auto) % [place] % (Auto) % Eos % (Auto) % Baso % (Auto) % Neut # (Auto) (1.40-6.50) K/uL Lymph # (Auto) (1.20-3.40) K/uL [place] # (Auto) (0.11-0.59) K/uL Eos # (Auto) (0.00-0.50) K/uL Baso # (Auto) (0.00-0.20) K/uL Immature Gran # (Auto) (0.01-0.20) K/uL Absolute Nucleated RBC (0.00-0.12) K/uL Nucleated RBC % (auto) % PT (9.0-12.0) Seconds INR (0.9-1.1) APTT (21-31) Seconds PTT Ratio POC Sodium (135-144) mmol/L Sodium (136-145) mmol/L POC Potassium (3.3-5.0) mmol/L Potassium 4.5 POC Chloride (101-112) mmol/L Chloride (98-107) mmol/L Carbon Dioxide (21-32) mmol/L POC Total CO2 (24-31) mmol/L Anion Gap (3-11) POC Anion Gap (16-25) mmol/L POC BUN (7-18) mg/dl BUN (6-23) mg/dl Creatinine (0.6-1.4) mg/dl POC Creatinine (0.6-1.3) mg/dl Est Cr Clr Drug Dosing ml/min eGFR BUN/Creatinine Ratio (10-20) Glucose (70-99(Fasting)) mg/dl POC Glucose (other) (70-99) mg/dl Lactate (0.4-2.0) mmol/L Calcium (8.6-10.3) mg/dl POC Ioniz Calcium Mt (1.12-1.32) mmol/l Magnesium 1.8 (1.7-2.4) mg/dl Total Bilirubin (0.2-1.0) mg/dl AST 22 ALT (7-52) U/L Alkaline Phosphatase (34-104) U/L Ammonia 16.0 L (18-72) umol/L Total Creatine Kinase (30-223) U/L Troponin I High Sens 25.8 H (0-20) pg/ml Total Protein (6.0-8.3) gm/dl Albumin (3.4-5.0) gm/dl Globulin (2.5-4.0) gm/dl Albumin/Globulin Ratio (0.9-2) Lipase (11-82) U/L Procalcitonin (0-0.5) ng/ml Urine Color Urine Appearance (Clear) Urine pH (4.5-7.5) Ur Specific [place] (1.000-1.030) Urine Protein (Negative) Urine Glucose (UA) (Negative) Urine Ketones (Negative) Urine Blood (Negative) Urine Nitrite (Negative) Urine Bilirubin (Negative) Urine Urobilinogen (Negative) Ur Leukocyte Esterase (Negative) Urine WBC (Auto) (0-5) /hpf Urine RBC (Auto) (0-2) /hpf U Hyaline Cast (Auto) (0-2) /lpf U Epithel Cells (Auto) (0-2) /hpf Urine Bacteria (Auto) (None Seen) Ethyl Alcohol mg/dL (<10.0) mg/dl Adenovirus (PCR) Not Detected (NotDetected) B. pertussis DNA (PCR) Not Detected (NotDetected) B.parapertussis DNA PCR Not Detected (NotDetected) C. pneumoniae DNA (PCR) Not Detected (NotDetected) Coronavirus OC43 (PCR) Not Detected (NotDetected) Coronavirus HKU1 (PCR) Not Detected (NotDetected) Coronavirus 229E (PCR) Not Detected (NotDetected) SARS-CoV-2 (PCR) Not Detected (NotDetected) Coronavirus NL63 (PCR) Not Detected (NotDetected) Human Metapneumovir PCR Not Detected (NotDetected) Influenza Type A (PCR) Not Detected (NotDetected) Influenza Type B (PCR) Not Detected (NotDetected) M. pneumoniae (PCR) Not Detected (NotDetected) Parainfluenza 1 (PCR) Not Detected (NotDetected) Parainfluenza 2 (PCR) Not Detected (NotDetected) Parainfluenza 3 (PCR) Not Detected (NotDetected) Parainfluenza 4 (PCR) Not Detected (NotDetected) RSV (PCR) Not Detected (NotDetected) Entero/Rhino (PCR) Not Detected (NotDetected) Blood Type AB Negative Antibody Screen NEGATIVE 01/23/24 Range/Units Unknown WBC (4.8-10.8) K/ul RBC (4.70-6.10) M/uL Hgb (14.0-18.0) g/dl POC Hgb (14.0-18.0) g/dl Hct (42.0-52.0) % POC Hct (42-52) % MCV (80.0-100.0) fL MCH (25.0-34.0) pg MCHC (32.0-36.0) g/dL RDW Std Deviation (36.4-46.3) fL RDW Coeff of Yinka (11.5-14.5) % Plt Count (130-400) K/uL MPV (9.4-12.4) fL Immature Gran % (Auto) % Neut % (Auto) % Lymph % (Auto) % [place] % (Auto) % Eos % (Auto) % Baso % (Auto) % Neut # (Auto) (1.40-6.50) K/uL Lymph # (Auto) (1.20-3.40) K/uL [place] # (Auto) (0.11-0.59) K/uL Eos # (Auto) (0.00-0.50) K/uL Baso # (Auto) (0.00-0.20) K/uL Immature Gran # (Auto) (0.01-0.20) K/uL Absolute Nucleated RBC (0.00-0.12) K/uL Nucleated RBC % (auto) % PT (9.0-12.0) Seconds INR (0.9-1.1) APTT (21-31) Seconds PTT Ratio POC Sodium (135-144) mmol/L Sodium (136-145) mmol/L POC Potassium (3.3-5.0) mmol/L Potassium POC Chloride (101-112) mmol/L Chloride (98-107) mmol/L Carbon Dioxide (21-32) mmol/L POC Total CO2 (24-31) mmol/L Anion Gap (3-11) POC Anion Gap (16-25) mmol/L POC BUN (7-18) mg/dl BUN (6-23) mg/dl Creatinine (0.6-1.4) mg/dl POC Creatinine (0.6-1.3) mg/dl Est Cr Clr Drug Dosing ml/min eGFR BUN/Creatinine Ratio (10-20) Glucose (70-99(Fasting)) mg/dl POC Glucose (other) (70-99) mg/dl Lactate (0.4-2.0) mmol/L Calcium (8.6-10.3) mg/dl POC Ioniz Calcium Mt (1.12-1.32) mmol/l Magnesium (1.7-2.4) mg/dl Total Bilirubin (0.2-1.0) mg/dl AST ALT (7-52) U/L Alkaline Phosphatase (34-104) U/L Ammonia (18-72) umol/L Total Creatine Kinase (30-223) U/L Troponin I High Sens (0-20) pg/ml Total Protein (6.0-8.3) gm/dl Albumin (3.4-5.0) gm/dl Globulin (2.5-4.0) gm/dl Albumin/Globulin Ratio (0.9-2) Lipase (11-82) U/L Procalcitonin (0-0.5) ng/ml Urine Color Yellow Urine Appearance Clear (Clear) Urine pH 5.5 (4.5-7.5) Ur Specific [place] 1.043 H (1.000-1.030) Urine Protein 1+ H (Negative) Urine Glucose (UA) Negative (Negative) Urine Ketones Negative (Negative) Urine Blood Negative (Negative) Urine Nitrite Negative (Negative) Urine Bilirubin Negative (Negative) Urine Urobilinogen Negative (Negative) Ur Leukocyte Esterase Negative (Negative) Urine WBC (Auto) 0-5 (0-5) /hpf Urine RBC (Auto) 0-2 (0-2) /hpf U Hyaline Cast (Auto) 0-2 (0-2) /lpf U Epithel Cells (Auto) 0-2 (0-2) /hpf Urine Bacteria (Auto) None Seen (None Seen) Ethyl Alcohol mg/dL (<10.0) mg/dl Adenovirus (PCR) (NotDetected) B. pertussis DNA (PCR) (NotDetected) B.parapertussis DNA PCR (NotDetected) C. pneumoniae DNA (PCR) (NotDetected) Coronavirus OC43 (PCR) (NotDetected) Coronavirus HKU1 (PCR) (NotDetected) Coronavirus 229E (PCR) (NotDetected) SARS-CoV-2 (PCR) (NotDetected) Coronavirus NL63 (PCR) (NotDetected) Human Metapneumovir PCR (NotDetected) Influenza Type A (PCR) (NotDetected) Influenza Type B (PCR) (NotDetected) M. pneumoniae (PCR) (NotDetected) Parainfluenza 1 (PCR) (NotDetected) Parainfluenza 2 (PCR) (NotDetected) Parainfluenza 3 (PCR) (NotDetected) Parainfluenza 4 (PCR) (NotDetected) RSV (PCR) (NotDetected) Entero/Rhino (PCR) (NotDetected) Blood Type Antibody Screen Imaging Data Attestation: I personally reviewed and interpreted this imaging study as follows: My Impression: Chest x-ray viewed by me shows no pneumothorax but is concerning for right middle lobe/aspiration pneumonia. CT of the head shows no ICH when viewed by me. CT of the chest shows no pneumothorax and does show possible aspiration pneumonia when viewed by me. CT of the abdomen pelvis appears to show ascites when viewed by me. Radiologist's Impression: Chest X-Ray 01/23/24 13:10 XR chest 1V portable CLINICAL HISTORY: Trauma COMPARISON STUDY: Chest CT February 04, 2023. Chest radiograph February 10, 2023. FINDINGS: There is no pneumothorax. Cardiomegaly is again noted. There are small bilateral pleural effusions with bibasilar opacities. Right midlung opacity on chest radiograph of February 10, 2023 has improved. There is mild interstitial thickening. IMPRESSION: 1. Cardiomegaly with interstitial pulmonary edema. 2. Small bilateral pleural effusions with associated bibasilar opacities which could reflect pneumonia or atelectasis. Radiographic follow-up is recommended. ACT 112: Negative or not required by law. Electronically signed by: Lico Morales M.D. 01/23/2024 1:57 PM Pelvis X-Ray 01/23/24 13:10 XR pelvis 1-2V routine CLINICAL HISTORY: Trauma COMPARISON: CT of the abdomen and pelvis December 07, 2020. FINDINGS: Sacroiliac joints and symphysis pubis are intact. There are no acute fractures within the pelvis or hips. Apparent foreshortening of the femoral necks is likely technical. There is a moderate amount of stool within the rectum. IMPRESSION: No fractures within the pelvis or hips. ACT 112: Negative or not required by law. Electronically signed by: Lico Morales M.D. 01/23/2024 1:58 PM Humerus X-Ray 01/23/24 13:18 XR humerus LT 2V HISTORY: 73 years-old Male trauma acute left upper extremity pain status post trauma COMPARISON: Elbow radiographs 12/03/2020 TECHNIQUE: 2 views of the left humerus FINDINGS: Mild glenohumeral and moderate AC joint osteoarthritis. No acute fracture, dislocation or osseous erosion. No opaque foreign bodies. IMPRESSION: No acute fracture identified. ACT 112: Negative or not required by law. The above report was generated using voice recognition software. It may contain grammatical, syntax or spelling errors. Electronically signed by: Roni Voss M.D. 01/23/2024 2:[address] 01/23/24 13:[address] WITH CONTRAST; CT ABDOMEN AND PELVIS WITH IV CONTRAST ONLY CT DOSE: 4272.33 mGy.cm HISTORY: Acute chest and abdominal trauma status post fall trauma TECHNIQUE: Multiaxial CT images of the chest, abdomen and pelvis were performed following the IV administration of 94 cc of Optiray. A dose lowering technique was utilized adhering to the principles of ALARA. COMPARISON: Pelvis and left humerus radiographs of same day, chest CT 02/04/2023, CT abdomen and pelvis 12/07/2020 FINDINGS: CT CHEST: Unremarkable thyroid. Mildly enlarged mediastinal and hilar lymph nodes measure up to 11 mm, mildly decreased in size from prior. Moderate cardiomegaly. No pericardial effusion. Unremarkable thoracic aorta. No pulmonary emboli. Trace right and moderate left pleural effusions. No pneumothorax. Intralobular septal thickening with diffuse linear opacities at the right lung suggestive of scarring intermixed with atelectasis. Dependent bibasilar consolidation with left lower lobe volume loss. Mild generalized body wall edema. Degenerative changes of the shoulders and spine. No acute fracture identified. CT ABDOMEN/PELVIS: No pneumatosis or pneumoperitoneum. Study is degraded by respiratory motion artifact. Unremarkable spleen, pancreas and right adrenal gland. 1.6 cm soft tissue attenuating left adrenal gland lesion previously measured 10 mm. Mildly distended gallbladder. Heterogeneous liver with marginal nodularity suggestive of cirrhosis. Patent portal vein. There are a few hypodensities of the kidneys suggestive of probable cysts. No hydronephrosis. Prostatomegaly. Unremarkable urinary bladder. Subcentimeter retroperitoneal lymph nodes. Atherosclerosis of the aorta without aneurysm. Colonic diverticulosis. No bowel obstruction or bowel wall thickening. Small moderate abdominal pelvic ascites. Anasarca. No retroperitoneal hemorrhage identified. No acute fracture is seen. IMPRESSION: 1. No acute posttraumatic intrathoracic, intra-abdominal or intrapelvic abnormality identified. 2. Cirrhosis with ascites, abdominal varicosities and anasarca. 3. Small right and moderate left pleural effusions with bilateral pulmonary opacities favoring atelectasis/scarring. Underlying pneumonia would be difficult to exclude. 4. Mediastinal and hilar lymphadenopathy redemonstrated, mildly improved compared to the 02/04/2023 study. 5. No acute fracture is seen. 6. Additional findings as above. ACT 112: Negative or not required by law. Electronically signed by: Roni Voss M.D. 01/23/2024 3:12 PM Abdomen/Pelvis CT 01/23/24 13:[address] WITH CONTRAST; CT ABDOMEN AND PELVIS WITH IV CONTRAST ONLY CT DOSE: 4272.33 mGy.cm HISTORY: Acute chest and abdominal trauma status post fall trauma TECHNIQUE: Multiaxial CT images of the chest, abdomen and pelvis were performed following the IV administration of 94 cc of Optiray. A dose lowering technique was utilized adhering to the principles of ALARA. COMPARISON: Pelvis and left humerus radiographs of same day, chest CT 02/04/2023, CT abdomen and pelvis 12/07/2020 FINDINGS: CT CHEST: Unremarkable thyroid. Mildly enlarged mediastinal and hilar lymph nodes measure up to 11 mm, mildly decreased in size from prior. Moderate cardiomegaly. No pericardial effusion. Unremarkable thoracic aorta. No pulmonary emboli. Trace right and moderate left pleural effusions. No pneumothorax. Intralobular septal thickening with diffuse linear opacities at the right lung suggestive of scarring intermixed with atelectasis. Dependent bibasilar consolidation with left lower lobe volume loss. Mild generalized body wall edema. Degenerative changes of the shoulders and spine. No acute fracture identified. CT ABDOMEN/PELVIS: No pneumatosis or pneumoperitoneum. Study is degraded by respiratory motion artifact. Unremarkable spleen, pancreas and right adrenal gland. 1.6 cm soft tissue attenuating left adrenal gland lesion previously measured 10 mm. Mildly distended gallbladder. Heterogeneous liver with marginal nodularity suggestive of cirrhosis. Patent portal vein. There are a few hypodensities of the kidneys suggestive of probable cysts. No hydronephrosis. Prostatomegaly. Unremarkable urinary bladder. Subcentimeter retroperitoneal lymph nodes. Atherosclerosis of the aorta without aneurysm. Colonic diverticulosis. No bowel obstruction or bowel wall thickening. Small moderate abdominal pelvic ascites. Anasarca. No retroperitoneal hemorrhage identified. No acute fracture is seen. IMPRESSION: 1. No acute posttraumatic intrathoracic, intra-abdominal or intrapelvic abnormality identified. 2. Cirrhosis with ascites, abdominal varicosities and anasarca. 3. Small right and moderate left pleural effusions with bilateral pulmonary opacities favoring atelectasis/scarring. Underlying pneumonia would be difficult to exclude. 4. Mediastinal and hilar lymphadenopathy redemonstrated, mildly improved compared to the 02/04/2023 study. 5. No acute fracture is seen. 6. Additional findings as above. ACT 112: Negative or not required by law. Electronically signed by: Roni Voss M.D. 01/23/2024 3:[address] 01/23/24 13:53 CT OF THE CERVICAL SPINE WITHOUT CONTRAST CLINICAL HISTORY: trauma COMPARISON STUDY: Cervical spine CT December 13, 2020. CTA of the neck December 12, 2020. TECHNIQUE: Helical axial images of the cervical spine were obtained without IV contrast. Sagittal and coronal reconstructions were viewed. Automated exposure control was utilized for the study. A dose lowering technique was utilized adhering to the principles of ALARA. FINDINGS: Alignment of the cervical spine is anatomic. Vertebral body heights are maintained. No acute cervical spine fracture or subluxation is present. There is no prevertebral edema. Facet joints are intact. This exam is mildly compromised by artifact. Moderate multilevel degenerative disc disease and facet arthrosis is present. The central canal and neural foramen are suboptimally assessed given CT technique. IMPRESSION: 1. No acute cervical spine fracture or subluxation. Exam mildly compromised by motion artifact. 2. Moderate multilevel degenerative changes within the cervical spine. ACT 112: Negative or not required by law. Electronically signed by: Lico Morales M.D. 01/23/2024 3:[address] 01/23/24 13:53 CT OF THE HEAD WITHOUT CONTRAST CLINICAL HISTORY: trauma COMPARISON STUDY: MRI of the brain March 15, 2023. Head CT February 04, 2023. TECHNIQUE: Helical axial images of the head were obtained without IV contrast. Automated exposure control was utilized for the study. A dose lowering technique was utilized adhering to the principles of ALARA. FINDINGS: This exam is moderately compromised by motion artifact. No acute intracranial hemorrhage, midline shift or mass effect is present. The ventricular system is stable. The basal cisterns are patent. No extra axial collections are present. A right posterior scalp contusion is present. There are no calvarial fractures. There is moderate mucosal thickening of the maxillary sinuses with secretions and air-fluid level within the left maxillary sinus. There is moderate ethmoid sinus mucosal thickening as well as mucosal thickening of the sphenoid sinuses. IMPRESSION: 1. No acute intracranial findings. Exam moderately compromised by motion artifact. 2. Right posterior scalp contusion. No calvarial fractures. 3. Sinus opacification, as above. ACT 112: Negative or not required by law. Electronically signed by: Lico Morales M.D. 01/23/2024 2:57 PM ECG Data Attestation: I personally reviewed and interpreted this ECG as follows: Additional Comments: Second-degree type I AV block with a rate of 62. QRS [address] elevation or ST depression. [facility] Narrative 1302: The patient was evaluated in room B2. A complete history and physical exam was performed Cardiac monitoring: An order was placed for continuous cardiac monitoring. The monitor shows a rate of 60 interpreted by me Patient hypoxic on room air. Supplemental oxygen was applied which improved the patient's oxygen saturation. Patient was made trauma alert. EKG is concerning for second-degree type II heart block versus second-degree type I Sosa Bach. Will discuss with cardiology. External medical records reviewed. Patient has a history of atrial ventricular dissociation during his last admission in January 2023 the patient was between accelerated junctional rhythm but mostly looks to be at a 2-1 AV block with a Mobitz type I averaging a rate of 50. 1315: Discussed the case with Dr. Jimi Roach cardiology who reviewed the patient's EKG and stated he appeared to be in a secondary degree type I AV block Amilcar. 1320: Chest x-ray viewed by me shows no pneumothorax but is concerning for right middle lobe/aspiration pneumonia. Discussed with pharmacy and they recommended Rocephin for the patient for the possible aspiration pneumonia. 1430: Vital signs stable on supplemental oxygen. CT of the head shows no ICH when viewed by me. CT of the chest shows no pneumothorax and does show possible aspiration pneumonia when viewed by me. CT of the abdomen pelvis appears to show ascites when viewed by me. 1530: Patient becoming more confused and agitated trying to get up out of bed. Ativan ordered for the patient. Ammonia will be drawn for the patient also. 1610: Vital signs stable on supplemental oxygen. Labs show a blood cell count 11.6. Hemoglobin 11.4. Coagulation studies unremarkable. Potassium 4.5. Ammonia is unremarkable. Lactate 1.9. High-sensitivity troponin 30.1. Procalcitonin negative. Laceration was repaired by Rolando WINTER. See her procedure note. Patient will be admitted to the [facility] hospitalist team. Impression & Plan Fall, AV block, 2nd degree, Hypoxia, CHI (closed head injury), Laceration of head Discharge Plan Visit Data Chief Complaint: Trauma Stated Complaint: FALL, CONFUSION, HEAD LAC ED Provider: Barrett Andujar Discharge Problem: Fall, AV block, 2nd degree, Hypoxia, CHI (closed head injury), Laceration of head Patient Disposition: Admitted As Inpatient Forms Stand Alone Forms: My [facility] Prescriptions Prescriptions: No Action (DME) lancets [Accu-Chek Fastclix Lancet Drum] Misc See Rx Instructions .ROUTE .MEDSUPPLY Rx Instructions: test 4 times daily (DME) insulin syringe-needle U-100 [BD Insulin Syringe Ultra-Fine] 0.5 mL 31 gauge x 5/16" syringe See Rx Instructions .ROUTE .MEDSUPPLY Qty: 10 Rx Instructions: use 5 needles daily (DME) Accu-Chek Guide test strips Strip See Rx Instructions .ROUTE .MEDSUPPLY Rx Instructions: test 1 times daily (DME) FreeStyle Marta 2 Sensor Kit See Rx Instructions .ROUTE .MEDSUPPLY Qty: 1 12RF Rx Instructions: Change q 14 days to momitor b,ood sugars as advised. Auvelity 45-105 mg tablet,IR,delayed rel,biphasic 1 tab PO UD Rx Instructions: 1 tab po qam. Never filled at pharmacy. thiamine HCl (vitamin B1) [Vitamin B-1] 100 mg Tablet 100 mg PO QAM Qty: 30 0RF lisinopril 10 mg tablet 10 mg PO DAILY Ozempic 0.25 mg or 0.5 mg (2 mg/3 mL) pen injector 0.5 mg SUBCUT .WEEKLY Rx Instructions: every sunday Adderall XR 20 mg PO UD Rx Instructions: hasnt filled 20 mg since 2022/ 10 mg was written in feb 2023 but not filled per pharmacy polyethylene glycol 3350 [Miralax] 17 gram Powder In Packet 17 g PO DAILY Qty: 0 0RF Rx Instructions: otc unable to verify amlodipine [Norvasc] 5 mg Tablet 5 mg PO QAM Qty: 0 0RF pantoprazole 40 mg tablet,delayed release (DR/EC) 40 mg PO DAILY insulin glargine [Basaglar KwikPen U-100 Insulin] 100 unit/mL (3 mL) insulin pen 40 unit SUBCUT QAM metformin 1,000 mg tablet 1,000 mg PO BID atorvastatin 40 mg tablet 40 mg PO HS Rx Instructions: Has not been taking his meds for over a month. aspirin 81 mg tablet,delayed release (DR/EC) 81 mg PO UD Rx Instructions: 81 mg po qam. hasnt filled in acouple months per pharmacy. Buying OTC? tamsulosin 0.4 mg capsule 0.4 mg PO UD Rx Instructions: 0.4 mg po hs. Not filled with pharmacy Referrals Referrals: Lillie Ramsay DO [Primary Care Provider] -
[2024-01-23 20:17] LABS: HCO3 ABG 27 mmol/L (19-24); Oxygen Saturation ABG 99.2 % (90-95); PCO2 ABG 39 mmHg (35-46); PO2 ABG 136 mmHg (80-95); pH ABG 7.45 (7.35-7.45)
[2024-01-23 20:20] LABS: Allen Test Pos (Pos)
[2024-01-23] MEDS ORDERED: GLUCOSE 10 TAB/TUBE PO PRN (21:24)
[2024-01-23] MEDS ORDERED: DOCUSATE SODIUM 100 MG CAP PO PRN (21:24)
[2024-01-23] MEDS ORDERED: ADDERALL 20 MG PO SCH (21:24)
[2024-01-23] MEDS ORDERED: GLUCAGON FOR INJ 1 MG VIAL SQ PRN (21:24)
[2024-01-23] MEDS ORDERED: GLUCOSE 40% GEL 15 GM TUBE PO PRN (21:24)
[2024-01-23] MEDS ORDERED: DEXTROSE 50% 50 ML SYRINGE IV PRN (21:24)
[2024-01-23] MEDS: CARBOHYDRATES FOR HYPOGLYCEMIA PO PRN (22:00)
[2024-01-23] MEDS: INSULIN ASPART PER UNIT CHARGE SC SCH (22:11)
[2024-01-23 23:00] LABS: Hep B Surface Ag with confirm Negative (Negative)
[2024-01-23 23:05] LABS: Hep C Ab Rflx HepCQuant RNA Negative (Negative)
[2024-01-23] MEDS: TAMSULOSIN HCL 0.4 MG CAP PO SCH (23:07)
[2024-01-23] MEDS: DOXYCYCLINE HYCLATE 100 MG CAP PO SCH (23:07)
[2024-01-23] MEDS: ATORVASTATIN 40 MG TAB PO SCH (23:07)
[2024-01-24 06:29] LABS: Basophils % (auto) 1.1 %; Eosinophils # (auto) 0.11 K/uL (0.00-0.50); Eosinophils % (auto) 1.2 %; Hematocrit (blood only) 30.1 % (42.0-52.0); Hemoglobin 10.2 g/dl (14.0-18.0); Immature Granulocytes # (auto) 0.07 K/uL (0.01-0.20); Immature Granulocytes % (auto) 0.7 %; Lymphocytes # (auto) 1.02 K/uL (1.20-3.40); Lymphocytes % (auto) 10.8 %; Mean Corpuscular Hemoglobin 35.2 pg (25.0-34.0); Mean Corpuscular Hgb Conc 33.9 g/dL (32.0-36.0); Mean Corpuscular Volume 103.8 fL (80.0-100.0); Mean Platelet Volume 10.1 fL (9.4-12.4); Monocytes # (auto) 0.91 K/uL (0.11-0.59); Monocytes % (auto) 9.7 %; Neutrophils # (auto) 7.21 K/uL (1.40-6.50); Neutrophils % (auto) 76.5 %; Nucleated RBC # (auto) 0.03 K/uL (0.00-0.12); Nucleated RBC % (auto) 0.3 %; Platelet Count 267 K/uL (130-400); RDW Coefficient of Variation 18.4 % (11.5-14.5); RDW Standard Deviation 69.1 fL (36.4-46.3); White Blood Count 9.42 K/ul (4.8-10.8)
[2024-01-24 06:50] LABS: Albumin Globulin Ratio 1.1 (0.9-2); Albumin Level 3.4 gm/dl (3.4-5.0); BUN Creatinine Ratio 24.8 (10-20); Bilirubin,Total 1.1 mg/dl (0.2-1.0); Calcium 8.8 mg/dl (8.6-10.3); Chol HDL Ratio 2.6 (0-5); Creatinine Clr Calc Pharmacy 78.9 ml/min; Globulin 3.2 gm/dl (2.5-4.0); Magnesium 1.7 mg/dl (1.7-2.4); Potassium 4.3 mmol/L (3.5-5.1); Total Protein 6.6 gm/dl (6.0-8.3)
[2024-01-24 07:07] LABS: Estimated Average Glucose 94 mg/dl; Hemoglobin A1C 4.9 % (4.5-5.6)
--- NOTE | 2024-01-24 07:37 | Hospitalist Progress Note ---
Date of Service January 24, 2024 Assessment & Plan (1) Complete heart block by electrocardiogram: Plan: Currently AV dissociation: 3rd degree heart block - No hx lyme, thyroid conditions, heart rate medications. - Echo repeated 01/24/24: LVEF 60-65%, no regional wall motion abnormality. - No chest pain or palpitations Plan: dual-chamber pacemaker placement by cardiology, possibly tomorrow 01/25/24 - daily EKG - fall precautions (2) Fall: Plan: as above (#1) Found lying in shower after unwitnessed fall, unable to report how he fell Patient w/ recurrent falls as per daughter, all unwitnessed Head CT only showing R posterior scalp contusion, no intracranial pathology - 4 devendra to scalp laceration - PT/OT to evaluate and treat (3) (HFpEF) heart failure with preserved ejection fraction: Plan: likely related to low cardiac output due to low rates associated with 3rd-deg AV block, as stroke volume is good EF 60-65% on echo 01/24/24 - continue Lasix 40mg daily for diuresis to resolve pleural effusions, peripheral edema Should resolve with dual-chamber pacemaker, possibly being placed 01/25/24 (4) Edema: Plan: +3 pitting BL LE edema with ascites, anasarca - TEDs and promote leg elevation - Low Na diet - Lasix 40mg daily for diuresis (5) Pneumonia: Plan: Cough, sore throat, SOB x 3 weeks - Chest CT: small R and moderate L pleural effusions, b/l opacities favoring atelectasis/scarring, underlying pneumonia difficult to exclude Based on patient's absence of fever, pleuritic chest pain, significant cough w/ sputum, or significant WBC count, it is reasonable to discontinue antibiotics at this point - may go back on them pending culture results or worsening of patient's currently mild symptoms (6) Hypoxic: Plan: currently satting low 90s on 6L/min NC (7) Elevated troponin: Plan: likely related to demand, 30.1 -> 25.8 - no chest pain or palpitations (8) Cirrhosis: Plan: No known history of cirrhosis Denies alcohol use history CT showing cirrhosis with ascites, abdominal varicosities and anasarca Hepatitis labs: negative for HepBsAg and HepC; pending HepA and HepB core IgM LFTs showing elevated alk phosphatase (176), AST and ALT WNL PT/INR WNL (9) T2DM (type 2 diabetes mellitus): Plan: Controlled on Insulin and Metformin at home - continue home Lantus 40 units QAM - SSI with target BSG range 110-140mg/dL, CF 20, carb ratio 7 - T2DM diet - BSG ACHS if eating, q6h if npo A1c: 4.9% (10) Depression: Plan: chronic history of depression with SI - presently denies SI or plan - declines psychiatric eval - continue home medications - Auvelity Plan Chronic stable diagnoses: dementia - stable ADHD - continue Adderall HTN - continue amlodipine and lisinopril HLD - continue ASA and atorvastatin GERD - continue PPI VTE ppx: Heparin Q12 Diet: T2DM, low Na diet Code status: DNR/DNI Dispo: Med/Tele Admission and Anticipated Discharge Date Admission Date: January 23, 2024 Supervising Physician Co-Signing Physician Notes I personally examined the patient and verified all yu points of history and exam, discussed case, and agree with decision making with []. Roxie feeling okay. Notes that he has a chronic cough he has a hard time quantifying. No significant shortness of breath. More steady on his feet (he was walking to and from the bathroom whenever I was in the room.) Feels okay right now. Vitals noted, in general he is awake and alert pleasant fatigued no distress. Breathing unlabored no accessory muscle use good effort. Skin without rashes pallor or icterus. Neuro without focal deficits. EKG with complete A-V dissociation. Chest CT notedeffusion on the left fairly sizable not as big on the right. Questionable areas of pneumonia versus scarring versus atelectasis reasonably small by comparison. Fallssuspect due to intermittent complete heart block/symptomatic bradycardia. Possible metabolic encephalopathy related to poor forward flow and/or concussionbut not entirely sure what his baseline mentation is. Continue to follow. Complete heart block with what appears to be probably chronic rate related diastolic CHF and subsequent fairly sizable pleural effusions as well as mild degree of demand myocardial ischemiaagain probably due to low ratesfor pacemaker. Appreciate cardiology input. Follow respiratory status and effusionsMay need diagnostic/therapeutic thoracentesis (Although I strongly assume it is related to CHF) but for now given that it is not really causing much of any symptoms follow closely. possible pneumoniasuspect more atelectasis and scarringdoes not show signs or symptoms of infectionhold antibiotics for now and follow closely. DVT prophylaxiscurrently ambulation (considered pharmacologic but would need to hold tomorrow for procedure anyway) otherwise as above Subjective Patient was seen and evaluated at bedside, sitting comfortable on edge of bed eating breakfast on encounter. NC set to 6L/min. Endorses his night was uneventful and feels he slept well. Denies any particular shortness of breath or pain this morning, aside from slight soreness of laceration site which was closed with 4 devendra. Has been eating and drinking well. States he has been getting up and walking to the bathroom himself, unassisted. Denies any particular unsteadiness or SOB on the way to and from bathroom. Recommended to get up from bed slowly in order to prevent lightheadedness/dizziness which may result in a fall. Expresses understanding that based on his EKG he needs a pacemaker in order to keep him from fainting. Endorses minimal SOB on 6L NC, infrequent cough with mild sputum. Denies any recent fever, body aches, chills, headache, vision changes, hearing changes, dizziness, nausea/vomiting, tremors, numbness/tingling in extremities. Review of Systems Review of Systems: per HPI Physical Exam Physical Exam: Constitutional: A&O4, well developed and well nourished, in no acute distress. Non-toxic appearing. HEENT: EOMI, mucous membranes moist. Hearing grossly intact. Laceration to right posterior scalp contusion. Cardiovascular: RRR, +s1/S2, no m/r/g heard on auscultation Lungs: mildly decreased breath sounds and mild crackles in L lower lung engel, no respiratory distress or accessory muscle use, otherwise no wheeze/rales/rhonchi GI: abdomen with ascites, +BS, nontender to palpation MSK: 5/5 strength in all extremities; 2+ pitting edema in b/l LE, nontender to palpation of calf Neuro: no facial droop, speech intact. Psych: fair eye contact, normal joni of speech, mood-affect congruence, no SI or current plans Results & Data Results & Data Vital Signs (Past 12 Hours) Vital Signs Temp Pulse Pulse Resp BP Pulse Ox O2 Del Method 01/24/24 07:04 75 01/24/24 03:35 36.5 C 60 20 152/68 H 94 Oxymask 01/23/24 23:18 36.4 C L 65 18 162/91 H 93 Oxymask 01/23/24 21:44 66 01/23/24 21:19 64 01/23/24 21:05 36.5 C 56 L 24 152/67 H 93 Oxymask 01/23/24 20:30 60 20 145/89 H 94 Oxymask O2 Flow Rate 01/24/24 07:04 01/24/24 03:35 10 01/23/24 23:18 01/23/24 21:44 01/23/24 21:19 01/23/24 21:05 10 01/23/24 20:30 10 Laboratory Results Abnormal lab results 01/23/24 01/23/24 01/23/24 Range/Units 20:15 21:48 21:55 RBC (4.70-6.10) M/uL Hgb (14.0-18.0) g/dl Hct (42.0-52.0) % MCV (80.0-100.0) fL MCH (25.0-34.0) pg RDW Std Deviation (36.4-46.3) fL RDW Coeff of Yinka (11.5-14.5) % Neut # (Auto) (1.40-6.50) K/uL Lymph # (Auto) (1.20-3.40) K/uL [place] # (Auto) (0.11-0.59) K/uL ABG pO2 136 H (80-95) mmHg ABG HCO3 27 H (19-24) mmol/L ABG O2 Saturation 99.2 H (90-95) % ABG Base Excess 3.0 H (-9-1.8) mEq/L BUN (6-23) mg/dl BUN/Creatinine Ratio (10-20) POC Glucose 47 L* (70-99) mg/dl Total Bilirubin (0.2-1.0) mg/dl Alkaline Phosphatase (34-104) U/L Troponin I High Sens 29.2 H (0-20) pg/ml Ur Specific Olden (1.000-1.030) Urine Protein (Negative) 01/23/24 01/23/2401/23/24 Range/Units 21:56 Unknown 00:24 RBC (4.70-6.10) M/uL Hgb (14.0-18.0) g/dl Hct (42.0-52.0) % MCV (80.0-100.0) fL MCH (25.0-34.0) pg RDW Std Deviation (36.4-46.3) fL RDW Coeff of Yinka (11.5-14.5) % Neut # (Auto) (1.40-6.50) K/uL Lymph # (Auto) (1.20-3.40) K/uL [place] # (Auto) (0.11-0.59) K/uL ABG pO2 (80-95) mmHg ABG HCO3 (19-24) mmol/L ABG O2 Saturation (90-95) % ABG Base Excess (-9-1.8) mEq/L BUN (6-23) mg/dl BUN/Creatinine Ratio (10-20) POC Glucose 52 L* 69 L* (70-99) mg/dl Total Bilirubin (0.2-1.0) mg/dl Alkaline Phosphatase (34-104) U/L Troponin I High Sens (0-20) pg/ml Ur Specific Olden 1.043 H (1.000-1.030) Urine Protein 1+ H (Negative) 01/24/24 01/24/24 01/24/24 Range/Units 00:52 03:23 05:50 RBC 2.90 L (4.70-6.10) M/uL Hgb 10.2 L (14.0-18.0) g/dl Hct 30.1 L (42.0-52.0) % MCV 103.8 H (80.0-100.0) fL MCH 35.2 H (25.0-34.0) pg RDW Std Deviation 69.1 H (36.4-46.3) fL RDW Coeff of Yinka 18.4 H (11.5-14.5) % Neut # (Auto) 7.21 H (1.40-6.50) K/uL Lymph # (Auto) 1.02 L (1.20-3.40) K/uL [place] # (Auto) 0.91 H (0.11-0.59) K/uL ABG pO2 (80-95) mmHg ABG HCO3 (19-24) mmol/L ABG O2 Saturation (90-95) % ABG Base Excess (-9-1.8) mEq/L BUN 25 H (6-23) mg/dl BUN/Creatinine Ratio 24.8 H (10-20) POC Glucose 64 L* 120 H (70-99) mg/dl Total Bilirubin 1.1 H (0.2-1.0) mg/dl Alkaline Phosphatase 151 H (34-104) U/L Troponin I High Sens 26.6 H (0-20) pg/ml Ur Specific Old[place] (1.000-1.030) Urine Protein (Negative) Resident Activity Tracking Resident Involvement: Resident Care Provided Care Provided: Adult Hospital Medicine
[2024-01-24] MEDS: THIAMINE HCL 100 MG TAB PO SCH (08:11)
[2024-01-24] MEDS: PANTOprazole 40 MG TAB PO SCH (08:12)
[2024-01-24] MEDS: lisinopril 10 MG TAB PO SCH (08:12)
[2024-01-24] MEDS: ASPIRIN 81 MG ECTAB PO SCH (08:12)
[2024-01-24] MEDS: amLODIPine BESYLATE 5 MG TAB PO SCH (08:12)
[2024-01-24] MEDS: POLYETHYLENE (MIRALAX) 17 GM PACK PO SCH (08:17)
[2024-01-24] MEDS: LANTUS PER UNIT CHARGE SQ SCH (08:58)
--- NOTE | 2024-01-24 09:08 | Cardiology Consultation ---
Date of Consultation January 24, 2024 Assessment & Plan (1) Complete heart block by electrocardiogram: Patient is a poor historian due to baseline dementia, but certainly seems fatigued with increased SOB than before. Increased SOB and Fall could be multifactorial due to heart block, pneumonia, deconditioning. - Progressive AV block. - Initially on 2019: 1st degree block. - Currently AV dissociation with 3rd degree heart block(ECG Discussed with Dr. Krause) - Electrolytes level normal. - No H/O lyme, thyroid issue, use of heart rate dropping medications. - Echo repeated today: LV systolic function normal, No regional wall motion abnormality. - No chest pain, Troponin level: 20s, no subsequent rise. Plan: His heart block is definitely progressing, recent fall could be consequence of same. Its hard to tell how much his heart block has contributed given his pneumonia, deconditioning, recent URI. It seems he may benefit from pacemaker. Will discuss with Dr. Parra for further decision. Lyme serology and TSH sent. (2) Fall: As per 1 Supervising Physician Co-Signing Physician Notes Patient seen and examined. Agree with assessment and plan as outlined by Dr. Gaines. Impression 1. High degree AV block -Demonstrates complete A-V dissociation on twelve-lead ECG and telemetry. -May be responsible for his frequent falls. -May be responsible for his exertional dyspnea. -Case reviewed with Dr. Parra. -Hopefully he will have a DDD pacemaker placed tomorrow. History of Present Illness Reason for Consultation: Heart Block Attending Physician: Rafi Gil, History of Present Illness Patient is a 73-year-old male with P/M/H of AV dissociation, Pneumonia, dementia,type II DM, HTN, CVA. He presented to ED yesterday after an unwitnessed fall in his bathroom. His daughter heard a loud sound from bathroom and Dyllan was found wrapped in shower curtain with bleeding from head. He is a poor historian due to baseline dementia. However he endorses SOB, which has been progressive lately. He feels dyspneic while walking from kitchen to bathroom as well as on stairs. Its getting worse probably from last one year but he is not sure of that. He has h/o multiple episodes of fall in past but does not exactly remember symptoms before he fell down. He thinks most of the time its because of slip rather than LOC, syncope, presyncope episodes. He feels overall fatigued but denies lightheadedness, chest pain, dizziness, diaphoresis lately. No h/o lyme disease, thyroid issues in past. Endorses cough,URI symptoms recently. His has swollen legs for few months now, not sure of recent change. His AV block was initially diagnosed in 2019 as first degree AV block and seems to be progressive since then. Was seen by EP cardiology last time on and suggested for follow up for decision of pacemaker (Dr. Delgado on jan 2023). Patient did not follow up with cardiology afterwards. Last Echo was done January 2023 with no features of heart failure. Allergies Allergy/AdvReac Type Severity Reaction Status Date / Time erythromycin base Allergy Intermediate Hives Verified 02/04/23 22:44 Penicillins Allergy Intermediate Hives Verified 02/04/23 22:44 Home Medications Medication Instructions Recorded Confirmed Type insulin syringe-needle U-100 0.5 #10 ea 05/11/20 05/14/23 History mL 31 gauge x 5/16" (BD Insulin Syringe Ultra-Fine) lancets (Accu-Chek Fastclix Lancet 05/11/20 05/14/23 History Drum) FreeStyle Marta 2 Sensor (flash #1 ea 07/30/20 05/14/23 Rx glucose sensor) blood sugar diagnostic (Accu-Chek 09/09/20 05/14/23 History Guide test strips) thiamine HCl (vitamin B1) 100 mg 100 mg PO QAM #30 tabs 12/13/20 01/23/24 Rx tablet (Vitamin B-1) lisinopril 10 mg tablet 10 mg PO DAILY 02/04/23 01/23/24 History semaglutide 0.25 mg or 0.5 mg (2 0.5 mg subcut .WEEKLY 02/04/23 01/23/24 History mg/3 mL) subcutaneous pen injector (Ozempic) Adderall XR 20 mg PO UD 02/06/23 01/23/24 History amlodipine 5 mg tablet (Norvasc) 5 mg PO QAM #0 tabs 02/12/23 01/23/24 Rx polyethylene glycol 3350 17 gram 17 g PO DAILY #0 ea 02/12/23 01/23/24 Rx oral powder packet (Miralax) dextromethorphan IR 45 1 tab PO UD 05/14/23 01/23/24 History mg-bupropion ER 105 mg biphasic tablet (Auvelity) aspirin 81 mg tablet,delayed 81 mg PO UD 01/23/24 01/23/24 History release atorvastatin 40 mg tablet 40 mg PO HS 01/23/24 01/23/24 History insulin glargine 100 unit/mL (3 40 unit subcut QAM 01/23/24 01/23/24 History mL) subcutaneous pen (Basaglar KwikPen U-100 Insulin) metformin 1,000 mg tablet 1,000 mg PO BID 01/23/24 01/23/24 History pantoprazole 40 mg tablet,delayed 40 mg PO DAILY 01/23/24 01/23/24 History release tamsulosin 0.4 mg capsule 0.4 mg PO UD 01/23/24 01/23/24 History Patient History Medical History History of stroke Anemia Major depressive disorder, recurrent, severe without psychotic features Depressed Hyperlipidemia Hypertension Prediabetes ADHD Depression Surgical History Hx of vasectomy History of rectal surgery x3 for an abscess in anal sphincter History of colonoscopy History of root canal procedure multiple History of wisdom tooth extraction History of tonsillectomy Hx of eye surgery Family History Father Family history of diabetes mellitus Diabetes Hypertension Heart disease Brother Prostate cancer Other No family history of adverse response to anesthesia Social History Smoking Status: Former smoker Tobacco Type: Cigars Second Hand Exposure: Yes; Do You Dip or Chew Tobacco: No; Hx Alcohol Use: No Hx Substance Use: No Preferred Language: Wolof Communication Ability: Effective Barrel Repairer Required: No Beliefs That Will Affect Care: None marital status: Single Current Living Situation: Other Current Living Situation Comment: with daughter Other Information That Helps Us Care for You: No Feels Safe at Home: Yes Safety Concerns: Feels Safe At This Time Assistive Devices: Walker Review of Systems Review of Systems: As per HPI Physical Exam Physical Exam: Constitutional: Well appearing, No acute distress, Pale looking HEENT: Sutures intact on head on superior occipital area, Normocephalic, No conjunctival injection CVS: S1 S2 no murmur, Regular Rhythm, BL LE edema noted Respiratory: BL diffuse wheeze and rales. Increased RR, no use of accessory muscles. GI: Soft, Nondistended, Nontender, Normal Bowel sounds + Results & Data Vital Signs (Past 12 Hours) Vital Signs Temp Pulse Pulse Resp BP BP Pulse Ox 01/24/24 08:24 01/24/24 07:59 36.7 C 59 L 20 127/62 94 01/24/24 07:04 75 01/24/24 03:35 36.5 C 60 20 152/68 H 94 01/23/24 23:18 36.4 C L 65 18 162/91 H 93 01/23/24 21:44 66 01/23/24 21:19 64 O2 Del Method O2 Flow Rate 01/24/24 08:24 Nasal Cannula 6 01/24/24 07:59 Oxymask 10 01/24/24 07:04 01/24/24 03:35 Oxymask 10 01/23/24 23:18 Oxymask 01/23/24 21:44 01/23/24 21:19 PG Care Time/CCT Total # of Minutes Spent Total Time Spent with Patient: Total time spent is greater than 50% in coordination of care (as documented) at patient's floor/unit and/or counseling patient: Coding Level of Care Code 74493 INT INP/OBS CARE 3/75MIN Diagnoses Complete heart block by electrocardiogram I44.2 Fall W19.XXXA Resident Activity Tracking Resident Involvement: Resident Care Provided Care Provided: Adult Hospital Medicine
--- NOTE | 2024-01-24 10:55 | XCELERA ---
[id number] [id number]
[2024-01-24] MEDS: cefTRIAXone SODIUM 2,000 MG/50 ML BAG IV SCH (13:25)
--- NOTE | 2024-01-24 15:06 | Electrocardiogram Report ---
Test Reason : Blood Pressure : */* mmHG Vent. Rate : 61 BPM Atrial Rate : 57 BPM P-R Int : * ms QRS Dur : 88 ms QT Int : 412 ms P-R-T Axes : * -54 95 degrees QTcB Int : 414 ms Sinus bradycardia with A-V dissociation and Junctional rhythm Low voltage QRS Left anterior fascicular block Cannot rule out Anterior infarct (cited on or before 10-Dec-2020) Abnormal ECG When compared with ECG of 23-Jan-2024 12:59, No significant change was found Confirmed by Sanya Krause ([id number]) on 01/24/2024 3:05:54 PM Referred By: REFERRED SELF Confirmed By: Sanya Krause
--- NOTE | 2024-01-24 16:32 | Billing Data ---
Date of Service January 24, 2024 Coding Level of Care Code 44438 SUB INP/OBS CARE
[2024-01-24] MEDS: ACETAMINOPHEN 325 MG TAB PO PRN (21:11)
[2024-01-24] MEDS: BENZONATATE 100 MG CAPSULE PO PRN (23:15)
--- NOTE | 2024-01-25 06:53 | Hospitalist Progress Note ---
Date of Service January 25, 2024 Assessment & Plan (1) Complete heart block by electrocardiogram: Plan: Currently AV dissociation: 3rd degree heart block - No hx lyme, thyroid conditions, heart rate medications. - Echo repeated 01/24/24: LVEF 60-65%, no regional wall motion abnormality. - No chest pain or palpitations Plan: dual-chamber pacemaker placement by cardiology at 1pm today 01/25/[address] Delgado -> plan to go to PCU/tele following procedure - daily EKG - fall precautions (2) Fall: Plan: as above (#1) Found lying in shower after unwitnessed fall, unable to report how he fell Patient w/ recurrent falls as per daughter, all unwitnessed Head CT only showing R posterior scalp contusion, no intracranial pathology - 4 devendra to scalp laceration - PT/OT to evaluate and treat (3) (HFpEF) heart failure with preserved ejection fraction: Plan: likely related to low cardiac output due to low rates associated with 3rd-deg AV block, as stroke volume is good EF 60-65% on echo 01/24/24 - continue Lasix 40mg daily for diuresis to resolve pleural effusions, peripheral edema Should resolve with dual-chamber pacemaker, possibly being placed 01/25/24 (4) Hypoxic: Plan: likely 2/2 pleural effusions, currently satting low 90s on 5L/min NC, no SOB - continue diuresis, if ineffective consider thoracentesis (5) Pleural effusion: Plan: Cough, sore throat, SOB x 3 weeks - Chest CT: small R and moderate L pleural effusions, b/l opacities favoring atelectasis/scarring Antibiotics d/c'd based on patient's absence of fever, pleuritic chest pain, significant cough w/ sputum, or significant WBC count - may go back on them pending culture results or worsening of patient's currently mild symptoms See above (#4) (6) Edema: Plan: +1 pitting b/l LE edema with ascites, anasarca - TEDs and promote leg elevation - Low Na diet - Lasix 40mg daily for diuresis (7) Elevated troponin: Plan: likely related to demand, 30.1 -> 25.8 - no chest pain or palpitations (8) Cirrhosis: Plan: No known history of cirrhosis Denies alcohol use history CT showing cirrhosis with ascites, abdominal varicosities and anasarca Hepatitis labs: negative for HepBsAg and HepC; pending HepA and HepB core IgM LFTs showing elevated alk phosphatase (176), AST and ALT WNL PT/INR WNL (9) T2DM (type 2 diabetes mellitus): Plan: Controlled on Insulin and Metformin at home - continue home Lantus 40 units QAM - SSI with target BSG range 110-140mg/dL, CF 20, carb ratio 7 - T2DM diet - BSG ACHS if eating, q6h if npo A1c: 4.9% (10) Depression: Plan: chronic history of depression with SI - presently denies SI or plan - declines psychiatric eval - continue home medications - Auvelity Plan Chronic stable diagnoses: dementia - stable ADHD - continue Adderall HTN - continue amlodipine and lisinopril HLD - continue ASA and atorvastatin GERD - continue PPI VTE ppx: Heparin Q12 Diet: T2DM, low Na diet Code status: DNR/DNI Dispo: Med/Tele Admission and Anticipated Discharge Date Admission Date: January 23, 2024 Supervising Physician Co-Signing Physician Notes I personally examined the patient and verified all yu points of history and exam, discussed case, and agree with decision making with []. Roxie feeling okay. Notes that he has a chronic cough he has a hard time quantifying. No significant shortness of breath. More steady on his feet (he was walking to and from the bathroom whenever I was in the room.) Feels okay right now. Vitals noted, in general he is awake and alert pleasant fatigued no distress. Breathing unlabored no accessory muscle use good effort. Skin without rashes pallor or icterus. Neuro without focal deficits. EKG with complete A-V dissociation. Chest CT notedeffusion on the left fairly sizable not as big on the right. Questionable areas of pneumonia versus scarring versus atelectasis reasonably small by comparison. Fallssuspect due to intermittent complete heart block/symptomatic bradycardia. Possible metabolic encephalopathy related to poor forward flow and/or concussionbut not entirely sure what his baseline mentation is. Continue to follow. Complete heart block with what appears to be probably chronic rate related diastolic CHF and subsequent fairly sizable pleural effusions as well as mild degree of demand myocardial ischemia, but currently stable junctional rhythmagain probably due to low ratesfor pacemaker most likely but cardiology wants to discuss w family/watch further for now. Appreciate cardiology input. Follow respiratory status and effusionsMay need diagnostic/therapeutic thoracentesis (Although I strongly assume it is related to CHF so more it would be therapeutic if we're unable to wean off O2) but for now given that it is not really causing much of any symptoms follow closely. possible pneumoniasuspect more atelectasis and scarringdoes not show signs or symptoms of infectionholding antibiotics for now and follow closely.No pneumonia symptoms apparent and Pro-George still 0.03 DVT prophylaxiscurrently ambulation, add lovenox otherwise as above Subjective Patient was seen and evaluated at bedside, sitting comfortable on edge of bed eating breakfast on encounter. NC set to 6L/min, feeling good enough and willing to go down to 5L/min. Endorses his night was uneventful and feels he slept well. Denies any particular shortness of breath or pain this morning, aside from slight soreness of laceration site which was closed with 4 devendra and avulsion wound on R elbow which is covered with pad. Has been eating and drinking well. States he has been getting up and walking to the bathroom himself, unassisted. Denies any particular unsteadiness or SOB on the way to and from bathroom. Recommended to get up from bed slowly in order to prevent lightheadedness/dizziness which may result in a fall. Has been NPO as of midnight, scheduled to have dual-chamber pacemaker at 1pm with Dr. Delgado. Endorses minimal SOB on 5L NC, infrequent cough with mild sputum. Denies any recent fever, body aches, chills, headache, vision changes, hearing changes, dizziness, nausea/vomiting, tremors, numbness/tingling in extremities. Review of Systems Review of Systems: As per HPI Physical Exam Physical Exam: Constitutional: A&O4, well developed and well nourished, in no acute distress. Non-toxic appearing. HEENT: EOMI, mucous membranes moist. Hearing grossly intact. Laceration to right posterior scalp contusion. Cardiovascular: RRR, +s1/S2, no m/r/g heard on auscultation Lungs: mildly decreased breath sounds and mild crackles in b/l lower lung engel L>R, no respiratory distress or accessory muscle use, otherwise no wheeze/rales/rhonchi GI: abdomen with ascites, +BS, nontender to palpation MSK: 5/5 strength in all extremities; 2x2cm avulsion on R elbow, mild tenderness to palpation, pad covering; 1+ pitting edema in b/l LE, nontender to palpation of calves Neuro: no facial droop, speech intact Psych: fair eye contact, normal joni of speech, mood-affect congruence, no SI or current plans Results & Data Results & Data Vital Signs (Past 12 Hours) Vital Signs Temp Pulse Pulse Resp BP Pulse Ox O2 Del Method 01/25/24 04:30 36.7 C 63 20 151/72 H 93 Nasal Cannula 01/24/24 23:00 36.9 C 56 L 18 153/72 H 95 Nasal Cannula 01/24/24 21:41 61 01/24/24 20:20 Nasal Cannula 01/24/24 19:36 37.1 C 76 16 134/70 98 Nasal Cannula O2 Flow Rate 01/25/24 04:30 6 01/24/24 23:00 6 01/24/24 21:41 01/24/24 20:20 6 01/24/24 19:36 6 Laboratory Results Abnormal lab results 01/24/24 01/25/24 01/25/24 Range/Units 17:20 02:49 06:38 RBC 2.78 L (4.70-6.10) M/uL Hgb 9.9 L (14.0-18.0) g/dl Hct 28.8 L (42.0-52.0) % MCV 103.6 H (80.0-100.0) fL MCH 35.6 H (25.0-34.0) pg RDW Std Deviation 66.7 H (36.4-46.3) fL RDW Coeff of Yinka 18.0 H (11.5-14.5) % Neut # (Auto) 7.44 H (1.40-6.50) K/uL Lymph # (Auto) 1.09 L (1.20-3.40) K/uL [place] # (Auto) 1.07 H (0.11-0.59) K/uL BUN/Creatinine Ratio 20.2 H (10-20) Glucose 105 H (70-99(Fasting)) mg/dl POC Glucose 122 H 121 H (70-99) mg/dl TSH 5.879 H (0.300-4.500) uIu/ml 01/25/24 Range/Units 07:47 RBC (4.70-6.10) M/uL Hgb (14.0-18.0) g/dl Hct (42.0-52.0) % MCV (80.0-100.0) fL MCH (25.0-34.0) pg RDW Std Deviation (36.4-46.3) fL RDW Coeff of Yink[place] (11.5-14.5) % Neut # (Auto) (1.40-6.50) K/uL Lymph # (Auto) (1.20-3.40) K/uL [place] # (Auto) (0.11-0.59) K/uL BUN/Creatinine Ratio (10-20) Glucose (70-99(Fasting)) mg/dl POC Glucose 126 H (70-99) mg/dl TSH (0.300-4.500) uIu/ml Resident Activity Tracking Resident Involvement: Resident Care Provided Care Provided: Adult Hospital Medicine
[2024-01-25 07:10] LABS: Basophils # (auto) 0.09 K/uL (0.00-0.20); Basophils % (auto) 0.9 %; Eosinophils # (auto) 0.19 K/uL (0.00-0.50); Eosinophils % (auto) 1.9 %; Hematocrit (blood only) 28.8 % (42.0-52.0); Hemoglobin 9.9 g/dl (14.0-18.0); Immature Granulocytes # (auto) 0.07 K/uL (0.01-0.20); Immature Granulocytes % (auto) 0.7 %; Lymphocytes # (auto) 1.09 K/uL (1.20-3.40); Mean Corpuscular Hemoglobin 35.6 pg (25.0-34.0); Mean Corpuscular Hgb Conc 34.4 g/dL (32.0-36.0); Mean Corpuscular Volume 103.6 fL (80.0-100.0); Mean Platelet Volume 10.4 fL (9.4-12.4); Monocytes # (auto) 1.07 K/uL (0.11-0.59); Monocytes % (auto) 10.8 %; Neutrophils # (auto) 7.44 K/uL (1.40-6.50); Neutrophils % (auto) 74.7 %; Nucleated RBC # (auto) 0.06 K/uL (0.00-0.12); Nucleated RBC % (auto) 0.6 %; Platelet Count 263 K/uL (130-400); RDW Standard Deviation 66.7 fL (36.4-46.3); Red Blood Count 2.78 M/uL (4.70-6.10); White Blood Count 9.95 K/ul (4.8-10.8)
[2024-01-25 09:30] LABS: BUN Creatinine Ratio 20.2 (10-20); Calcium 8.7 mg/dl (8.6-10.3); Creatinine Clr Calc Pharmacy 73.6 ml/min; Potassium 4.4 mmol/L (3.5-5.1)
[2024-01-25 09:39] LABS: Thyroid Stimulating Hormone 5.879 uIu/ml (0.300-4.500)
[2024-01-25 10:14] LABS: T4 Free Thyroxine 0.83 ng/dl (0.61-1.60)
[2024-01-25 10:26] LABS: Procalcitonin 0.03 ng/ml (0-0.5)
[2024-01-25 10:51] LABS: Lyme Screen Rflx Confirmation Negative (Negative)
--- NOTE | 2024-01-25 11:31 | Electrocardiogram Report ---
Test Reason : Blood Pressure : */* mmHG Vent. Rate : 60 BPM Atrial Rate : 92 BPM P-R Int : * ms QRS Dur : 86 ms QT Int : 412 ms P-R-T Axes : * -39 71 degrees QTcB Int : 412 ms Normal sinus rhythm with A-V dissociation Junctional escape rhythm Left axis deviation Low voltage QRS Possible Anterolateral infarct (cited on or before 10-Dec-2020) Abnormal ECG When compared with ECG of 23-Jan-2024 20:26, No significant change Confirmed by Sanya Krause ([id number]) on 01/25/2024 11:31:36 AM Referred By: REFERRED SELF Confirmed By: Sanya Krause
--- NOTE | 2024-01-25 11:41 | Electrocardiogram Report ---
Test Reason : Blood Pressure : */* mmHG Vent. Rate : 63 BPM Atrial Rate : 40 BPM P-R Int : * ms QRS Dur : 94 ms QT Int : 418 ms P-R-T Axes : * 113 8 degrees QTcB Int : 427 ms Normal sinus rhythm with A-V dissociation Junctional escape rhythm Right axis deviation Low voltage QRS Cannot rule out Anterior infarct (cited on or before 10-Dec-2020) Abnormal ECG When compared with ECG of 24-Jan-2024 17:05, (unconfirmed) QRS axis Shifted right Nonspecific T wave abnormality now evident in Inferior leads Confirmed by Sanya Krause ([id number]) on 01/25/2024 11:40:50 AM Referred By: REFERRED SELF Confirmed By: Sanya Krause
--- NOTE | 2024-01-25 14:05 | Cardiology Progress Note ---
Date of Service January 25, 2024 Assessment & Plan Admission and Anticipated Discharge Date Admission Date: January 23, 2024 Subjective Patient was referred for pacemaker implantation for A-V dissociation (likely although not definitely AV block). He seems to have a stable junctional rhythm, however his heart rate is running at around 60 bpm and in general he does not have hemodynamic symptoms. He has been having falls which may or may not due to heart rate issues, with a junctional rhythm he is not likely to be able to increase his heart rate which could contribute to falling. It is possible he also has worsening transient bradycardia. I discussed pacemaker implantation with his brother who is power of assistant county attorney, he wanted to discuss it with the patient as he had not heard about that planned until this afternoon. He will be in later today. I discussed options of loop recorder implantation for monitoring (although even that may not be definitive and less if demonstrated bradycardia, it would not demonstrate an inappropriate heart rate response if it was fixed at around 60) versus implanting a pacemaker to see if it would correct the problem. Of note he is DNR status, which would not preclude a pacemaker but we may want to be more sure that it would help him. For all these reasons we are going to cancel the case today and consider doing it Sunday morning. I am not on-call the weekend but I would be available to talk to the brother again if that would be desired. Results & Data Vital Signs (Past 12 Hours) Vital Signs Temp Pulse Pulse Resp BP BP Pulse Ox 01/25/24 12:51 62 18 155/83 H 94 01/25/24 12:00 36.4 C L 54 L 18 144/66 H 93 01/25/24 08:04 36.8 C 53 L 18 142/72 H 96 01/25/24 07:41 01/25/24 07:09 50 L 01/25/24 04:30 36.7 C 63 20 151/72 H 93 O2 Del Method O2 Flow Rate 01/25/24 12:51 Nasal Cannula 5 01/25/24 12:00 Nasal Cannula 6 01/25/24 08:04 Nasal Cannula 6 01/25/24 07:41 Nasal Cannula 6 01/25/24 07:09 01/25/24 04:30 Nasal Cannula 6 PG Care Time/CCT Total # of Minutes Spent Total Time Spent with Patient: Total time spent is greater than 50% in coordination of care (as documented) at patient's floor/unit and/or counseling patient: Coding Level of Care Code 50436 SUB INP/OBS CARE
[2024-01-25] MEDS: LIDOCAINE 1% LOCAL 20 ML VIAL ONE (14:17)
[2024-01-25] MEDS: WATER, STERILE FOR INJ 10 ML VIAL ONE (14:18)
[2024-01-25] MEDS: VANCOMYCIN HCL 1000MG/20ML VIAL ONE (14:18)
[2024-01-25 15:57] LABS: Hepatitis A Antibody IgM NON-REACTIVE (NON-REACTIVE); Hepatitis B Core Antibody IgM NON-REACTIVE (NON-REACTIVE)
--- NOTE | 2024-01-25 16:27 | Billing Data ---
Date of Service January 25, 2024 Coding Level of Care Code 28380 SUB INP/OBS CARE
--- NOTE | 2024-01-26 06:57 | Hospitalist Progress Note ---
Date of Service January 26, 2024 Assessment & Plan (1) Complete heart block by electrocardiogram: Plan: - Currently AV dissociation: 3rd degree heart block - No hx lyme, thyroid conditions, heart rate medications. - Echo repeated 01/24/24: LVEF 60-65%, no regional wall motion abnormality. - No chest pain or palpitations - Cardiology consulted: falls may be 2/2 junctional rhythm or worsening bradycardia; considering pacemaker implantation on Sunday after further discussion w family - daily EKG - fall precautions (2) Fall: Plan: - Found lying in shower after unwitnessed fall, unable to report how he fell - H/o recurrent falls as per daughter, all unwitnessed - Head CT only showing R posterior scalp contusion, no intracranial pathology - 4 devendra to scalp laceration - PT/OT to evaluate and treat (3) (HFpEF) heart failure with preserved ejection fraction: Plan: - likely related to low cardiac output 2/2 heart block - EF 60-65% on echo 01/24/24 - Continue Lasix 40mg daily and consider thoracentesis for sx management - Definitive tx will be dual-chamber pacemaker (4) Pleural effusion: Plan: - Cough, sore throat, SOB x 3 weeks - Chest CT: small R and moderate L pleural effusions, b/l opacities favoring atelectasis/scarring - Abx stopped based on absence of fever, pleuritic chest pain, significant cough w/ sputum, or leukocytosis May restart pending culture results - Continue Lasix 40 mg daily, consider thoracentesis (5) Hypoxic: Plan: - likely 2/2 pleural effusions, see #4 above - currently satting low 90s on 5L/min NC, mild SOB when speaking (6) Edema: Plan: - TEDs and promote leg elevation - Low Na diet - Continue Lasix 40mg daily (7) Elevated troponin: Plan: - likely related to demand myocardial ischemia - 30.1 on arrival 01/22 --> 26.6 next day - no chest pain or palpitations (8) Cirrhosis: Plan: - No known history of cirrhosis - Denies alcohol use history - CT showing cirrhosis with ascites, abdominal varicosities and anasarca - Hepatitis panel negative, LFTs wnl except elevated ALP (176 --> 151) (9) T2DM (type 2 diabetes mellitus): Plan: - Controlled on Insulin and Metformin at home - continue home Lantus 40 units QAM - SSI with target BSG range 110-140mg/dL, CF 20, carb ratio 7 - T2DM diet - BSG ACHS if eating, q6h if npo - A1c was 4.9% on 01/23 (10) Depression: Plan: - chronic history of depression with SI - presently denies SI or plan - declines psychiatric eval - continue home medications (Auvelity 45-105 mg daily) Plan Chronic stable diagnoses: dementia - stable ADHD - continue Adderall HTN - continue amlodipine and lisinopril HLD - continue ASA and atorvastatin GERD - continue PPI VTE ppx: Heparin Q12 Diet: T2DM, low Na diet Code status: DNR/DNI Dispo: Med/Tele Admission and Anticipated Discharge Date Admission Date: January 23, 2024 Supervising Physician Co-Signing Physician Notes I personally examined the patient and verified all yu points of history and exam, discussed case, and agree with decision making with Dr Alvarado no shortness of breath. No complaints. Vitals noted, in general he is Asleep but easily awoken no distress. Lungs diminished but no rales rhonchi or wheezes good effort Fallssuspect due to intermittent complete heart block/symptomatic bradycardia. Possible metabolic encephalopathy related to poor forward flow and/or concussionbut not entirely sure what his baseline mentation is. Continue to follow. Complete heart block with what appears to be probably chronic rate related diastolic CHF and subsequent fairly sizable pleural effusions as well as mild degree of demand myocardial ischemia, but currently stable junctional rhythmagain probably due to low ratesfor pacemaker most likely but cardiology wants to discuss w family/watch further for now. Appreciate cardiology input. Follow respiratory status and effusionsMay need diagnostic/therapeutic thoracentesis (Although I strongly assume it is related to CHF so more it would be therapeutic if we're unable to wean off O2) but for now given that it is not really causing much of any symptoms follow closely. possible pneumoniasuspect more atelectasis and scarringdoes not show signs or symptoms of infection have been holding antibiotics for now and following closely.No pneumonia symptoms apparent continue to follow symptoms labs vitals and exam DVT prophylaxis lovenox otherwise as above Subjective Patient had some pain overnight at his right elbow. Hurt it when he fell, bruise has been developing since. Says it hurts anytime it is touched, maybe 4/10, non- radiating, not a/w any movement Has been able to walk to bathroom and back. Eating ok No dizziness, CP, SOB, n/v Review of Systems 2 Review of Systems: As per HPI. Physical Exam 2 Physical Exam: Gen: lying on L side in bed, AOx3, NAD HEENT: EOMI, R posterior scalp lac CV: RRR, no m/r/g, S1/S2 normal Resp: CTAB, symmetrical chest rise, SOB while speaking Abd: Soft, NT/ND, +BS, no masses MSK: Normal str & ROM, mild tenderness at R elbow + contusion covered w bandage, pitting edema b/l LE Psych: Speech pace slowed, thoughts linear, goal-directed, appropriate responses to questions. Results & Data Results & Data Vital Signs (Past 12 Hours) Vital Signs Temp Pulse Pulse Resp BP BP Pulse Ox 01/26/24 06:52 48 L 01/26/24 03:54 36.6 C 61 18 143/74 H 98 01/25/24 23:51 36.9 C 59 L 18 123/63 96 01/25/24 21:54 5 L 01/25/24 20:08 36.7 C 50 L 18 128/62 92 01/25/24 19:52 O2 Del Method O2 Flow Rate 01/26/24 06:52 01/26/24 03:54 Nasal Cannula 5 01/25/24 23:51 Nasal Cannula 5 01/25/24 21:54 01/25/24 20:08 Nasal Cannula 5 01/25/24 19:52 Nasal Cannula 5 Laboratory Results 01/26/24 06:30 01/26/24 06:30 Resident Activity Tracking Resident Involvement: Resident Care Provided Care Provided: Adult Hospital Medicine
[2024-01-26] MEDS: ENOXAPARIN INJ 40 MG/0.4 ML SYR SQ SCH (07:36)
[2024-01-26 07:43] LABS: Mean Corpuscular Hemoglobin 34.6 pg (25.0-34.0); Mean Corpuscular Hgb Conc 33.3 g/dL (32.0-36.0); Mean Corpuscular Volume 103.8 fL (80.0-100.0); Mean Platelet Volume 10.6 fL (9.4-12.4); Nucleated RBC # (auto) 0.02 K/uL (0.00-0.12); Nucleated RBC % (auto) 0.2 %; Platelet Count 273 K/uL (130-400); RDW Standard Deviation 68.2 fL (36.4-46.3); Red Blood Count 2.89 M/uL (4.70-6.10)
[2024-01-26 07:57] LABS: BUN Creatinine Ratio 20.8 (10-20); Calcium 8.8 mg/dl (8.6-10.3); Creatinine Clr Calc Pharmacy 79.6 ml/min; Potassium 4.2 mmol/L (3.5-5.1)
--- NOTE | 2024-01-26 14:58 | Billing Data ---
Date of Service January 26, 2024 Coding Level of Care Code 96435 SUB INP/OBS CARE
[2024-01-26] MEDS: LIDOCAINE 5% 1 PATCH TD STA (22:59)
[2024-01-26] MEDS: MoRPHine SULFATE 2 MG/ML CARP IV STA (23:52)
[2024-01-27] MEDS: MoRPHine SULFATE 2 MG/ML CARP IV STA (02:04)
[2024-01-27 06:39] LABS: Hemoglobin 10.2 g/dl (14.0-18.0); Mean Corpuscular Hemoglobin 35.3 pg (25.0-34.0); Mean Corpuscular Volume 103.8 fL (80.0-100.0); Mean Platelet Volume 10.8 fL (9.4-12.4); Nucleated RBC # (auto) 0.03 K/uL (0.00-0.12); Nucleated RBC % (auto) 0.3 %; Platelet Count 276 K/uL (130-400); RDW Coefficient of Variation 17.6 % (11.5-14.5); RDW Standard Deviation 66.4 fL (36.4-46.3); Red Blood Count 2.89 M/uL (4.70-6.10)
[2024-01-27 07:01] LABS: BUN Creatinine Ratio 23.1 (10-20); Calcium 8.5 mg/dl (8.6-10.3); Creatinine Clr Calc Pharmacy 71.9 ml/min; Potassium 4.4 mmol/L (3.5-5.1)
--- NOTE | 2024-01-27 07:22 | Hospitalist Progress Note ---
Date of Service January 27, 2024 Assessment & Plan (1) Complete heart block by electrocardiogram: Plan: - Currently AV dissociation: 3rd degree heart block - No hx lyme, thyroid conditions, heart rate medications. - Echo repeated 01/24/24: LVEF 60-65%, no regional wall motion abnormality. - No chest pain or palpitations - Cardiology consulted: falls may be 2/2 junctional rhythm or worsening bradycardia; considering pacemaker implantation on Sunday after further discussion w family - daily EKG - fall precautions (2) Fall: Plan: - Found lying in shower after unwitnessed fall, unable to report how he fell - H/o recurrent falls as per daughter, all unwitnessed - Head CT only showing R posterior scalp contusion, no intracranial pathology - 4 devendra to scalp laceration - R elbow extremely tender to touch, pain 7/10 today, improved w lidocaine patch + morphine - PT/OT to evaluate and treat (3) (HFpEF) heart failure with preserved ejection fraction: Plan: - likely related to low cardiac output 2/2 heart block - EF 60-65% on echo 01/24/24 - Continue Lasix 40mg daily and consider thoracentesis for sx management - Definitive tx will be dual-chamber pacemaker (4) Pleural effusion: Plan: - Cough, sore throat, SOB x 3 weeks - Chest CT: small R and moderate L pleural effusions, b/l opacities favoring atelectasis/scarring - Abx stopped based on absence of fever, pleuritic chest pain, significant cough w/ sputum, or leukocytosis May restart pending culture results - Continue Lasix 40 mg daily, consider thoracentesis (5) Hypoxic: Plan: - likely 2/2 pleural effusions, see #4 above - currently satting low 90s on 5L/min NC, mild SOB when speaking (6) Edema: Plan: - TEDs and promote leg elevation - Low Na diet - Continue Lasix 40mg daily (7) Elevated troponin: Plan: - likely related to demand myocardial ischemia - 30.1 on arrival 01/22 --> 26.6 next day - no chest pain or palpitations (8) Cirrhosis: Plan: - No known history of cirrhosis - Denies alcohol use history - CT showing cirrhosis with ascites, abdominal varicosities and anasarca - Hepatitis panel negative, LFTs wnl except elevated ALP (176 --> 151) (9) T2DM (type 2 diabetes mellitus): Plan: - Controlled on Insulin and Metformin at home - continue home Lantus 40 units QAM - SSI with target BSG range 110-140mg/dL, CF 20, carb ratio 12 some hypoglycemia 12/7 PM so ratio changed from 7 --> 12 - T2DM diet - BSG ACHS if eating, q6h if npo - A1c was 4.9% on 01/23 (10) Depression: Plan: - chronic history of depression with SI - presently denies SI or plan - declines psychiatric eval - continue home medications (Auvelity 45-105 mg daily) Plan Chronic stable diagnoses: dementia - stable ADHD - continue Adderall HTN - continue amlodipine and lisinopril HLD - continue ASA and atorvastatin GERD - continue PPI VTE ppx: Heparin Q12 Diet: T2DM, low Na diet Code status: DNR/DNI Dispo: Med/Tele Admission and Anticipated Discharge Date Admission Date: January 23, 2024 Supervising Physician Co-Signing Physician Notes I personally examined the patient and verified all yu points of history and exam, discussed case, and agree with decision making with Dr Christiano rojo shortness of breath. No complaints. Vitals noted, general he is awake and alert pleasant no distress. HEENT normocephalic atraumatic mucous membranes moist. Breathing unlabored no accessory muscle use good effort. Skin without rashes pallor or icterus. Fallssuspect due to intermittent complete heart block/symptomatic bradycardia. Possible metabolic encephalopathy related to poor forward flow and/or concussionbut not entirely sure what his baseline mentation is. Continue to follow. Complete heart block with what appears to be probably chronic rate related diastolic CHF and subsequent fairly sizable pleural effusions as well as mild degree of demand myocardial ischemia, but currently stable junctional rhythmagain probably due to low ratesfor pacemaker most likely but cardiology wants to discuss w family/watch further for now. Appreciate cardiology input. Follow respiratory status and effusionsMay need diagnostic/therapeutic thoracentesis (Although I strongly assume it is related to CHF so more it would be therapeutic if we're unable to wean off O2) but for now given that it is not really causing much of any symptoms follow closely. (Yesterday discussed with pulmonary regarding thoracentesisand they noted that it would likely be better to wait until after the complete heart block has been remedied to do any procedures related to the effusionand given how overall stable the patient is with supportive care, I concur) possible pneumoniasuspect more atelectasis and scarringdoes not show signs or symptoms of infection have been holding antibiotics for now and following closely.No pneumonia symptoms apparent continue to follow symptoms, labs, vitals, and exam - but nothing appearing concerning for pneumonia at this time DVT prophylaxis lovenox otherwise as above Subjective Still having some pain at his right elbow. Overnight, was given lidocaine patch and total 3mg morphine. Says that helped, but pain has fully returned by this morning. Reports pain is ~7/10, still w touch of R elbow and not a/w any movement Eating, drinking, ambulating well. Normal bowel and bladder fxn No dizziness, CP, SOB, n/v Review of Systems 2 Review of Systems: As per HPI. Physical Exam 2 Physical Exam: Gen: AOx3, NAD HEENT: EOMI, R posterior scalp lac CV: RRR, no m/r/g, S1/S2 normal Resp: CTAB, symmetrical chest rise, SOB while speaking Abd: Soft, NT/ND, +BS, no masses MSK: Normal str & ROM, significant pinpoint tenderness at R elbow + contusion covered w bandage Psych: Mood-affect congruent. Speech pace and content normal Results & Data Results & Data Vital Signs (Past 12 Hours) Vital Signs Temp Pulse Pulse Resp BP BP Pulse Ox 01/27/24 04:01 36.9 C 20 135/66 98 01/26/24 23:53 36.7 C 20 151/73 H 97 01/26/24 21:51 61 01/26/24 19:52 36.8 C 64 18 158/68 H 93 01/26/24 19:48 55 L O2 Del Method O2 Flow Rate 01/27/24 04:01 Nasal Cannula 4.5 01/26/24 23:53 Nasal Cannula 4.5 01/26/24 21:51 01/26/24 19:52 Nasal Cannula 6 01/26/24 19:48 Laboratory Results 01/27/24 05:53 01/27/24 05:53 Resident Activity Tracking Resident Involvement: Resident Care Provided Care Provided: Adult Hospital Medicine
[2024-01-27] MEDS: LIDOCAINE 5% 1 PATCH TD STA (17:18)
--- NOTE | 2024-01-27 18:15 | Billing Data ---
Date of Service January 27, 2024 Coding Level of Care Code 97326 SUB INP/OBS CARE
--- NOTE | 2024-01-28 07:32 | Hospitalist Progress Note ---
Date of Service January 28, 2024 Assessment & Plan (1) Complete heart block by electrocardiogram: Plan: Patient in 3rd degree heart block. May be precipitating falls. Plan for pacemaker placement 01/28. cards consulted - likely pacer 01/28, appreciate recs AM EKG fall precautions avoid negative inotropes (2) Fall: Plan: History of recurrent unwitnessed falls. May be multifactorial possible memory issues/dementia, deconditioning, worsening bradycardia, junctional rhythm. Head lac stapled x 4. Bandage to right elbow. PT/OT, fall precautions plan for pacer placement (3) (HFpEF) heart failure with preserved ejection fraction: Plan: HFpEF 60-65%. Asymptomatic pleural effusions - could consider therapeutic thoracentesis, check CXR to assess interval changes. Intermittently on NC (patient removes). plan for pacer placement Lasix 40 mg daily AM CXR (4) Pleural effusion: Plan: Patient with cough, sore throat, and SOB x 3 weeks. Initially treated with abx - since stopped. BCx NGTD x 48 hours. Found to have bilateral pleural effusions left > right. Likely in the setting of HFpEF 2/2 significant bradycardia. Continue Lasix 40 mg daily, consider thoracentesis (5) Hypoxic: Plan: Likely 2/2 pleural effusions and atelectasis. Exam with crackles. NC PRN. If unable to wean may consider thoracentesis. Will need 2 step prior to d/c. (6) Edema: Plan: TEDs and promote leg elevation. Low Na diet. Continue Lasix 40mg daily (7) Elevated troponin: Plan: Likely related to demand myocardial ischemia. Peaked. (8) Cirrhosis: Plan: CT showing cirrhosis with ascites, abdominal varicosities and anasarca. Denies alcohol use. Hepatitis panel negative. LFTs with isolated elevation in alk phos - downtrending. (9) T2DM (type 2 diabetes mellitus): Plan: Patient on Lantus 40 units QAM and metformin at home. Significantly decreased insulin needs during this admission - episodes of hypoglycemia and minimal correction needed. Did decrease to basal 8 units this morning. Will monitor and adjust as indicated. HbA1c 4.9. T2DM diet adjusting insulin (10) Depression: Plan: Chronic - has a history of SI. None noted during current hospitalization. Did decline psych eval. Recommended patient have Auvelity 45-105 mg brought in to be administered here - has not yet been obtained Plan Chronic stable diagnoses: Dementia - stable ADHD - has not had adderall filled since 02/2023, will need clarification HTN - continue amlodipine and lisinopril HLD - continue ASA and atorvastatin GERD - continue PPI Code status: DNR/DNI DVT ppx: Teds, heparin SQ BID FENGI: low salt, T2DM, NPO @ midnight for pacer Dispo: tele unit Admission and Anticipated Discharge Date Admission Date: January 23, 2024 Supervising Physician Co-Signing Physician Notes Attending Physician Supervision Note: I independently interviewed and examined the patient and verified the yu history and physical, reviewed labs and image studies and agree with findings and care plan noted above. laying on his left side with head up. feels comfortable. no shortness of breath, cough, chest pain. No resp distress in the position he is laying. decreased breath sounds on bases. Regular rhythm. Fall - recurrent. Per cardio - ? sec to A-V dissociation/loss of chronotropic response. -monitor for drop in BP or significant fluctuation - on lisinopril/amlodipine. also on lasix. -will need devendra removed. A-V dissociation - Cardio following. for PPM tomorrow. Pleural effusions- follow for need for thoracentesis - diagnostic/therapeutic. Lovenox otherwise as above Subjective Patient seen at bedside this AM. Reports continued elbow pain. No CP or SOB. Passing gas, no BM. Declines bowel regimen. Overall feeling okay. Ready for pacemaker placement today. Review of Systems 2 Review of Systems: As per HPI. Physical Exam 2 Physical Exam: Gen: well appearing patient in NAD HEENT: AT NC MMM Resp: good air movement, crackles bilaterally, no wheezing, no increased work of breathing CV: bradycardic, regular rhythm, no m/r/g clinically well perfused Abd: +BS, soft, non-distended MSK: no obvious deformities, bandage in place right elbow Skin: no rashes or bruising Neuro: alert and oriented Psych: appropriate mood and affect Results & Data Results & Data Vital Signs (Past 12 Hours) Vital Signs Temp Pulse Pulse Resp BP Pulse Ox O2 Del Method 01/28/24 04:00 36.5 C 72 20 133/61 93 Nasal Cannula 01/27/24 23:00 36.6 C 69 18 154/80 H 93 Room Air 01/27/24 21:43 63 01/27/24 20:40 Nasal Cannula O2 Flow Rate 01/28/24 04:00 3 01/27/24 23:00 01/27/24 21:43 01/27/24 20:40 3 Laboratory Results 01/28/24 07:12 01/28/24 07:12 Resident Activity Tracking Resident Involvement: Resident Care Provided Care Provided: Adult Hospital Medicine
[2024-01-28 07:57] LABS: BUN Creatinine Ratio 22.5 (10-20); Calcium 8.7 mg/dl (8.6-10.3); Creatinine Clr Calc Pharmacy 70.1 ml/min; Potassium 4.4 mmol/L (3.5-5.1)
[2024-01-28 08:06] LABS: Hematocrit (blood only) 29.3 % (42.0-52.0); Hemoglobin 9.8 g/dl (14.0-18.0); Mean Corpuscular Hemoglobin 34.9 pg (25.0-34.0); Mean Corpuscular Hgb Conc 33.4 g/dL (32.0-36.0); Mean Corpuscular Volume 104.3 fL (80.0-100.0); Mean Platelet Volume 10.9 fL (9.4-12.4); Nucleated RBC # (auto) 0.03 K/uL (0.00-0.12); Nucleated RBC % (auto) 0.3 %; Platelet Count 287 K/uL (130-400); RDW Coefficient of Variation 17.8 % (11.5-14.5); RDW Standard Deviation 67.9 fL (36.4-46.3); Red Blood Count 2.81 M/uL (4.70-6.10); White Blood Count 10.32 K/ul (4.8-10.8)
[2024-01-28] MEDS: LANTUS PER UNIT CHARGE SQ SCH ×2 (09:51→10:08)
--- NOTE | 2024-01-28 10:40 | Cardiology Progress Note ---
Date of Service January 28, 2024 Assessment & Plan (1) Fall: (2) Atrioventricular dissociation: Plan 1. Fall: It is still not clear why the patient is falling, 1 possibility is his cardiac rhythm since he does have A-V dissociation and a junctional rhythm. The rhythm is stable but he has not had following here in the hospital. It could also be an inappropriate heart rate due to no significant rate response and that might be hard to identify. 2. A-V dissociation: He probably has complete heart block, with an accelerated junctional rhythm and is hard to make that diagnosis but that is likely the case. With his following even though he does not have baseline symptoms I think a pacemaker is a reasonable option. I had discussed this with the patient's brother and power of business attorney and we discussed doing a pacemaker or considering a loop recorder, a loop recorder may be hard to interpret unless he has a clear arrhythmia associated with a fall and it does not treat his underlying conduction abnormality. He discussed things with his brother (the patient) and they are agreeable to proceed. I am therefore going to plan pacemaker implantation tomorrow morning, January 29, 2024. Admission and Anticipated Discharge Date Admission Date: January 23, 2024 Subjective Patient seems to be more aware, today he is. Did and without specific complaints. Physical Exam Physical Exam: Constitutional: Alert, cooperative and in no distress. HEENT: Unremarkable Neck: No jugular venous distention, carotid pulses are normal and equal bilaterally without bruits. Pulmonary: Clear to auscultation bilaterally. Cardiac: Regular slow rhythm with no murmur, gallop or rub. Abdomen: Soft, nontender with normal bowel sounds. Extremities: No edema. Distal pulses intact. Neurologic: No focal findings. Gait is steady. Skin: No rash, ecchymoses or petechiae. Results & Data Vital Signs (Past 12 Hours) Vital Signs Temp Pulse Pulse Pulse Resp BP Pulse Ox 01/28/24 07:59 36.5 C 64 18 130/65 92 01/28/24 07:56 56 L 01/28/24 04:00 36.5 C 72 20 133/61 93 01/27/24 23:00 36.6 C 69 18 154/80 H 93 01/27/24 21:43 63 01/27/24 20:40 O2 Del Method O2 Flow Rate 01/28/24 07:59 Nasal Cannula 3 01/28/24 07:56 01/28/24 04:00 Nasal Cannula 3 01/27/24 23:00 Room Air 01/27/24 21:43 01/27/24 20:40 Nasal Cannula 3 Diagnostic Findings Telemetry: Continue AV dissociation with a junctional rhythm typically in the 50s and low 60s. No evidence of AV conduction identified. PG Care Time/CCT Total # of Minutes Spent Total Time Spent with Patient: Total time spent is greater than 50% in coordination of care (as documented) at patient's floor/unit and/or counseling patient: Coding Level of Care Code 08678 SUB INP/OBS CARE 2/35MIN Diagnoses Fall W19.XXXA Atrioventricular dissociation I45.89
[2024-01-28] MEDS: LIDOCAINE 1% LOCAL 20 ML VIAL ONE (16:48)
[2024-01-28] MEDS: VANCOMYCIN HCL 1000MG/20ML VIAL ONE (16:48)
[2024-01-28] MEDS: WATER, STERILE FOR INJ 10 ML VIAL ONE (16:48)
--- NOTE | 2024-01-29 08:10 | History & Physical Bridge Note ---
Date of Service January 29, 2024 History & Physical Bridge Note I have examined the patient, reviewed the History & Physical and in the interval since the performance of the History & Physical I have noted the following changes of clinical significance: no changes noted. I reviewed the indications, procedure, risks and alternatives with the patient, and answered all questions. Patient understands and agrees to the procedure. Consent obtained. I also reviewed the risks and use of sedation, patient understands and consent obtained. I had discussed consent with the patient's brother yesterday and he indicated that the patient is capable of signing consent, although his brother is power of research attorney.
--- NOTE | 2024-01-29 08:11 | Pre Anesthesia Assessment ---
Date of Service January 29, 2024 Pre Sedation Assessment Vital Signs Temp Pulse Pulse Pulse Resp BP BP 01/29/24 07:48 56 L 164/85 H 01/29/24 07:38 01/29/24 07:28 36.8 C 65 18 163/81 H 01/29/24 04:00 36.7 C 63 18 145/72 H 01/29/24 00:00 36.5 C 63 18 152/74 H 01/28/24 22:21 66 01/28/24 20:15 01/28/24 19:00 36.8 C 58 L 18 145/71 H 01/28/24 16:28 36.4 C L 49 L 18 144/68 H 01/28/24 14:32 58 L 01/28/24 11:49 37.0 C 102 H 18 143/83 H 01/28/24 09:28 Pulse Ox O2 Del Method O2 Flow Rate 01/29/24 07:48 92 Nasal Cannula 3 01/29/24 07:38 Nasal Cannula 3 01/29/24 07:28 94 Nasal Cannula 3 01/29/24 04:00 93 Nasal Cannula 3 01/29/24 00:00 93 Nasal Cannula 3 01/28/24 22:21 01/28/24 20:15 Nasal Cannula 3 01/28/24 19:00 93 Nasal Cannula 3 01/28/24 16:28 91 Nasal Cannula 3 01/28/24 14:32 01/28/24 11:49 97 Nasal Cannula 3 01/28/24 09:28 Nasal Cannula 3 Cardiovascular RRR, no murmur, no edema + bradycardic Respiratory normal respiratory effort, lungs clear to auscultation Pre-Sedation Airway Assessment Smoking Status: Former smoker Hx Sleep Apnea: No Short, Thick Neck: Yes Thyromental Distance: < 3.5 Finger Breadths Oral Cavity: + WNL Mallampati Class: III ASA: ASA3 NPO Status Date of Last Intake of Fluids: 01/28/24 Date of Last Intake of Solid Food: 01/28/24 Procedure Planning Contraindications for Sedation: none Current Medications Reviewed: Yes Notes The planned sedation has been discussed with the patient. Informed Consent was obtained. I have identified the patient, determined the appropriateness of sedation and have assessed the patient immediately prior to the procedure. All medicine(s) and interventions are by my order.
[2024-01-29] MEDS: CLINDAMYCIN/D5W 900 MG/50 ML BAG IV SCH (08:52)
[2024-01-29] MEDS: WATER, STERILE FOR INJ 10 ML VIAL ONE (08:53)
[2024-01-29] MEDS: LIDOCAINE 1% LOCAL 20 ML VIAL ONE (08:53)
[2024-01-29] MEDS: VANCOMYCIN HCL 1000MG/20ML VIAL ONE (08:53)
[2024-01-29] MEDS: MIDAZOLAM HCL 5 MG/ML 1 ML VIAL ONE (09:25)
[2024-01-29] MEDS: fentaNYL citrate PF 100 MCG/2 ML VIAL ONE (09:25)
--- NOTE | 2024-01-29 09:49 | Electrophysiology Report ---
Date of Service January 29, 2024 Electrophysiology Procedure Electrophysiology Procedure Report Preoperative diagnosis: AV dissociation Postoperative diagnosis: Same Procedure: Left subclavian venogram Dual-chamber left bundle branch pacemaker implantation Surgeon: Miguel Delgado MD Estimated blood loss: 20 cc Complications: None Disposition: Medical Transport Specialist recovery Procedure details: After obtaining informed consent for the procedure, the patient was brought to the laboratory and prepped and draped in the standard sterile manner. Dye was injected the left arm IV site to opacify the left subclavian vein. The subclavian vein was identified and found to be free of obstruction. The left prepectoral region was anesthetized with 1% lidocaine local anesthetic and left axillary venipuncture was performed by percutaneous technique and a guidewire placed through the left subclavian vein into the superior vena cava. The area was further infiltrated with 1% lidocaine local anesthetic and a 5 cm incision was made parallel to the left clavicle and 2 cm below it and carried down to the anterior pectoralis fascia. A pacemaker pocket was formed by blunt dissection anterior to the pectoralis fascia and a vancomycin-soaked sponge was placed in the pocket. An 8 Citizen Of [place] Med[employer] lead introducer was placed over the guidewire into the left subclavian vein, the dilator and guidewire were removed and a bipolar active fixation steroid tipped atrial lead was advanced through the introducer into the superior vena cava. A guidewire was placed through the introducer and the introducer was stripped from the lead and guidewire. The atrial lead was temporarily positioned in the right ventricle for backup pacing. An 8 Citizen Of [place] Med[employer] lead introducer was placed over the guidewire into the left subclavian vein, the dilator and guidewire were removed. A C315 His 02 septal sheath was advanced through the introducer over a guidewire and advanced into the right ventricular outflow tract. The guidewire and dilator were removed and the sheath was positioned in a mid septal location. A bipolar active fixation steroid tipped ventricular lead was advanced through the introducer and rotated to advance the screw into the septum. Septal penetration was confirmed by electrogram morphology. Pacing and sensing thresholds were evaluated in bipolar configuration and are noted on the data sheet. The septal sheath and the introducer were stripped away from the lead. The atrial lead was then removed from the right ventricle. Using a curved stylette the atrial lead was positioned in the region of the atrial appendage and the screw extended fixing the lead in position. Pacing and sensing thresholds were evaluated in bipolar configuration and are recorded on the implant data sheet. Once the leads were in position they were attached to the anterior pectoralis fascia using 2 sutures of 2-0 silk around each lead collar. The vancomycin soaked sponge was removed from the pocket, hemostasis was obtained, the pacemaker was attached to the leads and placed in the pocket with the leads coiled beneath it. The incision was closed with a running double subcutaneous closure of 3-0 Vicryl absorbable suture, followed by running subcuticular skin closure of 4-0 Vicryl absorbable suture. Bacitracin ointment was placed on the incision and a dressing applied. [facility] Electrophysiology codes Indication for Procedure (1) Complete AV block: Pacing Procedure 1: Pacin Insert/Replace Pacer A & V Miscellaneous Procedures Procedure 1: EP Miscellaneous: 81987 Contrast injection for venography Procedure 2: EP Miscellaneous: 08355-41 Vengraphy, extremity PG Moderate Sedation Codes Moderate Sedation Codes Procedure 1: Sedation/Anesthesia: 52005 Mod Sedation by the same physician;Init15 Min Child Age 5 & Up Procedure 2: Sedation/Anesthesia: 55853 Mod Sedation by the same physician; Ea [id number] Minutes
[2024-01-29] MEDS ORDERED: ACETAMINOPHEN 325 MG TAB PO PRN (10:00)
--- NOTE | 2024-01-29 10:32 | Hospitalist Progress Note ---
Date of Service January 29, 2024 Assessment & Plan (1) Complete heart block by electrocardiogram: Plan: Patient in 3rd degree heart block. May be precipitating falls. May be multifactorial possible memory issues/dementia, deconditioning, worsening bradycardia, junctional rhythm. Head lac stapled x 4 on 01/22. Will need removed around 01/30. Bandage to right elbow. Pacer placed today. fall precautions, PT/OT avoid negative inotropes (2) Dementia: Plan: Baseline dementia allows for a higher propensity towards hospital acquired delirium. Communication order placed with delirium precautions - optimize sleep/wake cycle. Focus on redirection/re-orientation. Avoid antipsychotics if possible. Give for combative behavior - risk to self or staff. (3) (HFpEF) heart failure with preserved ejection fraction: Plan: HFpEF 60-65%. Asymptomatic pleural effusions likely in the setting of decreased contractility from heart block. Hopefully will improve now that rate controlled by pacer. If not resolving consider thoracentesis. If continued oxygen requirement would recommend 2 Step prior to d/c. pacer placed Lasix 40 mg daily Low Na, TEDs, BLE elevation AM CXR (4) Pleural effusion: Plan: Patient with cough, sore throat, and SOB x 3 weeks. Found to have bilateral pleural effusions left > right. Initially treated with abx - since stopped. BCx NGTD x 48 hours. Rest of plan above. (5) Elevated troponin: Plan: Likely related to demand myocardial ischemia. Peaked. (6) Cirrhosis: Plan: CT showing cirrhosis with ascites, abdominal varicosities and anasarca. Denies alcohol use. Hepatitis panel negative. LFTs with isolated elevation in alk phos - continue to trend. (7) T2DM (type 2 diabetes mellitus): Plan: Patient on Lantus 40 units QAM and metformin at home. Significantly decreased insulin needs during this admission - episodes of hypoglycemia and minimal correction needed. Did decrease to basal 8 units. Will monitor and adjust as indicated. HbA1c 4.9. Likely does not need this strict of blood sugar control and may be contributing to falls. T2DM diet adjusting insulin (8) Depression: Plan: Chronic - has a history of SI. None noted during current hospitalization. Did decline psych eval. Recommended patient have Auvelity 45-105 mg brought in to be administered here - has not yet been obtained Plan Chronic stable diagnoses: Dementia - stable ADHD - has not had adderall filled since 02/2023, will need clarification HTN - continue amlodipine and lisinopril HLD - continue ASA and atorvastatin GERD - continue PPI Code status: DNR/DNI DVT ppx: Teds, heparin SQ BID FENGI: low salt, T2DM Dispo: tele unit Admission and Anticipated Discharge Date Admission Date: January 23, 2024 Supervising Physician Co-Signing Physician Notes Attending Physician Supervision Note: I independently interviewed and examined the patient and verified the yu history and physical, reviewed labs and image studies and agree with findings and care plan noted above. Sitting up in chair. Had permanent pacer placed this a.m. Denied any concerns. No resp distress in the position he is laying. lungs clear. Regular rhythm. Fall - recurrent. Per cardio - ? sec to A-V dissociation/loss of chronotropic response. -will need devendra removed. 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 Mild LVH -on lasix 40mgs IV daily. No output recorded. -continue to monitor renal fx. (creatinine stable) Small to moderate Pleural effusions- 93% on RA. Procal done on admission negative. -Effusion likely transudative. Follow Cirrhosis with ascites - chronic. Dementia - supportive care. HTN - amlodipine, lisinopril. Lovenox otherwise as above Subjective Seen at bedside this afternoon after pacemaker placement. Patient sitting up in bed naked, slightly confused. Reports feeling well after the procedure. No complaints. Review of Systems 2 Review of Systems: As per HPI. Physical Exam 2 Physical Exam: Gen: well appearing patient in NAD HEENT: AT NC MMM Resp: no increased work of breathing CV: clinically well perfused Abd: non-distended MSK: no obvious deformities, bandage in place right elbow, bandage in place left chest Skin: no rashes or bruising Neuro: alert and answering questions Psych: appropriate mood and affect Results & Data Results & Data Vital Signs (Past 12 Hours) Vital Signs Temp Pulse Pulse Resp BP BP Pulse Ox 01/29/24 10:26 36.5 C 68 18 144/74 H 91 01/29/24 10:00 61 14 122/87 93 01/29/24 09:46 66 14 128/64 93 01/29/24 07:48 56 L 164/85 H 92 01/29/24 07:38 01/29/24 07:28 36.8 C 65 18 163/81 H 94 01/29/24 04:00 36.7 C 63 18 145/72 H 93 01/29/24 00:00 36.5 C 63 18 152/74 H 93 O2 Del Method O2 Flow Rate 01/29/24 10:26 Nasal Cannula 3 01/29/24 10:00 Nasal Cannula 3 01/29/24 09:46 Nasal Cannula 3 01/29/24 07:48 Nasal Cannula 3 01/29/24 07:38 Nasal Cannula 3 01/29/24 07:28 Nasal Cannula 3 01/29/24 04:00 Nasal Cannula 3 01/29/24 00:00 Nasal Cannula 3 Laboratory Results 01/29/24 10:33 01/29/24 10:33 Resident Activity Tracking Resident Involvement: Resident Care Provided Care Provided: Adult Hospital Medicine (2) Dementia Dementia behavioral or psychological symptom: without behavioral, psychotic, or mood disturbance or anxiety Dementia severity: mild Dementia type: u nspecified type Qualified Code(s): F03.A0 - Unspecified dementia, mild, without behavioral disturbance, psychotic disturbance, mood disturbance, and anxiety
[2024-01-29] MEDS: DEXTROMETHORPHAN HBR/BUPROPION 45-105MG TAB PO SCH (11:12)
[2024-01-29 11:16] LABS: Hematocrit (blood only) 28.8 % (42.0-52.0); Hemoglobin 9.7 g/dl (14.0-18.0); Mean Corpuscular Hemoglobin 34.9 pg (25.0-34.0); Mean Corpuscular Hgb Conc 33.7 g/dL (32.0-36.0); Mean Corpuscular Volume 103.6 fL (80.0-100.0); Mean Platelet Volume 10.3 fL (9.4-12.4); Platelet Count 274 K/uL (130-400); Red Blood Count 2.78 M/uL (4.70-6.10); White Blood Count 8.12 K/ul (4.8-10.8)
[2024-01-29 11:34] LABS: Albumin Level 3.4 gm/dl (3.4-5.0); BUN Creatinine Ratio 26.2 (10-20); Bilirubin,Total 1.3 mg/dl (0.2-1.0); Calcium 8.6 mg/dl (8.6-10.3); Creatinine Clr Calc Pharmacy 75.3 ml/min; Globulin 3.3 gm/dl (2.5-4.0); Potassium 4.5 mmol/L (3.5-5.1); Total Protein 6.7 gm/dl (6.0-8.3)
[2024-01-29 11:41] LABS: INR 1.2 (0.9-1.1); Partial Thromboplastin Time 26 Seconds (21-31); Prothrombin Time 12.9 Seconds (9.0-12.0)
--- NOTE | 2024-01-29 13:45 | Electrocardiogram Report ---
Test Reason : Blood Pressure : */* mmHG Vent. Rate : 65 BPM Atrial Rate : 65 BPM P-R Int : 140 ms QRS Dur : 132 ms QT Int : 452 ms P-R-T Axes : 94 100 -33 degrees QTcB Int : 470 ms AV dual-paced rhythm Abnormal ECG When compared with ECG of 25-Jan-2024 04:20, Electronic ventricular pacemaker has replaced Junctional rhythm Confirmed by Dileep Alberto ([id number]) on 01/29/2024 1:44:46 PM Referred By: REFERRED SELF Confirmed By: Dileep Alberto
--- NOTE | 2024-01-29 13:46 | Electrocardiogram Report ---
Test Reason : Blood Pressure : */* mmHG Vent. Rate : 65 BPM Atrial Rate : 58 BPM P-R Int : 146 ms QRS Dur : 132 ms QT Int : 448 ms P-R-T Axes : * 95 -61 degrees QTcB Int : 465 ms AV dual-paced rhythm Abnormal ECG When compared with ECG of 29-Jan-2024 10:01, No significant change was found Confirmed by Dileep Alberto ([id number]) on 01/29/2024 1:46:05 PM Referred By: REFERRED SELF Confirmed By: Dileep Alberto
--- NOTE | 2024-01-29 15:02 | Post Anesthesia Assessment ---
Date of Service January 29, 2024 Post Sedation Assessment Vital Signs Temp Pulse Pulse Pulse Resp BP BP 01/29/24 12:11 35.8 C L 74 18 151/72 H 01/29/24 10:57 36.5 C 76 18 144/70 H 01/29/24 10:26 36.5 C 68 18 144/74 H 01/29/24 10:00 61 14 122/87 01/29/24 09:46 66 14 128/64 01/29/24 07:48 56 L 164/85 H 01/29/24 07:38 01/29/24 07:28 36.8 C 65 18 163/81 H 01/29/24 04:00 36.7 C 63 18 145/72 H 01/29/24 00:00 36.5 C 63 18 152/74 H 01/28/24 22:21 66 01/28/24 20:15 01/28/24 19:00 36.8 C 58 L 18 145/71 H 01/28/24 16:28 36.4 C L 49 L 18 144/68 H Pulse Ox O2 Del Method O2 Flow Rate 01/29/24 12:11 96 Nasal Cannula 3 01/29/24 10:57 92 Nasal Cannula 3 01/29/24 10:26 91 Nasal Cannula 3 01/29/24 10:00 93 Nasal Cannula 3 01/29/24 09:46 93 Nasal Cannula 3 01/29/24 07:48 92 Nasal Cannula 3 01/29/24 07:38 Nasal Cannula 3 01/29/24 07:28 94 Nasal Cannula 3 01/29/24 04:00 93 Nasal Cannula 3 01/29/24 00:00 93 Nasal Cannula 3 01/28/24 22:21 01/28/24 20:15 Nasal Cannula 3 01/28/24 19:00 93 Nasal Cannula 3 01/28/24 16:28 91 Nasal Cannula 3 Recovery Score Activity: Moves 4 extremities Respiration: Deep Breath/Cough Circulation: +/-20% PreAnes Value Consciousness: Fully Awake Oxygen Saturation: > 92% On Room Air Post Anesthesia Score: 10 Discharge Sedation Level of Care: Fast Track Phase II Post Sedation Plan On clinical assessment, the patient appears to have tolerated the sedation without complications. Patient is recovering as anticipated. Patient will continue to be monitored by nursing and may be discharged when sedation discharge criteria are met per below protocol. Upon Completions of procedure up to 15 minutes continue every 5 minute vital signs and the P.A.R. score; then discharge to a Phase I or Fast Track to Phase II per the following guidelines: * Discharge Patient to appropriate Phase II area if PAR is 8 or greater or return to pre- procedure baseline. The post - procedure orders will be as directed. * If PAR score is less than 8 or not return to pre-procedure baseline then patient will follow Phase I monitoring till PAR is reached for Phase II. The Phase I may be done in procedure room or may call to secure a Phase I area. * If naloxone or flumazenil are used for reversal, hold in Phase I for continued monitoring from when last reversal dose was given for a minimum of 60 minutes or longer pending the nurse and/or physician discretion of patient condition before discharge to Phase II. Please call the Sedation Physician to re-evaluate and complete post-note for discharge to Phase II area. Do NOT discharge from procedure sedation or Phase 1 until post- sedation evaluation note is complete by procedure /sedation MD Sedation Discharge Instructions to be given to the patient at discharge to home.
[2024-01-29] MEDS: ACETAMINOPHEN W/CODEINE #3 1 TAB PO PRN (21:06)
[2024-01-29] MEDS: MELATONIN 3 MG TAB PO PRN (21:06)
--- NOTE | 2024-01-30 08:00 | Hospitalist Progress Note ---
Date of Service January 30, 2024 Assessment & Plan (1) Complete heart block by electrocardiogram: Plan: Patient in 3rd degree heart block. May be precipitating falls. May be multifactorial possible memory issues/dementia, deconditioning, worsening bradycardia, junctional rhythm. Head lac stapled x 4 on 01/22. Will need removed around 01/30. Bandage to right elbow. Pacer placed 01/28. PT/OT following. Likely will d/c home with home health. Arranging outpatient oxygen prior to d/c. (2) Dementia: Plan: Baseline dementia allows for a higher propensity towards hospital acquired delirium. Communication order placed with delirium precautions - optimize sleep/wake cycle. Focus on redirection/re-orientation. Avoid antipsychotics if possible. Give for combative behavior - risk to self or staff. (3) (HFpEF) heart failure with preserved ejection fraction: Plan: HFpEF 60-65%. Asymptomatic pleural effusions likely in the setting of decreased contractility from heart block. Per my read this has improved since pacing began. Per my read CXR now more consistent with atelectasis/scarring. 2 Step - 2L NC at rest, 3L with ambulation. Patient likely close to euvolemic will switch to 40 mg PO Lasix daily. Would consider outpatient pulmonology referral. (4) Pleural effusion: Plan: Patient with cough, sore throat, and SOB x 3 weeks. Found to have bilateral pleural effusions left > right. Initially treated with abx - since stopped. BCx NGTD x 48 hours. Rest of plan as above. (5) Elevated troponin: Plan: Likely related to demand myocardial ischemia. Peaked. (6) Cirrhosis: Plan: CT showing cirrhosis with ascites, abdominal varicosities and anasarca. Denies alcohol use. Hepatitis panel negative. LFTs with isolated elevation in alk phos - continue to trend. (7) T2DM (type 2 diabetes mellitus): Plan: Patient on Lantus 40 units QAM and metformin at home. Significantly decreased insulin needs during this admission - episodes of hypoglycemia and minimal correction needed. Did decrease to basal 8 units. Will monitor and adjust as indicated. HbA1c 4.9. Likely does not need this strict of blood sugar control and may be contributing to falls. Has needed some coverage. Will increase to 10 units. Reevaluate insulin need on an outpatient basis as diet is likely a contributing factor. (8) Depression: Plan: Chronic - has a history of SI. None noted during current hospitalization. Did decline psych eval. Recommended patient have Auvelity 45-105 mg brought in to be administered here - has not yet been obtained Plan Chronic stable diagnoses: Dementia - stable ADHD - has not had adderall filled since 02/2023, will need clarification outpatient HTN - continue amlodipine and lisinopril HLD - continue ASA and atorvastatin GERD - continue PPI Code status: DNR/DNI DVT ppx: Teds, heparin SQ BID FENGI: low salt, T2DM Dispo: tele unit, likely d/c tomorrow - arranging home O2 Family: updated daughter 01/29 with plan of care Admission and Anticipated Discharge Date Admission Date: January 23, 2024 Supervising Physician Co-Signing Physician Notes Attending Physician Supervision Note: I independently interviewed and examined the patient and verified the yu history and physical, reviewed labs and image studies and agree with findings and care plan noted above. Denied any concerns. no shortness of breath, no chest pain No resp distress. lungs clear. Regular rhythm. Fall - recurrent. Per cardio - sec to A-V dissociation/loss of chronotropic response. -will need devendra removed. 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 Mild LVH -on lasix 40mgs IV daily. No output recorded. Symptoms improved -transition lasix to PO in am -continue to monitor renal fx. (creatinine stable) Hypoxia - Improving. 2 step - needs 2L with rest and 3L with ambulation Small to moderate Pleural effusions- 93% on RA. Procal done on admission negative. -Effusion likely transudative. Follow Cirrhosis with ascites - chronic. Dementia - supportive care. HTN - amlodipine, lisinopril. Lovenox otherwise as above Subjective Seen at bedside this afternoon. Patient at XR this morning during my rounds. Review of Systems 2 Review of Systems: As per HPI. Physical Exam 2 Physical Exam: Gen: well appearing patient in NAD HEENT: AT NC MMM Resp: no increased work of breathing CV: clinically well perfused Abd: non-distended MSK: no obvious deformities Skin: no rashes or bruising Neuro: alert and answering questions Psych: appropriate mood and affect Results & Data Results & Data Vital Signs (Past 12 Hours) Vital Signs Temp Pulse Pulse Resp BP BP Pulse Ox 01/30/24 07:13 74 01/30/24 03:07 36.3 C L 66 18 144/73 H 91 01/29/24 23:29 89 01/29/24 22:18 36.9 C 89 18 159/68 H 90 01/29/24 21:18 O2 Del Method O2 Flow Rate 01/30/24 07:13 01/30/24 03:07 Nasal Cannula 2 01/29/24 23:29 01/29/24 22:18 Room Air 01/29/24 21:18 Nasal Cannula 3 Laboratory Results 01/30/24 08:23 01/30/24 08:23 Diagnostic Findings Chest X-Ray 01/30/24 07:00 FINDINGS: Cardiac silhouette is enlarged. Dual lead left subclavian pacer. Pulmonary vascular congestion with interstitial coarsening. Small pleural effusions with mild bibasilar and linear right midlung consolidation. Bones appear grossly intact. IMPRESSION: 1. Status post placement of a left subclavian pacer. No postprocedural pneumothorax. 2. Cardiomegaly with interstitial pulmonary edema. 3. Layering pleural effusions with bibasilar and right midlung consolidation again noted favoring atelectasis/scarring. Resident Activity Tracking Resident Involvement: Resident Care Provided Care Provided: Adult Hospital Medicine (2) Dementia Dementia behavioral or psychological symptom: without behavioral, psychotic, or mood disturbance or anxiety Dementia severity: mild Dementia type: u nspecified type Qualified Code(s): F03.A0 - Unspecified dementia, mild, without behavioral disturbance, psychotic disturbance, mood disturbance, and anxiety
[2024-01-30 08:42] LABS: Hematocrit (blood only) 26.6 % (42.0-52.0); Mean Corpuscular Hemoglobin 34.6 pg (25.0-34.0); Mean Corpuscular Hgb Conc 33.8 g/dL (32.0-36.0); Mean Corpuscular Volume 102.3 fL (80.0-100.0); Mean Platelet Volume 10.1 fL (9.4-12.4); Nucleated RBC # (auto) 0.03 K/uL (0.00-0.12); Nucleated RBC % (auto) 0.4 %; Platelet Count 282 K/uL (130-400); RDW Coefficient of Variation 17.6 % (11.5-14.5); RDW Standard Deviation 64.5 fL (36.4-46.3); White Blood Count 7.58 K/ul (4.8-10.8)
[2024-01-30 08:57] LABS: Albumin Globulin Ratio 1.1 (0.9-2); Albumin Level 3.2 gm/dl (3.4-5.0); Bilirubin,Total 1.1 mg/dl (0.2-1.0); Calcium 8.2 mg/dl (8.6-10.3); Creatinine Clr Calc Pharmacy 71.3 ml/min; Potassium 4.2 mmol/L (3.5-5.1); Total Protein 6.2 gm/dl (6.0-8.3)
--- NOTE | 2024-01-30 09:42 | XRay Report ---
XR chest 2V PA/lateral HISTORY: 73 years-old Male EXACT TIME ORDERED Evaluate for pneumothorax and l status post placement of a dual-lead left subclavian pacer COMPARISON: Chest CT 01/23/2024 TECHNIQUE: PA and lateral views of the chest FINDINGS: Cardiac silhouette is enlarged. Dual lead left subclavian pacer. Pulmonary vascular congestion with i nterstitial coarsening. Small pleural effusions with mild bibasilar and linear right midlung consolid ation. Bones appear grossly intact. IMPRESSION: 1. Status post placement of a left subclavian pacer. No postprocedural pneumothorax. 2. Cardiomegaly with interstitial pulmonary edema. 3. Layering pleural effusions with bibasilar and right midlung consolidation again noted favoring ate lectasis/scarring. ACT 112: Negative or not required by law. The above report was generated using voice recognition software. It may contain grammatical, syntax o r spelling errors. Electronically signed by: Roni Voss M.D. 01/30/2024 9:40 AM
--- NOTE | 2024-01-30 10:45 | Cardiology Progress Note ---
Date of Service January 30, 2024 Assessment & Plan (1) Cardiac pacemaker: (2) Complete heart block by electrocardiogram: Plan 1. Postop day #1 post pacemaker: The device is working well, the chest x-ray looks good. From the standpoint of the pacemaker he is stable for discharge. 2. Complete heart block: He is pacing all of the time in the ventricle as expected. Appropriate pacemaker function. Admission and Anticipated Discharge Date Admission Date: January 23, 2024 Results & Data Vital Signs (Past 12 Hours) Vital Signs Temp Pulse Pulse Resp BP BP Pulse Ox 01/30/24 08:03 36.8 C 63 18 112/64 98 01/30/24 08:00 01/30/24 07:13 74 01/30/24 03:07 36.3 C L 66 18 144/73 H 91 01/29/24 23:29 89 O2 Del Method O2 Flow Rate 01/30/24 08:03 Nasal Cannula 2 01/30/24 08:00 Nasal Cannula 3 01/30/24 07:13 01/30/24 03:07 Nasal Cannula 2 01/29/24 23:29 Laboratory Results Cardiac Enzymes 01/29/24 01/30/24 Range/Units 10:33 08:23 AST 23 19 (13-39) U/L Coagulation 01/29/24 Range/Units 10:33 PT 12.9 H (9.0-12.0) Seconds APTT 26 (21-31) Seconds CBC 01/29/24 01/30/24 Range/Units 10:33 08:23 WBC 8.12 7.58 (4.8-10.8) K/ul RBC 2.78 L 2.60 L (4.70-6.10) M/uL Hgb 9.7 L 9.0 L (14.0-18.0) g/dl Hct 28.8 L 26.6 L (42.0-52.0) % Plt Count 274 282 (130-400) K/uL Comprehensive Metabolic Panel 01/29/24 01/30/24 Range/Units 10:33 08:23 Sodium 139 139 (136-145) mmol/L Potassium 4.5 4.2 (3.5-5.1) mmol/L Chloride 105 105 (98-107) mmol/L Carbon Dioxide 28 29 (21-32) mmol/L BUN 27 H 30 H (6-23) mg/dl Creatinine 1.03 1.07 (0.6-1.4) mg/dl Glucose 121 H 124 H (70-99(Fasting)) mg/dl Calcium 8.6 8.2 L (8.6-10.3) mg/dl AST 23 19 (13-39) U/L ALT 18 16 (7-52) U/L Alkaline Phosphatase 164 H 144 H (34-104) U/L Total Protein 6.7 6.2 (6.0-8.3) gm/dl Albumin 3.4 3.2 L (3.4-5.0) gm/dl Intake and Output 01/29/24 01/30/24 01/30/24 22:59 06:59 14:59 Intake Total 1170 / 1570 350 / 1570 Balance 1170 / 1570 350 / 1570 Intake: Oral 1170 / 1520 350 / 1520 Other: Weight 102.1 kg Diagnostic Findings Postop ECG: Normal pacemaker operation, ventricular pacing appropriately Telemetry: Normal pacemaker operation Chest x-ray: Good lead position, no pneumothorax Pacemaker evaluation: Excellent pacing and sensing characteristics PG Care Time/CCT Total # of Minutes Spent Total Time Spent with Patient: Total time spent is greater than 50% in coordination of care (as documented) at patient's floor/unit and/or counseling patient: Coding Diagnoses Cardiac pacemaker Z95.0 Complete heart block by electrocardiogram I44.2
[2024-01-31 08:15] LABS: Hematocrit (blood only) 26.4 % (42.0-52.0); Mean Corpuscular Hemoglobin 35.3 pg (25.0-34.0); Mean Corpuscular Hgb Conc 34.1 g/dL (32.0-36.0); Mean Corpuscular Volume 103.5 fL (80.0-100.0); Mean Platelet Volume 9.9 fL (9.4-12.4); Nucleated RBC # (auto) 0.04 K/uL (0.00-0.12); Nucleated RBC % (auto) 0.6 %; Platelet Count 299 K/uL (130-400); RDW Coefficient of Variation 17.7 % (11.5-14.5); RDW Standard Deviation 66.2 fL (36.4-46.3); Red Blood Count 2.55 M/uL (4.70-6.10); White Blood Count 7.06 K/ul (4.8-10.8)
[2024-01-31 08:29] LABS: Albumin Globulin Ratio 1.1 (0.9-2); Albumin Level 3.5 gm/dl (3.4-5.0); BUN Creatinine Ratio 26.6 (10-20); Bilirubin,Total 1.3 mg/dl (0.2-1.0); Calcium 8.5 mg/dl (8.6-10.3); Creatinine Clr Calc Pharmacy 69.9 ml/min; Globulin 3.2 gm/dl (2.5-4.0); Total Protein 6.7 gm/dl (6.0-8.3)
[2024-01-31] MEDS: LANTUS PER UNIT CHARGE SQ SCH (08:53)
--- NOTE | 2024-01-31 10:50 | Pulmonary Consultation ---
Date of Consultation January 31, 2024 Assessment & Plan (1) Volume overload: Recommend diuresis and checking a BNP. Echo 01/24/2024 with an EF of 60 to 65%. Mild mitral regurgitation. Patient agreeable to a left-sided thoracentesis. Will send the patient to radiology for thoracentesis. Patient would also likely benefit from a paracentesis as well given ascites noted on CT abdomen pelvis. Consider workup for cirrhosis. (2) Pleural effusion, left: Will send the patient for thoracentesis. Patient agreeable. I will order chemistries with the pleural fluid to evaluate transudate versus exudate. (3) Hypoxic: Supplemental oxygen may be redundant at this time as his saturations are in the high 90s on 2 L. Try to wean oxygen off as able. History of Present Illness Reason for Consultation: "Persistent O2 need, moderate left pleural effusion" Attending Physician: Zo Shukla MD History of Present Illness 73-year-old male with a history of dementia, prior CVA, depression anxiety who presented to the hospital with shortness of breath and was found to have complete heart block. He is status post pacemaker. On admission he had a CT of his chest due to a fall which revealed mediastinal hilar lymphadenopathy which had mildly improved compared to the year prior. He also has cirrhosis and anasarca. A small right and moderate left pleural effusion was noted. CT of the abdomen pelvis revealed ascites. Patient denies any significant shortness of breath. He has been largely bedbound. He was seen in consultation by me 02/05/2023. At that time he was found to have a right pleural effusion status post pigtail placement which is suspected to be a parapneumonic effusion. He is a former cigar smoker. Allergies Allergy/AdvReac Type Severity Reaction Status Date / Time erythromycin base Allergy Intermediate Hives Verified 01/25/24 12:59 Penicillins Allergy Intermediate Hives Verified 01/25/24 12:59 Home Medications Medication Instructions Recorded Confirmed Type insulin syringe-needle U-100 0.5 #10 ea 05/11/20 05/14/23 History mL 31 gauge x 5/16" (BD Insulin Syringe Ultra-Fine) lancets (Accu-Chek Fastclix Lancet 05/11/20 05/14/23 History Drum) FreeStyle Marta 2 Sensor (flash #1 ea 07/30/20 05/14/23 Rx glucose sensor) blood sugar diagnostic (Accu-Chek 09/09/20 05/14/23 History Guide test strips) thiamine HCl (vitamin B1) 100 mg 100 mg PO QAM #30 tabs 12/13/20 01/23/24 Rx tablet (Vitamin B-1) lisinopril 10 mg tablet 10 mg PO DAILY 02/04/23 01/23/24 History semaglutide 0.25 mg or 0.5 mg (2 0.5 mg subcut .WEEKLY 02/04/23 01/23/24 History mg/3 mL) subcutaneous pen injector (Ozempic) Adderall XR 20 mg PO UD 02/06/23 01/23/24 History amlodipine 5 mg tablet (Norvasc) 5 mg PO QAM #0 tabs 02/12/23 01/23/24 Rx polyethylene glycol 3350 17 gram 17 g PO DAILY #0 ea 02/12/23 01/23/24 Rx oral powder packet (Miralax) dextromethorphan IR 45 1 tab PO UD 05/14/23 01/23/24 History mg-bupropion ER 105 mg biphasic tablet (Auvelity) aspirin 81 mg tablet,delayed 81 mg PO UD 01/23/24 01/23/24 History release atorvastatin 40 mg tablet 40 mg PO HS 01/23/24 01/23/24 History insulin glargine 100 unit/mL (3 40 unit subcut QAM 01/23/24 01/23/24 History mL) subcutaneous pen (Basaglar KwikPen U-100 Insulin) metformin 1,000 mg tablet 1,000 mg PO BID 01/23/24 01/23/24 History pantoprazole 40 mg tablet,delayed 40 mg PO DAILY 01/23/24 01/23/24 History release tamsulosin 0.4 mg capsule 0.4 mg PO UD 01/23/24 01/23/24 History Patient History Medical History History of stroke Anemia Major depressive disorder, recurrent, severe without psychotic features Depressed Hyperlipidemia Hypertension Prediabetes ADHD Depression Surgical History Hx of vasectomy History of rectal surgery x3 for an abscess in anal sphincter History of colonoscopy History of root canal procedure multiple History of wisdom tooth extraction History of tonsillectomy Hx of eye surgery Family History Father Family history of diabetes mellitus Diabetes Hypertension Heart disease Brother Prostate cancer Other No family history of adverse response to anesthesia Social History Smoking Status: Former smoker Tobacco Type: Cigars Second Hand Exposure: Yes; Do You Dip or Chew Tobacco: No; Hx Alcohol Use: No Hx Substance Use: No Preferred Language: [place]awian Communication Ability: Effective Java Mobile Developer Required: No Beliefs That Will Affect Care: None marital status: Single Current Living Situation: Other Current Living Situation Comment: with daughter Other Information That Helps Us Care for You: No Feels Safe at Home: Yes Safety Concerns: Feels Safe At This Time Assistive Devices: Walker Review of Systems Review of Systems: All systems reviewed & are unremarkable except as noted in HPI & below Physical Exam Physical Exam: Constitutional: Patient appears to be of their stated age. Patient is in no apparent distress. Patient is well-developed. Eyes: Pupils are equal round and reactive to light. Conjunctivae are normal. Anicteric sclera. Ears nose, mouth and throat: Mallampati class 2. Normal posterior oropharynx. Uvula is midline. Neck: Trachea is midline. Visual inspection is normal. Respiratory: Bibasilar crackles. Mild tachypnea with movement. No increased work of breathing. Cardiovascular: Regular rate and rhythm. No murmurs. No edema. Gastrointestinal: Normal bowel sounds, soft, nontender and nondistended. No hepatosplenomegaly noted. Musculoskeletal: No cyanosis. Patient is able to move all extremities. Strength is 5 out of 5 in the upper and lower extremities. Skin: No rashes, warm dry and intact. Neurologic: No obvious focal neurological deficits seen. Psychiatric: Flat affect and mood. Results & Data Results & Data Vital Signs (Past 12 Hours) Vital Signs Temp Pulse Resp BP Pulse Ox O2 Del Method O2 Flow Rate 01/31/24 08:22 97 Room Air, Nasal Cannula 2 01/31/24 07:42 Room Air, Nasal Cannula 3 01/31/24 07:26 36.5 C 75 18 147/66 H 97 Room Air 01/31/24 03:46 36.4 C L 62 16 117/73 96 Room Air PG Care Time/CCT Total # of Minutes Spent Total Time Spent with Patient: Total time spent is greater than 50% in coordination of care (as documented) at patient's floor/unit and/or counseling patient: Coding Level of Care Code 49508 INT INP/OBS CARE 2/55MIN Diagnoses Volume overload E87.70 Pleural effusion, left J90 Hypoxic R09.02
[2024-01-31] MEDS: FUROSEMIDE 40 MG TAB PO SCH (11:50)
[2024-01-31] MEDS ORDERED: ALBUMIN 25% 12.5 GM/50 ML VIAL IV SCH ×2 (13:00→15:00)
--- NOTE | 2024-01-31 14:02 | Ultrasound Report ---
US abdomen ltd ascites CLINICAL HISTORY: ascites TECHNIQUE: Real-time grayscale sonographic images of the abdomen were obtained. Comparison: None available at the time of this dictation. FINDINGS/IMPRESSION: Paracentesis was not performed as there is no free fluid to drain. ACT 112: Negative or not required by law. Electronically signed by: Bong Wolfe M.D. 01/31/2024 2:01 PM
--- NOTE | 2024-01-31 14:37 | Ultrasound Report ---
ULTRASOUND-GUIDED LEFT THORACENTESIS CLINICAL HISTORY: Left pleural effusion PROCEDURE: Procedure and risks were explained. Informed consent was obtained. A final timeout was com pleted. The left posterior thorax was prepped and draped in sterile fashion. 1% lidocaine was utilize d for skin anesthesia. Utilizing ultrasound guidance, a 5 [place] skater catheter was advanced into the left pleural effusion . Ultrasound images were obtained. 475 mL of cloudy gold-colored fluid was removed and sent to the la b. The catheter was removed and Band-Aid applied. The patient tolerated the procedure well. A chest x -ray will be obtained postprocedure and vital signs will be monitored on the floor. IMPRESSION: Left thoracentesis as above. Performed, dictated, and signed by Gabriel Candelario PA-C; to be co-signed by Dr. Bong Wolfe. Electronically signed by: Bong Wolfe M.D. 01/31/2024 4:42 PM
--- NOTE | 2024-01-31 14:43 | XRay Report ---
XR chest 1V not portable CLINICAL HISTORY: s/p left thora TECHNIQUE: Single frontal radiograph of the chest was obtained. Comparison: Comparison is made to chest radiograph 01/30/2024 FINDINGS: An implanted pacemaker is seen. The cardiomediastinal silhouette is stable. Atelectasis is seen in th e right lung. No evidence of pleural effusion or pneumothorax. IMPRESSION: No pneumothorax is seen status post thoracentesis. Previously noted left pleural effusion has essenti ally resolved. ACT 112: Negative or not required by law. Electronically signed by: Bong Wolfe M.D. 01/31/2024 2:41 PM
[2024-01-31 16:02] LABS: Total Protein Pleural Fluid 3.2 gm/dl
[2024-01-31 16:18] LABS: Appearance Pleural Fluid Slightly Hazy; Color Pleural Fluid Yellow; RBC Pleural Fluid Auto 4000 /uL; Source Pleural Fluid Left Lung; WBC Pleural Fluid Auto 2315 /uL
[2024-01-31 16:59] LABS: Lymphocytes, Fluid 83 %; Mono,Macrophage,Mesothelial 15 %; Neutrophils, Fluid 2 %
--- NOTE | 2024-01-31 17:05 | Discharge Summary ---
Date of Service January 31, 2024 Admission HPI Per Admitting Provider Patient is a 73-year-old male with past history of AV dissociation, depression, type II DM, CVA 2020. he presents today after an unwitnessed fall in his bathroom. He has a laceration on the right back of his head. Patient does not remember the fall, he just remembers being in the shower earlier. He is a poor historian with underlying dementia. He does endorse dyspnea on exertion, dry cough, rhinorrhea, and sore throat for the past few weeks. He also endorses 1 episode of diarrhea 2 days ago. He stated that he has had bilateral LE edema for weeks to months. Patient denies fever, chills, headache, dizziness, lightheadedness, chest pain, abdominal pain, nausea, vomiting, constipation, dysuria, hematuria, numbness, tingling. Talked with patient's daughter on the phone, she stated that she lives with them at home. She heard him fall in the shower and found him wrapped up in the shower curtain with blood coming from the back of his head. She stated that he has fallen several times over the past few months, all unwitnessed but likely due to slipping in the bathroom. He has also followed up at a few times. She denies that they are syncopal episodes. She stated that he has had workups for the A-V block in the past, discussions of possible pacemaker, but never followed through. He does not follow with cardiology outpatient. He has had cough, rhinorrhea, sore throat, and dyspnea for the past few weeks. She works at the daycare and is around sick children daily, but she herself denies being sick recently. She is having a shower chair put in due to recent falls in the shower. Admission Exam Per Admitting Provider The patient is awake, alert and oriented 4, well developed and well nourished, in no acute distress. Non-toxic appearing. HEENT- EOMI, mucous membranes moist. Hearing grossly intact. Laceration to right posterior scalp contusion. Heart-normal S1 and S2. No murmurs, rubs or gallops. Lungs-decreased LLL, no respiratory distress, no accessory muscle use. Abdomen-normal bowel sounds and soft. Ascites noted. Non-tender. Extremities- no clubbing, cyanosis. +3 pitting edema BL LE. Rheumatologic-normal range of motion. Psychiatric-normal affect. Principal Diagnosis hypervolemia, 3rd degree heart block Discharge Exam Constitutional WD/WN, vitals as above Eyes + conjunctival abnormality; sclerae not anicteric ENMT Ears: no external ear abnormality Nose: no external nose abnormality Moist mucous membranes Respiratory Normal respiratory efforts at rest. Nasal cannula oxygen in place. Cardiovascular Rate/Rhythm: regular rate and regular rhythm +1 nonpitting edema of bilateral lower extremities Gastrointestinal (Abdomen) Soft, no rigidity to palpation. Musculoskeletal Moves all limbs independently Psychiatric Alert, interactive Discharge Data Allergies Allergy/AdvReac Type Severity Reaction Status Date / Time erythromycin base Allergy Intermediate Hives Verified 01/25/24 12:59 Penicillins Allergy Intermediate Hives Verified 01/25/24 12:59 Consultations 01/23/24 16:10 ED Decision to Admit Stat 01/23/24 21:24 Consult Cardiology Routine 01/31/24 08:46 Consult Pulmonology Routine Procedures Performed Operation Date: 01/29/24 08:00 Actual Procedures p Pacer with A/V Leads (Dual) - Miguel Delgado MD s Venogram, Unilateral - Miguel Delgado MD Ordered Studies 01/23/24 13:52 CT chest diagnostic w con Stat 01/23/24 13:53 CT abd pelvis IV con only Stat CT cervical spine wo con Stat CT head/brain wo con Stat 01/25/24 11:30 EP Lab Images for PACS ONCE 01/28/24 06:45 EP Lab Images for PACS ONCE 01/29/24 06:45 EP Lab Images for PACS ONCE 01/31/24 09:03 IR thoracentesis wo tube US Routine 01/31/24 12:39 US abdomen ltd ascites Routine Chest X-Ray 01/23/24 13:10 XR chest 1V portable CLINICAL HISTORY: Trauma COMPARISON STUDY: Chest CT February 04, 2023. Chest radiograph February 10, 2023. FINDINGS: There is no pneumothorax. Cardiomegaly is again noted. There are small bilateral pleural effusions with bibasilar opacities. Right midlung opacity on chest radiograph of February 10, 2023 has improved. There is mild interstitial thickening. IMPRESSION: 1. Cardiomegaly with interstitial pulmonary edema. 2. Small bilateral pleural effusions with associated bibasilar opacities which could reflect pneumonia or atelectasis. Radiographic follow-up is recommended. ACT 112: Negative or not required by law. Electronically signed by: Lico Morales M.D. 01/23/2024 1:57 PM Pelvis X-Ray 01/23/24 13:10 XR pelvis 1-2V routine CLINICAL HISTORY: Trauma COMPARISON: CT of the abdomen and pelvis December 07, 2020. FINDINGS: Sacroiliac joints and symphysis pubis are intact. There are no acute fractures within the pelvis or hips. Apparent foreshortening of the femoral necks is likely technical. There is a moderate amount of stool within the rectum. IMPRESSION: No fractures within the pelvis or hips. ACT 112: Negative or not required by law. Electronically signed by: Lico Morales M.D. 01/23/2024 1:58 PM Humerus X-Ray 01/23/24 13:18 XR humerus LT 2V HISTORY: 73 years-old Male trauma acute left upper extremity pain status post trauma COMPARISON: Elbow radiographs 12/03/2020 TECHNIQUE: 2 views of the left humerus FINDINGS: Mild glenohumeral and moderate AC joint osteoarthritis. No acute fracture, dislocation or osseous erosion. No opaque foreign bodies. IMPRESSION: No acute fracture identified. ACT 112: Negative or not required by law. The above report was generated using voice recognition software. It may contain grammatical, syntax or spelling errors. Electronically signed by: Roni Voss M.D. 01/23/2024 2:[address] 01/23/24 13:[address] WITH CONTRAST; CT ABDOMEN AND PELVIS WITH IV CONTRAST ONLY CT DOSE: 4272.33 mGy.cm HISTORY: Acute chest and abdominal trauma status post fall trauma TECHNIQUE: Multiaxial CT images of the chest, abdomen and pelvis were performed following the IV administration of 94 cc of Optiray. A dose lowering technique was utilized adhering to the principles of ALARA. COMPARISON: Pelvis and left humerus radiographs of same day, chest CT 02/04/2023, CT abdomen and pelvis 12/07/2020 FINDINGS: CT CHEST: Unremarkable thyroid. Mildly enlarged mediastinal and hilar lymph nodes measure up to 11 mm, mildly decreased in size from prior. Moderate cardiomegaly. No pericardial effusion. Unremarkable thoracic aorta. No pulmonary emboli. Trace right and moderate left pleural effusions. No pneumothorax. Intralobular septal thickening with diffuse linear opacities at the right lung suggestive of scarring intermixed with atelectasis. Dependent bibasilar consolidation with left lower lobe volume loss. Mild generalized body wall edema. Degenerative changes of the shoulders and spine. No acute fracture identified. CT ABDOMEN/PELVIS: No pneumatosis or pneumoperitoneum. Study is degraded by respiratory motion artifact. Unremarkable spleen, pancreas and right adrenal gland. 1.6 cm soft tissue attenuating left adrenal gland lesion previously measured 10 mm. Mildly distended gallbladder. Heterogeneous liver with marginal nodularity suggestive of cirrhosis. Patent portal vein. There are a few hypodensities of the kidneys suggestive of probable cysts. No hydronephrosis. Prostatomegaly. Unremarkable urinary bladder. Subcentimeter retroperitoneal lymph nodes. Atherosclerosis of the aorta without aneurysm. Colonic diverticulosis. No bowel obstruction or bowel wall thickening. Small moderate abdominal pelvic ascites. Anasarca. No retroperitoneal hemorrhage identified. No acute fracture is seen. IMPRESSION: 1. No acute posttraumatic intrathoracic, intra-abdominal or intrapelvic abnormality identified. 2. Cirrhosis with ascites, abdominal varicosities and anasarca. 3. Small right and moderate left pleural effusions with bilateral pulmonary opacities favoring atelectasis/scarring. Underlying pneumonia would be difficult to exclude. 4. Mediastinal and hilar lymphadenopathy redemonstrated, mildly improved compared to the 02/04/2023 study. 5. No acute fracture is seen. 6. Additional findings as above. ACT 112: Negative or not required by law. Electronically signed by: Roni Voss M.D. 01/23/2024 3:12 PM Abdomen/Pelvis CT 01/23/24 13:[address] WITH CONTRAST; CT ABDOMEN AND PELVIS WITH IV CONTRAST ONLY CT DOSE: 4272.33 mGy.cm HISTORY: Acute chest and abdominal trauma status post fall trauma TECHNIQUE: Multiaxial CT images of the chest, abdomen and pelvis were performed following the IV administration of 94 cc of Optiray. A dose lowering technique was utilized adhering to the principles of ALARA. COMPARISON: Pelvis and left humerus radiographs of same day, chest CT 02/04/2023, CT abdomen and pelvis 12/07/2020 FINDINGS: CT CHEST: Unremarkable thyroid. Mildly enlarged mediastinal and hilar lymph nodes measure up to 11 mm, mildly decreased in size from prior. Moderate cardiomegaly. No pericardial effusion. Unremarkable thoracic aorta. No pulmonary emboli. Trace right and moderate left pleural effusions. No pneumothorax. Intralobular septal thickening with diffuse linear opacities at the right lung suggestive of scarring intermixed with atelectasis. Dependent bibasilar consolidation with left lower lobe volume loss. Mild generalized body wall edema. Degenerative changes of the shoulders and spine. No acute fracture identified. CT ABDOMEN/PELVIS: No pneumatosis or pneumoperitoneum. Study is degraded by respiratory motion artifact. Unremarkable spleen, pancreas and right adrenal gland. 1.6 cm soft tissue attenuating left adrenal gland lesion previously measured 10 mm. Mildly distended gallbladder. Heterogeneous liver with marginal nodularity suggestive of cirrhosis. Patent portal vein. There are a few hypodensities of the kidneys suggestive of probable cysts. No hydronephrosis. Prostatomegaly. Unremarkable urinary bladder. Subcentimeter retroperitoneal lymph nodes. Atherosclerosis of the aorta without aneurysm. Colonic diverticulosis. No bowel obstruction or bowel wall thickening. Small moderate abdominal pelvic ascites. Anasarca. No retroperitoneal hemorrhage identified. No acute fracture is seen. IMPRESSION: 1. No acute posttraumatic intrathoracic, intra-abdominal or intrapelvic abnormality identified. 2. Cirrhosis with ascites, abdominal varicosities and anasarca. 3. Small right and moderate left pleural effusions with bilateral pulmonary opacities favoring atelectasis/scarring. Underlying pneumonia would be difficult to exclude. 4. Mediastinal and hilar lymphadenopathy redemonstrated, mildly improved compared to the 02/04/2023 study. 5. No acute fracture is seen. 6. Additional findings as above. ACT 112: Negative or not required by law. Electronically signed by: Roni Voss M.D. 01/23/2024 3:[address] 01/23/24 13:53 CT OF THE CERVICAL SPINE WITHOUT CONTRAST CLINICAL HISTORY: trauma COMPARISON STUDY: Cervical spine CT December 13, 2020. CTA of the neck December 12, 2020. TECHNIQUE: Helical axial images of the cervical spine were obtained without IV contrast. Sagittal and coronal reconstructions were viewed. Automated exposure control was utilized for the study. A dose lowering technique was utilized adhering to the principles of ALARA. FINDINGS: Alignment of the cervical spine is anatomic. Vertebral body heights are maintained. No acute cervical spine fracture or subluxation is present. There is no prevertebral edema. Facet joints are intact. This exam is mildly compromised by artifact. Moderate multilevel degenerative disc disease and facet arthrosis is present. The central canal and neural foramen are suboptimally assessed given CT technique. IMPRESSION: 1. No acute cervical spine fracture or subluxation. Exam mildly compromised by motion artifact. 2. Moderate multilevel degenerative changes within the cervical spine. ACT 112: Negative or not required by law. Electronically signed by: Lico Morales M.D. 01/23/2024 3:[address] 01/23/24 13:53 CT OF THE HEAD WITHOUT CONTRAST CLINICAL HISTORY: trauma COMPARISON STUDY: MRI of the brain March 15, 2023. Head CT February 04, 2023. TECHNIQUE: Helical axial images of the head were obtained without IV contrast. Automated exposure control was utilized for the study. A dose lowering technique was utilized adhering to the principles of ALARA. FINDINGS: This exam is moderately compromised by motion artifact. No acute int racranial hemorrhage, midline shift or mass effect is present. The ventricular system is stable. The basal cisterns are patent. No extra axial collections are present. A right posterior scalp contusion is present. There are no calvarial fractures. There is moderate mucosal thickening of the maxillary sinuses with secretions and air-fluid level within the left maxillary sinus. There is moderate ethmoid sinus mucosal thickening as well as mucosal thickening of the sphenoid sinuses. IMPRESSION: 1. No acute intracranial findings. Exam moderately compromised by motion artifact. 2. Right posterior scalp contusion. No calvarial fractures. 3. Sinus opacification, as above. ACT 112: Negative or not required by law. Electronically signed by: Lico Morales M.D. 01/23/2024 2:57 PM Chest X-Ray 01/30/24 07:00 XR chest 2V PA/lateral HISTORY: 73 years-old Male EXACT TIME ORDERED Evaluate for pneumothorax and l status post placement of a dual-lead left subclavian pacer COMPARISON: Chest CT 01/23/2024 TECHNIQUE: PA and lateral views of the chest FINDINGS: Cardiac silhouette is enlarged. Dual lead left subclavian pacer. Pulmonary vascular congestion with interstitial coarsening. Small pleural effusions with mild bibasilar and linear right midlung consolidation. Bones appear grossly intact. IMPRESSION: 1. Status post placement of a left subclavian pacer. No postprocedural pneumothorax. 2. Cardiomegaly with interstitial pulmonary edema. 3. Layering pleural effusions with bibasilar and right midlung consolidation again noted favoring atelectasis/scarring. ACT 112: Negative or not required by law. The above report was generated using voice recognition software. It may contain grammatical, syntax or spelling errors. Electronically signed by: Roni Voss M.D. 01/30/2024 9:40 AM Thoracentesis/Paracentesis US 01/31/24 09:03 ULTRASOUND-GUIDED LEFT THORACENTESIS CLINICAL HISTORY: Left pleural effusion PROCEDURE: Procedure and risks were explained. Informed consent was obtained. A final timeout was completed. The left posterior thorax was prepped and draped in sterile fashion. 1% lidocaine was utilized for skin anesthesia. Utilizing ultrasound guidance, a 5 Ukrainian skater catheter was advanced into the left pleural effusion. Ultrasound images were obtained. 475 mL of cloudy gold- colored fluid was removed and sent to the lab. The catheter was removed and Band-Aid applied. The patient tolerated the procedure well. A chest x-ray will be obtained postprocedure and vital signs will be monitored on the floor. IMPRESSION: Left thoracentesis as above. Performed, dictated, and signed by Gabriel Candelario PA-C; to be co-signed by Dr. Bong Wolfe. Electronically signed by: Bong Wolfe M.D. 01/31/2024 4:42 PM Abdomen Ultrasound 01/31/24 12:39 US abdomen ltd ascites CLINICAL HISTORY: ascites TECHNIQUE: Real-time grayscale sonographic images of the abdomen were obtained. Comparison: None available at the time of this dictation. FINDINGS/IMPRESSION: Paracentesis was not performed as there is no free fluid to drain. ACT 112: Negative or not required by law. Electronically signed by: Bong Wolfe M.D. 01/31/2024 2:01 PM Chest X-Ray 01/31/24 14:21 XR chest 1V not portable CLINICAL HISTORY: s/p left thora TECHNIQUE: Single frontal radiograph of the chest was obtained. Comparison: Comparison is made to chest radiograph 01/30/2024 FINDINGS: An implanted pacemaker is seen. The cardiomediastinal silhouette is stable. Atelectasis is seen in the right lung. No evidence of pleural effusion or pneumothorax. IMPRESSION: No pneumothorax is seen status post thoracentesis. Previously noted left pleural effusion has essentially resolved. ACT 112: Negative or not required by law. Electronically signed by: Bong Wolfe M.D. 01/31/2024 2:41 PM Hospital Course (1) Complete heart block by electrocardiogram: (2) Dementia: (3) (HFpEF) heart failure with preserved ejection fraction: (4) Pleural effusion: (5) Elevated troponin: (6) Cirrhosis: (7) T2DM (type 2 diabetes mellitus): (8) Depression: Plan Complete Heart Block Patient in 3rd degree heart block prior to admission, concern that this may have precipitated falls. May be multifactorial possible memory issues/dementia, deconditioning, worsening bradycardia, junctional rhythm. Head lac stapled x 4 on 01/22. Will need removed after discharge around 02/01. Pacer placed 01/28, will need outpatient cardiology follow up. HFpEF HFpEF 60-65%. Asymptomatic pleural effusions likely in the setting of decreased contractility from heart block. 2 Step - 2L NC at rest, 3L with ambulation. Patient likely close to euvolemic will discharge on 40 mg PO Lasix daily. Pleural Effusion Patient with cough, sore throat, and SOB x 3 weeks. Found to have bilateral pleural effusions left > right. Initially treated with abx - since stopped. BCx NGTD x 48 hours. .Pulmonology evaluated patient on 01/30, recommended IR thoracentesis which drained approximately 475mL of fluid. Pleural fluid studies pending at time of discharge. Cirrhosis CT showing cirrhosis with ascites, abdominal varicosities and anasarca. Denies alcohol use. Hepatitis panel negative. LFTs with isolated elevation in alk phos - recommend repeat as outpatient and further workup for etiology. Ultrasound completed to assess for fluid to drain via paracentesis, but no significant volume appreciated. May need outpatient GI evaluation. Type 2 Diabetes Mellitus Patient on Lantus 40 units QAM and metformin at home. Significantly decreased insulin needs during this admission - episodes of hypoglycemia and minimal correction needed. HbA1c 4.9. Likely does not need this strict of blood sugar control and may be contributing to falls. Lantus decreased to 10 units at time of discharge. Reevaluate insulin need on an outpatient basis as diet is likely a contributing factor. Depression Chronic - has a history of SI. None noted during current hospitalization. Did decline psych eval. Continue home med Auvelity 45-105 mg Chronic stable diagnoses: Dementia - stable, baseline ADHD - has not had adderall filled since 02/2023, will need clarification outpatient HTN - continue amlodipine and lisinopril HLD - continue ASA and atorvastatin GERD - continue PPI Thyroid dysfunction - TSH of 5.879 during admission, prior history of ?hyperthyroid Total Time Total Time Spent Total Time Spent (In Minutes): . Discharge Plan Discharge Items Patient Disposition: Home - Self-Care Reason For Visit: PNA, HYPOXIA, FALL Discharge Diagnosis: hypervolemia, 3rd degree heart block Activity: Per Instructions section Non-emergency contact: Primary Care Provider Call non-emergency contact if: your symptoms worsen and your temperature is above 101.5 Follow-up/Referrals: Miguel Delgado MD [Physician] - (please schedule hospital follow up, pacer placed 01/28) Lillie Ramsay DO [Primary Care Provider] - (PLEASE CALL YOUR PRIMARY CARE PROVIDER TO SCHEDULE A HOSPITAL DISCHARGE FOLLOW-UP APPOINTMENT WITHIN 7-10 DAYS) Diet: Carb Consistent or DM2 and Low Sodium (2gm) Addtl Attending Provider Instructions: You were admitted to the hospital for hypervolemia (fluid overload) and 3rd degree heart block. You had a pacemaker placed during this admission and have recovered well form this procedure. You were also evaluated by a subsurface augmentee elint operator due to your need for oxygen, and the decision was made to perform a thoracentesis which drained some of the built up fluid on your lungs. You are being discharged with supplemental oxygen- at your follow up appointment with your PCP you can discuss whether you will continue to require this supplemental oxygen. You need to be evaluated by a gastroenterology for the new diagnosis of Cirrhosis. A discharge summary will be sent to your primary care physician to ensure continuity of care. Follow-up appointments: Make a follow-up appointment with your PCP within the next week. It is very important that you follow up with them shortly after discharge from the hospital. Keep all your follow-up appointments as already scheduled. If you cannot make an appointment, notify your provider. Medications: Your medication list has been reviewed and reconciled upon discharge to ensure accuracy and continuity of care. An updated list of all your medications is included with your hospital discharge paperwork. Please review this list closely, and make note of any changes. We sent a new medication called furosemide to your pharmacy. Take furosemide 40mg one tablet daily. While you were admitted to the hospital, you did not require as much insulin as you have in the past. I have adjusted your home insulin to be 10 units of glargine daily (decreased from 40 units). Please closely monitor your blood sugar and bring this information to your follow up appointment with your PCP. CALL 911 OR GO TO THE EMERGENCY DEPARTMENT if you experience any of the following: Sudden, severe abdominal pain or nausea/vomiting Severe chest pain, or chest pain that radiates (moves) to your jaw or arm Sudden, severe shortness of breath or difficulty breathing Thank you for allowing us to participate in your care. Pending Studies at Discharge: No Stand-Alone Forms: My [facility] Wire, Smoking Cessation Medications and DC Order Prescriptions: New furosemide 40 mg tablet 40 mg PO DAILY 30 Days Qty: 30 0RF Continued (DME) lancets [Accu-Chek Fastclix Lancet Drum] [facility] See Rx Instructions .ROUTE .MEDSUPPLY Rx Instructions: test 4 times daily (DME) insulin syringe-needle U-100 [BD Insulin Syringe Ultra-Fine] 0.5 mL 31 gauge x 5/16" syringe See Rx Instructions .ROUTE .MEDSUPPLY Qty: 10 Rx Instructions: use 5 needles daily (DME) Accu-Chek Guide test strips Strip See Rx Instructions .ROUTE .MEDSUPPLY Rx Instructions: test 1 times daily (DME) FreeStyle Marta 2 Sensor Kit See Rx Instructions .ROUTE .MEDSUPPLY Qty: 1 12RF Rx Instructions: Change q 14 days to momitor b,ood sugars as advised. Auvelity 45-105 mg tablet,IR,delayed rel,biphasic 1 tab PO UD Rx Instructions: 1 tab po qam. Never filled at pharmacy. thiamine HCl (vitamin B1) [Vitamin B-1] 100 mg Tablet 100 mg PO QAM Qty: 30 0RF lisinopril 10 mg tablet 10 mg PO DAILY Adderall XR 20 mg PO UD Rx Instructions: hasnt filled 20 mg since 2023/ 10 mg was written in feb 2023 but not filled per pharmacy polyethylene glycol 3350 [Miralax] 17 gram Powder In Packet 17 g PO DAILY Qty: 0 0RF Rx Instructions: otc unable to verify amlodipine [Norvasc] 5 mg Tablet 5 mg PO QAM Qty: 0 0RF pantoprazole 40 mg tablet,delayed release (DR/EC) 40 mg PO DAILY metformin 1,000 mg tablet 1,000 mg PO BID atorvastatin 40 mg tablet 40 mg PO HS Rx Instructions: Has not been taking his meds for over a month. aspirin 81 mg tablet,delayed release (DR/EC) 81 mg PO UD Rx Instructions: 81 mg po qam. hasnt filled in acouple months per pharmacy. Buying OTC? tamsulosin 0.4 mg capsule 0.4 mg PO UD Rx Instructions: 0.4 mg po hs. Not filled with pharmacy Changed insulin glargine [Basaglar KwikPen U-100 Insulin] 100 unit/mL (3 mL) insulin pen 10 unit SUBCUT QAM Qty: 0 0RF Held Ozempic 0.25 mg or 0.5 mg (2 mg/3 mL) pen injector 0.5 mg SUBCUT .WEEKLY Hold Instructions: Resume on 02/06/24. Hold until discussion with PCP at follow up, unsure if still taking Rx Instructions: every sunday Discharge Orders: Discharge Order (Routine); Ordered 02/01/24 Ordered By: Ashkan Taylor/Other Patient Handouts: Hypoglycemia (Low Blood Sugar) Admission Data Admit Date/Time: 01/23/24 17:53 Attending Provider: Zo Shukla Admit Provider: Willis Brown Primary Care Provider: Lillie Ramsay Other Providers: Willis Brown; Sanya Krause; Rafi Gil; [facility]; Monroe Gordon Other Interventions: Discharge Summary Assessment (RN) Last Done: 02/01/24 08:01 Supervising Physician Co-Signing Physician Notes Discharged held last night due to transportation. Early discharge in the morning. Not seen by me today. Resident Activity Tracking Resident Involvement: Resident Care Provided Care Provided: Adult Hospital Medicine
--- NOTE | 2024-01-31 22:17 | Hospitalist Progress Note ---
Date of Service January 31, 2024 Assessment & Plan (1) Complete heart block by electrocardiogram: (2) (HFpEF) heart failure with preserved ejection fraction: (3) Pleural effusion: (4) Cardiac pacemaker: (5) Pleural effusion, left: (6) Laceration of head: (7) CHI (closed head injury): (8) Fall: (9) Cirrhosis: (10) Dementia: Plan Fall - recurrent. Per cardio - sec to A-V dissociation/loss of chronotropic response. -will need devendra removed. 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 Mild LVH -on lasix 40mgs IV daily. No output recorded. Symptoms improved -transition lasix to PO in am -continue to monitor renal fx. (creatinine stable) Hypoxia - Improving. 2 step - needs 2L with rest and 3L with ambulation Small to moderate Pleural effusions- 93% on RA. Procal done on admission negative. -Effusion likely transudative. -considering O2 needs - pulmonary consulted. - sent to IR for thoracentesis. 450ml removed. Cirrhosis with ascites - chronic. no significant ascites for paracentesis. will need outpatient work up. Dementia - supportive care. HTN - amlodipine, lisinopril. Lovenox Admission and Anticipated Discharge Date Admission Date: January 23, 2024 Subjective Denied any concerns. no shortness of breath, no chest pain Physical Exam Physical Exam: Alert, awake, oriented to place and person. No resp distress. lungs clear. Regular rhythm. Results & Data Results & Data Vital Signs (Past 12 Hours) Vital Signs Temp Pulse Pulse Pulse Resp BP BP 01/31/24 19:29 36.6 C 84 18 137/66 01/31/24 15:49 36.3 C L 61 71 20 130/73 146/69 H 01/31/24 15:35 66 01/31/24 15:05 36.3 C L 71 20 130/73 01/31/24 11:34 36.3 C L 58 L 18 146/69 H Pulse Ox O2 Del Method O2 Flow Rate 01/31/24 19:29 94 Nasal Cannula 2 01/31/24 15:49 95 01/31/24 15:35 01/31/24 15:05 95 Nasal Cannula 2 01/31/24 11:34 97 Room Air (10) Dementia Dementia type: unspecified type Dementia severity: mild Dementia behavioral or psychological symptom: without behavioral, psychotic, or mood disturbance or anxiety Qualified Code(s): F03.A0 - Unspecified dementia, mild, without behavioral disturbance, psychotic disturbance, mood disturbance, and anxiety
--- NOTE | 2024-01-31 22:27 | Communication Note ---
Date of Service: January 31, 2024 Attempted to call patient's primary contact. No answer. Called brother. Brother was supposed to pick and shovel worker patient and be discharged at 5 PM today. Ade walters's brother states that someone called him around 3 PM and told him that he would not be discharged until tomorrow. He then said he had gotten a another call about discharge at 5 PM. Stated that he wanted to wait to hear from Dr. Shukla before picking up his brother. States that he will not come in and pick and shovel worker his brother at this time. States that he will not come until he hears from Dr. Shukla that the patient can be discharged. Will remove discharge order and have patient stay overnight due to no transportation home.
[2024-02-01 03:03] VITALS: BP 123/64; PULSE 73; RESP 16; TEMP 97.9; O2SAT 90
--- NOTE | 2024-02-01 14:38 | Discharge Summary ---
Date of Service February 01, 2024 Admission HPI Per Admitting Provider Patient is a 73-year-old male with past history of AV dissociation, depression, type II DM, CVA 2020. he presents today after an unwitnessed fall in his bathroom. He has a laceration on the right back of his head. Patient does not remember the fall, he just remembers being in the shower earlier. He is a poor historian with underlying dementia. He does endorse dyspnea on exertion, dry cough, rhinorrhea, and sore throat for the past few weeks. He also endorses 1 episode of diarrhea 2 days ago. He stated that he has had bilateral LE edema for weeks to months. Patient denies fever, chills, headache, dizziness, lightheadedness, chest pain, abdominal pain, nausea, vomiting, constipation, dysuria, hematuria, numbness, tingling. Talked with patient's daughter on the phone, she stated that she lives with them at home. She heard him fall in the shower and found him wrapped up in the shower curtain with blood coming from the back of his head. She stated that he has fallen several times over the past few months, all unwitnessed but likely due to slipping in the bathroom. He has also followed up at a few times. She denies that they are syncopal episodes. She stated that he has had workups for the A-V block in the past, discussions of possible pacemaker, but never followed through. He does not follow with cardiology outpatient. He has had cough, rhinorrhea, sore throat, and dyspnea for the past few weeks. She works at the daycare and is around sick children daily, but she herself denies being sick recently. She is having a shower chair put in due to recent falls in the shower. Admission Exam Per Admitting Provider The patient is awake, alert and oriented 4, well developed and well nourished, in no acute distress. Non-toxic appearing. HEENT- EOMI, mucous membranes moist. Hearing grossly intact. Laceration to right posterior scalp contusion. Heart-normal S1 and S2. No murmurs, rubs or gallops. Lungs-decreased LLL, no respiratory distress, no accessory muscle use. Abdomen-normal bowel sounds and soft. Ascites noted. Non-tender. Extremities- no clubbing, cyanosis. +3 pitting edema BL LE. Rheumatologic-normal range of motion. Psychiatric-normal affect. Principal Diagnosis Complete Heart Block Discharge Exam Constitutional: age appropriate, no acute distress HEENT: NCAT, no conjunctival injection CV: clinically well perfused Resp: no increased work of breathing GI: nondistended MSK: no gross deformities appreciated Skin: [address] on R scalp - removed prior to discharge Neuro: alert, oriented, no focal neurologic deficit appreciated Discharge Data Allergies Allergy/AdvReac Type Severity Reaction Status Date / Time erythromycin base Allergy Intermediate Hives Verified 01/25/24 12:59 Penicillins Allergy Intermediate Hives Verified 01/25/24 12:59 Consultations 01/23/24 16:10 ED Decision to Admit Stat 01/23/24 21:24 Consult Cardiology Routine 01/31/24 08:46 Consult Pulmonology Routine Procedures Performed Operation Date: 01/29/24 08:00 Actual Procedures p Pacer with A/V Leads (Dual) - Miguel Delgado MD s Venogram, Unilateral - Miguel Delgado MD Ordered Studies 01/23/24 13:52 CT chest diagnostic w con Stat 01/23/24 13:53 CT abd pelvis IV con only Stat CT cervical spine wo con Stat CT head/brain wo con Stat 01/25/24 11:30 EP Lab Images for PACS ONCE 01/28/24 06:45 EP Lab Images for PACS ONCE 01/29/24 06:45 EP Lab Images for PACS ONCE 01/31/24 09:03 IR thoracentesis wo tube US Routine 01/31/24 12:39 US abdomen ltd ascites Routine Hospital Course (1) Complete heart block by electrocardiogram: (2) Dementia: (3) (HFpEF) heart failure with preserved ejection fraction: (4) Pleural effusion: (5) Elevated troponin: (6) Cirrhosis: (7) T2DM (type 2 diabetes mellitus): (8) Depression: Plan Complete Heart Block Patient in 3rd degree heart block prior to admission, concern that this may have precipitated falls. May be multifactorial possible memory issues/dementia, deconditioning, worsening bradycardia, junctional rhythm. Head lac stapled x 4 on 01/22. Will need removed after discharge around 02/01. Pacer placed 01/28, will need outpatient cardiology follow up. HFpEF HFpEF 60-65%. Asymptomatic pleural effusions likely in the setting of decreased contractility from heart block. 2 Step - 2L NC at rest, 3L with ambulation. Patient likely close to euvolemic will discharge on 40 mg PO Lasix daily. Pleural Effusion Patient with cough, sore throat, and SOB x 3 weeks. Found to have bilateral pleural effusions left > right. Initially treated with abx - since stopped. BCx NGTD x 48 hours. .Pulmonology evaluated patient on 01/30, recommended IR thoracentesis which drained approximately 475mL of fluid. Pleural fluid studies pending at time of discharge. Cirrhosis CT showing cirrhosis with ascites, abdominal varicosities and anasarca. Denies alcohol use. Hepatitis panel negative. LFTs with isolated elevation in alk phos - recommend repeat as outpatient and further workup for etiology. Ultrasound completed to assess for fluid to drain via paracentesis, but no significant volume appreciated. May need outpatient GI evaluation. Type 2 Diabetes Mellitus Patient on Lantus 40 units QAM and metformin at home. Significantly decreased insulin needs during this admission - episodes of hypoglycemia and minimal correction needed. HbA1c 4.9. Likely does not need this strict of blood sugar control and may be contributing to falls. Lantus decreased to 10 units at time of discharge. Reevaluate insulin need on an outpatient basis as diet is likely a contributing factor. Depression Chronic - has a history of SI. None noted during current hospitalization. Did decline psych eval. Continue home med Auvelity 45-105 mg Scalp laceration Sustained during fall that led to his hospitalization Repaired with 4 andrey - these were removed prior to discharge Chronic stable diagnoses: Dementia - stable, baseline ADHD - has not had adderall filled since 02/2023, will need clarification outpatient HTN - continue amlodipine and lisinopril HLD - continue ASA and atorvastatin GERD - continue PPI Thyroid dysfunction - TSH of 5.879 during admission, prior history of ?hyperthyroid Total Time Total Time Spent Total Time Spent (In Minutes): see attending documentation Discharge Plan Discharge Items Patient Disposition: Home - Self-Care Reason For Visit: PNA, HYPOXIA, FALL Discharge Diagnosis: hypervolemia, 3rd degree heart block Activity: Per Instructions section Non-emergency contact: Primary Care Provider Call non-emergency contact if: your symptoms worsen and your temperature is above 101.5 Follow-up/Referrals: Miguel Delgado MD [Physician] - (please schedule hospital follow up, pacer placed 01/28) Lillie Ramsay, DO [Primary Care Provider] - (PLEASE CALL YOUR PRIMARY CARE PROVIDER TO SCHEDULE A HOSPITAL DISCHARGE FOLLOW-UP APPOINTMENT WITHIN 7-10 DAYS) Diet: Carb Consistent or DM2 and Low Sodium (2gm) Addtl Attending Provider Instructions: You were admitted to the hospital for hypervolemia (fluid overload) and 3rd degree heart block. You had a pacemaker placed during this admission and have recovered well form this procedure. You were also evaluated by a garden machinery mechanic due to your need for oxygen, and the decision was made to perform a thoracentesis which drained some of the built up fluid on your lungs. You are being discharged with supplemental oxygen- at your follow up appointment with your PCP you can discuss whether you will continue to require this supplemental oxygen. You need to be evaluated by a gastroenterology for the new diagnosis of Cirrhosis. A discharge summary will be sent to your primary care physician to ensure continuity of care. Follow-up appointments: Make a follow-up appointment with your PCP within the next week. It is very important that you follow up with them shortly after discharge from the hospital. Keep all your follow-up appointments as already scheduled. If you cannot make an appointment, notify your provider. Medications: Your medication list has been reviewed and reconciled upon discharge to ensure accuracy and continuity of care. An updated list of all your medications is included with your hospital discharge paperwork. Please review this list closely, and make note of any changes. We sent a new medication called furosemide to your pharmacy. Take furosemide 40mg one tablet daily. While you were admitted to the hospital, you did not require as much insulin as you have in the past. I have adjusted your home insulin to be 10 units of glargine daily (decreased from 40 units). Please closely monitor your blood sugar and bring this information to your follow up appointment with your PCP. CALL 911 OR GO TO THE EMERGENCY DEPARTMENT if you experience any of the following: Sudden, severe abdominal pain or nausea/vomiting Severe chest pain, or chest pain that radiates (moves) to your jaw or arm Sudden, severe shortness of breath or difficulty breathing Thank you for allowing us to participate in your care. Pending Studies at Discharge: No Stand-Alone Forms: My [facility], Smoking Cessation Medications and DC Order Prescriptions: New furosemide 40 mg tablet 40 mg PO DAILY 30 Days Qty: 30 0RF Continued (DME) lancets [Accu-Chek Fastclix Lancet Drum] Misc See Rx Instructions .ROUTE .MEDSUPPLY Rx Instructions: test 4 times daily (DME) insulin syringe-needle U-100 [BD Insulin Syringe Ultra-Fine] 0.5 mL 31 gauge x 5/16" syringe See Rx Instructions .ROUTE .MEDSUPPLY Qty: 10 Rx Instructions: use 5 needles daily (DME) Accu-Chek Guide test strips Strip See Rx Instructions .ROUTE .MEDSUPPLY Rx Instructions: test 1 times daily (DME) FreeStyle Marta 2 Sensor Kit See Rx Instructions .ROUTE .MEDSUPPLY Qty: 1 12RF Rx Instructions: Change q 14 days to momitor b,ood sugars as advised. Auvelity 45-105 mg tablet,IR,delayed rel,biphasic 1 tab PO UD Rx Instructions: 1 tab po qam. Never filled at pharmacy. thiamine HCl (vitamin B1) [Vitamin B-1] 100 mg Tablet 100 mg PO QAM Qty: 30 0RF lisinopril 10 mg tablet 10 mg PO DAILY Adderall XR 20 mg PO UD Rx Instructions: hasnt filled 20 mg since 2022/ 10 mg was written in feb 2023 but not filled per pharmacy polyethylene glycol 3350 [Miralax] 17 gram Powder In Packet 17 g PO DAILY Qty: 0 0RF Rx Instructions: otc unable to verify amlodipine [Norvasc] 5 mg Tablet 5 mg PO QAM Qty: 0 0RF pantoprazole 40 mg tablet,delayed release (DR/EC) 40 mg PO DAILY metformin 1,000 mg tablet 1,000 mg PO BID atorvastatin 40 mg tablet 40 mg PO HS Rx Instructions: Has not been taking his meds for over a month. aspirin 81 mg tablet,delayed release (DR/EC) 81 mg PO UD Rx Instructions: 81 mg po qam. hasnt filled in acouple months per pharmacy. Buying OTC? tamsulosin 0.4 mg capsule 0.4 mg PO UD Rx Instructions: 0.4 mg po hs. Not filled with pharmacy Changed insulin glargine [Basaglar KwikPen U-100 Insulin] 100 unit/mL (3 mL) insulin pen 10 unit SUBCUT QAM Qty: 0 0RF Held Ozempic 0.25 mg or 0.5 mg (2 mg/3 mL) pen injector 0.5 mg SUBCUT .WEEKLY Hold Instructions: Resume on 02/06/24. Hold until discussion with PCP at follow up, unsure if still taking Rx Instructions: every sunday Discharge Orders: Discharge Order (Routine); Ordered 02/01/24 Ordered By: Ashkan Taylor/Other Patient Handouts: Hypoglycemia (Low Blood Sugar) Admission Data Admit Date/Time: 01/23/24 17:53 Attending Provider: Zo Shukla Admit Provider: Willis Brown Primary Care Provider: Lillie Ramsay Other Providers: Willis Brown; Sanya Krause; Rafi Gil; [facility]; Monroe Gordon Other Interventions: Discharge Summary Assessment (RN) Last Done: 02/01/24 08:01 Supervising Physician Co-Signing Physician Notes Not seen by me on the day of discharge. Addendum added for primary care communication. Fall - recurrent. Per cardio - sec to A-V dissociation/loss of chronotropic response. -Scalp laceration - Andrey removed 01/31. 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 Mild LVH -Received lasix 40mgs IV daily. No output recorded. Symptoms improved -transitioned lasix to PO on discharge. Rx sent. Hypoxia - Likely multifactorial. 2 step done on 01/30/2024- needed 2L with rest and 3L with ambulation. Home O2 arranged Small to moderate Pleural effusions- 93% on RA. Procal done on admission negative. -Consulted pulmonary - underwent IR directed thoracentesis - 450ml drained. -Fluid transudative. -Cell count with lymphocytic predominance. Primary care to please follow up on this. Cirrhosis with ascites - Will need GI evaluation for Cirrhosis work up and management as outpatient Dementia - supportive care provided. HTN - continued amlodipine, lisinopril. Resident Activity Tracking Resident Involvement: Resident Care Provided Care Provided: Adult Hospital Medicine
== END 2024-02-01 09:17 | disposition home health service (06) | DRG 242 ==
LOC: ED 12:49 → SUATTDRO 17:53 → 2N 17:53